=== PATIENT | female | born 1960 | race Caucasian/White ===

== ENCOUNTER 2019-11-22 06:35 | Outpatient (CLI) | payer BC, SELFPAY ==
--- NOTE | ~2019-11-22 | MR_ITS ---
EXAMINATION: MR cervical spine wo con EXAM DATE: 11/22/2019 07:49 INDICATION: Cervical radiculopathy. TECHNIQUE: Multi-sequential, multiplanar MR images of the cervical spine were obtained without contra st. Axial T2, axial T2 MERGE sequence. Sagittal T1, T2, T2 fat saturation images also obtained. Com parison is made to prior examination from 02/04/2007. FINDINGS: There is mild to moderate disc disease from C3 through C6. There is mild reversal of the n ormal cervical lordosis which may be positional or spasm. There are no suspicious marrow signal abno rmalities. The spinal cord signal intensity and intrinsic morphology is normal. The vertebral bodies are aligned in the AP dimension. Paraspinal soft tissue is unremarkable. Level by level evaluation: C2-C3: Disc does not extend beyond the endplate margin. Uncovertebral joint arthropathy: None. Facet joint arthropathy: Mild. Neural foraminal stenosis: No stenosis. Central canal stenosis: No stenosis. C3-C4: There is a minimal diffuse disc bulge. Uncovertebral joint arthropathy: Moderate right, mild left. Facet joint arthropathy: Mild. Neural foraminal stenosis: Mild right. Central canal stenosis: No stenosis. C4-C5: There is a minimal diffuse disc bulge. Uncovertebral joint arthropathy: Moderate right, mild left. Facet joint arthropathy: Mild bilateral. Neural foraminal stenosis: Mild right. Central canal stenosis: Minimal. C5-C6: There is a mild diffuse disc bulge. Uncovertebral joint arthropathy: Moderate bilateral. Facet joint arthropathy: Mild bilateral. Neural foraminal stenosis: Mild to moderate bilateral. Central canal stenosis: Minimal. C6-C7: Disc does not extend beyond the endplate margin. Uncovertebral joint arthropathy: Mild bilateral. Facet joint arthropathy: Mild bilateral. Neural foraminal stenosis: No stenosis. Central canal stenosis: No stenosis. C7-T1: Disc does not extend beyond the endplate margin. Uncovertebral joint arthropathy: None. Facet joint arthropathy: Mild bilateral. Neural foraminal stenosis: No stenosis. Central canal stenosis: No stenosis. Compared to 2006, there has been some interval progression in spondylosis. IMPRESSION: 1. Mild to moderate midcervical spondylosis. Reviewed, dictated and finalized at location A.
== END 2019-11-22 06:36 | disposition home or self-care (01) ==
LOC: ANHIMG 06:44
PROVIDERS: PCP Family Medicine; Visit Provider Psychiatry & Neurology Neurology
DX: M47.22 Other spondylosis with radiculopathy, cervical region (principal)
CPT/HCPCS: 72141

== ENCOUNTER 2019-11-28 08:10 | Outpatient (CLI) | payer BC, SELFPAY ==
--- NOTE | ~2019-11-28 | MM_ITS ---
EXAMINATION: MM screening kalpesh BI w hortensia HISTORY: Screening TECHNIQUE: Craniocaudal and mediolateral oblique 3-D tomosynthesis images were obtained and synthetic 2-D images were generated. CAD analysis was submitted and interpreted. COMPARISON: Comparison to multiple prior studies sequentially, with oldest reviewed study dated 06/2016. BREAST PARENCHYMAL COMPOSITION: There are scattered areas of fibroglandular density. FINDINGS: There is no evidence of suspicious mass, calcification, or architectural distortion to sugg est malignancy in either breast. There has been no suspicious interval change. IMPRESSION: 1. No mammographic evidence of malignancy. 2. Recommend routine screening mammography in one year. BI-RADS Category 1: Negative Reviewed, dictated and finalized at location A.
== END 2019-11-28 08:11 | disposition home or self-care (01) ==
LOC: ANHIMG 08:12
PROVIDERS: PCP Family Medicine; Visit Provider Family Medicine
DX: Z12.31 Encounter for screening mammogram for malignant neoplasm of breast (principal)
CPT/HCPCS: 77063; 77067

== ENCOUNTER 2020-01-07 01:01 | Outpatient (CLI) | payer BC, SELFPAY ==
[2020-01-07 18:37] LABS: SARS-CoV-2 RNA PCR Negative
== END 2020-01-07 01:02 | disposition home or self-care (01) ==
LOC: ANHCOVIDDT 01:01
PROVIDERS: PCP Family Medicine; Visit Provider Internal Medicine Gastroenterology
DX: Z01.812 Encounter for preprocedural laboratory examination (principal); Z20.828 Contact with and (suspected) exposure to other viral communicable diseases
CPT/HCPCS: 87635; C9803; U0003

== ENCOUNTER 2020-01-10 01:12 | Day surgery (SDC) | payer BC, SELFPAY ==
[2020-01-03 08:57] VITALS: BMI 26.4
[2020-01-10 09:18] VITALS: BP 137/71; PULSE 65; RESP 18; TEMP 36.1; O2SAT 100; BMI 27.9
--- NOTE | 2020-01-10 09:42 | WPDANESEPPF ---
Anes - Initial Pre Proc Eval Procedure: Operation Date: 01/10/20 10:45 Proposed Procedures p Esophagogastroduodenoscopy&Screen Colon - Wilmer Hernandez MD Date/Time: 01/10/20 09:42 Surgeon: Wilmer Hernandez MD Pre Op Diagnosis: Dyshphagia, Neoplasm Screening Patient Data Age: 60 Gender: F Height: 5 ft 4 in Weight: 73.9 kg Last Vital Signs Temp 97 F L 01/10/20 09:18 Pulse 65 01/10/20 09:18 Resp 18 01/10/20 09:18 BP 137/71 01/10/20 09:18 Pulse Ox 100 01/10/20 09:18 Allergies Allergy/AdvReac Type Severity Reaction Status Date / Time codeine Allergy Unknown Rash Verified 01/10/20 09:15 Penicillins Allergy Unknown Anaphylaxis Verified 01/10/20 09:15 Sulfa (Sulfonamide Allergy Unknown Anaphylaxis Verified 01/10/20 09:15 Antibiotics) Home Medications Medication Instructions Recorded Confirmed Type aspirin 325 mg tablet 325 mg PO DAILY 11/01/19 01/10/20 History azathioprine 50 mg tablet 100 mg PO BID tablet 11/01/19 01/10/20 History calcium carbonate 600 mg calcium 600 mg PO DAILY 11/01/19 01/10/20 History (1,500 mg) tablet cholecalciferol (vitamin D3) 25 25 mcg PO DAILY 11/01/19 01/10/20 History mcg (1,000 unit) capsule gabapentin 300 mg capsule 300 mg PO TID 11/01/19 01/10/20 History hydroxychloroquine 200 mg tablet 200 mg PO BID 11/01/19 01/10/20 History krill oil 350 mg-om-3 90 mg-dha 24 1 cap PO DAILY 11/01/19 01/10/20 History mg-epa 50 mg-phospholipids capsule lisinopril 10 mg tablet 10 mg PO DAILY 11/01/19 01/10/20 History mecobalamin (vitamin B12) 1,000 1,000 mcg PO DAILY 11/01/19 01/10/20 History mcg chewable tablet multivitamin 1 tablet PO DAILY 11/01/19 01/10/20 History nitroglycerin 0.4 mg sublingual 0.4 mg SUBLINGUAL Q5M PRN 11/01/19 01/10/20 History tablet trazodone 50 mg tablet 50 mg PO .QHS tablet 11/01/19 01/10/20 History atorvastatin 20 mg tablet 20 mg PO DAILY #90 tablet 11/17/19 01/10/20 Rx hydroxyzine HCl 25 mg tablet 25 mg PO TID PRN #30 tablet 11/17/19 01/10/20 Rx duloxetine 30 mg capsule,delayed 60 mg PO DAILY #60 cap 12/15/19 01/10/20 Rx release sprinkle peg 3350-electrolytes 236 240 ml PO Q10M #4000 ml 12/16/19 01/10/20 Rx gram-22.74 gram-6.74 gram-5.86 gram solution bisacodyl [Dulcolax (bisacodyl)] 5 mg PO DAILY 01/03/20 01/10/20 History melatonin 5 mg PO HS PRN 01/03/20 01/10/20 History Patient hx anesthesia problems: none Family hx anesthesia problems: none PMFSH Past Medical History Medical History (Updated 12/12/19 @ 09:59 by Wilmer Hernandez MD) Benign essential HTN Chronic pain Colon polyp Constipation Elevated liver enzymes Lupus (systemic lupus erythematosus) MDD (major depressive disorder) Seropositive rheumatoid arthritis Family History Family History (Updated 06/11/16 @ 11:30 by DOCTOR UNKNOWN) Mother Hypertension Family history of diabetes mellitus in first degree relative Other Diabetes mellitus Family history of cardiovascular disease Family history of malignant neoplasm Social History Social History (Updated 11/17/19 @ 10:48 by Sophie Lau) Smoking status: Never smoker Second hand tobacco smoke exposure: No Alcohol intake: never Substance use: never Substance use type: does not use Living arrangements: with family Gender identity (if verbalized by the patient): Female Spiritual care concerns: No Anes - Eval Final PreProcedure Day of Procedure 01/10/20 09:42 Patient weight: overweight Heart: regular rate and rhythm Lungs: clear to auscultation Airway: Mallampati scale class III Neurological: alert and oriented Last oral intake: >/= 8 hours ASA classification: III Emergent: no Anesthetic plan: proceed Anesthesia type and monitoring: general GIVS and standard monitoring Informed Consent: The patient's anesthetic plan and its attendant risks and benefits were discussed with the patient/family/POA. Questions were solicited and
--- NOTE | 2020-01-10 09:53 | WPDHPUPDATE1 ---
History and Physical Update Update Date/Time: 01/10/20 09:53 History and Physical has been reviewed, including an updated exam of the patient. There are NO changes in the patient's condition. Risks, benefits, and alternatives have been discussed and questions answered. Patient agrees to proceed with procedure.
[2020-01-10] MEDS: LACTATED RINGERS 1,000 ML 150 ML IV CONT (09:58)
[2020-01-10 10:33] VITALS: BP 97/47; PULSE 65; RESP 18; O2SAT 100
[2020-01-10 10:43] VITALS: BP 115/66; PULSE 60; RESP 12; O2SAT 100
[2020-01-10 10:53] VITALS: BP 129/66; PULSE 62; RESP 14; O2SAT 100
== END 2020-01-10 11:23 | disposition home or self-care (01) ==
PROVIDERS: PCP Family Medicine; Visit Provider Internal Medicine Gastroenterology
PROC: 0DJ08ZZ Inspection of Upper Intestinal Tract, Via Natural or Artificial Opening Endoscopic (ICD-10-PCS; CPT 43235; principal; 2020-01-10 10:45)
DX: Z12.11 Encounter for screening for malignant neoplasm of colon (principal); D12.2 Benign neoplasm of ascending colon; K29.50 Unspecified chronic gastritis without bleeding; K21.0 Gastro-esophageal reflux disease with esophagitis; K25.9 Gastric ulcer, unspecified as acute or chronic, without hemorrhage or perforation; K57.30 Diverticulosis of large intestine without perforation or abscess without bleeding; K44.9 Diaphragmatic hernia without obstruction or gangrene; K64.8 Other hemorrhoids; K59.00 Constipation, unspecified; M32.9 Systemic lupus erythematosus, unspecified; I10 Essential (primary) hypertension; M06.9 Rheumatoid arthritis, unspecified; M47.812 Spondylosis without myelopathy or radiculopathy, cervical region; R26.89 Other abnormalities of gait and mobility; G89.29 Other chronic pain; F32.9 Major depressive disorder, single episode, unspecified; Z88.0 Allergy status to penicillin; Z88.2 Allergy status to sulfonamides
CPT/HCPCS: 45385; 43239; 87081; 88305; J2704; J7120

== ENCOUNTER 2020-03-29 11:43 | Outpatient (CLI) | payer BC, SELFPAY ==
--- NOTE | ~2020-03-29 | XR_ITS ---
EXAMINATION: XR chest 2V DATE: 03/29/2020 12:01 INDICATION: Shortness of breath. TECHNIQUE: Frontal and lateral views of the chest were obtained. COMPARISON: Chest one view 06/01/2016 FINDINGS: There is mild scarring at the lung apices. No pleural effusion or pneumothorax. The heart s ize is normal. IMPRESSION: 1. Stable mild scarring at the lung apices. Reviewed, dictated and finalized at location B. D CARE COOK
== END 2020-03-29 11:44 | disposition home or self-care (01) ==
LOC: ANHIMG 11:48
PROVIDERS: PCP Family Medicine; Visit Provider Physician Assistant
DX: R06.02 Shortness of breath (principal); R91.8 Other nonspecific abnormal finding of lung field
CPT/HCPCS: 71046

== ENCOUNTER 2020-05-15 13:58 | Outpatient (CLI) | payer BC, SELFPAY ==
--- NOTE | ~2020-05-15 | US_ITS ---
EXAMINATION: US art doppler w deborah SERVIN DATE: 05/15/2020 14:41 INDICATION: Peripheral vascular disease with bilateral cold toes. TECHNIQUE: Segmental pressures and plethysmographic and Doppler waveforms of the brachial and lower e xtremity arteries were obtained. COMPARISON: None. FINDINGS: Right and left brachial artery pressures of 144 mm Hg and 140 mm Hg, respectively, are concordant (no rmal difference <= 30 mmHg). The right and left high-thigh pressure indices are 1.16 and 1.19, respec tively (normal > 1.2). The right ankle-brachial index (DUY) is 1.08 (normal >= 0.9-1). The right lower extremity segmental p ressure gradients are increased between the arteries at the right ankle and the right uxyat-fnh-hahs popliteal artery (normal gradients <= 20-30 mmHg between adjacent levels on the same leg or the same levels on the two legs). Arterial waveforms are biphasic with brisk systolic upstrokes throughout the arteries of the right lower limb. The left DUY is 0.97. The left lower extremity segmental pressure gradients are increased between the arteries at the left ankle and the left below the knee popliteal artery. Arterial waveforms are biph asic with brisk systolic upstrokes throughout the arteries of the left lower limb. IMPRESSION: 1. Normal DUY's bilaterally. No significant arterial occlusive disease. Reviewed, dictated and finalized at location B. RIBUTION CENTER MANAGER
== END 2020-05-15 13:59 | disposition home or self-care (01) ==
LOC: ANHIMG 13:59
PROVIDERS: Family Provider Family Medicine; PCP Family Medicine; Visit Provider Psychiatry & Neurology Neurology
DX: I73.9 Peripheral vascular disease, unspecified (principal)
CPT/HCPCS: 93923

== ENCOUNTER 2020-06-21 08:56 | Outpatient (CLI) | payer SELFPAY | END 2020-06-21 08:57 | disposition home or self-care (01) | LOC: ANHCOVIDVC 08:56 | PROVIDERS: PCP Family Medicine | DX: Z23 Encounter for immunization (principal) | CPT/HCPCS: 0001A; 91300 ==

== ENCOUNTER 2020-07-12 08:56 | Outpatient (CLI) | payer OTHER, SELFPAY | END 2020-07-12 08:57 | disposition home or self-care (01) | LOC: ANHCOVIDVC 08:56 | PROVIDERS: PCP Family Medicine | DX: Z23 Encounter for immunization (principal) | CPT/HCPCS: 0002A; 91300 ==

== ENCOUNTER → 2020-09-10 15:24 | Outpatient (CLI) | payer BC, SELFPAY ==
--- NOTE | ~2020-09-10 | XR_ITS ---
XR ankle RT min 3V 09/10/2020 15:40 Indication: Right ankle pain Procedure: 4 views right ankle Comparison: 05/31/2016 Findings: There is a healed distal tibial fracture. There is a corticated ossific density at the medi al malleolus, likely related to remote trauma or unfused apophysis. No acute fracture or traumatic ma lalignment. Ankle mortise intact. No significant soft tissue abnormality. No foreign bodies. Impression: 1: No acute bone or joint abnormality. Reviewed, dictated and finalized at location A. Impression: 1: No acute bone or joint abnormality.
== END ==
PROVIDERS: Visit Provider Family Medicine
DX: S99.911A Unspecified injury of right ankle, initial encounter (principal)
CPT/HCPCS: 73610

== ENCOUNTER 2020-12-17 15:20 | Outpatient (CLI) | payer OTHER, SELFPAY ==
[2020-12-17 15:41] LABS: Basophils Absolute Auto 0.1 K/mm3 (0.0-0.1); Basophils Percent Auto 0.6 % (0.2-1.2); Eosinophils Absolute Auto 0.4 K/mm3 (0-0.3); Eosinophils Percent Auto 4.2 % (0-4.4); Hematocrit 42.5 % (37.0-47.0); Hemoglobin 14.3 g/dL (12.0-15.0); Immature Granulocyte Absolute 0.03 K/mm3 (0.00-0.031); Immature Granulocyte Percent A 0.3 % (0-0.5); Lymphocytes Absolute Auto 0.98 K/mm3 (0.9-3.2); Lymphocytes Percent Auto 10.8 % (18.3-44.2); Mean Corpuscular HGB Conc 33.6 g/dl (32-36); Mean Corpuscular Hemoglobin 29.1 pg (26-34); Mean Corpuscular Volume 86.6 fl (80-100); Mean Platelet Volume 12.1 fl (7.4-10.4); Monocytes Absolute Auto 0.7 K/mm3 (0.1-0.6); Monocytes Percent Auto 8.1 % (2.6-8.5); Neutrophils Absolute Auto 6.9 K/mm3 (1.3-6.7); Platelet Count Result 258 k/mm3 (150-375); Red Blood Count 4.91 M/mm3 (4.2-5.4); Red Cell Distribution Width 12.1 % (11.5-14.5); White Blood Count 9.1 K/mm3 (4.5-10.0)
[2020-12-17 15:51] LABS: Alanine Aminotransferase 22 U/L (4-35); Albumin Level 4.4 g/dL (3.5-5.1); Alkaline Phosphatase 161 U/L (38-126); Anion Gap 9 mmol/L (8-16); Aspartate Amino Transferase 34 U/L (14-36); Bilirubin,Total 0.6 mg/dL (0.2-1.3); Blood Urea Nitrogen 20 mg/dL (7-17); Calcium 9.1 mg/dL (8.4-10.2); Carbon Dioxide 31 mmol/L (22-30); Chloride 97 mmol/L (98-107); Estimated Glomerular Filt Rate > 60; Glucose 97 mg/dL (65-110); Potassium 3.1 mmol/L (3.4-5.0); Sodium 137 mmol/L (137-145)
[2020-12-17 16:39] LABS: Erythrocyte Sedimentation Rate 40 mm/hr (0-20)
== END 2020-12-17 15:21 | disposition home or self-care (01) ==
PROVIDERS: PCP Family Medicine; Visit Provider Physician Assistant
DX: R10.11 Right upper quadrant pain (principal); R68.83 Chills (without fever)
CPT/HCPCS: 36415; 80053; 85025; 85652

== ENCOUNTER 2020-12-18 12:38 | Outpatient (CLI) | payer BC, OTHER, SELFPAY ==
--- NOTE | ~2020-12-18 | US_ITS ---
EXAMINATION: US abdomen complete EXAM DATE: 12/18/2020 13:18 INDICATION: R10.11 - Right upper quadrant pain. TECHNIQUE: Multiple grayscale and Doppler images of the complete abdomen were obtained (by a technolo gist who performed the scan) and subsequently reviewed. Comparison is made to prior examination from 06/02/2016. FINDINGS: The abdominal aorta is normal in caliber. Visualized portion IVC is patent. The pancreatic head a nd body are normal in appearance. The pancreatic tail is not visualized. The liver has normal echogenicity and contour. There are no focal liver lesions identified. There is no evidence of intrahepatic biliary duct dilation. Portal venous flow was seen in the hepatopedal , normal direction and has normal Doppler waveform. Common bile duct measures 3 mm, which is normal. The gallbladder wall is normal in thickness, with ex pected amount of distention. No sonographic evidence of pericholecystic fluid. There is no cholelit hiases. Technologist performing exam reports patient did not demonstrate sonographic Pulido's sign. Please note that this sign is less reliable in patients who have received pain medication. Right kidney: There is normal contour and echogenicity. It measures 10.2 x 4.6 x 4.8 centimeters. There are no focal renal lesions identified. There is no hydronephrosis. Left kidney: There is normal contour and echogenicity. It measures 10.5 x 4.4 x 5.2 centimeters. T here are no focal renal lesions identified. There is no hydronephrosis. The spleen measures 10 centimeters and is morphologically normal. IMPRESSION: 1. Unremarkable complete abdominal ultrasound exam. Reviewed, dictated and finalized at location B.
== END 2020-12-18 12:39 | disposition home or self-care (01) ==
PROVIDERS: PCP Family Medicine; Visit Provider Physician Assistant
DX: R10.11 Right upper quadrant pain (principal); R68.83 Chills (without fever)
CPT/HCPCS: 76700

== ENCOUNTER 2021-01-09 15:09 | Outpatient (CLI) | payer OTHER, BC, SELFPAY ==
--- NOTE | ~2021-01-09 | XR_ITS ---
EXAMINATION: XR chest 2V EXAM DATE: 01/09/2021 15:36 INDICATION: R05 - Cough X 2 WKS, Midsternal Cp, Hx Htn . TECHNIQUE: Frontal and lateral projections of the chest obtained and reviewed. Comparison is made to prior examination from 03/29/2020. FINDINGS: The lungs are clear. There are no pleural effusions. The cardiomediastinal silhouette is within normal limits. There is no pneumothorax suspected. Surgical changes right acromioclavicular joint. IMPRESSION: Unremarkable chest x-ray exam. Reviewed, dictated and finalized at location B.
== END 2021-01-09 15:10 | disposition home or self-care (01) ==
LOC: ANHIMG 15:15
PROVIDERS: PCP Family Medicine; Visit Provider Physician Assistant
DX: R05 Cough (principal)
CPT/HCPCS: 71046

== ENCOUNTER 2021-01-14 07:55 | Outpatient (CLI) | payer OTHER, SELFPAY ==
--- NOTE | ~2021-01-14 | NM_ITS ---
EXAMINATION: NM hepatobiliary wo pharm DATE: 01/14/2021 11:51 INDICATION: Right upper quadrant abdominal pain COMPARISON: None. TECHNIQUE: 4.8 mCi Tc-99m mebrofenin (Choletec) was administered intravenously. Scintigraphic images of the abdomen were obtained for one hour and 15 minutes. At the 1 hour and 15 minute time point, th e patient drank 8 oz Ensure, and imaging was continued for 60 minutes. Gallbladder ejection fraction was calculated by the technologist. FINDINGS: There is normal clearance of radiotracer from the blood pool. There is homogeneous tracer u ptake by the liver. Activity progresses to the bowel and gallbladder. The gallbladder ejection fract ion (GBEF) is 95%. Note that with this technique, normal GBEF >= 33%. IMPRESSION: 1. Normal hepatobiliary scan Reviewed, dictated and finalized at location A.
== END 2021-01-14 07:56 | disposition home or self-care (01) ==
PROVIDERS: PCP Family Medicine; Visit Provider Physician Assistant
DX: R10.11 Right upper quadrant pain (principal)
CPT/HCPCS: 78226; A9537

== ENCOUNTER 2021-02-01 10:29 | Outpatient (CLI) | payer OTHER, SELFPAY ==
[2021-02-01 10:55] LABS: Basophils Percent Auto 0.3 % (0.2-1.2); Eosinophils Absolute Auto 0.3 K/mm3 (0-0.3); Eosinophils Percent Auto 3.8 % (0-4.4); Hematocrit 38.3 % (37.0-47.0); Hemoglobin 12.8 g/dL (12.0-15.0); Immature Granulocyte Absolute 0.04 K/mm3 (0.00-0.031); Immature Granulocyte Percent A 0.5 % (0-0.5); Lymphocytes Absolute Auto 0.57 K/mm3 (0.9-3.2); Lymphocytes Percent Auto 7.8 % (18.3-44.2); Mean Corpuscular HGB Conc 33.4 g/dl (32-36); Mean Corpuscular Hemoglobin 29.5 pg (26-34); Mean Corpuscular Volume 88.2 fl (80-100); Mean Platelet Volume 10.5 fl (7.4-10.4); Monocytes Absolute Auto 0.5 K/mm3 (0.1-0.6); Monocytes Percent Auto 6.6 % (2.6-8.5); Neutrophils Absolute Auto 5.9 K/mm3 (1.3-6.7); Platelet Count Result 168 k/mm3 (150-375); Red Blood Count 4.34 M/mm3 (4.2-5.4); Red Cell Distribution Width 15.1 % (11.5-14.5); White Blood Count 7.3 K/mm3 (4.5-10.0)
== END 2021-02-01 10:30 | disposition home or self-care (01) ==
PROVIDERS: PCP Family Medicine; Visit Provider Physician Assistant
DX: D72.829 Elevated white blood cell count, unspecified (principal); D72.810 Lymphocytopenia
CPT/HCPCS: 36415; 85025

== ENCOUNTER 2021-02-28 15:56 | Outpatient (CLI) | payer OTHER, SELFPAY ==
--- NOTE | ~2021-02-28 | XR_ITS ---
XR shoulder LT min 2V 02/28/2021 16:23 Indication: Left shoulder pain Procedure: 5 views left shoulder Comparison: No prior studies for comparison. Findings: No fracture, subluxation or dislocation. No significant soft tissue abnormality. No foreign bodies. There is anatomic alignment. Visualized lung parenchyma is unremarkable. Impression: 1: No significant bone or joint abnormality. Reviewed, dictated and finalized at location A. CREAM SERVER Impression: 1: No significant bone or joint abnormality.
== END 2021-02-28 15:57 | disposition home or self-care (01) ==
LOC: ANHIMG 16:01
PROVIDERS: PCP Family Medicine; Visit Provider Family Medicine
DX: M79.89 Other specified soft tissue disorders (principal)
CPT/HCPCS: 73030

== ENCOUNTER → 2021-03-26 07:28 | Outpatient (CLI) | payer OTHER, SELFPAY ==
--- NOTE | ~2021-03-26 | MR_ITS ---
EXAMINATION: MR shoulder LT wo con DATE: 03/26/2021 08:07 INDICATION: Left shoulder pain and limited range of motion. TECHNIQUE: Magnetic resonance imaging (MRI) of the affected shoulder was performed without intravenou s contrast. Sequences included axial PD-weighted FS FSE, coronal oblique PD-weighted FS FSE, coronal oblique T2-weighted FS FSE, sagittal PD-weighted FS FSE, and sagittal T1-weighted SE. COMPARISON: None. FINDINGS: Coracoacromial arch: The acromion undersurface is minimally curved in morphology (type I-II) with small inferiorly directe d osteophyte along the lateral rim of the acromion. The coracoacromial ligament is normal. Mild acrom ioclavicular osteoarthritis without significant osteophytosis. Rotator cuff: Moderate supraspinatus and infraspinatus tendinopathy. There is a deep articular sided tear involving the majority of the thickness of the anterior supraspinatus tendon along its superior facet footplat e which measures 7 mm AP. Could not exclude an associated tiny full-thickness perforation. The teres minor tendon is normal. Mild subscapularis tendinopathy without discrete tear. Normal rotator cuff mu scle bulk and signal. Biceps tendon, glenoid labrum and glenohumeral cartilage: Long head of the biceps tendon is normal. There is a superior, anterior to posterior tear of the silva oid labrum (SLAP tear) 16 from the 12:00-10:00 position. Partial-thickness cartilage loss with smooth chondral surface along the posterior glenoid. Fluid: Physiologic amount of fluid in the glenohumeral joint and biceps tendon sheath. No loose osteochondra l bodies. Large amount of fluid and mild synovitis in the subacromial/subdeltoid bursa consistent wit h bursitis. Within the subacromial bursa there is a globular region of relatively low signal intensit y measuring 2 cm medial to lateral and 11 x 6 mm maximal orthogonal dimensions situated between the c oracoacromial ligament and the bursal side of the supraspinatus tendon. It is unclear whether this re presents a reflected torn portion of the supraspinatus tendon, globular synovitis or potentially smal l amount of clot. Bones: Small bone island at the left humeral neck. Otherwise normal marrow signal with no edema, fracture or abnormal marrow replacing process. IMPRESSION: 1. Moderate supraspinatus and infraspinatus tendinopathy with small, severe, full or near full-thickn ess bursal sided tear at the distal insertion of the supraspinatus tendon. 2. Mild glenohumeral osteoarthritis with SLAP tear at the 10:00-12:00 position of the posterior super ior glenoid labrum. 3. Prominent subacromial/subdeltoid bursitis. Reviewed, dictated and finalized at location B. CTOR OF MANAGED CARE IMPRESSION: 1. Moderate supraspinatus and infraspinatus tendinopathy with small, severe, fu ll or near full-thickness bursal sided tear at the distal insertion of the supr aspinatus tendon. 2. Mild glenohumeral osteoarthritis with SLAP tear at the 10:00-12:00 position of the posterior superior glenoid labrum. 3. Prominent subacromial/subdeltoid bursitis.
== END ==
PROVIDERS: PCP Family Medicine; Visit Provider Nurse Practitioner Family
DX: M19.012 Primary osteoarthritis, left shoulder (principal); M75.52 Bursitis of left shoulder
CPT/HCPCS: 73221

== ENCOUNTER 2021-05-28 08:57 | Outpatient (CLI) | payer OTHER, SELFPAY ==
--- NOTE | 2021-05-28 09:05 | ECG_ITS ---
Measurements Intervals [place] Rate: 75 P: 12 IA: 171 QRS: 25 QRSD: 80 T: 41 QT: 390 QTc: 437 Interpretive Statements SINUS RHYTHM INCOMPLETE RIGHT BUNDLE BRANCH BLOCK POOR R WAVE PROGRESSION, ANTERIOR LEADS T WAVE ABNORMALITY IN ANTERIOR LEADS- CONSIDER ISCHEMIA BASELINE ARTIFACT- I, II, III, AVR, AVL, AVF ABNORMAL ECG Electronically Signed On 05-28-2021 9:17:54 DISPLAY DEPARTMENT MANAGER by Patrice Monzon D.O.
== END 2021-05-28 08:58 | disposition home or self-care (01) ==
LOC: ANHSURGERY 09:02
PROVIDERS: PCP Family Medicine; Visit Provider Orthopaedic Surgery
DX: I10 Essential (primary) hypertension (principal); Z01.818 Encounter for other preprocedural examination; I45.10 Unspecified right bundle-branch block
CPT/HCPCS: 93005

== ENCOUNTER 2021-05-30 00:08 | Day surgery (SDC) | payer OTHER, SELFPAY ==
[2021-05-23 10:26] VITALS: BMI 29.2
--- NOTE | 2021-05-23 10:45 | PC.NURSE ---
Report to the Outpatient Waiting Room, entrance under the green pavilion located off [facility], at time 6:30 on date 05/30/21. OR Time: 8:30. - You will be asked a series of questions to screen for COVID 19 for your protection. - A mask is required within the hospital. - No visitors are allowed at this time. Preoperative COVID Testing Requirements: No COVID Test needed if: (proof is required; if not received patient will have Rapid Test prior to entry) - Patient has received COVID Vaccine at least 14 days prior to procedure date or - Patient has positive COVID test result within last 90 days of surgery date. COVID Test needed if above criteria is not met Patients may have clear liquids (water, carbonated beverages, clear teas, apple juice) until 3 hours prior to surgery (5:30) with a maximum of 20 ounces. - No food from midnight until time of surgery Take the following medications with a SIP of water the morning of surgery: ALBUTEROL (IF NEEDED), DULOXETINE, GABAPENTIN, LEFLUNOMIDE, TRAMADOL (IF NEEDED) Medications to discontinue per physician: VITAMINS/SUPPLEMENTS Date to take last dose: 05/26/21 Please no make-up, nail uruguayan, hairspray, perfume, deodorant, or body powder the day of surgery. No jewelry (including any body piercings) or valuables the day of surgery, leave them at home. Please take a shower or bath the night before, or the morning of, surgery with an antibacterial soap. Wear comfortable, loose fitting clothing. - Jewelry must be removed prior to entering the operating room. Rings and piercings that are not removed may be cut off. - The hospital will not accept responsibility for valuables. - Please leave all valuables, including medications, at home the day of surgery. If you are going home after surgery, a licensed interstate bus driver must drive you home. - NO public transportation without another adult. - We recommend that an adult stay with you for 24 hours following discharge. - We also recommend that you do not drive, make important decision, drink alcoholic beverages, or take any drugs that were not prescribed by your health care provider for at least 24 hours after your discharge time. Follow any additional instructions given to you from your surgeon. Telephone instructions given to MELVI HUNTER and asked if any additional questions and then verbalized understanding. Patient advised to call surgeon office or pre surgery nurse liaison [phone] if any additional questions.
[2021-05-30] VITALS (9 sets, daily range): BP systolic 135–181; BP diastolic 73–90; PULSE 76–94; RESP 14–16; TEMP 36.5–36.6; O2SAT 93–98
--- NOTE | 2021-05-30 07:03 | WPDANESEPPF ---
Anes - Initial Pre Proc Eval Procedure: Operation Date: 05/30/21 08:30 Proposed Procedures p Left Shoulder Arthroscopy with Debridement, Rotator Cuff and Biceps Repair, Possible Open Repair - Madhu Tran MD Date/Time: 05/30/21 07:03 Surgeon: Madhu Tran MD Pre Op Diagnosis: Lt Rot Cuff Tear, Lt Shoulder Pain Patient Data Age: 61 Gender: F Height: 1.63 m Weight: 77.11 kg Allergies Allergy/AdvReac Type Severity Reaction Status Date / Time Penicillins Allergy Severe Anaphylaxis Verified 05/30/21 07:06 Sulfa (Sulfonamide Allergy Severe Anaphylaxis Verified 05/30/21 07:06 Antibiotics) codeine Allergy Intermediate Rash Verified 05/30/21 07:06 Home Medications Medication Instructions Recorded Confirmed Type aspirin 325 mg tablet 325 mg PO DAILY 11/01/19 05/30/21 History calcium carbonate 600 mg calcium 600 mg PO DAILY 11/01/19 05/30/21 History (1,500 mg) tablet cholecalciferol (vitamin D3) 25 25 mcg PO DAILY 11/01/19 05/30/21 History mcg (1,000 unit) capsule krill oil 350 mg-om-3 90 mg-dha 24 1 cap PO DAILY 11/01/19 05/30/21 History mg-epa 50 mg-phospholipids capsule mecobalamin (vitamin B12) 1,000 1,000 mcg PO DAILY 11/01/19 05/30/21 History mcg chewable tablet multivitamin 1 tablet PO DAILY 11/01/19 05/30/21 History nitroglycerin 0.4 mg sublingual 0.4 mg SUBLINGUAL Q5M PRN 11/01/19 05/30/21 History tablet melatonin 5 mg PO HS PRN 01/03/20 05/30/21 History rizatriptan 10 mg tablet 10 mg PO .qd PRN #14 tablet 05/24/20 05/30/21 Rx hydroxychloroquine 200 mg tablet 200 mg PO BID 12/17/20 05/30/21 History leflunomide 20 mg tablet 20 mg PO DAILY 12/17/20 05/30/21 History albuterol sulfate 90 mcg/actuation 1 inh INHALATION Q4H PRN #8.5 g 01/09/21 05/30/21 Rx aerosol inhaler Zyrtec 10 mg tablet 10 mg PO DAILY #90 tablet NS 01/10/21 05/30/21 Rx atorvastatin 20 mg tablet See Rx Instructions .ROUTE 03/16/21 05/30/21 Rx .COMPLEX #90 tablet losartan 50 mg tablet 50 mg PO DAILY #90 tablet 03/19/21 05/30/21 Rx duloxetine 30 mg capsule,delayed 60 mg PO DAILY #60 cap 04/22/21 05/30/21 Rx release sprinkle gabapentin 300 mg capsule 300 mg PO TID #90 cap 04/22/21 05/30/21 Rx diclofenac sodium 25 mg PO BID PRN 05/23/21 05/30/21 History omeprazole 20 mg PO BID PRN 05/23/21 05/30/21 History quetiapine 25 mg tablet See Rx Instructions .ROUTE 05/27/21 05/30/21 Rx .COMPLEX #30 tablet tramadol 50 mg tablet 50 mg PO Q6H PRN #60 tablet 05/27/21 05/30/21 Rx Patient hx anesthesia problems: none Family hx anesthesia problems: none Results Review: All pre-operative results and documents have been reviewed as part of the pre-operative evaluation. [facility] Past Medical History Medical History (Updated 05/30/21 @ 07:07 by Johan Yun, ) KRISTINA-inhibitor cough Acute bronchitis Benign essential HTN Aris-tachy syndrome Chronic pain Colon polyp Constipation Cough Elevated liver enzymes History of heart attack Insomnia due to medical condition Labral tear of long head of left biceps tendon Left shoulder pain Lupus (systemic lupus erythematosus) MDD (major depressive disorder) MDD (major depressive disorder), recurrent episode, moderate Raynaud phenomenon Restless leg syndrome Rheumatoid arthritis Rotator cuff tear RUQ abdominal pain Seizure Seropositive rheumatoid arthritis Shoulder swelling Subacromial impingement of left shoulder Family History Family History Mother Hypertension Family history of diabetes mellitus in first degree relative Other Diabetes mellitus Family history of cardiovascular disease Family history of malignant neoplasm Social History Social History Social History: Second hand tobacco smoke exposure: No Alcohol intake: never Substance use: never Substance use type: does not use Living arrangements: with family Additiona
--- NOTE | 2021-05-30 07:14 | WPDANESPNB ---
Anes - Peripheral Nerve Block Date/Time: 05/30/21 07:14 I have discussed with the patient/family/POA the placement of a peripheral nerve block for post-operative pain management, including associated risks, benefits, complications, and side effects. Alternative methods of post-operative analgesia were detailed. Questions were solicited and answers provided to the satisfaction of the patient/family/POA. Time-Out: A pre-procedural Time-Out was completed immediately before starting the procedure and confirmed: Patient Identification, Site, Procedure, Patient Position and the Availability of Requisite Equipment. Clinical Indications: Acute post-operative pain management requested by the operative surgeon. Nerve Block Insertion Note Anes-nerve block: interscalene left Patient position: supine Skin prep: chlorhexidine Needle: 22 gauge, stimulating, insulated echogenic needle. Needle length: 50 mm Technique: ultrasound Injectate: bupivacaine 0.5% with epi 5 mcg/ml (30cc- no epi) Observations: tolerated well Complications: none Procedure start time:: 756 Procedure end time:: 800
--- NOTE | 2021-05-30 07:14 | WPDHPUPDATE1 ---
History and Physical Update Update Date/Time: 05/30/21 07:14 History and Physical has been reviewed, including an updated exam of the patient. There are NO changes in the patient's condition. Risks, benefits, and alternatives have been discussed and questions answered. Patient agrees to proceed with procedure.
[2021-05-30] MEDS: ACETAMINOPHEN 500 MG TABLET 1000 MG PO (07:19)
[2021-05-30] MEDS: LACTATED RINGERS 1,000 ML 30 ML IV CONT ×2 (07:25→10:31)
[2021-05-30] MEDS: KETOROLAC 15 MG/ML VIAL (*BKC) IV PUSH (07:27)
[2021-05-30] MEDS: ceFAZolin 2 GM/D5W 50 ML 2 GM/50 ML BAG IVPB (08:32)
[2021-05-30] MEDS: BUPIVACAINE/EPINEPHRINE 0.5% 30 ML VIAL INFILTRATE (09:25)
--- NOTE | 2021-05-30 10:40 | W.PM.PROC2 ---
Procedure Note - Detailed Date of Procedure 05/30/21 Pre-op Diagnosis Lt Rot Cuff Tear, Lt Shoulder Pain Post-op Diagnosis other (Left shoulder impingement with subacromial spur, shoulder degeneration, biceps tendon and labrum tear.) Procedure Performed Left shoulder arthroscopy with debridement, acromioplasty, open biceps tenodesis. 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 MRI demonstrates degenerative changes as well as subacromial impingement tear of the biceps and labrum. Patient has failed conservative treatment including physical therapy, home exercises, activity modification and injection. Presents for operative treatment. Findings Intact articular surface rotator cuff. Degenerative change with split tear of the biceps tendon. Complete labral tear from the 11 to 2 o'clock position with hypertrophy. Large subacromial spur with subacromial bursitis and cyst. Description of Procedure Patient identified in the preoperative holding. Informed consent given. Operative extremity marked. Patient received intravenous antibiotics. Patient brought to the operating room where underwent general anesthetic by anesthesia team. Positioned beach chair with careful securing of the head and neck. Padding of the pressure and bony surfaces ensured. Time-out performed confirming the patient, site of the surgery and the plan. Left shoulder prepped and draped usual sterile surgical fashion using a ChloraPrep skin solution. Arthroscopy performed 1st. Spinal needle placed from the posterior position into the glenohumeral joint and saline injected. Eleven blade knife then used to make skin incision. Blunt penetration of the posterior capsule. Insertion of the camera and inflow from the posterior position. Shoulder was inspected in the above findings noted. The rotator cuff was noted to be intact. There was a tear of the labrum and the biceps. Grade 2 chondromalacia of the glenoid and grade 1 chondromalacia of the humeral head. Synovitis noted. Anterior portal established with a spinal needle followed by an 11 blade knife for the skin and blunt penetration of the anterior capsule. Arthroscopic Wand inserted and a debridement of the glenohumeral joint performed including the glenoid and humeral head. Articular sided rotator cuff bursitis. The biceps tendon was then released and debridement of the labrum performed back to a stable rim. Fluid was then suctioned out of the glenohumeral joint. Arthroscope was then position in the subacromial space. A direct lateral skin incision made with the 11 blade knife followed by blunt dissection. 4.0 mm shaver introduced and bursectomy of the subacromial space performed. Large undersurface spur of the acromion noted. The arthroscopic bur was then introduced and acromioplasty performed. This was completed with a shaver and the arthroscopic Wand. Scope then removed. Arthroscopic incisions closed with 3-0 Monocryl subcuticular stitch and Steri-Strips. Open biceps tenodesis then performed. Incision at the upper axilla with a 15 blade knife. Hemostasis controlled electrocautery. Dissection carried down to the pectoralis which was retracted proximally. This allowed visualization of the biceps tendon. The biceps tendon was brought out and a whipstitch was placed. Tenodesis then performed with a unicortical button placed at inferior portion of the biceps groove with correct tension of the biceps noted. Wound thoroughly irrigated and the subcutaneous tissue closed with 2-0 Vicryl interrupted suture. Skin approximately with 3-0 Monocryl running subcuticular stitch and Steri-Strips. Sterile dressing applied. The patient was then woken from anesthesia, extubated and taken to the recovery room in stable condition. All sponge, needle, instrument counts were correct at the end of the case. Implants Arthrex biceps tenodesis button Estimated Blo
--- NOTE | 2021-05-30 13:02 | SUR.PHASEII ---
PT HAS PERIPHERAL NEUROPATHY IN HER HANDS, COMPLAINS ONLY OF TINGLING IN HER HANDS. PT DC HOME WITH .
== END 2021-05-30 12:40 | disposition home or self-care (01) ==
PROVIDERS: PCP Family Medicine; Visit Provider Orthopaedic Surgery
PROC: (CPT 29805; principal; 2021-05-30 08:30)
DX: M75.102 Unspecified rotator cuff tear or rupture of left shoulder, not specified as traumatic (principal); S43.432A Superior glenoid labrum lesion of left shoulder, initial encounter; S46.212A Strain of muscle, fascia and tendon of other parts of biceps, left arm, initial encounter; S43.402A Unspecified sprain of left shoulder joint, initial encounter; S46.112A Strain of muscle, fascia and tendon of long head of biceps, left arm, initial encounter; M65.812 Other synovitis and tenosynovitis, left shoulder; M75.42 Impingement syndrome of left shoulder; M25.812 Other specified joint disorders, left shoulder; M75.52 Bursitis of left shoulder; M94.212 Chondromalacia, left shoulder; M19.012 Primary osteoarthritis, left shoulder; M25.512 Pain in left shoulder; M75.92 Shoulder lesion, unspecified, left shoulder; G89.18 Other acute postprocedural pain; I10 Essential (primary) hypertension; R74.01 Elevation of levels of liver transaminase levels; M32.9 Systemic lupus erythematosus, unspecified; F32.9 Major depressive disorder, single episode, unspecified; I73.00 Raynaud's syndrome without gangrene; G25.81 Restless legs syndrome; M05.9 Rheumatoid arthritis with rheumatoid factor, unspecified; Z79.82 Long term (current) use of aspirin; Z79.51 Long term (current) use of inhaled steroids
CPT/HCPCS: 29822; 23430; 64415; 93005; A4565; A9270; J0690; J1100; J1170; J1885; J2250; J2405; J2704; J2710; J3010; J7120

== ENCOUNTER 2021-08-20 08:25 | Outpatient (CLI) | payer OTHER, SELFPAY ==
--- NOTE | 2021-08-20 11:00 | NEURO_ITS ---
Impression: # Complains of increasing numbness of feet. # Distal neuropathy. # Left peroneal proximal response is polyphasic. # Needle/EMG exam mildly neurogenic. Nerve Conduction Studies Anti Sensory Summary Table Stim Site NR Peak (ms) P-T Amp (?V) Site1 Site2 Delta-P (ms) Dist (cm) Geovanni (m/s) Left Sup Fibular Anti Sensory (Ant Lat Mall) 14 cm 3.8 4.4 14 cm Ant Lat Mall 3.8 16.0 42 Right Sup Fibular Anti Sensory (Ant Lat Mall) 14 cm 3.2 13.9 14 cm Ant Lat Mall 3.2 16.0 50 Left Sural Anti Sensory (Lat Mall) Calf 3.8 19.7 Calf Lat Mall 3.8 16.0 42 Right Sural Anti Sensory (Lat Mall) Calf 4.0 24.7 Calf Lat Mall 4.0 16.0 40 Motor Summary Table Stim Site NR Onset (ms) O-P Amp (mV) Site1 Site2 Delta-0 (ms) Dist (cm) Geovanni (m/s) Left Peroneal Motor (Vastus Med) Ankle 6.3 1.4 Popit Ankle 8.5 38.0 45 Popit 14.8 0.8 Right Peroneal Motor (Vastus Med) Ankle 5.9 0.6 Popit Ankle 8.2 36.0 44 Popit 14.1 0.8 Left Tibial Motor (Abd Cardenas Brev) Ankle 5.5 3.9 Knee Ankle 8.6 39.0 45 Knee 14.1 3.2 Right Tibial Motor (Abd Cardenas Brev) Ankle 4.8 11.1 Knee Ankle 8.6 40.0 47 Knee 13.4 8.3 F Wave Studies NR F-Lat (ms) L-R F-Lat (ms) Left Peroneal (Mrkrs) (EDB) 54.49 0.02 Right Peroneal (Mrkrs) (EDB) 54.48 0.02 Left Tibial (Mrkrs) (Abd Hallucis) 54.26 1.13 Right Tibial (Mrkrs) (Abd Hallucis) 53.13 1.13 EMG Side Muscle Nerve Root Ins Act Fibs Amp Dur Recrt Comment Right AntTibialis Dp Br Fibular L4-5 Nml Nml Nml Nml Nml Right Gastroc Tibial S1-2 Nml Nml Nml Nml Nml Right Fibularis Long Sup Br Fibular L5-S1 Nml Nml Nml Nml Nml Right Flex Dig Long Tibial L5-S2 Nml Nml Nml Nml Nml Right Ext Dig Brev Dp Br Fibular L5, S1 Nml Nml Nml >12ms Reduced Left AntTibialis Dp Br Fibular L4-5 Nml Nml Nml Nml Nml Left Gastroc Tibial S1-2 Nml Nml Nml Nml Nml Left Fibularis Long Sup Br Fibular L5-S1 Nml Nml Nml Nml Nml Left Flex Dig Long Tibial L5-S2 Nml Nml Nml Nml Nml Left Ext Dig Brev Dp Br Fibular L5, S1 Nml Nml Nml >12ms Reduced Right Ext Dig Long Dp Br Fibular L5-S1 Nml Nml Nml Nml Nml Left Ext Dig Long Dp Br Fibular L5-S1 Nml Nml Nml >12ms Reduced MTDD
== END 2021-08-20 08:26 | disposition home or self-care (01) ==
PROVIDERS: PCP Family Medicine; Visit Provider Psychiatry & Neurology Neurology
DX: G62.9 Polyneuropathy, unspecified (principal); R94.131 Abnormal electromyogram [EMG]
CPT/HCPCS: 95886; 95910

== ENCOUNTER 2022-03-03 10:14 | Outpatient (CLI) | payer OTHER, SELFPAY ==
--- NOTE | ~2022-03-03 | XR_ITS ---
XR abdomen/kub 1V DATE: 03/03/2022 10:52 INDICATION: Unspecified abdominal pain. Urinary tract infection symptoms. TECHNIQUE: 2 AP views COMPARISON: 12/18/2020 complete abdominal ultrasound examination 10/30/2005 air contrast barium enema 05/02/2004 KUB FINDINGS: No evidence of bowel obstruction. The psoas shadows are intact. No visceromegaly is noted. No significant abnormal calcification. IMPRESSION: Nonspecific abdomen Reviewed, dictated and finalized at [facility]. Reviewed, dictated and finalized at location [facility]. RER CHEMICAL PROCESSING IMPRESSION: Nonspecific abdomen
[2022-03-03 10:57] LABS: Basophils Absolute Auto 0.1 K/mm3 (0.0-0.1); Basophils Percent Auto 0.8 % (0.2-1.2); Eosinophils Absolute Auto 0.3 K/mm3 (0-0.3); Eosinophils Percent Auto 4.2 % (0-4.4); Hematocrit 38.7 % (37.0-47.0); Hemoglobin 13.1 g/dL (12.0-15.0); Immature Granulocyte Absolute 0.03 K/mm3 (0.00-0.031); Immature Granulocyte Percent A 0.5 % (0-0.5); Lymphocytes Absolute Auto 1.24 K/mm3 (0.9-3.2); Lymphocytes Percent Auto 20.6 % (18.3-44.2); Mean Corpuscular HGB Conc 33.9 g/dl (32-36); Mean Corpuscular Hemoglobin 29.8 pg (26-34); Mean Corpuscular Volume 88.2 fl (80-100); Mean Platelet Volume 11.1 fl (7.4-10.4); Monocytes Absolute Auto 0.8 K/mm3 (0.1-0.6); Monocytes Percent Auto 13.5 % (2.6-8.5); Neutrophils Absolute Auto 3.6 K/mm3 (1.3-6.7); Neutrophils Percent Auto 60.4 % (45.5-73.1); Platelet Count Result 221 k/mm3 (150-375); Red Blood Count 4.39 M/mm3 (4.2-5.4); Red Cell Distribution Width 11.9 % (11.5-14.5)
[2022-03-03 11:12] LABS: Alanine Aminotransferase 36 U/L (6-35); Albumin Level 3.9 g/dL (3.5-5.1); Alkaline Phosphatase 154 U/L (38-126); Anion Gap 7 mmol/L (8-16); Aspartate Amino Transferase 49 U/L (14-36); Bilirubin,Total 0.4 mg/dL (0.2-1.3); Blood Urea Nitrogen 14 mg/dL (7-17); Carbon Dioxide 34 mmol/L (22-30); Chloride 99 mmol/L (98-107); Estimated Glomerular Filt Rate > 60; Glucose 92 mg/dL (65-110); Potassium 3.9 mmol/L (3.4-5.0); Sodium 140 mmol/L (137-145)
[2022-03-03 11:27] LABS: Appearance Urine Clear (Clear); Bilirubin Urine Negative (Negative); Blood Urine Negative (Negative); Glucose Urine UA Negative (Negative); Ketones Urine Negative (Negative); Leukocyte Esterase Ur Negative LEU/UL (Negative); Nitrate Urine Negative (Negative); Protein Urine Negative (Negative); Urobilinogen Urine 0.2 mg/dL (<2.0)
[2022-03-03 11:32] LABS: Add Urine Microscopic? NO; Color Urine Light Yellow (Yellow)
== END 2022-03-03 10:15 | disposition home or self-care (01) ==
PROVIDERS: PCP Family Medicine; Visit Provider Nurse Practitioner Gerontology
DX: R10.9 Unspecified abdominal pain (principal); R19.7 Diarrhea, unspecified; R39.9 Unspecified symptoms and signs involving the genitourinary system; R50.9 Fever, unspecified; R21 Rash and other nonspecific skin eruption; R30.0 Dysuria
CPT/HCPCS: 36415; 74018; 80053; 81003; 85025

== ENCOUNTER → 2022-05-15 11:47 | Outpatient (CLI) | payer OTHER, SELFPAY ==
--- NOTE | ~2022-05-15 | XR_ITS ---
Cervical Spine: AP, lateral, open-mouth views Clinical History: Pain Findings: The normal lordotic curve is maintained. No fracture or subluxation. There is minimal degen erative disc narrowing at C3-C4 and C4-C5. Pre-vertebral soft tissues are unremarkable. Impression: Minimal degenerative change, as above. Reviewed, dictated and finalized at [facility]. LIFE PHOTOGRAPHER Impression: Minimal degenerative change, as above.
--- NOTE | ~2022-05-15 | XR_ITS ---
AP and oblique views of the bilateral SI joints CLINICAL HISTORY: Chronic back pain FINDINGS: Bilateral SI joints are unremarkable. No sclerosis, erosive change, or ankylosis. Visualize d portions of the bilateral hip joints are also intact. Soft tissues are unremarkable. IMPRESSION: Unremarkable exam. Reviewed, dictated and finalized at location [facility]. UCTION ENGINEER TRACK IMPRESSION: Unremarkable exam.
--- NOTE | ~2022-05-15 | XR_ITS ---
Lumbosacral Spine: AP and lateral views Clinical History: Pain Findings: The normal lordotic curve is maintained. No fracture identified. 5 mm anterolisthesis of L4 over L5 present. Facet joint degenerative changes are present from L3 through S1. The sacroiliac rosalino nts are normally outlined. Impression: 5 mm anterolisthesis of L4 over L5. Facet joint degenerative changes, as detailed above. Reviewed, dictated and finalized at location [facility]. F COUNSEL Impression: 5 mm anterolisthesis of L4 over L5. Facet joint degenerative changes, as detailed above.
== END ==
PROVIDERS: PCP Family Medicine; Visit Provider Physician Assistant
DX: M54.42 Lumbago with sciatica, left side (principal); G89.29 Other chronic pain; M54.2 Cervicalgia
CPT/HCPCS: 72040; 72100; 72202

== ENCOUNTER 2022-05-20 07:57 | Outpatient (CLI) | payer OTHER, SELFPAY ==
--- NOTE | ~2022-05-20 | MR_ITS ---
EXAMINATION: MR lumbar spine wo con DATE: 05/20/2022 08:43 INDICATION: Chronic bilateral low back pain with left-sided sciatica TECHNIQUE: Magnetic resonance imaging (MRI) of the lumbar spine was performed without intravenous con trast. Sequences included sagittal T2-weighted FSE, sagittal T2-weighted FS FSE, sagittal T1-weighted FSE, and axial T2-weighted FSE. COMPARISON: None FINDINGS: For degree lumbar levocurvature. 2 mm anterolisthesis L4 on L5 which appears decreased compared with the prior radiograph suggesting the standing position. 2 mm retrolisthesis L5 on S1. Vertebral body h eights are normal. There are a few small Schmorl's nodes in the lumbar spine and at the inferior endp late of T12. T1 hyperintense hemangioma at L3. Mild fibrovascular degenerative endplate changes at L5 -S1 where there is moderate severe disc height loss. Marrow signal is otherwise normal. Moderate disc height loss at T11-T12, T12-L1 and L4-L5. Mild disc height loss at T10-T11 and at the right side of L1-L2. The conus medullaris terminates at L1. There is normal signal in the caudal spinal cord. Parav ertebral soft tissues are unremarkable. The following disc levels are specifically discussed: T12-L1: Moderate disc protrusion extending from the left at the right lateral recesses. There is mild bilateral facet joint osteoarthritis. There is no neural foraminal stenosis. There is mild central c anal stenosis. L1-L2: Disc is mildly bulging. There is mild left and mild to moderate right facet joint osteoarthrit is. There is mild left neural foraminal stenosis. There is mild central canal stenosis. L2-L3: Disc is minimally bulging. There is mild bilateral facet joint osteoarthritis. There is mild l eft and minimal right neural foraminal stenosis. There is no central canal stenosis. L3-L4: Disc is minimally bulging. There is mild left and moderate right facet joint osteoarthritis. T here is mild bilateral neural foraminal stenosis. There is no central canal stenosis. L4-L5: Disc is bulging with annular fissure. There is severe bilateral facet joint osteoarthritis. Th ere is mild to moderate bilateral neural foraminal stenosis. There is moderate central canal stenosis . L5-S1: Disc is bulging with annular fissure and probable small central disc protrusion. There is mild to moderate bilateral facet joint osteoarthritis. There is left and mild to moderate right neural fo raminal stenosis. There is mild central canal stenosis. IMPRESSION: 1. Mild to moderate lumbar and lower thoracic and moderate to severe lumbosacral spondylosis. 2. 2 mm anterolisthesis L4 on L5, decreased from 5 mm on prior standing radiographs suggesting at tere st 3 mm of translatory motion. Reviewed, dictated and finalized at [facility]. 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 Mild to moderate lumbar and lower thoracic and moderate to severe lumbosacra l spondylosis. 2. 2 mm anterolisthesis L4 on L5, decreased from 5 mm on prior standing radiogr aphs suggesting at least 3 mm of translatory motion.
== END 2022-05-20 07:58 ==
LOC: GOSHIMG 07:58
PROVIDERS: PCP Family Medicine; Visit Provider Physician Assistant
DX: M54.42 Lumbago with sciatica, left side (principal); G89.29 Other chronic pain; M47.815 Spondylosis without myelopathy or radiculopathy, thoracolumbar region
CPT/HCPCS: 72148

== ENCOUNTER 2022-06-20 08:24 | Outpatient (CLI) | payer OTHER, SELFPAY ==
--- NOTE | 2022-06-20 08:56 | ECHO_ITS ---
Patient Info Name: Nasrin Healy Age: 62 years : 1960 Gender: Female Ht: 64 in Wt: 155 lbs BSA: 1.80 m2 HR: 69 bpm BP: 176 / 99 mmHg Technical Quality: Good Exam Date: 06/20/2022 9:07 AM Exam Location: [facility] Patient Status: Outpatient Admit Date: 06/20/2022 Staff Ordering Physician: Patrice Monzon DO Stone Polisher Machine: Ivan Pulido RDCS, RT Attending Provider: Patrice Monzon DO Referring Physician: Nicolás GABRIEL; Exam Type: CA echo doppler color flow Study Info Indications R06.09 - Other forms of dyspnea Complete two-dimensional, color flow and Doppler transthoracic echocardiogram is performed. Strain analysis performed. Summary 1. Complete two-dimensional, color flow and Doppler transthoracic echocardiogram is performed. 2. Left ventricular chamber dimension is normal. 3. Left ventricular systolic function is normal, estimated at 60-65%. 4. The left ventricular diastolic function is grade I diastolic dysfunction. 5. E/e' 10 is mildly elevated. 6. Global longitudinal strain is abnormal at -13.8%. 7. There is trace mitral valve regurgitation. Left Ventricle E/e' 10 is mildly elevated. Global longitudinal strain is abnormal at -13.8%. Left ventricular chamber dimension is normal. Left ventricular systolic function is normal, estimated at 60-65%. The left ventricular diastolic function is grade I diastolic dysfunction. Right Ventricle Right ventricular systolic function is normal and with normal TAPSE 1.9 cm. Right ventricular chamber dimension is normal. Left Atria Left atrial chamber dimension is normal. Right Atria Right atrial chamber dimension is normal. Aortic Valve The aortic valve is trileaflet. There is no aortic valve stenosis. There is no aortic valve regurgitation. Pulmonic Valve There is no pulmonic regurgitation. Mitral Valve There is no mitral valve stenosis. There is trace mitral valve regurgitation. Tricuspid Valve There is no tricuspid valve regurgitation. Pericardium/Pleural There is no pericardial effusion. Inferior Vena Cava Normal inferior vena cava with >50% collapse upon inspiration consistent with normal right atrial pressure, 5 mmHg. Aorta The aortic root size at the sinus of Valsalva is normal. Left Ventricular Outflow Tract Name Value Normal LVOT 2D LVOT Diameter 1.9 cm LVOT Doppler LVOT Peak Gradient 3 mmHg LVOT Mean Gradient 2 mmHg LVOT VTI 21 cm LVOT VTI/AV VTI Ratio 0.7 LVOT Stroke Volume 57 ml LVOT CO 3.8 l/min LVOT CI 2.1 l/min/m2 Mitral Valve Name Value Normal MV Doppler MV Decel Coryell 349 cm/s2 MV PHT
== END 2022-06-20 08:25 | disposition home or self-care (01) ==
PROVIDERS: PCP Family Medicine; Visit Provider Internal Medicine Cardiovascular Disease
DX: R06.09 Other forms of dyspnea (principal)
CPT/HCPCS: 93306

== ENCOUNTER 2022-06-20 08:26 | Outpatient (CLI) | payer OTHER, SELFPAY ==
--- NOTE | ~2022-06-20 | US_ITS ---
EXAMINATION: US carotid duplex BI DATE: 06/20/2022 10:40 INDICATION: Carotid occlusion or stenosis. TECHNIQUE: Grayscale, color Doppler, and pulsed Doppler images of the cervical carotid arteries were obtained. The degree of vessel stenosis is placed in one of the following categories: normal, <50%, 5 0-69%, >=70% but less than near-occlusion, near-occlusion, or total occlusion. Note that percent sten osis relative to normal distal artery lumen diameter is indirectly measured from velocity measurement s as described by Roger, et al. Radiology 2003; 229:340-346. Notes: Normal: Peak systolic velocity <125 centimeters/sec and no plaque <50%. Peak systolic velocity <125 ( EDV <40; ICA/CCA PSV ratio <2.0; used these factors only a tandem lesions or low cardiac output or co ntralateral disease) 50-69 %: PSV 125-230 (EDV 40-100; ratio 2-4) >= 70% but less than near occlusion: PSV greater than 230 (EDV > 100; ratio> 4.0) Near Occlusion: PSV that is variable; markedly narrowed lumen Occlusion: Absent flow on color/spectral Doppler and no lumen on loyola scale. COMPARISON: Ultrasound dated 05/03/2007. FINDINGS: RIGHT: The right common carotid artery (CCA) peak systolic velocity (PSV) is 87 cm/s. The right internal car otid artery (ICA) PSV is 67 cm/s. The right ICA end-diastolic velocity (EDV) is 25 cm/s. The right IC A/CCA PSV ratio is 0.8. The external carotid artery (ECA) PSV is 68 cm/s. There is antegrade flow in the right vertebral artery. LEFT: The left CCA PSV is 107 cm/s. The left ICA PSV is 102 cm/s. The left ICA EDV is 31 cm/s. The left ICA /CCA PSV ratio is 1.0. The ECA PSV is 68 cm/s. There is antegrade flow in the left vertebral artery. IMPRESSION: 1. Less than 50% stenosis in the right internal carotid artery by sonographic criteria. 2. Less than 50% stenosis in the left internal carotid artery by sonographic criteria. Reviewed, dictated and finalized at location B. PASTER IMPRESSION: 1. Less than 50% stenosis in the right internal carotid artery by sonographic c saul. 2. Less than 50% stenosis in the left internal carotid artery by sonographic terri schmitt.
== END 2022-06-20 08:27 | disposition home or self-care (01) ==
PROVIDERS: PCP Family Medicine; Visit Provider Internal Medicine Cardiovascular Disease
DX: I65.23 Occlusion and stenosis of bilateral carotid arteries (principal)
CPT/HCPCS: 93880

== ENCOUNTER 2022-07-02 08:38 | Outpatient (CLI) | payer OTHER, SELFPAY ==
--- NOTE | ~2022-07-02 | XR_ITS ---
Clinical Indication: Cough PA and lateral views of the chest: Comparison: 01/09/2021 Findings: The lungs are clear, without evidence of focal consolidation or pleural effusion. Cardiome diastinal silhouette is within normal limits. Bones and soft tissues are unremarkable. Impression: Normal chest. Reviewed, dictated and finalized at location . Impression: Normal chest.
== END 2022-07-02 08:39 | disposition home or self-care (01) ==
PROVIDERS: PCP Family Medicine; Visit Provider Physician Assistant
DX: R05.9 Cough, unspecified (principal)
CPT/HCPCS: 71046

== ENCOUNTER 2022-07-09 07:41 | Outpatient (CLI) | payer OTHER, SELFPAY ==
--- NOTE | ~2022-07-09 | MM_ITS ---
EXAMINATION: MM screening [facility] BI w hortensia HISTORY: Screening TECHNIQUE: Craniocaudal and mediolateral oblique 3-D tomosynthesis images were obtained and synthetic 2-D images were generated. CAD analysis was submitted and interpreted. COMPARISON: Comparison to multiple prior studies sequentially, with oldest reviewed study dated 06/2016. BREAST PARENCHYMAL COMPOSITION: There are scattered areas of fibroglandular density. FINDINGS: There are focal nodular asymmetries in the upper outer quadrant of the right breast in the subareolar location of the left breast. IMPRESSION: 1. Bilateral breast asymmetries. 2. Additional mammographic views and possible breast ultrasound are recommended. BI-RADS Category 0: Incomplete: Needs additional imaging evaluation. Reviewed, dictated and finalized at location A. IMPRESSION: 1. Bilateral breast asymmetries. 2. Additional mammographic views and possible breast ultrasound are recommended . BI-RADS Category 0: Incomplete: Needs additional imaging evaluation.
== END 2022-07-09 07:42 | disposition home or self-care (01) ==
LOC: ANHIMG 07:42
PROVIDERS: PCP Family Medicine; Visit Provider Nurse Practitioner Gerontology
DX: Z12.31 Encounter for screening mammogram for malignant neoplasm of breast (principal); R92.8 Other abnormal and inconclusive findings on diagnostic imaging of breast
CPT/HCPCS: 77063; 77067

== ENCOUNTER 2022-08-01 11:38 | Outpatient (CLI) | payer OTHER, SELFPAY ==
--- NOTE | ~2022-08-01 | MMUS_ITS ---
EXAMINATION: MM diagnostic kalpesh BI w hortensia, US breast BI complete HISTORY: Bilateral breast mammographic asymmetries reported on 07/09/2022 screening mammogram TECHNIQUE: Additional 3-D tomosynthesis images of both breasts were performed and synthetic 2-D image s were generated. CAD analysis was submitted and interpreted. High resolution complete bilateral no st ultrasound examination including all 4 quadrants and subareolar areas was performed. COMPARISON: Serial mammogram and ultrasound examinations dating back to April 22, 2016 BREAST PARENCHYMAL COMPOSITION: There are scattered areas of fibroglandular density. FINDINGS: MAMMOGRAPHIC FINDINGS: Stable mild fibroglandular asymmetry. No reproducible mass, architectural distortion, malignant calci fication, skin thickening or retraction or significant new or developing of either breast is evident. ULTRASOUND: No suspicious mass or shadowing, cyst or other significant sonographic abnormality of either breast i s detected. IMPRESSION: 1. No mammographic evidence of malignancy 2. Routine annual mammographic screening is recommended BI-RADS Category 2: Benign finding(s). Reviewed, dictated and finalized at location A. IMPRESSION: 1. No mammographic evidence of malignancy 2. Routine annual mammographic screening is recommended BI-RADS Category 2: Benign finding(s).
== END 2022-08-01 11:39 | disposition home or self-care (01) ==
LOC: ANHIMG 11:38
PROVIDERS: PCP Family Medicine; Visit Provider Physician Assistant
DX: R92.8 Other abnormal and inconclusive findings on diagnostic imaging of breast (principal)
CPT/HCPCS: 76641; 77062; 77066; G0279

== ENCOUNTER 2023-01-21 07:21 | Outpatient (CLI) | payer OTHER, SELFPAY ==
--- NOTE | ~2023-01-21 | XR_ITS ---
XR lumbar spine 6V w bending DATE: 01/21/2023 07:57 INDICATION: Spondylolisthesis TECHNIQUE: Standing AP, lateral, flexion and extension lateral views. Coned lateral lumbosacral view. Bilateral oblique views. COMPARISON: None FINDINGS: There is osteopenia. Mild thoracolumbar levoscoliosis. There is degenerative change at the apophyseal joints in the lower lumbar and lumbosacral area with a ssociated grade 1 anterolisthesis at L4-5. Moderately severe degenerative disc disease at L5-S1. Remaining lumbar interspaces appear relatively preserved. No fracture or bone destruction. Included lower thoracic and lumbar pedicles are intact. The sacroiliac joints appear normal. IMPRESSION: Osteopenia Mild thoracolumbar levoscoliosis Moderately severe degenerative disease at L5-S1 Grade 1 anterolisthesis at L4-5 due to degenerative change at the apophyseal joints Reviewed, dictated and finalized at location B. IMPRESSION: Osteopenia Mild thoracolumbar levoscoliosis Moderately severe degenerative disease at L5-S1 Grade 1 anterolisthesis at L4-5 due to degenerative change at the apophyseal boubacar ints
--- NOTE | ~2023-01-21 | XR_ITS ---
XR cervical spine 4-5V DATE: 01/21/2023 07:57 INDICATION: Spondylosis TECHNIQUE: AP, open-mouth, lateral and swimmer views COMPARISON: 05/15/2022 cervical spine FINDINGS: There is reversal of cervical curvature. C1 and C2 are normally aligned and the odontoid process is intact. There is moderate severe degenerative disc disease and mild retrolisthesis at C3-4, C4-5 and C5-6. There is uncovertebral joint spurring at C3-4, C4-5-6, particularly prominent on the right at C4-5. No fracture or dislocation or locked facet or prevertebral soft tissue swelling is detected. IMPRESSION: Reversal cervical curvature Moderately severe degenerative disc disease and mild retrolisthesis at C3-4, C4-5 and C5-6, with unco vertebral joint spurring at these levels Reviewed, dictated and finalized at location B. IMPRESSION: Reversal cervical curvature Moderately severe degenerative disc disease and mild retrolisthesis at C3-4, C4 -5 and C5-6, with uncovertebral joint spurring at these levels
== END 2023-01-21 07:22 | disposition home or self-care (01) ==
LOC: ANHIMG 07:25
PROVIDERS: PCP Family Medicine; Visit Provider Anesthesiology Pain Medicine
DX: M43.16 Spondylolisthesis, lumbar region (principal); M47.817 Spondylosis without myelopathy or radiculopathy, lumbosacral region; M48.062 Spinal stenosis, lumbar region with neurogenic claudication; M47.812 Spondylosis without myelopathy or radiculopathy, cervical region; M85.88 Other specified disorders of bone density and structure, other site; M51.37 Other intervertebral disc degeneration, lumbosacral region; M50.30 Other cervical disc degeneration, unspecified cervical region
CPT/HCPCS: 72050; 72114

== ENCOUNTER 2023-02-05 13:00 | Outpatient (CLI) | payer OTHER, SELFPAY ==
--- NOTE | ~2023-02-05 | DEXA_ITS ---
Bone Density Report Name: MELVI HUNTER Age: 63 Sex: Female Ethnicity: White Date of : 1960 Indication: postmenopausal; screening for osteoporosis; height loss; rheumatoid arthritis; Referring Provider: NIESHA COLLINS Study: Bone densitometry was performed. Exam Date: February 05, 2023 Accession number: [id number] Bone Density: Region BMD T-score Z-score Classification AP Spine(L1-L4) 0.900 -1.3 0.2 Osteopenia Femoral Neck (Left) 0.697 -1.4 0.0 Osteopenia Total Hip (Left) 0.861 -0.7 0.3 Normal Femoral Neck (Right) 0.761 -0.8 0.5 Normal Total Hip (Right) 0.891 -0.4 0.6 Normal Total Hip Mean 0.876 -0.6 0.5 Normal World Health Organization criteria for BMD impression classify patients as: Normal (T-score at or above -1.0), Osteopenia (T-score between -1.0 and -2.5), or Osteoporosis (T-score at or below -2.5). 10-year Fracture Risk(1): Major Osteoporotic Fracture 9.6% Hip Fracture 0.8% Reported Risk Factors: [place] (), Neck BMD=0.697, BMI=31.1, rheumatoid arthritis (1) FRAX(R) Version 3.08. Fracture probability calculated for an untreated patient. Fracture probability may be lower if the patient has received treatment. Clinical Information Provided by Patient: Has rheumatoid arthritis Has used the following medications: Vitamin D, Calcium Patient maximum height was 64 Menopause Age: 60 Drinks caffeinated beverages Onset of menses at age 16 Number of children 2 Impression: The patient has low bone mass, based on the Left Femoral Neck T-score. The patient has an estimated ten-year risk of hip fracture of 0.8% and an estimated ten-year risk of major fracture of 9.6%, based on the WHO FRAX algorithm. Discussion: BONE DENSITY IS LOW AT ONE OR MORE SKELETAL SITES. This patient's lowest T-score is low at one or more skeletal sites. It meets the World Health Organization's (WHO) criteria for ?low bone mass? (T-score between -1.0 and -2.5). The patient's 10-year risk of fracture as calculated by FRAX is less than the threshold where pharmacological therapy is recommended by the National Osteoporosis Foundation (NOF). However, all treatment decisions require clinical judgment and consideration of individual patient factors, including patient preferences, comorbidities, previous drug use, risk factors not captured in the FRAX model (e.g., frailty, falls, vitamin D deficiency, increased bone turnover, interval significant decline in bone density) and possible under or overestimation of fracture risk by FRAX. The patient should follow a healthful lifestyle (good nutrition with adequate calcium and vitamin D, and appropriate weight-bearing exercise). Follow-Up: Consider repeating this study in 2 to 3 years to reassess this patient's status, or sooner if there is some new
== END 2023-02-05 13:01 | disposition home or self-care (01) ==
PROVIDERS: PCP Family Medicine; Visit Provider Family Medicine
DX: Z78.0 Asymptomatic menopausal state (principal); M85.88 Other specified disorders of bone density and structure, other site; M85.852 Other specified disorders of bone density and structure, left thigh
CPT/HCPCS: 77080

== ENCOUNTER 2023-03-10 07:39 | Day surgery (SDC) | payer OTHER, SELFPAY ==
--- NOTE | ~2023-03-10 | XR_ITS ---
EXAMINATION: XR fluoroscopy no charge INDICATION: Bilateral sacroiliac joint injection TECHNIQUE: Nine intraoperative fluoroscopic images are submitted for review. Total fluoroscopic time was 16.3 seconds. COMPARISON: None available FINDINGS: Fluoroscopic images demonstrate injections into the bilateral sacroiliac joints. IMPRESSION: 1. Please refer to procedure note for full details. Reviewed, dictated and finalized at location F. A DIRECTOR
--- NOTE | 2023-03-10 07:38 | WPDHPUPDATE1 ---
History and Physical Update Update Date/Time: 03/10/23 07:38 History and Physical has been reviewed, including an updated exam of the patient. There are NO changes in the patient's condition. Risks, benefits, and alternatives have been discussed and questions answered. Patient agrees to proceed with procedure.
[2023-03-10 08:41] VITALS: BP 142/86; PULSE 81; RESP 16; TEMP 36.7; O2SAT 98
[2023-03-10 09:31] VITALS: BP 135/69; PULSE 58; RESP 16; O2SAT 96
--- NOTE | 2023-03-10 09:58 | W.PM.PROC2 ---
Procedure Note - Detailed Date of Procedure 03/10/23 Pre-op Diagnosis Sacroiliitis, Low Back Pain Post-op Diagnosis Same Procedure Performed Bilateral sacroiliac joint intra-articular steroid injection with fluoroscopic guidance with contrast control. Surgeon Dereck Bowden MD Anesthesia Local Description of Procedure INFORMED CONSENT: Risks, benefits and alternatives to the procedure were discussed in detail with the patient who expressed explicit understanding and consent to proceed. Patient was informed verbally and in written form regarding the risks associated with the procedure including the low risk of serious infection, bleeding/bruising, allergic reaction, nerve or organ injury, paralysis, procedural site pain or discomfort, worsening pain and/or mobility, failure to treat and/or disfigurement. The patient expressed explicit understanding and consent to proceed. All materials required for the procedure were available prior to procedure start. Site and side were marked prior to procedure and confirmed in the presence of the patient. PROCEDURE IN DETAIL: The patient was brought to the procedural suite and placed in the prone position. Patient was made comfortable with use of pillows under the head/chest, hips and ankles. Skin overlying the injection site on the affected side(s) was prepared broadly with ChloraPrep applicator and draped in a sterile manner. Aseptic technique was used throughout. The SI joint was identified in the AP view and contralateral oblique angulation with caudal tilt was utilized to optimize visualization of the inferior and medial joint line representing the posterior portion of the joint. Local anesthesia was established by infiltration with approximately 5 mL of 2% lidocaine via a 1-1/2 inch 27-gauge needle. A 22-gauge 3.5 inch Quincke spinal needle was advanced until the needle entered the inferior third of the joint space approximately 1cm cephalad from its most inferior point. In the AP view, 0.5 mL of Omnipaque 300 contrast medium was injected after negative aspiration for CSF, blood or other bodily fluid, showing appropriate intra-articular spread of contrast without evidence of intravascular, perineural or intrathecal placement. A 1.0 mL solution containing 3.0 mg of betamethasone in 0.5% PF bupivacaine was injected after repeat negative aspiration. Appropriate spread of the injectate was confirmed with washout of previous injected contrast. No parasthesias were elicited. Needle was removed completely intact without difficulty. [The same exact procedure was repeated for all remaining levels on the contralateral side, left SI joint, modified as necessary to accommodate for the new target location with identical findings/results and no evidence of complication.] Images were saved and documented in the patient chart. Patient's skin was cleansed and sterile bandage applied. The patient tolerated the procedure well. The patient was transported to the recovery area in stable condition where they were observed for an appropriate amount of time prior to discharge, without evidence of complication. The patient was instructed to avoid excessive activity for the next 48 hours, including climbing and frequent use of stairs. Showers only for 48 hours. They were instructed not to drive or operate heavy machinery for 24 hours. They are to monitor for severe headaches, fevers, chills, night sweats, erythema/swelling at the site or any other signs of infection, bleeding/bruising, bowel or bladder changes as well as new pain, weakness or numbness in the upper or lower extremity. Should they notice these changes, they are instructed to call our office immediately or report directly to the nearest Emergency Department if no answer or if after posted office hours. COMPLICATIONS: None COMMENTS: None EXPOSURE: Time: 16.33s, Dose: 9.55mGy CONTRAST WASTED: 19mL Omnipaque 300. Complications None Condition Stable Disposition Same
[2023-03-10 10:10] VITALS: BP 163/81; PULSE 74; RESP 15; O2SAT 98
[2023-03-10 10:16] VITALS: BP 156/61; PULSE 72; RESP 15; O2SAT 98
--- NOTE | 2023-03-10 10:19 | SUR.PHASEII ---
late note. 0931, charted on wrong pt
[2023-03-10] MEDS: BETAMETHASONE SODIUM PHOSPHATE PF INJ 6 MG/ML VIAL INFILTRATE (10:20)
[2023-03-10] MEDS: BUPivacaine HCL 0.5% 10 ML AMP 2 ML INFILTRATE (10:20)
[2023-03-10 10:21] VITALS: BP 139/65; PULSE 73; RESP 14; O2SAT 97
[2023-03-10] MEDS: LIDOCAINE HCL 1% PF INJ 5 ML VIAL 4 ML XX (10:24)
[2023-03-10 10:28] VITALS: BP 126/75; PULSE 75; RESP 18; O2SAT 99
== END 2023-03-10 10:40 ==
PROVIDERS: PCP Family Medicine; Visit Provider Anesthesiology Pain Medicine
PROC: (CPT G0260; principal; 2023-03-10 09:30)
DX: M46.1 Sacroiliitis, not elsewhere classified (principal); M54.59 Other low back pain
CPT/HCPCS: G0260; 27096; 99199

== ENCOUNTER 2024-03-18 14:47 | Outpatient (CLI) | payer OTHER, SELFPAY ==
[2024-03-18 15:15] LABS: Alanine Aminotransferase 43 U/L (6-35); Albumin Level 4.1 g/dL (3.5-5.1); Alkaline Phosphatase 81 U/L (38-126); Anion Gap 3 mmol/L (4-12); Aspartate Amino Transferase 55 U/L (14-36); Bilirubin,Total 0.5 mg/dL (0.2-1.3); Blood Urea Nitrogen 13 mg/dL (7-17); Calcium 8.7 mg/dL (8.4-10.2); Carbon Dioxide 33 mmol/L (22-30); Chloride 104 mmol/L (98-107); Cholesterol 164 mg/dL (0-200); Estimated Glomerular Filt Rate > 60; Glucose 91 mg/dL (65-110); HDL Direct 57 mg/dL; Potassium 3.3 mmol/L (3.4-5.0); Sodium 140 mmol/L (137-145); Triglycerides 205 mg/dL (<150)
[2024-03-18 15:25] LABS: LDL Cholesterol Direct 74 mg/dL
== END 2024-03-18 14:48 | disposition home or self-care (01) ==
LOC: ANHLAB 14:50
PROVIDERS: PCP Family Medicine; Visit Provider Physician Assistant
DX: E07.9 Disorder of thyroid, unspecified (principal); E78.2 Mixed hyperlipidemia; I10 Essential (primary) hypertension
CPT/HCPCS: 36415; 80053; 80061; 84439; 84443

== ENCOUNTER 2024-04-15 09:51 | Outpatient (CLI) | payer OTHER, SELFPAY ==
--- NOTE | ~2024-04-15 | MR_ITS ---
EXAMINATION: MR lumbar spine wo con DATE: 04/15/2024 11:50 INDICATION: Lumbar spinal stenosis with low back pain TECHNIQUE: Magnetic resonance imaging (MRI) of the lumbar spine was performed without intravenous con trast. Sequences included sagittal T2-weighted FSE, sagittal T2-weighted FS FSE, sagittal T1-weighted FSE, and axial T2-weighted FSE. COMPARISON: 05/20/2022 FINDINGS: No significant change in 2 mm anterolisthesis L4 on L5 and 3 mm retrolisthesis L5 on S1. Vertebral pramod dy heights are normal with a few scattered Schmorl's nodes. Moderate to severe disc height loss with mild fibrovascular degenerative endplate changes at L5-S1. Marrow signal is otherwise unremarkable. A dditional moderate disc height loss at T11-T12, T12-L1 and L4-L5. Mild disc height loss at T10-T11 an d at the right side of L1-L2. The conus medullaris terminates at L1. There is normal signal in the ca udal spinal cord. Paravertebral soft tissues are unremarkable. The following disc levels are specific ally discussed: T12-L1: Moderate disc protrusion extending from the left to the right lateral recesses. There is mild bilateral facet joint osteoarthritis. There is no neural foraminal stenosis. There is mild central c anal stenosis. L1-L2: Disc is mildly bulging. There is mild left and mild to moderate right facet joint osteoarthrit is. There is mild left neural foraminal stenosis. There is mild central canal stenosis. L2-L3: Disc is minimally bulging. There is mild bilateral facet joint osteoarthritis. There is mild l eft and minimal right neural foraminal stenosis. There is no central canal stenosis. L3-L4: Disc is minimally bulging. There is hypertrophy of the ligamentum flavum. There is mild left and moderate right facet joint osteoarthritis. There is mild bilateral neural foraminal stenosis. The re is mild central canal stenosis. L4-L5: Disc is bulging with annular fissure. There is hypertrophy of the ligamentum flavum. There is severe bilateral facet joint osteoarthritis. There is mild to moderate bilateral neural foraminal st enosis. There is increased now severe central canal stenosis. L5-S1: Disc is bulging with annular fissure and probable small central disc protrusion. There is mode rate bilateral facet joint osteoarthritis. There is mild left and mild to moderate right neural kirstie inal stenosis. There is mild central canal stenosis. IMPRESSION: 1. Mild to moderate lumbar and lower thoracic spondylosis and moderate to severe lumbosacral spondylo sis. This is most notable for interval progression in now severe central canal stenosis at L4-L5. Reviewed, dictated and finalized at location A. OM BUFFER IMPRESSION: 1. Mild to moderate lumbar and lower thoracic spondylosis and moderate to sever e lumbosacral spondylosis. This is most notable for interval progression in now severe central canal stenosis at L4-L5.
== END 2024-04-15 09:52 | disposition home or self-care (01) ==
PROVIDERS: PCP Family Medicine; Referring Provider Family Medicine; Visit Provider Anesthesiology Pain Medicine
DX: M48.062 Spinal stenosis, lumbar region with neurogenic claudication (principal); M47.27 Other spondylosis with radiculopathy, lumbosacral region; M47.894 Other spondylosis, thoracic region
CPT/HCPCS: 72148

== ENCOUNTER 2024-04-16 08:16 | Outpatient (CLI) | payer OTHER, SELFPAY ==
--- NOTE | ~2024-04-16 | MM_ITS ---
EXAMINATION: MM screening kalpesh BI w hortensia HISTORY: Screening TECHNIQUE: Craniocaudal and mediolateral oblique 3-D tomosynthesis images were obtained and synthetic 2-D images were generated. CAD analysis was submitted and interpreted. COMPARISON: 07/09/2022 and dating back to 06/09/2016 BREAST PARENCHYMAL COMPOSITION: There are scattered areas of fibroglandular density. FINDINGS: Stable parenchymal pattern without suspicious microcalcifications, architectural distortion, discrete masses or significant asymmetry. IMPRESSION: 1. No mammographic evidence of malignancy. 2. Recommend routine screening mammography in one year. BI-RADS Category 1: Negative Reviewed, dictated and finalized at location A. 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
== END 2024-04-16 08:17 | disposition home or self-care (01) ==
PROVIDERS: PCP Family Medicine; Visit Provider Physician Assistant
DX: Z12.31 Encounter for screening mammogram for malignant neoplasm of breast (principal)
CPT/HCPCS: 77063; 77067

== ENCOUNTER 2024-05-10 08:27 | Day surgery (SDC) | payer OTHER, SELFPAY ==
[2024-04-27 12:13] VITALS: BMI 29.1
--- NOTE | ~2024-05-10 | XR_ITS ---
INTRAOPERATIVE FLUOROSCOPY: CLINICAL HISTORY: 64 years old Female; VIRGIE INTRA-ARTICULAR SI JT INJ PROCEDURE COMMENTS: Limited intraoperative fluoroscopy of the sacrum was performed. CUMULATIVE DOSE: 6.7 mGy FLUOROSCOPY TIME: 18.6 seconds FINDINGS/IMPRESSION: Please refer to operative note for further details. Reviewed, dictated and finalized at location A. [facility]
--- NOTE | 2024-05-10 05:59 | PM.HPGS ---
History of Present Illness History of Present Illness Consent: Risks, benefits, and alternatives have been discussed and questions answered. Patient agrees to proceed with procedure. Chief complaint: Sacroiliitis, chronic low back pain Narrative: Nasrin Healy is a 64 year old female with chronic, recalcitrant and disabling bilateral lumbosacral back pain secondary to sacroiliac joint arthropathy /sacroiliitis with failure to respond to aggressive conservative measures including PT, oral and topical analgesics, opioid and nonopioid analgesics, rest, time and activity/behavioral modification over the past 1-2 years who presents for therapeutic steroid injection of the bilateral sacroiliac joints under fluoroscopic guidance and with contrast control. Review of Systems Review of Systems: Patient denies any new infectious, allergic, cardiopulmonary, neurologic or constitutional symptoms or changes in activity tolerance or exercise capacity including new or progressive SOB/PALMER, peripheral edema, productive cough, dysuria, nausea/vomiting, diarrhea, weight change, fevers/chills/night sweats, new or progressive neurologic deficit, cognitive or mood changes since last seen, except as documented in the HPI. All systems reviewed & are unremarkable except as noted in HPI and below PMFSH Past Medical History Medical History KRISTINA-inhibitor cough Acute bronchitis Benign essential HTN Aris-tachy syndrome Chronic pain Chronic pain Chronic pain disorder Colon polyp Constipation Cough Elevated liver enzymes Encounter for postoperative care Epigastric pain History of heart attack Hypertensive urgency Insect bite of neck with local reaction Insomnia due to medical condition Labral tear of long head of left biceps tendon Left shoulder pain Lupus Lupus (systemic lupus erythematosus) MDD (major depressive disorder), recurrent episode, moderate Poison nae Rash and nonspecific skin eruption Raynaud phenomenon Restless leg syndrome Rheumatoid arthritis Rotator cuff tear RUQ abdominal pain Seizure Seropositive rheumatoid arthritis Shoulder swelling Subacromial impingement of left shoulder Viral gastroenteritis Family History Family History Mother Hypertension Family history of diabetes mellitus in first degree relative Other Diabetes mellitus Family history of cardiovascular disease Family history of malignant neoplasm Social History Social History Social History: Smoking status: Never smoker Second hand tobacco smoke exposure: No Alcohol intake: never Substance use: never Substance use type: does not use Do You Feel Safe in your Home?: Yes Lack of Transportation: No Lack of Food: Never True Current Housing: I Have Housing Concerned About Future Housing: No Difficulty Paying Gas/Electric Bills: Decline to Answer Difficulty Paying for Meds: Decline to Answer Currently Unemployed: Decline to Answer Education: Associate Degree Difficulty w/ Childcare or Family Care: No Living arrangements: with family Occupation/Education: retired Additional occupation/education comments: Disability Gender identity (if verbalized by the patient): Female Sexual Orientation (if Verbalized by the Patient): Straight or Heterosexual Spiritual care concerns: No Meds Home Medications and Allergies Home Medications ?Medication ?Instructions ?Recorded ?Confirmed ?Type aspirin 325 mg tablet 325 mg PO DAILY 11/01/19 04/27/24 History cholecalciferol (vitamin D3) 25 25 mcg PO DAILY 11/01/19 04/27/24 History mcg (1,000 unit) capsule krill oil 350 mg-om-3 90 mg-dha 24 1 cap PO DAILY 11/01/19 04/27/24 History mg-epa 50 mg-phospholipids capsule multivitamin 1 tablet PO DAILY 11/01/19 04/27/24 History albuterol sulfate 90 mcg/actuation 1 inh inhalation Q4H PRN shortness 01/09/21 04/27/24 Rx aerosol inhaler of breath or wheezing #8.5 grams Zyrtec 10 mg tablet (cetirizine) 10 mg PO DAILY #90 tabs 01/10/21 04/27/24 Rx omeprazole 20 mg capsule,delayed 20 mg PO BID PRN Heartburn 05/23/21 04/27/24 History release diclofenac sodium 2 % topical 1 packet topical BID 11/01/21 04/27/24 History solution in packet (Pennsaid) nitroglycerin 0.4 mg sublingual 0.4 mg sublingual Q5M PRN Chest 05/20/22 04/27/24 Rx tablet Pain #25 tabs hydroxychloroquine 200 mg tablet 200 mg PO BID 05/23/22 04/27/24 History tramadol 50 mg tablet 50 mg PO Q8H pain #90 tabs 12/05/22 04/27/24 Rx leflunomide 20 mg tablet 20 mg PO DAILY 03/06/23 04/27/24 History upadacitinib 15 mg tablet,extended 15 mg PO DIRECTED 03/06/23 04/27/24 History release 24 hr (Rinvoq) carvedilol 25 mg tablet See Rx Instructions .Route 12/08/23 04/27/24 Rx .COMPLEX #60 tabs losartan 100 See Rx Instructions .Route 12/08/23 04/27/24 Rx mg-hydrochlorothiazide 25 mg tablet .COMPLEX #30 tabs gabapentin 300 mg capsule See Rx Instructions .Route 02/03/24 04/27/24 Rx .COMPLEX #360 caps atorvastatin 20 mg tablet See Rx Instructions .Route 03/14/24 04/27/24 Rx .COMPLEX #90 tabs buspirone 5 mg tablet See Rx Instructions .Route 03/21/24 04/27/24 Rx .COMPLEX #180 tabs tramadol 50 mg tablet 50 mg PO Q8H pain #90 tabs 03/21/24 04/27/24 Rx duloxetine 60 mg capsule,delayed See Rx Instructions .Route 03/28/24 04/27/24 Rx release .COMPLEX #90 ea levothyroxine 50 mcg tablet See Rx Instructions .Route 04/14/24 04/27/24 Rx .COMPLEX #90 tabs quetiapine 25 mg tablet See Rx Instructions .Route 04/22/24 04/27/24 Rx .COMPLEX #180 tabs Allergies Allergy/AdvReac Type Severity Reaction Status Date / Time codeine Allergy Severe Swelling Verified 04/27/24 12:08 of Lip/Tongue/Throat Penicillins Allergy Severe Swelling Verified 04/27/24 12:08 of Lip/Tongue/Throat Sulfa (Sulfonamide Allergy Severe Hives Verified 04/27/24 12:08 Antibiotics) Exam Narrative: The patient's physical exam is essentially unchanged from prior examination on 03/21/2024. Specifically, patient demonstrates normal lung capacity, tidal volume and respiratory rate without wheezes, crackles, rales or rubs. Heart rate and rhythm are regular without murmurs, gallops or rubs. No JVD. Pulses 2+ globally without increasing peripheral edema. AAOx3 with no evidence of confusion, intoxication or altered mental state, NC/AT without acute distress or altered consciousness. Speech, cognition, mood, insight and judgment at baseline and within normal limits. Assessment and Plan Assessment and plan (1) Chronic pain: Qualifiers: Chronic pain type: chronic pain syndrome Qualified Code(s): G89.4 - Chronic pain syndrome Code(s): G89.29 - Other chronic pain Status: Acute (2) Dorsalgia: Code(s): M54.9 - Dorsalgia, unspecified Status: Acute (3) Bilateral sacroiliitis: Code(s): M46.1 - Sacroiliitis, not elsewhere classified Status: Acute Assessment and Plan: proceed as planned with bilateral SI joint steroid injection under fluoroscopic guidance
--- NOTE | 2024-05-10 06:03 | WPDHPUPDATE1 ---
History and Physical Update Update Date/Time: 05/10/24 06:03 History and Physical has been reviewed, including an updated exam of the patient. There are NO changes in the patient's condition. Risks, benefits, and alternatives have been discussed and questions answered. Patient agrees to proceed with procedure.
--- NOTE | 2024-05-10 06:04 | P.OP_ITS ---
Procedure Note - Detailed Date of Procedure 05/10/24 Pre-op Diagnosis Sacroiliitis, chronic low back pain Post-op Diagnosis Same Procedure Performed bilateral Sacroiliac Joint Steroid Injection under Fluoroscopic Guidance and with Contrast Control. Surgeon Dereck Bowden MD Emergency Preparedness Coordinator None Anesthesia Local Description of Procedure INFORMED CONSENT: Risks, benefits and alternatives to the procedure were discussed in detail with the patient who expressed explicit understanding and consent to proceed. Patient was informed verbally and in written form regarding the risks associated with the procedure including the low risk of serious infection, bleeding/bruising, allergic reaction, nerve or organ injury, paralysis, procedural site pain or discomfort, worsening pain and/or mobility, failure to treat and/or disfigurement. The patient expressed explicit understanding and consent to proceed. All materials required for the procedure were available prior to procedure start. Site and side were marked prior to procedure and confirmed in the presence of the patient. PROCEDURE IN DETAIL: The patient was brought to the procedural suite and placed in the prone position. Patient was made comfortable with use of pillows under the head/chest, hips and ankles. Skin overlying the injection site on the affected side(s) was prepared broadly with ChloraPrep applicator and draped in a sterile manner. Aseptic technique was used throughout. The right SI joint was identified in the AP view and contralateral oblique angulation with caudal tilt was utilized to optimize visualization of the inferior and medial joint line representing the posterior portion of the joint. Local anesthesia was established by infiltration with approximately 5 mL of 2% lidocaine via a 1-1/2 inch 27-gauge needle. A 22-gauge 3.5 inch Quincke spinal needle was advanced unt il the needle entered the inferior third of the joint space approximately 1cm cephalad from its most inferior point. In the AP view, 0.5 mL of Omnipaque 300 contrast medium was injected after negative aspiration for CSF, blood or other bodily fluid, showing appropriate intra-articular spread of contrast without evidence of intravascular, perineural or intrathecal placement. A 1.5 mL solution containing 3 mg of betamethasone in 0.5% PF bupivacaine was injected after repeat negative aspiration. Appropriate spread of the injectate was confirmed with washout of previous injected contrast. No parasthesias were elicited. Needle was removed completely intact without difficulty. The same exact procedure was repeated for all remaining levels on the contralateral side, left SI joint, modified as necessary to accommodate for the new target location with identical findings/results and no evidence of complication. Images were saved and documented in the patient chart. Patient's skin was cleansed and sterile bandage applied. The patient tolerated the procedure well. The patient was transported to the recovery area in stable condition where they were observed for an appropriate amount of time prior to discharge, without evidence of complication. The patient was instructed to avoid excessive activity for the next 48 hours, including climbing and frequent use of stairs. Showers only for 48 hours. They were instructed not to drive or operate heavy machinery for 24 hours. They are to monitor for severe headaches, fevers, chills, night sweats, erythema/swelling at the site or any other signs of infection, bleeding/bruising, bowel or bladder changes as well as new pain, weakness or numbness in the upper or lower extremity. Should they notice these changes, they are instructed to call our office immediately or report directly to the nearest Emergency Department if no answer or if after posted office hours. COMPLICATIONS: None COMMENTS: None CONTRAST WASTED: 29mL Omnipaque 300. Complications No immediate complications Condition Stable Disposition Same day [facility] Billing Surgery - Charge Forward: Surgery Billing
[2024-05-10 09:44] VITALS: BP 135/79; PULSE 62; RESP 15; TEMP 36.1; O2SAT 99
[2024-05-10 10:24] VITALS: BP 153/81; PULSE 61; RESP 15; O2SAT 99
[2024-05-10 10:31] VITALS: PULSE 56; RESP 20; O2SAT 98
[2024-05-10] MEDS: LIDOCAINE 2% PF LOCAL INJ 5 ML VIAL 1 ML INFILTRATE (10:34)
[2024-05-10] MEDS: LIDOCAINE 1% PF INJ 5 ML VIAL 3 ML INFILTRATE (10:34)
[2024-05-10] MEDS: BETAMETHASONE SODIUM PHOSPHATE PF INJ 6 MG/ML VIAL INFILTRATE (10:34)
[2024-05-10 10:37] VITALS: BP 116/71; PULSE 60; RESP 16; O2SAT 99
== END 2024-05-10 10:53 ==
PROVIDERS: PCP Family Medicine; Visit Provider Anesthesiology Pain Medicine
PROC: (CPT 27096; principal; 2024-05-10 10:30)
DX: M46.1 Sacroiliitis, not elsewhere classified (principal); G89.29 Other chronic pain
CPT/HCPCS: 27096; 99199; G0260

== ENCOUNTER 2024-07-16 12:19 | Emergency (ER) | payer OTHER, SELFPAY ==
--- NOTE | ~2024-07-16 | XR_ITS ---
EXAMINATION: XR tibia fibula LT 2V DATE: 07/16/2024 13:16 INDICATION: Left lower leg injury and pain. TECHNIQUE: 2 views of left tibia and fibula were obtained. COMPARISON: None. FINDINGS: Alignment is normal. No fracture. There is mild left knee osteoarthritis. IMPRESSION: 1. Mild left knee osteoarthritis. Reviewed, dictated and finalized at location A.
--- OUTSIDE RECORDS SUMMARY | 2024-07-16 12:21 | XMS_ITS | Clinical Summary ---
Author Organization [facility] Address [facility] [place] [address] Care Team Providers Care Hearing Stenographer Name Role Phone Unavailable Primary Care Provider Unavailabl e Social History Tobacco Use Types Packs/Day Years Used Date Smoking Tobacco: Never Assessed Comments Unknown Sex and Gender Information Value Date Recorded Sex Assigned at Not on file Legal Sex Female 6:59 PM CDT Gender Identity Not on file Sexual Orientation Not on file Plan of Treatment Health Maintenance Due Date Last Done Comments Cervical Cancer Screening Pa p Smear (Age 30 to 64) Every 3 Years 1960 Colorectal Cancer Screening Colonoscopy (10 Years) 1962 Annual Physical 1965 Hepatitis C 01/04/1980 DTaP, Tdap and Td Vaccines ( 1 - Tdap) 1981 Cervical Cancer Screening Pa p with HPV Testing (Age 30 to 64) Every 5 Years 01/04/1992 Cervical Cancer Screening with HPV 01/04/1992 Mammogram Screening 2002 Zoster Vaccines (1 of 2) 01/04/2012 COVID-19 Vaccine (2023-2 5 season) 2023 RSV Immunization or 60+ Years (1 - 1-dose 75+ series) 2037 Meningococcal B Vaccine Aged Out No l onger eligible based on patient's age to complete this topic Meningococcal Vaccine Aged Out No abida zoë eligible based on patient's age to complete this topic Pneumococcal Vaccine: Pediat rics (0 to 5 Years) and At-Risk Patients (6 to 64 Years) Aged Out No longer eligible b ased on patient's age to complete this topic RSV Immunizations Under 20 Months Aged Out No longer eligible based on patient's age to complete this topic
--- OUTSIDE RECORDS SUMMARY | 2024-07-16 12:21 | XMS_ITS | Continuity of Care Document ---
[facility] Organization [facility] Address [address] [place] [address] Phone Care Team Providers Care Hospital Medical Biller Name Role Phone Adelina PT, DPT, Alfredo Unavailable Unavailable Procedures Procedure Date Therapeutic Activities Therapeutic Exercise Neuromuscular Re-Ed COVID-19 Additional Safety Supplies/Time Therapeutic Activities Neuromuscular Re-Ed Therapeutic Exercise COVID-19 Additional Safety Supplies/Time Therapeutic Activities Neuromuscular Re-Ed Therapeutic Exercise Therapeutic Activities Neuromuscular Re-Ed Therapeutic Exercise Therapeutic Activities Therapeutic Exercise PT Evaluation Moderate Complexity Therapeutic Exercise Therapeutic Activities Advance Directives Directive Yes / No Effective Date File Name No Information Encounters Encounter Description Practice Location Reason(s) For Visit Diagnoses Date Provider Providers Copied on Encounter [facility] [facility], [place], [place], [id number], tel:[phone] [place] No Information 0 Adelina Fuentes. . [facility], [place], [place], [id number], tel:[phone] [place] No Information 0 Adelina Fuentes. . [facility], [place], [place], [id number], tel:[phone] [place] No Information 0 Makler Luke. . [facility], [place], [place], [id number], tel:[phone] [place] No Information 0 Makler Luke. . [facility] [facility] [address], [place], [place], [id number], tel:[phone] [place] No Information 0 Makler Luke. . [facility], [place], [place], [id number], tel:[phone] [place] No Information 0 Makler Luke. . Family History Family Member Type Diagnosis Age At Onset No Information Payers Payer name Insurance type Covered alliance party ID Zoya pastor(s) [facility] [id number] Social History Type Description Quantity Date Captured [...]
--- OUTSIDE RECORDS SUMMARY | 2024-07-16 12:21 | XMS_ITS | Clinical Summary ---
Author Organization [facility] Address [address] [place] [address] Phone Care Team Providers Care Sales Department Supervisor Name Role Phone Breann Collins MD Primary Care Provider [phone] Social History Tobacco Use Types Packs/Day Years Used Date Smoking Tobacco: Never Assessed Comments Unknown Sex and Gender Information Value Date Recorded Sex Assigned at Not on file Legal Sex Female 4:20 PM CDT Gender Identity Not on file Sexual Orientation Not on file Plan of Treatment Health Maintenance Due Date Last Done Comments Hepatitis C Virus (HCV) Screening 1960 TdaP Immunization 1960 Colonoscopy 2007 Colorectal Cancer Screening 2007 Cologuard 01/04/2012 Immunochemical Fecal Occult Blood 01/04/2012 Pneumococcal Immunization (5 0+ years) (1 of 1 - PCV) 01/04/2012 Influenza Immunization (#1) 12/20/202312/20, 06/03/2016 SARS-COV-2 Immunization ( season) 2023 01/07/2021, 07/12/2020, 06/21/2020 Respiratory Syncytial Virus (RSV) Immunization (Adult) (1 - 1-dose 75+ series) 2037 Mammogram Discontinued 02/21/2015 Zoster Immunization Completed 04/01/2020, 01/11/2020 Hepatitis B Immunization Aged Out No longer eligible based on patient's age to complete this topic Meningococcal Immunization (ACWY) Aged Out No longer eligible based on patient's age to complete this topic Rotavirus Immunization Aged Out No lo nger eligible based on patient's age to complete this topic Procedures Procedure Name Priority Date/Time Associated Diagnosis Comments MARIO SCREENING BILATERAL DIGITAL W CAD Routine 02/21/2015 3:59 PM CARTOON DESIGNER Visit for screening mammogram from Last 3 Months or Most Recently Relevant to Health Maintenance Results * MARIO SCREENING BILATERAL DIGITAL W CAD (02/21/2015 3:59 PM CARTOON DESIGNER) Anatomical Region Laterality Modality breast Bilateral Mammography 02/21/2015 4:10 PM CARTOON DESIGNER Impressions 02/22/2015 7:43 AM CARTOON DESIGNER BIRADS category 1 - normal. The patient should return to her screening schedule. J. Tye Faith M.D./ /[id number]/02/21/2015 16:10:35CST/hs/02/21/2015 21:34:28CST Cc: Narrative 02/22/2015 7:43 AM CARTOON DESIGNER PATIENT NAME: NASRIN HEALY : 1960 DOCUMENT TYPE: RADIOLOGY ORDER NUMBER/RESULT CODE ORDERING PHYSICIAN [id number] BREANN COLLINS DATE AND TIME OF DICTATION RADIOLOGIST 02/21/2015 16:10:35CST Geronimo Faith EXAM DESCRIPTION MARIO SCREENING BILATERAL DIGITA HISTORY: Bilateral screening mammography without comparison. FINDINGS: The breast tissue is heterogeneously dense. I appreciate no evidence of suspicious mass or microcalcifications. Breann Collins MD IMG MAMMO ORDERABLES Final Result from Last 3 Months or Most Recently Relevant to Health Maintenance Insurance [facility] Care Teams Sales Department Supervisor Relationship Specialty Start Date End Date Breann Collins MD [address] [facility] [address] [place] [address] PCP - General Family Medicine 02/21/15
--- OUTSIDE RECORDS SUMMARY | 2024-07-16 12:21 | XMS_ITS | Clinical Summary ---
Author Organization [facility] [address] [facility] Address [address] [place] [id number] Phone Care Team Providers Care Senior Business Process Analyst Name Role Phone Hossein Ribeiro MD Unavailable Rashid Gaffney MD Unavailable [phone] Ray Roberts MD Primary Care Provider Allergies Active Allergy Reactions Criticality Noted Date Comments Codeine Rash Medium 08/04/2017 Penicillins Unknown 05/07/2018 Sulfa (Sulfonamide Antibiotics) Headache Low 07/19 Medications aspirin-calcium carbonate 81 mg-300 mg calcium(777 mg) tablet Take 325 mg by mouth. Active losartan-hydroCHL OROthiazide (HYZAAR) 50-12.5 mg per tablet 07/22/19 18 Active atorvastatin (LIPITOR) 20 mg tablet 07/29/19 18 Active nitroglycerin (NITROSTAT) 0.[address] 0.4 mg under the tongue. 06/15/19 16 Active citalopram (CeleXA) 10 mg tablet Take 10 mg by mouth daily Active melatonin tablet Take by mouth Active amLODIPine (NORVASC) 5 mg tablet Take 5 mg by mouth daily 06/15/19 16 Active ascorbic acid, vitamin C, 250 mg tablet,chewable Take 250 mg by mouth daily Active aspirin 325 mg tablet Take 325 mg by mouth daily Active cholecalciferol (VITAMIN D-3) 1,000 unit capsule Take 1,000 Units by mouth daily Active cyanocobalamin (Vitamin B-12) 500 mcg tablet Take 500 mcg by mouth Active cyclobenzaprine (FLEXERIL) 10 mg tablet Take 10 mg by mouth 3 (three) times a day as needed Active dextroamphetamine -amphetamine (ADDERALL) 20 mg tablet Take 20 mg by mouth daily 02/10/20 20 Active estradioL (Yuvafem) 10 mcg tablet 06/10/19 19 Active hydrOXYzine (ATARAX) 25 mg tablet TAKE 1 TABLET BY MOUTH THREE TIMES DAILY NEEDED FOR ITCHING 11/17/19 Active lisinopriL (PRINIVIL,ZESTRIL ) 10 mg tablet Take 10 mg by mouth daily 11/25/19 Active meclizine (ANTIVERT) 12.5 mg tablet TAKE 1 TABLET BY MOUTH THREE TIMES DAILY NEEDED FOR DIZZINESS 02/10/20 Active multivitamin tablet Take 1 tablet by mouth daily Active omeprazole (PriLOSEC) 20 mg capsule 02/07/20 Active GaviLyte-G 236-22.74-6.74 -5.86 gram solution TAKE 240ML BY MOUTH EVERY TEN MINUTES UNTIL FECAL EFFLUENT IS CLEAR; DO NOT EXEED A TOTAL VOLUME OF 2000ML 12/16/19 Active rizatriptan PUBLIC RELATIONS ACCOUNT EXECUTIVE (MAXALT-PUBLIC RELATIONS ACCOUNT EXECUTIVE) 10 mg disintegrating tablet TAKE ONE TABLET BY MOUTH NEEDED FOR MIGRAINE HEADACHE. MAY REPEAT DOSE ONCE IN TWO HOURS 02/14/20 Active traMADoL (ULTRAM) 50 mg tablet Take 50 mg by mouth every 6 (six) hours as needed Active traZODone (DESYREL) 50 mg tablet Take 50 mg by mouth nightly 11/25/[address] (CYMBALTA) 30 mg capsule Take 1 capsule by mouth once daily 30 capsule 05/12/19 Active carvediloL (COREG) 12.5 mg tablet TAKE 1 TABLET BY MOUTH EVERY 12 HOURS WITH MEALS/FOOD 06/07/19 23 Active hydrALAZINE (APRESOLINE) 25 mg tablet Take 25 mg by mouth 3 (three) times a day 06/07/19 23 Active diclofenac sodium 20 mg/gram /actuation(2 %) solution in metered-dose pump Apply 40 mg topically to affected joints of the hands twice daily 112 g 2 10/12/19 24 Active hydroxychloroquin e (PLAQUENIL) 200 mg tablet Take 1 tablet (200 mg total) by mouth 2 (two) times a day 180 tablet 01/12/20 24 Active Rinvoq 15 mg extended release tablet TAKE 1 TABLET BY MOUTH DAILY 30 tablet 2 06/09/19 25 Active leflunomide (ARAVA) 20 mg tablet Take 1 tablet by mouth once daily 90 tablet 07/05/19 25 Active leflunomide (ARAVA) 20 mg tablet Take 1 tablet by mouth once daily 90 tablet 04/05/20 24 025 Discontinued Active Problems Problem Noted Date Diagnosed Date Left knee pain 10/07/2023 Assessment & Plan (10/07/2023 1:00 PM CDT): Previous imaging displayed degenerative changes in the bilateral knees. Has recently noted left knee pain and swelling worsened with ambulating stairs. Had previous left knee arthroscopy. Discussed PT, which she defers at this time. Discussed intra-articular left knee aspiration and Kenalog injection. Discussed risks and benefits of the injection. At this time, she would like to monitor symptoms in his willing to reconsider if symptoms are not improved in the next 1-2 weeks. She will notify our office at that time and can schedule Neck pain 05/15/2022 Overview (05/20/2022): C-spine x-ray 05/15/2022: Minimal degenerative changes at C3-C4 and C4-C5 SI joint x-ray 05/15/2022: WNL L-spine x-ray 05/15/2022: 5 mm anterolisthesis of L4 on L5. Assessment & Plan (06/13/2022 12:34 PM CALENDERING MACHINE OPERATOR): C-spine x-ray 05/15/2022: Minimal degenerative changes at C3-C4 and C4-C5 SI joint x-ray 05/15/2022: WNL L-spine x-ray 05/15/2022: 5 mm anterolisthesis of L4 on L5. Do not recommend use of steroids for chronic neck and or lower back pain nor do I think this related to her underlying rheumatoid arthritis and/or SLE. Continue physical therapy and recommended establishing with a pain management doctor to address her persistent back/neck complaints. Assessment & Plan (05/15/2022 10:14 AM CALENDERING MACHINE OPERATOR): Will obtain imaging and send to physical therapy. Primary hypertension 05/15/2022 Assessment & Plan (05/15/2022 2:20 PM CALENDERING MACHINE OPERATOR): Following with PCP and is to reach out to pcp to discuss med adjustments. Mucous cyst of digit of hand 02/13/2022 Assessment & Plan (02/13/2022 8:56 AM CDT): R 1st IP joint. Defers hand ortho evaluation, which could reconsider if becomes more bothersome. Epigastric pain 10/06/2019 Assessment & Plan (11/17/2019 10:02 AM CDT): Increased pain and tenderness over the epigastric region along with persistent dysphagia. Again, strongly recommended GI evaluation, although to discuss with pcp. Assessment & Plan (10/06/2019 9:35 AM CDT): Increased pain and tenderness over the epigastric region. Recommended GI evaluation, although to discuss with pcp. Seropositive rheumatoid arthritis 10/06/2019 Assessment & Plan (05/09/2024 11:00 AM CALENDERING MACHINE OPERATOR): Seropositive RA given prior elevated rheumatoid factor and erosions seen on ultrasound. Most recent repeat hand ultrasound did show some improvement in her inflammatory arthritis. Low CDAI. Has significant benefit Kenalog IM injection given at last visit. Minimal complaints today. Will continue Rinvoq 15 mg daily, leflunomide 20 mg daily, Plaquenil 200 mg b.i.d., as well as Pennsaid b.i.d. p.r.n. Assessment & Plan (04/11/2024 9:56 AM CALENDERING MACHINE OPERATOR): Seropositive RA given prior elevated rheumatoid factor and erosions seen on ultrasound. Most recent repeat hand ultrasound did show some improvement in her inflammatory arthritis. Moderate CDAI. Recent increased discomfort and swelling in the hands, as above. Will treat the flare. Due to burden of disease, will administer kenalog 100 mg IM injection, in office, today. Patient was advised of the potential side effects of the medication, including but not limited to increased blood sugar, weight gain, avascular necrosis, glaucoma, cataracts, and/or osteoporosis. Will continue Rinvoq 15 mg daily, leflunomide 20 mg daily, Plaquenil 200 mg b.i.d., as well as Pennsaid b.i.d. p.r.n.. Assessment & Plan (01/12/2024 8:48 AM CDT): Seropositive RA given prior elevated rheumatoid factor and erosions seen on ultrasound. Most recent repeat hand ultrasound did show some improvement in her inflammatory arthritis. Minimal peripheral joint complaints at this time. Low CDAI. Do feel that her inflammatory arthritis is doing fairly well at this time. Will continue Rinvoq 15 mg daily, leflunomide 20 mg daily, Plaquenil 200 mg b.i.d., as well as Pennsaid b.i.d. p.r.n.. Assessment & Plan (10/07/2023 12:59 PM CDT): Seropositive RA given prior elevated rheumatoid factor and erosions seen on ultrasound. Recent complaint has been left knee pain with known history of osteoarthritis. Minimal peripheral joint complaints. Repeat hand ultrasound, as above, did show some improvement in her inflammatory arthritis. Do feel that her inflammatory arthritis is doing fairly well at this time. Will continue Rinvoq 15 mg daily, leflunomide 20 mg daily, Plaquenil 200 mg b.i.d., as well as Pennsaid b.i.d. p.r.n.. Assessment & Plan (07/07/2023 12:47 PM CDT): Seropositive RA given prior elevated rheumatoid factor and erosions seen on ultrasound. Has noted significant benefit with Rinvoq. Has noted some reduced dexterity in the hands, but otherwise denies significant discomfort and or inflammatory symptoms affecting the hands at this time. Repeat hand ultrasound, as above, did show some improvement in her inflammatory arthritis. Do feel that her inflammatory arthritis is doing fairly well at this time. Will continue Rinvoq 15 mg daily, leflunomide 20 mg daily, Plaquenil 200 mg b.i.d., as well as Pennsaid b.i.d. p.r.n.. Assessment & Plan (04/07/2023 10:55 AM CALENDERING MACHINE OPERATOR): Seropositive RA given prior elevated rheumatoid factor and erosions seen on ultrasound. Has noted significant benefit with Rinvoq. Does continue to note some discomfort in the hands worsened use. Will re-evaluate with a repeat right hand/wrist ultrasound, as discussed above. Will continue Rinvoq 15 mg daily, leflunomide 20 mg daily, Plaquenil 200 mg b.i.d., as well as Pennsaid b.i.d. p.r.n.. Assessment & Plan (01/06/2023 8:53 AM CDT): As discussed above, seropositive RA given prior elevated rheumatoid factor and erosions seen on ultrasound. Overall, peripheral joints continue to do fairly well at this time. Will continue Rinvoq 15 mg daily, leflunomide 20 mg daily, Plaquenil 200 mg b.i.d., as well as Pennsaid b.i.d. p.r.n.. Assessment & Plan (10/09/2022 10:16 AM CDT): As discussed above, seropositive RA given prior elevated rheumatoid factor and erosions seen on ultrasound. Overall, peripheral joints doing very well at this time. Will continue Rinvoq 15 mg daily, leflunomide 20 mg daily, Plaquenil 200 mg b.i.d., as well as Pennsaid b.i.d. p.r.n.. Assessment & Plan (07/09/2022 9:37 AM CDT): As discussed above, seropositive RA given prior elevated rheumatoid factor and erosions seen on ultrasound. Had significant benefit with the Kenalog IM injection given at last visit. Overall, peripheral joints doing very well at this time. Will continue Rinvoq 15 mg daily, leflunomide 20 mg daily, Plaquenil 200 mg b.i.d., as well as Pennsaid b.i.d. p.r.n.. Assessment & Plan (06/13/2022 12:34 PM CALENDERING MACHINE OPERATOR): As discussed above, seropositive RA given prior elevated rheumatoid factor and erosions seen on ultrasound. Given increased complaints recently, will administer Kenalog IM injection, as discussed above. Continue Pennsaid applied to the affected hand joints up to 2 times daily p.r.n., which has been beneficial. Otherwise, will continue Rinvoq 15 mg daily, leflunomide 20 mg daily, Plaquenil 200 mg b.i.d.. Assessment & Plan (05/15/2022 10:12 AM CALENDERING MACHINE OPERATOR): As discussed above, seropositive RA given prior elevated rheumatoid factor and erosions seen on ultrasound. Overall, continues to do well at this time with minimal complaints. Continue Pennsaid applied to the affected hand joints up to 2 times daily p.r.n., which has been beneficial. Otherwise, will continue Rinvoq 15 mg daily, leflunomide 20 mg daily, Plaquenil 200 mg b.i.d.. Assessment & Plan (02/13/2022 8:54 AM CDT): As discussed above, seropositive RA given prior elevated rheumatoid factor and erosions seen on ultrasound. Overall, joints doing well at this time with minimal complaints. Continue Pennsaid applied to the affected hand joints up to 2 times daily p.r.n., which has been beneficial. Otherwise, will continue Rinvoq 15 mg daily, leflunomide 20 mg daily, Plaquenil 200 mg b.i.d.. Assessment & Plan (11/11/2021 11:35 AM CDT): As discussed above, seropositive RA given prior elevated rheumatoid factor and erosions seen on ultrasound. Overall, joints doing well at this time with minimal complaints. Will also continue Pennsaid applied to the affected hand joints up to 2 times daily p.r.n., which has been beneficial. Otherwise, will continue Rinvoq 15 mg daily, leflunomide 20 mg daily, Plaquenil 200 mg b.i.d.. Assessment & Plan (10/10/2021 9:47 AM CDT): As discussed above, seropositive RA given prior elevated rheumatoid factor and erosions seen on ultrasound. Primary complaint today is significant pain and swelling in the bilateral 1st IP joint with considerable swelling of the L 1st IP joint among other joints as above. Due to burden of disease, will administer kenalog 100 mg IM injection, in office, today. Patient was advised of the potential side effects of the medication, including but not limited to increased blood sugar, weight gain, avascular necrosis, glaucoma, cataracts, and/or osteoporosis. Does have notes on the bilateral 1st IP joints, do suspect that OA is contributing to her symptoms, although has obvious swelling in the L 1st IP joint, as well. Would like to monitor her response to steroid IM injection today. Will also continue Pennsaid applied to the affected hand joints up to 2 times daily p.r.n., which has been beneficial. Otherwise, will continue Rinvoq 15 mg daily, leflunomide 20 mg daily, Plaquenil 200 mg b.i.d.. Assessment & Plan (07/11/2021 9:43 AM CDT): As discussed above, concern for seropositive RA given prior elevated rheumatoid factor and erosions seen on ultrasound. Appears poorly controlled with moderate cdai. Has begun Rinvoq x4 weeks and tolerated this well. Has noted improvement in joint symptoms with some residual discomfort in the hands. Overall, doing fairly well and will allow Rinvoq more time to take effect. Will continue Rinvoq 15 mg daily. Otherwise, will continue leflunomide 20 mg daily, Plaquenil 200 mg b.i.d.. Assessment & Plan (04/26/2021 9:30 AM CALENDERING MACHINE OPERATOR): As discussed above, concern for seropositive RA given prior elevated rheumatoid factor and erosions seen on ultrasound. Appears poorly controlled with moderate cdai. For this reason, will stop Xeljanz and begin approval for Rinvoq 15 mg daily. Discussed potential side effects of the medication, including but not limited to increased risk of infection, blood clots, headache, diarrhea, bowel perforation, and/or lymphoma risk. Otherwise, will continue leflunomide 20 mg daily, Plaquenil 200 mg b.i.d.. Assessment & Plan (01/18/2021 10:06 AM CDT): As discussed above, concern for seropositive RA given prior elevated rheumatoid factor and erosions seen on ultrasound. Appears adequately controlled. Will continue leflunomide 20 mg daily, Plaquenil 200 mg b.i.d., Xeljanz XR 11 mg daily. Assessment & Plan (11/13/2020 10:06 AM CDT): As discussed above, concern for seropositive RA given prior elevated rheumatoid factor and erosions seen on ultrasound. Recent hand ultrasound, as above, did display some persistent joint activity with slight more synovial thickening in the PIP joints from prior. Would like to allow the Xeljanz more time to take effect along with leflunomide more time to take effect. Continue Plaquenil 200 mg b.i.d. continue xeljanz xr 11 mg daily. Increase Arava to 20 mg daily. Assessment & Plan (10/11/2020 10:23 AM CDT): As discussed above, concern for seropositive RA given prior elevated rheumatoid factor and erosions seen on ultrasound. Symptoms worsen likely due to being without her medications. Continue Plaquenil 200 mg b.i.d. Restart xeljanz xr 11 mg daily. Begin arava 10 mg daily, as above. Assessment & Plan (08/24/2020 3:02 PM CDT): As discussed above, concern for seropositive RA given prior elevated rheumatoid factor and erosions seen on ultrasound. Symptoms worsen likely due to being without her medications. Restart Plaquenil 200 mg b.i.d., xeljanz xr 11 mg daily. Assessment & Plan (06/11/2020 1:03 PM CALENDERING MACHINE OPERATOR): As discussed above, concern for seropositive RA given prior elevated rheumatoid factor and erosions seen on ultrasound. Appears fairly well controlled. Continue Plaquenil 200 mg b.i.d., xeljanz xr 11 mg daily. Assessment & Plan (04/11/2020 12:03 PM CALENDERING MACHINE OPERATOR): As discussed above, concern for seropositive RA given prior elevated rheumatoid factor and erosions seen on ultrasound. Will stop Orencia and azathioprine due to lack of benefit and begin approval for Xeljanz XR 11 mg daily. Continue Plaquenil 200 mg b.i.d.. Assessment & Plan (03/19/2020 9:49 AM CALENDERING MACHINE OPERATOR): As discussed above, concern for seropositive RA given the prior elevated RF and erosion seen on US. Continue orencia. Continue hcq and aza. Hold aza, as above Assessment & Plan (02/17/2020 9:30 AM CDT): As discussed above, concern for seropositive RA given the prior elevated RF and erosion seen on US. Continue orencia. Continue hcq and aza. Given kenalog injection today. Assessment & Plan (12/19/2019 9:19 AM CDT): As discussed above, concern for seropositive RA given the prior elevated RF and erosion seen on US. Proceed with orencia infusions. Continue hcq and aza Assessment & Plan (11/17/2019 10:01 AM CDT): As discussed above, concern for seropositive RA given the prior elevated RF and erosion seen on US. Will stop benlysta and begin approval for orencia. Continue hcq and aza Assessment & Plan (10/06/2019 9:34 AM CDT): As discussed above, concern for seropositive RA given the prior elevated RF and erosion seen on US. Continue treatment regimen as above. If symptoms persist or worsen, could consider orencia vs cori inhibitor. Dysphagia 10/06/2019 Assessment & Plan (12/19/2019 9:20 AM CDT): Has seen GI and is scheduled for upper/lower endoscopy. Assessment & Plan (11/17/2019 10:02 AM CDT): As above, recommended GI evaluation. To discuss with PCP. Assessment & Plan (10/06/2019 9:38 AM CDT): As above, recommended GI evaluation. To discuss with PCP. 09/05/2019 Chronic left shoulder pain 09/05/2019 Assessment & Plan (09/05/2019 10:10 AM CDT): Refer to PT. Chronic pain of both knees 09/05/2019 Assessment & Plan (10/06/2019 9:31 AM CDT): Xray 07/2018: Mild oa. L>>R. Two prior L knee arthroscopy surgeries. Mild benefit with PT in the past. Assessment & Plan (09/05/2019 10:10 AM CDT): Xray 07/2018: Mild oa. Will refer to PT. Dyspnea 07/01/2019 Overview (11/17/2019): PFT 09/09/2019 FVC 86, FEV1 94, FEV1/FVC 107, DLCO 82 Normal spirometry.TLC minimally reduced. DLCO normal Assessment & Plan (09/05/2019 10:08 AM CDT): Denies dyspnea at today's visit, although notes difficulty with exhalation. Scheduled for PFT this week. Assessment & Plan (07/01/2019 11:21 AM CDT): As discussed above. Obtain PFTs. Should discuss further with pcp, if persists. Consider pulmonology evaluation, although defer to pcp. Fibromyalgia 04/01/2019 Overview (12/19/2019): Switched from cymbalta to celexa per pcp. Assessment & Plan (05/09/2024 11:01 AM CALENDERING MACHINE OPERATOR): Stable. Continue Cymbalta 60 mg daily, gabapentin 300 mg qid per Neurology. Previously switched from Lyrica for insurance reasons. Encourage routine exercise. Assessment & Plan (04/11/2024 9:57 AM CALENDERING MACHINE OPERATOR): Stable. Continue Cymbalta 60 mg daily, gabapentin 300 mg qid per Neurology. Previously switched from Lyrica for insurance reasons. Encourage routine exercise. Assessment & Plan (01/12/2024 8:49 AM CDT): Stable. Continue Cymbalta 60 mg daily, gabapentin 300 mg qid per Neurology. Previously switched from Lyrica for insurance reasons. Encourage routine exercise. Assessment & Plan (10/07/2023 12:59 PM CDT): Stable. Continue Cymbalta 60 mg daily, gabapentin 300 mg qid per Neurology. Previously switched from Lyrica for insurance reasons. Encourage routine exercise. Assessment & Plan (07/07/2023 12:50 PM CDT): Remains stable. Continue Cymbalta 60 mg daily, gabapentin 300 mg qid per Neurology. Previously switched from Lyrica for insurance reasons. Encourage routine exercise. Assessment & Plan (04/07/2023 12:50 PM CALENDERING MACHINE OPERATOR): Stable. Continue Cymbalta 60 mg daily, gabapentin 300 mg qid per Neurology. Previously switched from Lyrica for insurance reasons. Encourage routine exercise. Assessment & Plan (01/06/2023 8:54 AM CDT): Remains stable. Continue Cymbalta 30 mg daily, gabapentin 300 mg q.a.m., 300 mg midday, 600 mg q.p.m. per Neurology. Previously switched from Lyrica for insurance reasons. Encourage routine exercise. Assessment & Plan (10/09/2022 10:17 AM CDT): Remains stable. Continue Cymbalta 30 mg daily, gabapentin 300 mg q.a.m., 300 mg midday, 600 mg q.p.m. per Neurology. Previously switch from Lyrica for insurance reasons. Encourage routine exercise. Assessment & Plan (07/09/2022 9:38 AM CDT): Stable. Continue Cymbalta 30 mg daily, gabapentin 300 mg q.a.m., 300 mg midday, 600 mg q.p.m. per Neurology. Previously switch from Lyrica for insurance reasons. Encourage routine exercise. Assessment & Plan (06/13/2022 12:35 PM CALENDERING MACHINE OPERATOR): Continue Cymbalta 30 mg daily. Continue gabapentin 300 mg q.a.m., 300 mg midday, 600 mg q.p.m. per neurology. Previous switch from Lyrica for insurance reasons. Encourage routine exercise. Assessment & Plan (05/15/2022 10:15 AM CALENDERING MACHINE OPERATOR): Stable. Continue Cymbalta 30 mg daily. Continue gabapentin 300 mg q.a.m., 300 mg midday, 600 mg q.p.m. per neurology. Previous switch from Lyrica for insurance reasons. Encourage routine exercise. Assessment & Plan (02/13/2022 8:53 AM CDT): Stable. Continue Cymbalta 30 mg daily. Neurology recently increase gabapentin to 300 mg q.a.m., 300 mg midday, 600 mg q.p.m.. Previous switch from Lyrica for insurance reasons. Encourage routine exercise. Assessment & Plan (11/11/2021 11:36 AM CDT): Stable. Continue Cymbalta 30 mg daily. Neurology recently increase gabapentin to 300 mg q.a.m., 300 mg midday, 600 mg q.p.m.. Previous switch from Lyrica for insurance reasons. Encourage routine exercise. Assessment & Plan (10/10/2021 9:44 AM CDT): Stable. Continue Cymbalta 30 mg daily. Neurology recently increase gabapentin to 300 mg q.a.m., 300 mg midday, 600 mg q.p.m.. Previous switch from Lyrica for insurance reasons. Encourage routine exercise. Assessment & Plan (07/11/2021 9:44 AM CDT): Stable. Continue Cymbalta 30 mg daily. Neurology recently increase gabapentin to 300 mg q.a.m., 300 mg midday, 600 mg q.p.m.. Previous switch from Lyrica for insurance reasons. Encourage routine exercise. Assessment & Plan (04/26/2021 9:31 AM CALENDERING MACHINE OPERATOR): Stable. Continue Cymbalta and gabapentin 100 mg TID. Previous switch from Lyrica for insurance reasons. Encourage routine exercise. Assessment & Plan (01/18/2021 10:07 AM CDT): Suspect fibromyalgia given her chronic generalized muscle joint pain, fatigue, brain fog. Stable at present. Continue Cymbalta, Lyrica 300 mg previously reduced to 1 tab at night due to concerns for weight gain. Encourage routine exercise. Assessment & Plan (11/13/2020 10:08 AM CDT): Suspect fibromyalgia given her chronic generalized muscle joint pain, fatigue, brain fog. Continue Cymbalta, Lyrica 300 mg reduced to 1 tab at night due to concerns for weight gain. Encourage routine exercise. Assessment & Plan (10/11/2020 10:23 AM CDT): Suspect fibromyalgia given her chronic generalized muscle joint pain, fatigue, brain fog. Continue Cymbalta, Lyrica 300 mg 1-2 times daily per PCP. Encourage routine exercise. Assessment & Plan (08/24/2020 3:01 PM CDT): Suspect fibromyalgia given her chronic generalized muscle joint pain, fatigue, brain fog. Continue Cymbalta, Lyrica 300 mg 1-2 times daily per PCP. Encourage routine exercise. Assessment & Plan (06/11/2020 1:06 PM CALENDERING MACHINE OPERATOR): Stable. Continue Cymbalta. On Lyrica 300 mg 1-2 times daily per PCP. Encourage routine exercise. Assessment & Plan (04/11/2020 12:07 PM CALENDERING MACHINE OPERATOR): Stable. Continue Cymbalta. On Lyrica 300 mg 1-2 times daily per PCP. Encourage routine exercise. Assessment & Plan (03/19/2020 9:50 AM CALENDERING MACHINE OPERATOR): As discussed at last visit, continue to suspect fibromyalgia may be contributing to some of her chronic pain complaints and fatigue. Stable at present. Continue cymbalta 60 mg daily. On lyrica 300 mg 1-2x daily per pcp. Encouraged routine exercise. Assessment & Plan (02/17/2020 9:30 AM CDT): As discussed at last visit, continue to suspect fibromyalgia may be contributing to some of her chronic pain complaints and fatigue. Continue cymbalta 60 mg daily. On lyrica 300 mg 1-2x daily per pcp. Encouraged routine exercise. Assessment & Plan (12/19/2019 9:21 AM CDT): As discussed at last visit, suspect fibromyalgia may be contributing to some of her chronic pain complaints and fatigue. On gabapentin,celexa per PCP. Encouraged routine exercise. Assessment & Plan (11/17/2019 10:03 AM CDT): As discussed at last visit, suspect fibromyalgia may be contributing to some of her chronic pain complaints and fatigue. On gabapentin per PCP. Recently switched to celexa, which has not been offering as much benefit as cymbalta. Encouraged routine exercise. Assessment & Plan (10/06/2019 9:31 AM CDT): Suspect fibromyalgia may be contributing to some of her chronic pain complaints and fatigue. On Cymbalta and gabapentin per PCP. Encouraged routine exercise. Assessment & Plan (09/05/2019 10:09 AM CDT): Suspect fibromyalgia may be contributing to some of her chronic pain complaints and fatigue. On Cymbalta and gabapentin per PCP. Encouraged routine exercise. Assessment & Plan (07/01/2019 11:20 AM CDT): Suspect fibromyalgia may be contributing to some of her chronic pain complaints. On Cymbalta and gabapentin per PCP. Encouraged routine exercise. Assessment & Plan (04/01/2019 12:29 PM CALENDERING MACHINE OPERATOR): FM may be contributing to some of her chronic pain complaints. Recently began cymbalta per pcp, which has offered benefit. Minimal chronic pain complaints at present. Osteoarthritis of carpometac arpal (CMC) joint of both thumbs 12/31/2018 Assessment & Plan (01/12/2024 8:49 AM CDT): Primary complaint at this time is pain in the left hand CMC joint. Has not been using CMC brace. Has been applying Pennsaid and using OTC ibuprofen. Recommended use of CMC brace. Discussed CMC injection, which she defers at this time. Reconsider if symptoms worsened. Assessment & Plan (09/05/2019 10:08 AM CDT): Improved with cmc bracing. Defers cmc kenalog injections. Assessment & Plan (07/01/2019 11:18 AM CDT): Bilateral CMC bracing has offered benefit. Assessment & Plan (04/01/2019 12:26 PM CALENDERING MACHINE OPERATOR): Bilateral CMC bracing has offered benefit. Assessment & Plan (12/31/2018 12:46 PM CDT): Primary joint complaint today. Given order for bilateral cmc bracing per OT. Elevated LFTs 08/02/2018 Overview (08/02/2018): Ultrasound 07/2018: Diffuse fatty liver Assessment & Plan (11/17/2019 10:02 AM CDT): Ultrasound 07/2018: Diffuse fatty liver Recommended diet and exercise. Assessment & Plan (10/06/2019 9:36 AM CDT): Ultrasound 07/2018: Diffuse fatty liver Recommended diet and exercise. Patient to discuss with pcp referral to hepatology for further evaluation. Chronic bilateral low back pain with left-sided sciatica 07/23/2018 Overview (05/20/2022): C-spine x-ray 05/15/2022: Minimal degenerative changes at C3-C4 and C4-C5 SI joint x-ray 05/15/2022: WNL L-spine x-ray 05/15/2022: 5 mm anterolisthesis of L4 on L5. Assessment & Plan (05/09/2024 11:02 AM CALENDERING MACHINE OPERATOR): C-spine x-ray 05/15/2022: Minimal degenerative changes at C3-C4 and C4-C5 SI joint x-ray 05/15/2022: WNL L-spine x-ray 05/15/2022: 5 mm anterolisthesis of L4 on L5. Had L-spine MRI from [facility] and is following with pain management. Has completed physical therapy. Following with pain management. Is currently going to physical therapy. Is scheduled for repeat L-spine epidural steroid injection with pain management tomorrow. Is following with orthopedic surgeon with discussions for potential surgical intervention regarding the lower back. Assessment & Plan (04/11/2024 9:57 AM CALENDERING MACHINE OPERATOR): C-spine x-ray 05/15/2022: Minimal degenerative changes at C3-C4 and C4-C5 SI joint x-ray 05/15/2022: WNL L-spine x-ray 05/15/2022: 5 mm anterolisthesis of L4 on L5. Had L-spine MRI from [facility] and is following with pain management. Has completed physical therapy. Following with pain management. Has restarted physical therapy in the last week. Is following with orthopedic surgeon with discussions for potential surgical intervention regarding the lower back. Assessment & Plan (07/07/2023 12:51 PM CDT): C-spine x-ray 05/15/2022: Minimal degenerative changes at C3-C4 and C4-C5 SI joint x-ray 05/15/2022: WNL L-spine x-ray 05/15/2022: 5 mm anterolisthesis of L4 on L5. Had L-spine MRI from [facility] and is following with pain management. Has completed physical therapy. Has not been consistent with her lower back exercise since. Following with pain management. Has previously deferred surgical intervention. Assessment & Plan (07/09/2022 9:40 AM CDT): C-spine x-ray 05/15/2022: Minimal degenerative changes at C3-C4 and C4-C5 SI joint x-ray 05/15/2022: WNL L-spine x-ray 05/15/2022: 5 mm anterolisthesis of L4 on L5. Had L-spine MRI from [facility] and is following with pain management. Received epidural injection yesterday afternoon and continues to go to physical therapy. She defers surgical intervention at this time. Continue to follow with pain management. Assessment & Plan (06/13/2022 12:35 PM CALENDERING MACHINE OPERATOR): C-spine x-ray 05/15/2022: Minimal degenerative changes at C3-C4 and C4-C5 SI joint x-ray 05/15/2022: WNL L-spine x-ray 05/15/2022: 5 mm anterolisthesis of L4 on L5. Do not recommend use of steroids for chronic neck and or lower back pain nor do I think this related to her underlying rheumatoid arthritis and/or SLE. Continue physical therapy and recommended establishing with a pain management doctor to address her persistent back/neck complaints. Will track down recent L-spine MRI from [facility]. Assessment & Plan (05/15/2022 10:14 AM CALENDERING MACHINE OPERATOR): Primary complaint is significant lower back pain with left-sided sciatica symptoms. Has history of degenerative arthritis lower back. She did previously follow with pain management received MARIAN's, which eventually lost effectiveness. Had been to PT in the past, which initially was beneficial, although also lost effectiveness. She did have questions regarding the possibility of ankylosing spondylitis. She does describe a.m. stiffness for 20 minutes and symptoms do tend to improve with activities, although this would be highly unlikely given age of onset and history of degenerative arthritis. Will further evaluate with updated imaging and sent to physical therapy. Depending on x-ray findings, will proceed with L-spine MRI without contrast and she was given these orders today. Assessment & Plan (04/01/2019 12:28 PM CALENDERING MACHINE OPERATOR): History of L4/L5/S1 OA in the lower back. Requires tramadol infrequently Assessment & Plan (12/31/2018 12:46 PM CDT): History of L4/L5/S1 OA in the lower back. Overall, notes that back symptoms have been doing very well at this time. Pt requiring tramadol infrequently Assessment & Plan (10/01/2018 10:47 AM CDT): History of L4/L5/S1 OA in the lower back. Overall, notes that back symptoms have been doing very well at this time. Has not required tramadol recently. Assessment & Plan (07/23/2018 10:21 AM CDT): Primary complaint today is persistent right-sided lower back pain, which has been keeping patient up at night. History of L4/L5/S1 osteoarthritis of the lower back per patient report. Denies any radicular symptoms. Patient has been on flexeril in the past with no benefit. Patient had prior seen pain management, which she did receive injections in the past, as well as was prescribed tramadol, which was beneficial. Will prescribed tramadol q.8 hours p.r.n. 1 month supply. Discussed potential side effects of the medication, including but not limited to addiction, somnolence and dizziness. Patient advised to follow up with Pain Management doctor for further management. Shingles 07/23/2018 Assessment & Plan (07/23/2018 10:23 AM CDT): Recent diagnosis of shingles due to lesions on the R lower abdomen per patient report. Has completed valtrex 10 day course with no new lesions. Can continue with aza and benlysta at this time. Difficulty sleeping 06/04/2018 Assessment & Plan (06/04/2018 10:18 AM CALENDERING MACHINE OPERATOR): Insomnia symptoms at night. Discussed use of black noise machine. also reports that she snores. Would recommend sleep study, although discuss further with PCP. Right hand pain 05/07/2018 Assessment & Plan (05/07/2018 10:54 AM CALENDERING MACHINE OPERATOR): Patient jammed right 1st digit and has notable pain localized over the Rt CMC joint. Will obtain Rt hand Xr. Osteopenia 05/07/2018 Overview (09/30/2019): DXA 06/2017: normal bone density. FRAX score: Major: 11%, hip: <1% DEXA 09/29/2019: L-spine: -1.0, left femoral neck:-0.7, right femoral neck:-0.4, FRAX: 11.4%/0.7% Assessment & Plan (10/06/2019 9:30 AM CDT): DEXA 09/29/2019: L-spine: -1.0, left femoral neck:-0.7, right femoral neck:-0.4, FRAX: 11.4%/0.7% Receommended ca and vitamin d. Assessment & Plan (09/05/2019 10:07 AM CDT): DXA 06/2017: normal bone density. FRAX score: Major: 11%, hip: <1% Given new dexa order. Assessment & Plan (07/23/2018 9:05 AM CDT): DXA 06/2017: normal bone density. FRAX score: Major: 11%, hip: <1% Recheck in 2 years. Assessment & Plan (06/04/2018 10:14 AM CALENDERING MACHINE OPERATOR): Did not obtain DEXA at last visit, will obtain in the near future. Order placed again. Assessment & Plan (05/07/2018 10:56 AM CALENDERING MACHINE OPERATOR): Recently non-displaced lateral malleolus fracture after rolling her ankle. Is at increased risk for osteoporosis with SLE. Will check dexa scan today. Confusion 03/03/2018 Right hip pain 02/26/2018 Assessment & Plan (06/04/2018 10:15 AM CALENDERING MACHINE OPERATOR): Patient does continue to have some mild pain in the right hip / groin region. Most recent hip x-ray was negative. Has complaints are minimal, we will just monitor at this time. If symptoms progress, would consider right hip MRI. Assessment & Plan (05/07/2018 10:52 AM CALENDERING MACHINE OPERATOR): Denies major complaints today. Most recent right hip x-ray was negative. If symptoms do worsen, would consider right hip MRI. Assessment & Plan (03/26/2018 9:57 AM CALENDERING MACHINE OPERATOR): Right hip pain with accompanying morning stiffness persists. Localizes over the right hip/ groin region, although no pain elicited with internal and external rotation. Recent right hip x-ray was negative. If symptoms persist, will consider right hip MRI at next visit. Assessment & Plan (02/26/2018 10:24 AM CALENDERING MACHINE OPERATOR): Right hip pain, which she does note morning stiffness with this as well, although is worsened with walking during the day, as well as climbing steps. Pain localized in the right hip/ groin region, although does have full range of motion with no pain elicited on exam. Will obtain right hip x-ray. Eye pain, left 01/08/2018 Assessment & Plan (01/08/2018 10:25 AM CDT): Patient notes pain developed around her left eye yesterday, which is improving today. Denies any redness. Denies any vision changes. No redness on exam. Would like to have patient further evaluated with Ophthalmology. Headaches 12/15/2017 Assessment & Plan (06/04/2018 10:16 AM CALENDERING MACHINE OPERATOR): Still awaiting to schedule with Neurology for further evaluation of these symptoms. Assessment & Plan (05/07/2018 10:52 AM CALENDERING MACHINE OPERATOR): Has not scheduled with Neurology, which was discussed at the last couple of visits. Will be scheduling in the near future. Assessment & Plan (03/26/2018 10:29 AM CALENDERING MACHINE OPERATOR): As discussed at last visit, given her confusion symptoms, as well as headaches , would recommend further evaluation with Neurology. Assessment & Plan (02/26/2018 10:23 AM CALENDERING MACHINE OPERATOR): Continues to note persistent headaches, as well as confusion. Patient was advised to follow up with Neurology for further evaluation of these symptoms. Assessment & Plan (12/15/2017 11:09 AM CDT): Patient notes some tension-type headaches, which have persisted over the past month. Attributes this to some recent neck pain. Will discuss further with PCP. Encounter for long-term (current) use of medicat ions 12/15/2017 Assessment & Plan (05/09/2024 11:01 AM CALENDERING MACHINE OPERATOR): DEXA 02/05/2023: L-spine-1.3, left femoral neck-1.4, left total hip-0.7, right femoral neck -0.8, right total hip -0.4 FRAX: 9.6/0.8. On vitamin-D supplementation per PCP recommendations Routine labs today. Continue routine eye exams. Normal TPMT 03/2018 Neg quant 06/2019 Assessment & Plan (04/11/2024 9:56 AM CALENDERING MACHINE OPERATOR): DEXA 02/05/2023: L-spine-1.3, left femoral neck-1.4, left total hip-0.7, right femoral neck -0.8, right total hip -0.4 FRAX: 9.6/0.8. On vitamin-D supplementation per PCP recommendations Routine labs today. Continue routine eye exams. Normal TPMT 03/2018 Neg quant 06/2019 Assessment & Plan (01/12/2024 8:49 AM CDT): DEXA 02/05/2023: L-spine-1.3, left femoral neck-1.4, left total hip-0.7, right femoral neck -0.8, right total hip -0.4 FRAX: 9.6/0.8. On vitamin-D supplementation per PCP recommendations Routine labs today. Continue routine eye exams. Normal TPMT 03/2018 Neg quant 06/2019 Assessment & Plan (10/07/2023 12:59 PM CDT): DEXA 02/05/2023: L-spine-1.3, left femoral neck-1.4, left total hip-0.7, right femoral neck -0.8, right total hip -0.4 FRAX: 9.6/0.8. On vitamin-D supplementation per PCP recommendations Routine labs today. Continue routine eye exams. Normal TPMT 03/2018 Neg quant 06/2019 Assessment & Plan (07/07/2023 12:49 PM CDT): DEXA 02/05/2023: L-spine-1.3, left femoral neck-1.4, left total hip-0.7, right femoral neck -0.8, right total hip -0.4 FRAX: 9.6/0.8. On vitamin-D supplementation per PCP recommendations Routine labs today. Continue routine eye exams. Normal TPMT 03/2018 Neg quant 06/2019 Assessment & Plan (04/07/2023 12:50 PM CALENDERING MACHINE OPERATOR): DEXA 02/05/2023: L-spine-1.3, left femoral neck-1.4, left total hip-0.7, right femoral neck -0.8, right total hip -0.4 FRAX: 9.6/0.8. On vitamin-D supplementation per PCP recommendations Routine labs today. Continue routine eye exams. Normal TPMT 03/2018 Neg quant 06/2019 Assessment & Plan (01/06/2023 8:54 AM CDT): Routine labs today. Continue routine eye exams. Normal TPMT 03/2018 Neg quant 06/2019 Assessment & Plan (10/09/2022 10:17 AM CDT): Routine labs today. Continue routine eye exams. Normal TPMT 03/2018 Neg quant 06/2019 Assessment & Plan (07/09/2022 9:38 AM CDT): Routine labs today. Continue routine eye exams. Normal TPMT 03/2018 Neg quant 06/2019 Assessment & Plan (02/13/2022 8:53 AM CDT): Routine labs today. Continue routine eye exams. Normal TPMT 03/2018 Neg quant 06/2019 Assessment & Plan (11/11/2021 11:36 AM CDT): Routine labs today. Continue routine eye exams. Normal TPMT 03/2018 Neg quant 06/2019 Assessment & Plan (10/10/2021 9:44 AM CDT): Routine labs today. Continue routine eye exams. Normal TPMT 03/2018 Neg quant 06/2019 Assessment & Plan (07/11/2021 9:44 AM CDT): Routine labs today. Continue routine eye exams. Normal TPMT 03/2018 Neg quant 06/2019 Assessment & Plan (04/26/2021 9:30 AM CALENDERING MACHINE OPERATOR): Routine labs today. Continue routine eye exams. Normal TPMT 03/2018 Neg quant 06/2019 Assessment & Plan (01/18/2021 10:06 AM CDT): Routine labs today. Continue routine eye exams. Normal TPMT 03/2018 Neg quant 06/2019 Assessment & Plan (11/13/2020 10:07 AM CDT): Routine labs today. Continue routine eye exams. Normal TPMT 03/2018 Neg quant 06/2019 Assessment & Plan (10/11/2020 10:23 AM CDT): Routine labs today. Continue routine eye exams. Normal TPMT 03/2018 Neg quant 06/2019 Assessment & Plan (08/24/2020 3:03 PM CDT): Routine labs today. Continue routine eye exams. Normal TPMT 03/2018 Neg quant 06/2019 Assessment & Plan (06/11/2020 1:04 PM CALENDERING MACHINE OPERATOR): Routine labs today. Continue routine eye exams. Normal TPMT 03/2018 Neg quant 06/2019 Assessment & Plan (04/11/2020 12:04 PM CALENDERING MACHINE OPERATOR): Routine labs today. Continue routine eye exams. Normal TPMT 03/2018 Neg quant 06/2019 Assessment & Plan (03/19/2020 9:50 AM CALENDERING MACHINE OPERATOR): Routine labs today. Continue routine eye exams. Normal TPMT 03/2018 Neg quant 06/2019 Assessment & Plan (02/17/2020 9:28 AM CDT): Routine labs today. Continue routine eye exams. Normal TPMT 03/2018 Neg quant 06/2019 Assessment & Plan (12/19/2019 9:19 AM CDT): Routine labs today. Continue routine eye exams. Normal TPMT 03/2018 Neg quant 06/2019 Assessment & Plan (11/17/2019 10:05 AM CDT): Routine labs today. Continue routine eye exams. Normal TPMT 03/2018 Neg quant 06/2019 Assessment & Plan (10/06/2019 9:32 AM CDT): Routine labs today. Continue routine eye exams. Normal TPMT 03/2018 Assessment & Plan (09/05/2019 10:08 AM CDT): Routine labs today. Continue routine eye exams. Normal TPMT 03/2018 Assessment & Plan (07/01/2019 11:20 AM CDT): Routine labs today. Continue routine eye exams. Normal TPMT 03/2018 Assessment & Plan (04/01/2019 12:27 PM CALENDERING MACHINE OPERATOR): Routine labs today. Continue routine eye exams. Normal TPMT 03/2018 Assessment & Plan (12/31/2018 12:46 PM CDT): Routine labs today. Continue routine eye exams. Normal TPMT 03/2018 Routine labs today. Assessment & Plan (10/01/2018 10:48 AM CDT): Routine labs today. Continue routine eye exams. Normal TPMT 03/2018 Routine labs today. Assessment & Plan (07/23/2018 9:07 AM CDT): Routine labs today. Continue routine eye exams. Normal TPMT 03/2018 Routine labs today. Assessment & Plan (06/04/2018 10:16 AM CALENDERING MACHINE OPERATOR): Routine labs today. Continue routine eye exams. Normal TPMT 03/2018 Routine labs today. Assessment & Plan (05/07/2018 10:53 AM CALENDERING MACHINE OPERATOR): Routine labs today. Continue routine eye exams. Normal TPMT 03/2018 Routine labs today. Recheck CBC in 2 weeks. Assessment & Plan (03/26/2018 9:57 AM CALENDERING MACHINE OPERATOR): Routine labs today. Continue routine eye exams. Routine labs today, including TP MT. Recheck CBC in 2 weeks. Assessment & Plan (02/26/2018 10:25 AM CALENDERING MACHINE OPERATOR): Routine labs today. Continue routine eye exams. Assessment & Plan (01/08/2018 10:25 AM CDT): Routine labs today. Repeat right hand ultrasound. Continue routine eye exams. Assessment & Plan (12/15/2017 10:37 AM CDT): Routine labs today. Raynaud's disease without gangrene 09/28/2017 Assessment & Plan (02/13/2022 8:53 AM CDT): No digital sores. Continue use of gloves, hand/feet warmers. Assessment & Plan (11/11/2021 11:36 AM CDT): No digital sores. Continue use of gloves, hand/feet warmers. Assessment & Plan (10/10/2021 9:46 AM CDT): No digital sores. Continue use of gloves, hand/feet warmers. Assessment & Plan (07/11/2021 9:45 AM CDT): No digital sores. Continue use of gloves, hand/feet warmers. Assessment & Plan (04/26/2021 9:30 AM CALENDERING MACHINE OPERATOR): Persistent intermittent Raynaud/acrocyanosis symptoms in the feet>hands. No digital sores. Continue use of gloves, hand/feet warmers. Assessment & Plan (01/18/2021 10:08 AM CDT): Persistent intermittent Raynaud/acrocyanosis symptoms in the feet>hands. No digital sores. Continue use of gloves, hand/feet warmers. Assessment & Plan (11/13/2020 10:08 AM CDT): Persistent intermittent Raynaud/acrocyanosis symptoms in the feet>hands. No digital sores. Continue use of gloves, hand/feet warmers. Assessment & Plan (10/11/2020 10:23 AM CDT): Persistent intermittent Raynaud/acrocyanosis symptoms in the feet>hands. No digital sores. Discussed persistent use of gloves, hand/feet warmers. Assessment & Plan (08/24/2020 3:02 PM CDT): Persistent intermittent Raynaud/acrocyanosis symptoms in the feet>hands. No digital sores. Discussed persistent use of gloves, hand/feet warmers. Assessment & Plan (06/11/2020 1:04 PM CALENDERING MACHINE OPERATOR): Persistent intermittent Raynaud symptoms in the feet>hands. Notes sores on the hands/feet. Discussed persistent use of gloves, hand/feet warmers. Assessment & Plan (07/01/2019 11:18 AM CDT): Mild occasional Raynaud's symptoms in the feet persist. Continues to possess some fissuring on the finger tips, but denies any history consistent with Raynaud's in the hands. Continue use of Vaseline on the tips of the fingers. Assessment & Plan (04/01/2019 12:27 PM CALENDERING MACHINE OPERATOR): Mild occasional Raynaud's in the feet without any digital ulceration. Does posses fissuring of the skin on the finger tips, but denies any history of Raynaud's in the fingertips. Discussed use of Vaseline on the tips of the fingers. Could consider amlodipine, if Raynaud symptoms develop in the hands Assessment & Plan (09/28/2017 8:29 AM CDT): Cont. Symptomatic treatment. SLE (systemic lupus erythematosus) 08/25/2017 Overview (04/23/2023): Initial serologies:pos lourdes 1:640 dense fine speckled. + CB-CAP BC4D, + RF, + anti-cardio, + anti b2, + anti-phosphatyldyserine. US: mild/moderate synovitis. Avise 10/11/2019: Positive LOURDES 1:160 speckled, positive CBCAP-EC4d 64, positive PS PT 79, but otherwise negative Xray 07/2017: suzanne knees: Mild OA US right hand/wrist 09/19/2019: 3rd MCP erosion. Marked synovial thickening with grade 2 power Doppler at the wrist. Moderate 2nd PIP and mild 3rd PIP synovial thickening. Fourth compartment effusion. Compared to prior hand ultrasound, the wrist and PIPs have increased synovial thickening with the new 3rd MCP dorsal erosion US right hand/wrist 10/17/2020: 3rd MCP dorsal erosion. Moderate synovial thickening/effusion with grade 1 power Doppler at the wrist. Moderate 2nd and 3rd PIP synovial thickening. Grade 2 power Doppler the 2nd MCP. Fourth compartment effusion. PIP's have more synovial thickening in comparison to prior hand ultrasound US Right hand/wrist 04/22/23: Effusion of the 4th extensor compartment Severe synovial thickening of the dorsal wrist with grade 1 power Doppler and effusion Grade 1 power Doppler of the radial scaphoid joint Mild synovial thickening of the 3rd MCPJ with possible erosion proximal to the metacarpal head Grade 1 volar effusion of the 4th and 5th MCPJ without synovial thickening Mild synovial thickening of the 2nd PIPJ, moderate thickening of the 3rd PIPJ Mild spurring of the 1st CMC joint Enlargement of the median nerve to 0.14 cm2 Findings are compared to previous exam dated 10/17/20 showing continued power Doppler and extensor compartment effusion of the wrist; slight increase in thickening of the dorsal wrist and 3rd MCPJ. Improved power Doppler of the 2nd MCPJ and thickening of the 2nd and 3rd PIPJ. Possible erosion of the 3rd MCPJ seen on previous exam and unchanged. New enlargement of the median nerve. Small volar effusions of the 4th and 5th MCPJ are new. Overall there continues to be inflammatory signal within the wrist though the 2nd MCP and PIP joints are improved. Initial history: Hx of polyarthralgias, photosensitivity, mouth sores, raynaud's symptoms, as well as positive lourdes. Also has a history of polycythemia, which she will be following up with hematology for, as discussed below. May also have overlap with RA. Started HCQ 08/25/2017 Given kenalog at last visit. Ultrasound ( 01/2018):1) Mild/moderate synovial thickening/effusion with power Doppler seen in the wrist. The MCPs did not have significant synovial thickening but mild was seen in the 2nd PIP and both the 2nd and 3rd PIPs had grade 1 PD on examination which will have to be correlated clinically. 2) 4th compartment effusion. Compared to the US from 08/17/17 there has been little change. Dr ribeiro neurologist norma hernandez On Plaquenil 200 b.i.d., xejoan Assessment & Plan (05/09/2024 11:01 AM CALENDERING MACHINE OPERATOR): CDAI 7. Had significant benefit with Kenalog IM injection given at last visit. Denies significant peripheral joint complaints and her prolonged a.m. stiffness. Doing well at this time. Will continue leflunomide 20 mg daily, Plaquenil 200 mg b.i.d., Rinvoq 15 mg daily, and Pennsaid cream. Up-to-date on eye exams. Routine labs today. Follow-up 3 months. Sooner if needed. Assessment & Plan (04/11/2024 9:55 AM CALENDERING MACHINE OPERATOR): CDAI 21. Since last visit, has had increased discomfort and swelling in the bilateral hands along with discomfort over the bilateral elbows (medial/lateral epicondyles). Denies prolonged a.m. stiffness. Chronic fatigue with no other recent systemic complaints. Scattered swollen joints, as above. Will treat the flares symptoms. Due to burden of disease, will administer kenalog 100 mg IM injection, in office, today. Patient was advised of the potential side effects of the medication, including but not limited to increased blood sugar, weight gain, avascular necrosis, glaucoma, cataracts, and/or osteoporosis. Otherwise, will continue leflunomide 20 mg daily, Plaquenil 200 mg b.i.d., Rinvoq 15 mg daily, Pennsaid cream. Up-to-date on eye exams. Routine labs today. Follow-up 3 months. Sooner if needed. Assessment & Plan (01/12/2024 8:48 AM CDT): CDAI 7. Overall, has continued do very well since last visit. Has had some discomfort in the left hand CMC joint, which I suspect is unrelated to her SLE/RA. No other significant peripheral joint complaints. Recent in her mouth sore resolved, as above, without any other recent systemic complaints. Minimal swelling on exam. Appears well managed. Will continue leflunomide 20 mg daily, Plaquenil 200 mg b.i.d., Rinvoq 15 mg daily, and Pennsaid cream. Up-to-date on eye exams. Routine labs today. Follow- up 3 months. Sooner if needed. Assessment & Plan (10/07/2023 12:58 PM CDT): CDAI 9. Primary complaints since last visit is increased pain in the left knee with history of osteoarthritis. Otherwise, has noted some swelling in the hands with minimal discomfort predominantly in the 1st IP joints. Symptoms are noninflammatory. Has chronic dry eyes and no other recent systemic complaints. Most recent right hand/wrist ultrasound was improved from prior. Do feel that her SLE is fairly well managed. Will continue leflunomide 20 mg daily, Plaquenil 200 mg b.i.d., Rinvoq 15 mg daily and Pennsaid cream. Up-to-date on eye exams. Routine labs today. Follow-up 3 months. Sooner if needed. Seen with Dr. Gaffney. Assessment & Plan (07/07/2023 12:49 PM CDT): CDAI 9. Since last visit, has noted some reduced dexterity in the hands with residual discomfort in the bilateral 1st IP joints of the hands with no other significant peripheral joint pain and/or prolonged a.m. stiffness. No other recent systemic complaints. Denies any inflammatory joint symptoms. Repeat hand ultrasound, as above, did appear improved from previous. She has previously felt that Rinvoq has been beneficial for joints, so I have been hesitant on making a change. Overall, do feel that her inflammatory arthritis, including SLE is fairly well managed at this time. Will continue leflunomide 20 mg daily, Plaquenil 200 mg b.i.d., Rinvoq 15 mg daily, Pennsaid cream. Up-to-date on eye exams. Routine labs today. Follow-up 3 months. Sooner if needed. Assessment & Plan (04/07/2023 10:54 AM CALENDERING MACHINE OPERATOR): CDAI 13. Since last visit, has noted intermittent discomfort in the joints of the hands worsened with use, in particular quilting. Otherwise, denies any other systemic complaints. Has mild swelling and tenderness in the right hand, as above. She has felt that Rinvoq has been beneficial per her joints. Hesitant to make a change for this reason and do suspect that some of her residual pain complaints are due to mechanical causes. Will re-evaluate with repeat right hand/wrist ultrasound to assess for inflammation. At present, will continue leflunomide 20 mg daily, Plaquenil 200 mg b.i.d., Rinvoq 15 mg daily. Continue Pennsaid cream. Up-to-date on eye exams. Routine labs today. Follow-up 3 months. Sooner if needed. Assessment & Plan (01/06/2023 8:53 AM CDT): CDAI 10. Overall, Nasrin has continued to do very well since last visit. Since last visit, has fairly minimal peripheral joint complaints. Denies prolonged a.m. stiffness. Denies any other recent systemic complaints. Minimal synovitis on exam. Overall, does appear well managed. Will continue leflunomide 20 mg daily, Plaquenil 200 mg b.I.d., Rinvoq 15 mg daily. Continue Pennsaid cream. Up-to-date on eye exams. Routine labs today. Follow-up 3 months. Sooner if needed. Assessment & Plan (10/09/2022 10:16 AM CDT): CDAI 9. Overall, Nasrin has done very well since last visit. Has had some discomfort in the left 1st IP joint for the past 3 days, which is improved some with Pennsaid cream. Otherwise, remaining joints are doing very well. Denies prolonged a.m. stiffness. Denies any other recent systemic complaints. Overall, does appear well managed. Will continue leflunomide 20 mg daily, Plaquenil 200 mg b.I.d., Rinvoq 15 mg daily. Continue Pennsaid cream. Routine labs today. Follow-up 3 months. Sooner if needed. Assessment & Plan (07/09/2022 9:38 AM CDT): CDAI 2. Has significant benefit with Kenalog IM injection given at last visit. Denies significant peripheral joint complaints. Other than cough due to URI currently on antibiotics per PCP, denies any other recent systemic complaints. Have advised to hold Rinvoq until symptoms resolved. Otherwise, will continue leflunomide 20 mg daily, Plaquenil 200 mg b.i.d., Rinvoq 15 mg daily. Continue Pennsaid cream. Is due for eye exam. Follow-up 3 months. Sooner if needed Assessment & Plan (06/13/2022 12:33 PM CALENDERING MACHINE OPERATOR): CDAI 16. Presents due to a flare. With that said, her primary complaints today are neck and lower back pain, which I suspect are unrelated to her SLE and/or rheumatoid arthritis. Has noted some increased discomfort, stiffness, swelling in the bilateral hands, as well. Is requesting Kenalog IM injection today. I have recommended advised against use of steroids for chronic back and/or neck pain. Given her hands symptoms, will proceed with a steroid injection. With that said, have advised that she needs to establish with a pain management doctor to address her persistent lower back complaints. Due to burden of disease, will administer kenalog 100 mg IM injection, in office, today. Patient was advised of the potential side effects of the medication, including but not limited to increased blood sugar, weight gain, avascular necrosis, glaucoma, cataracts, and/or osteoporosis. Otherwise, will continue leflunomide 20 mg daily, Plaquenil 200 mg b.i.d., Rinvoq 15 mg daily. Continue Pennsaid cream. Follow-up 4 weeks. Sooner if needed. Assessment & Plan (05/15/2022 10:11 AM CALENDERING MACHINE OPERATOR): CDAI 9. Overall, peripheral joints have done fairly well with mild complaints. Minimal synovitis on exam. SLE does appear fairly well managed. Will continue leflunomide 20 mg daily, Plaquenil 200 mg b.i.d., Rinvoq 15 mg daily. Continue Pennsaid cream. Routine labs today. Follow-up 3 months. Sooner if needed. Assessment & Plan (02/13/2022 8:54 AM CDT): CDAI 7. Overall, has done fairly well since last visit with minimal joint complaints. Does have discomfort over the bilateral 1st IP joints without inflammatory symptoms. No other significant joint complaints. Denies any other recent systemic complaints. Otherwise, will continue leflunomide 20 mg daily, Plaquenil 200 mg b.i.d., Rinvoq 15 mg daily. Continue pennsaid cream. Routine labs today. Follow-up 3 months. Sooner if needed. Assessment & Plan (11/11/2021 11:36 AM CDT): CDAI 7. Symptoms much improved with Kenalog IM injection given at last visit. Has minimal complaints. Minimal synovitis on exam. Appears adequately controlled. Will continue leflunomide 20 mg daily, Plaquenil 200 mg b.i.d., Rinvoq 15 mg daily. Routine labs today. Follow-up 3 months. Sooner if needed. Assessment & Plan (10/10/2021 9:44 AM CDT): CDAI 22. Primary complaint today significant discomfort in the bilateral 1st IP joints with obvious swelling in the left hand 1st IP joint. Does have olga's nodes, so I do suspect OA is contributing. Denies any other recent systemic complaints. Swelling on exam, as above. Due to burden of disease, will administer kenalog 100 mg IM injection, in office, today. Patient was advised of the potential side effects of the medication, including but not limited to increased blood sugar, weight gain, avascular necrosis, glaucoma, cataracts, and/or osteoporosis. Will continue Rinvoq 15 mg daily. Otherwise, will continue leflunomide 20 mg daily, Plaquenil 200 mg b.i.d.. Routine labs today. Follow-up 6 weeks. Sooner if needed. Assessment & Plan (07/11/2021 9:44 AM CDT): CDAI 17. Since last visit, has stopped Xeljanz begun Rinvoq 15 mg daily and tolerated well. Has noted improvement in joint symptoms with some residual mild discomfort. Denies any other recent systemic complaints. Minimal swelling and tenderness on exam. Will continue Rinvoq 15 mg daily. Otherwise, will continue leflunomide 20 mg daily, Plaquenil 200 mg b.i.d.. Routine labs today. Follow-up 6 weeks. Sooner if needed. Assessment & Plan (04/26/2021 9:28 AM CALENDERING MACHINE OPERATOR): CDAI 18. Since last visit, has experienced increased joint pain, stiffness, swelling predominantly in the bilateral hands. Difficulty making a fist. A.m. stiffness for 60+ minutes. Denies any other recent systemic complaints. Will stop Xeljanz and begin approval for Rinvoq for her underlying RA. Discussed potential side effects of the medication, including but not limited to increased risk of infection, blood clots, headache, diarrhea, bowel perforation, and/or lymphoma risk. Otherwise, will continue leflunomide 20 mg daily, Plaquenil 200 mg b.i.d.. Routine labs today. Follow-up 6 weeks. Sooner if needed. Assessment & Plan (01/18/2021 10:05 AM CDT): CDAI 2. Overall, doing very well since last visit with minimal peripheral joint complaints. Occasional pleurisy, denies any other systemic complaints. Appears adequately controlled. Will continue leflunomide 20 mg daily, Xeljanz XR 11 mg daily, Plaquenil 200 mg b.i.d.. Routine labs today. Follow-up 3 months. Sooner if needed. Assessment & Plan (11/13/2020 10:07 AM CDT): CDAI 23. Since last visit, patient has resumed Plaquenil in Xeljanz and begun leflunomide 10 mg daily. Recent repeat hand ultrasound, as above, did display some persistent joint activity along with increased synovial thickening in the PIP joints, in comparison to prior. Synovitis does persist on exam. Would like to allow low leflunomide more time to take effect. Will increase leflunomide to 20 mg daily. Continue Xeljanz XR 11 mg daily, Plaquenil 200 mg b.i.d.. Routine labs today. Follow-up 2 months. Sooner if needed. Assessment & Plan (10/11/2020 10:22 AM CDT): CDAI 16. Since last visit, patient has resumed Plaquenil and Xeljanz medication x6 weeks, although she has been without xeljanz for the past 3+ weeks as ran out of samples. It is noted that she was approved for Xeljanz on 08/27/2020, although has not received the medication from her specialty pharmacy. At present, she does note discomfort in the bilateral hands along with some pain in the left foot 3rd PIP joint. Some swelling persists in the right hand/wrist on exam today with tenderness across several joints. Not quite adequately controlled. Will begin leflunomide 10 mg daily. Discussed potential side effects including but not limited to increased infection, diarrhea, blood count abnormalities, and/or rash. Will restart Xeljanz XR 11 mg daily and given samples today. She was advised to contact specialty pharmacy. Will continue 200 mg b.i.d.. Routine labs today. follow-up 4 weeks. Sooner if needed. Assessment & Plan (08/24/2020 3:00 PM CDT): CDAI 21. Since last visit, patient has been without Plaquenil and Xeljanz medication due to insurance change. Since that time, she has noted increased joint pain, stiffness in the bilateral hands. A.m. stiffness for 45 minutes. Recently had a tender mouth sore and notes significant fatigue symptoms, but otherwise denies systemic complaints. Swelling across several joints in the right hand on exam. Will restart Plaquenil 200 mg b.i.d., Xeljanz XR 11 mg daily. Given Xeljanz samples in office today. Routine labs today. Follow-up 4 weeks. Sooner if needed. Assessment & Plan (06/11/2020 1:02 PM CALENDERING MACHINE OPERATOR): CDAI 9. Since last visit, patient has begun Xeljanz via samples. She recently had a insurance change switch to Medicaid, so is in the process of applying for Xeljanz via [employer] assistance. She has noted improvement with her joint symptoms since beginning Xeljanz with some residual discomfort in the left wrist and few joints in the hands. A.m. stiffness for 15 minutes. Occasional tender mouth sores, but denies any other systemic complaints. Tenderness across several joints without any obvious active synovitis. Does appear adequately controlled. Will continue Plaquenil 200 mg b.i.d., Xeljanz XR 11 mg daily. She was given 2 months worth of samples while she applies for assistance. Routine labs today. Follow-up 3 months. Sooner if needed. Assessment & Plan (04/11/2020 12:06 PM CALENDERING MACHINE OPERATOR): CDAI 40. Patient returns today due to flare of joint symptoms. Patient had been off azathioprine for several weeks due to COVID-19 diagnosis, although has resumed for the past week. Denies any benefit since beginning the Orencia infusions. Notes persistent joint complaints, primarily involving the bilateral hands (PIP>MCP). A.m. stiffness for 60 minutes. Synovitis is present across several joints on exam with tenderness across the majority of her joints. Does not appear adequately controlled. Will stop azathioprine and Orencia at this time and begin approval for Xeljanz XR 11 mg daily to address her RA, which is also undergoing studies for SLE. Discussed potential side effects of the medication, including but not limited to increased risk of infection, blood clots, headache, diarrhea, bowel perforation, and/or lymphoma risk. Will continue Plaquenil 200 mg b.i.d.. Recent labs reviewed. Follow-up 6 weeks. Sooner if needed. Seen with Dr. Edwards. Due to burden of disease, will administer kenalog 100 mg IM injection, in office, today. Patient was advised of the potential side effects of the medication, including but not limited to increased blood sugar, weight gain, avascular necrosis, glaucoma, cataracts, and/or osteoporosis. Assessment & Plan (03/19/2020 9:51 AM CALENDERING MACHINE OPERATOR): Tele health visit. Patient noted a significant benefit with the Kenalog injection given at last visit. Denies significant joint complaints with only mild residual discomfort in the right 1st MCP/IP joint. Denies any other recent systemic complaints. Overall, does feel that she is doing fairly well on current treatment regimen. She did test positive for COVID-19 this past Thursday and is currently asymptomatic. For this reason, she was advised to hold azathioprine for a minimum of 14 days along with 10 days symptom free in no fever for greater than 48 hours. Will continue Plaquenil 200 mg b.i.d.. Her next infusion is due 04/09, so can proceed with this if she remains symptom-free for 10 days prior to next infusion. Otherwise, will continue Plaquenil, azathioprine, Orencia IV infusions. Routine labs at her next infusion appointment. Follow-up 3 months. Sooner if needed. Of note, at last visit patient noted most benefit with Benlysta. If symptoms progress again, could consider Benlysta versus Rituxan. Assessment & Plan (02/17/2020 9:28 AM CDT): CDAI 39. She has begun Orencia IV infusions x2 months without any benefit. Notes persistent joint pain, stiffness, swelling in the bilateral hands along with pain in the elbows. Few mouth sores since last visit, but denies other systemic complaints. Does not appear adequately controlled, although would like to give the Orencia more time to take effect. Will continue Plaquenil 200 mg b.i.d., azathioprine 100 mg b.i.d., Orencia IV infusions. Due to burden of disease, will administer kenalog 100 mg IM injection, in office, today. Patient was advised of the potential side effects of the medication, including but not limited to increased blood sugar, weight gain, avascular necrosis, glaucoma, cataracts, and/or osteoporosis. Routine labs today. Follow-up 4 weeks. Sooner if needed. Patient noted more benefit with Benlysta in the past. Could reconsider this versus Rituxan if symptoms persist at next visit. Assessment & Plan (12/19/2019 9:19 AM CDT): CDAI 15. Patient did note a benefit in joint symptoms with the Kenalog injection given after last visit. Does note some residual discomfort in the bilateral hands. Is scheduled to begin Orencia infusions tomorrow. One tender mouth were since last visit, but otherwise denies any other systemic complaints. Will proceed with Orencia IV infusions. Continue Plaquenil 200 mg b.i.d., azathioprine 100 mg b.i.d.. Routine labs today. Follow-up 2 months. Sooner if needed. Assessment & Plan (11/17/2019 10:00 AM CDT): CDAI 23. Since last visit, patient has noted persistent joint pain, stiffness in the bilateral hands with reduced asset protection representative strength. A.m. stiffness for 60 minutes. Denies any other recent systemic complaints. Synovitis with tenderness is present on exam. Most recent repeat right hand/wrist ultrasound did display new 3rd MCP erosion along with moderate/marked synovial thickening. Given these findings along with persistent symptoms, would like to stop Benlysta in begin approval for Orencia infusions. Patient advised of the side effects of the medication, including but not limited to increased risk of infection, injection site reaction, and/or new rash. Will continue Plaquenil 200 mg b.i.d., azathioprine 100 mg b.i.d.. Routine labs today. Follow- up 6 weeks. Sooner if needed. Seen with Dr. Edwards. Due to burden of disease, will administer kenalog 100 mg IM injection, in office, today. Patient was advised of the potential side effects of the medication, including but not limited to increased blood sugar, weight gain, avascular necrosis, glaucoma, cataracts, and/or osteoporosis. Assessment & Plan (10/06/2019 10:45 AM CDT): Cdai 12. Overall, notes that joint complaints have improved since last visit. With that said, does continue to note persistent joint pain in the right 2nd MCP joint, bilateral elbows, as well as the left knee. Denies significant pain in the remaining joints of the hands, although does note stiffness in the hands in morning and after sitting for extended periods of time. A.m. stiffness for 45 minutes. Denies other recent systemic complaints. Has restarted Benlysta subcutaneous weekly injections times 1 week without any side effects. Recent repeat right hand/wrist ultrasound, as above, did display a new 3rd MCP erosion along with moderate/marked synovial thickening. Given the new erosion along with prior positive rheumatoid factor, appears to have overlap of seropositive rheumatoid arthritis. Will allow the Benlysta more time to take effect. Will continue Plaquenil 200 mg b.i.d., azathioprine 100 mg b.i.d., Benlysta weekly subcutaneous injections. Routine labs today, including recheck Avise panel. Follow-up 2 months. Sooner if needed. Seen with Dr. Edwards. Assessment & Plan (09/05/2019 10:06 AM CDT): Patient continues to note persistent joint complaints, although will close disease primarily in the bilateral knees, elbows, left shoulder, bilateral CMC joints and denies significant pain in the remaining joints of the hands at this time. Has noted 2 mouth sores on the tongue since last visit, which were tender, but denies other systemic complaints. Complaints of difficulty with exhalation at times along with unstable gait at times, both of which I suspect are unrelated to a rheumatological cause. Minimal synovitis on exam today. Has remained off benlysta for >1 month due to lack of refills. Given her mild peripheral joint complaints, discussed holding benlysta at this time and rechecking a hand US. Patient would like to still proceed with re-approval for the benlysta (insurance change), although will await starting until hand US has been received. Will continue hcq 200 mg bid, aza 100 bid. Routine labs today. Fu 4 weeks. Sooner if needed. Assessment & Plan (07/01/2019 11:17 AM CDT): Since last visit, patient has noted increased pain in the bilateral hands, feet. A.m. stiffness for 30 minutes. Symptoms improved with activities. Patient also notes some dyspnea with exhaling and 1 flight of stairs. Notes recent chest x-ray normal limits and TTE at the ER, which was within normal limits per her report, although not available for review. Denies any other systemic complaints. Due to burden of disease, will administer kenalog 100 mg IM injection, in office, today. Patient was advised of the potential side effects of the medication, including but not limited to increased blood sugar, weight gain, avascular necrosis, glaucoma, cataracts, and/or osteoporosis. Will continue Plaquenil 200 mg b.i.d., azathioprine 100 mg b.i.d., Benlysta subcutaneous injections. Routine labs today, including QuantiFERON. Follow-up 4 weeks. Sooner if needed. Assessment & Plan (04/01/2019 12:26 PM CALENDERING MACHINE OPERATOR): CDAI 0. Denies much peripheral joint complaints at this time. No obvious synovitis on exam. Denies any other CTD symptoms at present. Appears well controlled. Will continue Plaquenil 200 mg b.i.d., azathioprine 100 mg b.i.d., Benlysta subcutaneous injections. Routine labs today. Follow-up 3 months. Sooner if needed. Assessment & Plan (12/31/2018 12:45 PM CDT): CDAI 0. Other than CMC joints, patient denies any peripheral joint pain or stiffness. Denies any other CTD symptoms. No obvious peripheral synovitis. Appears well controlled. Will continue Plaquenil 200 mg b.i.d., azathioprine 100 mg b.i.d., as well as Benlysta subcutaneous injections. Routine labs today. Follow-up 3 months. Sooner if needed. Assessment & Plan (10/01/2018 10:46 AM CDT): Low CDAI 6. Patient has been complaining some of some discomfort in the bilateral TMJ joints, but otherwise denies much peripheral joint complaints, including the hands or feet at this time. One tender sore in the mouth since last visit, but denies other CTD symptoms. No obvious synovitis on exam. Appears well controlled on current treatment regimen. Will continue Plaquenil 200 mg b.i.d., azathioprine 100 mg b.i.d., Benlysta subcutaneous injections. Routine labs today. Follow-up 3 months. Sooner if needed. Assessment & Plan (07/23/2018 9:05 AM CDT): Low CDAI. Overall, patient notes significant improvement in joint complaints, including her right wrist. Significant improvement since increasing the azathioprine, as well as beginning Benlysta, which she has received 2 injections at this time. Continues to best minimal synovitis of the right wrist with tenderness across few joints, but otherwise no obvious synovitis on exam. Denies other CTD symptoms. Appears well controlled at this time. Will continue Plaquenil 200 mg b.i.d., azathioprine 100 mg b.i.d., Benlysta subcutaneous injections. Routine labs today. Follow-up 10 weeks. Sooner if needed. Assessment & Plan (06/04/2018 10:14 AM CALENDERING MACHINE OPERATOR): Initial serologies:pos lourdes 1:640 dense fine speckled. + CB-CAP BC4D, + RF, + anti-cardio, + anti b2, + anti-phosphatyldyserine. US: mild/moderate synovitis. moderate CDAI. Patient notes persistent joint complaints, which are most notable in the right wrist and lesser degree in the MCP joints in the right hand. Denies significant benefit since being the Plaquenil and azathioprine medication. Does continue to possess swelling with tenderness across several joints, which is most notable in the right wrist. Appears poorly controlled. Will increase azathioprine to 100 mg b.i.d.. Continue Plaquenil 200 mg b.i.d.. Begin approval for Benlysta subcutaneous injections. Patient advised of the potential side effects of the medication, including but not limited to increased risk of infection, nausea, skin reaction, and/or diarrhea. Given handout discussing the medication. Routine labs, including QuantiFERON. Follow-up 6 weeks. Sooner if needed. Assessment & Plan (05/07/2018 10:51 AM CALENDERING MACHINE OPERATOR): Initial serologies:pos lourdes 1:640 dense fine speckled. + CB-CAP BC4D, + RF, + anti-cardio, + anti b2, + anti-phosphatyldyserine. US: mild/moderate synovitis. Moderate CDAI. Continues to have some swelling and tenderness across joints of the bilateral hands. Her most notable complaint continues to be her right wrist with accompanied swelling and stiffness. Denies any improvement in the wrist with hydroxychloroquine or azathioprine medication. Does continue the swelling with mild tenderness across few joints of the bilateral hands, in particular the right wrist. Will continue Plaquenil 200 mg b.i.d.. Further increase azathioprine to 100 mg q.a.m., 50 mg q.h.s.. Routine labs today. Follow-up 4 weeks. Sooner if needed. Seen with Dr. Edwards. If still doing poorly at next visit, would consider addition of Benlysta infusion medications, which was discussed with patient today. If symptoms persist, could also consider possible right wrist steroid injection. Assessment & Plan (03/26/2018 10:28 AM CALENDERING MACHINE OPERATOR): Initial serologies:pos lourdes 1:640 dense fine speckled. + CB-CAP BC4D, + RF, + anti-cardio, + anti b2, + anti-phosphatyldyserine. US: mild/moderate synovitis. Moderate CDAI. Continues to have swelling and tenderness of the bilateral hands, most notable in the right wrist. Denies significant benefit since being the azathioprine medication. Does not appear adequately controlled at this time on current treatment regimen, although will need to give the azathioprine medication more time to work. Will continue Plaquenil 200 mg b.i.d.. Patient did not receive CBC after last visit, so we will recheck serologies today. If blood work looks okay, we will likely increase azathioprine to 50 mg b.i.d.. Follow-up 4-6 weeks. Sooner if needed. Repeat serologies, including TP MT today. Assessment & Plan (02/26/2018 12:08 PM CALENDERING MACHINE OPERATOR): Initial serologies:pos lourdes 1:640 dense fine speckled. + CB-CAP BC4D, + RF, + anti-cardio, + anti b2, + anti-phosphatyldyserine. US: mild/moderate synovitis. Primary joint complaint continues to be the right wrist, which did display some mild/moderate synovial thickening on most recent ultrasound. Patient also notes some right hip pain , as well as increased pain in her right 3rd toe. Morning stiffness, which can take approximately 30 min to an hour to loosen up does improve with use. Continues to note a malar rash across the bilateral cheeks, which does spare the nasolabial folds (picture), although not present today. Has not had this evaluated by Dermatology. Appears poorly controlled at this time. For this reason, will begin treatment with azathioprine 50 mg q.d.. Discussed the potential side effects of the medication, including but not limited to GI upset, blood count abnormalities, increased infection, and/or allergic reaction. Continue Plaquenil 200 mg b.i.d.. Routine labs today, including recheck CBC in 2 weeks. Follow-up 4 weeks. Sooner if needed. Assessment & Plan (01/08/2018 3:39 PM CDT): Initial serologies:pos lourdes 1:640 dense fine speckled. + CB-CAP BC4D, + RF, + anti-cardio, + anti b2, + anti-phosphatyldyserine. US: mild/moderate synovitis. Low CDAI. Continues to have pain and stiffness in the right wrist, although she does note that the symptoms are worse with activity and best in the morning. Denies much other pain across MCP and PIP joints. Bilateral MTP joint has resolved with Plaquenil medication. No benefit in the right wrist with prior Kenalog injection. Based on her symptoms of worsened symptoms in the right wrist with activity, as well as lack of response to prior Kenalog injection, less suspicious for inflammatory arthritis at this time. Will further evaluate with repeat right hand ultrasound to assess inflammation levels. Patient given Pennsaid samples to be applied to the affected joints up to 2 times daily p.r.n.. Discussed potential side effects. Advised that if this provides benefit can call in a prescription. Continue Plaquenil 200 mg b.i.d.. Follow-up 6 weeks. Sooner if needed. Routine labs today. Depending on the ultrasound findings, can consider right hand/wrist MRI for further evaluation of wrist pain versus addition of azathioprine, if inflammation still present. Assessment & Plan (12/15/2017 10:36 AM CDT): Low moderate CDAI. Continues to have pain and stiffness in the right wrist, but denies much other pain across MCP and PIP joints. Pain in the bilateral MTP joints of the feet has resolved since beginning Plaquenil medication. Denies any relief with wrist pain or stiffness with Kenalog injection given at last visit. Fairly well controlled at this time. Will continue Plaquenil 200 mg b.i.d.. Continue routine eye exams. Advised to schedule follow up appointment with Ophthalmology, as she notes some mild issues with vision. Patient notes that she will be moving to the [place] area that will be needed to establish care with a new certified prosthetist/orthotist. Advised to do this DARÍO. Routine labs today. Assessment & Plan (09/28/2017 9:19 AM CDT): Moderate CDAI. Still notes to have a lot of pain and stiffness in the wrist (R>L), as well as mcp and pip joints. Also having some pain across the MTP and DIP joints in the bilateral feet. Rates the joint pain as an 8/10 today. Appears poorly controlled at this time. Although will need to give HCQ more time to work. Will increase HCQ to 200 mg BID at this time. UTD on eye exams. Due to burden of disease, will administer kenalog 100 mg IM injection, in office, today. Patient was advised of the potential side effects of the medication, including but not limited to increased blood sugar, weight gain, avascular necrosis, glaucoma, cataracts, and/or osteoporosis. Recheck routine labs today. Fu 2 months. Sooner if needed. Assessment & Plan (08/25/2017 12:50 PM CDT): Recent serologies:pos lourdes 1:640 dense fine speckled. + CB-CAP BC4D, + RF, + anti-cardio, + anti b2, + anti-phosphatyldyserine. Recent US: mild/moderate synovitis. Hx of polyarthralgias, photosensitivity, mouth sores, raynaud's symptoms, as well as positive lourdes. Also has a history of polycythemia, which she will be following up with hematology for, as discussed below. Symptoms and serologies consistent with SLE. Based on the positive RF, may be seen with SLE, but also may have overlap with RA. Will begin treatment with HCQ 200 mg QD at this time. Risks of retinal toxicity were discussed with the patient. They are aware that they should get at least yearly eye exams, unless otherwise specified. Discussed other SE. Fu 4 weeks. Sooner if needed. Heart rate problem 08/25/2017 Assessment & Plan (08/25/2017 12:54 PM CDT): Notes heart rate abnormalities of intermittent episodes of tachycardia and bradycardia, per her report. Was fully evaluated with stress test and holter monitor by cardiology ~10 years ago, which was found to be normal, per her report. Still having these episodes a few times per month. Advised to follow up with cardiology for this issue. Chronic fatigue 08/04/2017 Overview (12/14/2017): Began amitriptyline for fatigue?? On gabapentin Assessment & Plan (09/28/2017 9:17 AM CDT): Continues to have some chronic fatigue, as well as insomnia. Likely multifactorial, although the active inflammation is likely contributing to fatigue symptoms. Will likely improve with better control of this. In regards to insomnia, discussed following up with PCP for this issue. Notes that she was on amitriptyline, but stopped taking it because did not feel that it was helping anymore. Patient will retry amitriptyline 10 mg QD to see if this helps, which was prescribed by Dr. Hidalgo, PCP. Rediscussed potential SE with patient. Neuropathy 08/04/2017 Assessment & Plan (10/10/2021 9:45 AM CDT): Continues to follow with Neurology for persistent neuropathic pain in the hands and feet. Recent EMG displayed evidence for neuropathy, per her report, although not available for review. Continue to follow with Neurology, Dr. Gilbert. Assessment & Plan (07/11/2021 9:45 AM CDT): Continues to follow with Neurology for persistent neuropathic pain in the hands and feet. Neurology recently increased gabapentin, as above. Is scheduled for upper/lower extremity EMG for further evaluation. Could consider skin biopsy for small fiber neuropathy if findings unrevealing, although would defer this to Neurology. Continue to follow with Neurology, Dr. Gilbert. Assessment & Plan (04/26/2021 9:31 AM CALENDERING MACHINE OPERATOR): A primary complaint persistent neuropathic pain in the bilateral hands. On JAMARCUS 100 t.i.d. per Neurology, Dr. Gilbert. Could consider increase on this, although will defer to Neurology, as she is anticipating following up. Assessment & Plan (08/25/2017 12:51 PM CDT): Seeing Dr. Ribeiro, neuro, for upper and lower extremity neuropathy. Stable at this time on Gabapentin. Assessment & Plan (08/04/2017 2:36 PM CDT): History of upper and lower extremity neuropathy. Sees Dr. Ribeiro for this issue. Currently treated with Gabapentin. Polycythemia 08/04/2017 Assessment & Plan (10/11/2020 10:23 AM CDT): Follows with heme. Assessment & Plan (08/24/2020 3:01 PM CDT): Follows with heme. Assessment & Plan (06/11/2020 1:03 PM CALENDERING MACHINE OPERATOR): Follows with heme. Assessment & Plan (04/11/2020 12:04 PM CALENDERING MACHINE OPERATOR): Follows with heme. Assessment & Plan (03/19/2020 9:50 AM CALENDERING MACHINE OPERATOR): Follows with heme. Assessment & Plan (02/17/2020 9:28 AM CDT): Follows with heme. Assessment & Plan (12/19/2019 9:19 AM CDT): Follows with heme. Assessment & Plan (11/17/2019 10:01 AM CDT): Follows with heme. Assessment & Plan (10/06/2019 9:32 AM CDT): Follows with heme. Assessment & Plan (09/05/2019 10:07 AM CDT): Continues to follow with heme. Assessment & Plan (07/01/2019 11:18 AM CDT): Following with Hematology. Assessment & Plan (04/01/2019 12:26 PM CALENDERING MACHINE OPERATOR): Following with Hematology. Assessment & Plan (12/31/2018 12:45 PM CDT): Continue to follow with Hematology Assessment & Plan (10/01/2018 10:48 AM CDT): Continue to follow with hematology. Assessment & Plan (07/23/2018 9:05 AM CDT): Continue to follow with Hematology. Assessment & Plan (06/04/2018 10:15 AM CALENDERING MACHINE OPERATOR): Continue to follow with Hematology. Assessment & Plan (05/07/2018 10:52 AM CALENDERING MACHINE OPERATOR): Continue to follow with Hematology. Assessment & Plan (03/26/2018 10:29 AM CALENDERING MACHINE OPERATOR): Continue to follow with Hematology. Assessment & Plan (02/26/2018 10:25 AM CALENDERING MACHINE OPERATOR): Following with Hematology for this issue. Will check labs today. Assessment & Plan (12/15/2017 10:34 AM CDT): Seen Hematology for this issue. Recent labs were within normal limits. Assessment & Plan (09/28/2017 9:14 AM CDT): Saw Hematology. Rechecked bloodwork, which was wnl on Thursday. For that reason, he did not feel a phlebotomy was necessary, per patient report. Continues to follow for this. Assessment & Plan (08/25/2017 12:50 PM CDT): History of polycythemia. Increased RBC, hgb, hct, and retic count on recent blood work. Advised to follow up with hematology for this issue. Assessment & Plan (08/04/2017 3:06 PM CDT): History of polycythemia. Will check serum iron, TIBC, Ferritin, and reticulocyte count to further evaluate. Resolved Problems Problem Noted Date Diagnosed Date Resolved Date Polyarthralgia 08/04/2017 12/14/2017 Assessment & Plan (08/04/2017 2:35 PM CDT): Pt notes history of generalized joint complaints affecting the wrists, hands, knees, and shoulders. History of osteoarthritis across multiple joints. Concern that some of her joint complaints may be caused by an inflammatory joint disease, in addition to her osteoarthritis. As discussed above, will perform appropriate radiographs and serologies to further evaluate. Also, patient has new onset of swelling and pain in her left knee. History of two prior unknown surgeries in the left knee. Suspicious that this may be due more to osteoarthritis. Will perform bilateral knee x-rays to further evaluate. Positive LOURDES (antinuclear antibody) 08/04/2017 12/14/2017 Assessment & Plan (08/04/2017 2:29 PM CDT): History of a positive LOURDES. Patient notes a history of generalized joint complaints, mouth sores, chronic fatigue, questionable hair loss, as well as hematological abnormalities. These symptoms coupled with the positive LOURDES on previous labs are concerning for possible SLE vs. Other connective tissue disease given the patient's strong family history, as well. Will perform appropriate radiographs, US, and serologies to further evaluate. Fu in two weeks to discuss. Encounters Date Type Department Care Team Description 06/08/2024 Telephone [facility] [address] [place] [phone] [facility] Update 05/10/[address] [phone] Steve Russell 05/09/2024 9:15 AM CALENDERING MACHINE OPERATOR Office Visit [facility] [address] [place] [phone] Carlos Coughlin PA Systemic lupus erythematosus, unspecified SLE type, unspecified organ involvement status (HCC) (Primary Dx); Seropositive rheumatoid arthritis (HCC); Fibromyalgia; Chronic bilateral low back pain with left-sided sciatica; Encounter for long-term (current) use of medications from Last 3 Months Social History Tobacco Use Types Packs/Day Years Used Date Smoking Tobacco: Never Assessed Comments Unknown Sex and Gender Information Value Date Recorded Sex Assigned at Not on file Legal Sex Female 4:59 PM CDT Gender Identity Female 01/24/2023 8:03 PM CDT Sexual Orientation Not on file Obstetrics History Last Filed Vital Signs Vital Sign Reading Time Taken Comments Blood Pressure 142/90 05/09/2024 9:07 AM CALENDERING MACHINE OPERATOR Pulse 65 05/09/2024 9:07 AM CALENDERING MACHINE OPERATOR Temperature 36.5 C (97.7 F) 04/26/2021 8:51 AM CALENDERING MACHINE OPERATOR Respiratory Rate - - Oxygen Saturation 98% 05/09/2024 9:07 AM CALENDERING MACHINE OPERATOR Inhaled Oxygen Concentration - - Weight 78.5 kg (173 lb) 05/09/2024 9:07 AM CALENDERING MACHINE OPERATOR Height 162.6 cm (5' 4 ) 05/09/2024 9:07 AM CALENDERING MACHINE OPERATOR Body Mass Index 29.7 05/09/2024 9:07 AM CALENDERING MACHINE OPERATOR Plan of Treatment Health Maintenance Due Date Last Done Comments Cervical Cancer Screening 1962 Colon Cancer Screening-Colonoscopy 1962 Depression Screening 1960 Hepatitis C Screening 1962 DTaP/Tdap/Td Vaccine (1 - Tdap) 1973 Hepatitis B Screening 01/04/1980 Regular Well Visit/Exam 18-64 01/04/1980 Pneumococcal vaccine <65 (1 of 2 - PCV) 1981 Zoster Vaccine (1 of 2) 1981 Breast Cancer Screening-Mammogram 02/22/2016 015 Influenza Vaccine (#1) 2023 06/03/2016 Procedures Procedure Name Priority Date/Time Associated Diagnosis Comments CBC WITH AUTO DIFFERENTIAL Routine 05/25/2024 1:25 PM CALENDERING MACHINE OPERATOR Lymphocytopenia Encounter for long-term (current) use of high-risk medication C3 COMPLEMENT Routine 05/09/2024 9:43 AM CALENDERING MACHINE OPERATOR Systemic lupus erythematosus, unspecified SLE type, unspecified organ involvement status (HCC) Seropositive rheumatoid arthritis (HCC) Encounter for long-term (current) use of medications PROTEIN / CREATININE RATIO, URINE, RANDOM Routine 05/09/2024 9:43 AM CALENDERING MACHINE OPERATOR Systemic lupus erythematosus, unspecified SLE type, unspecified organ involvement status (HCC) Seropositive rheumatoid arthritis (HCC) Encounter for long-term (current) use of medications ANTI-DOUBLE STRANDED DNA ANTIBODIES Routine 05/09/2024 9:43 AM CALENDERING MACHINE OPERATOR Systemic lupus erythematosus, unspecified SLE type, unspecified organ involvement status (HCC) Seropositive rheumatoid arthritis (HCC) Encounter for long-term (current) use of medications ERYTHROCYTE SEDIMENTATION RATE Routine 05/09/2024 9:43 AM CALENDERING MACHINE OPERATOR Systemic lupus erythematosus, unspecified SLE type, unspecified organ involvement status (HCC) Seropositive rheumatoid arthritis (HCC) Encounter for long-term (current) use of medications CRP (ACUTE PHASE) Routine 05/09/2024 9:4 3 AM CALENDERING MACHINE OPERATOR Systemic lupus erythematosus, unspecified SLE type, unspecified organ involvement status (HCC) Seropositive rheumatoid arthritis (HCC) Encounter for long-term (current) use of medications COMPREHENSIVE METABOLIC PANEL Routine 05/09/2024 9:43 AM CALENDERING MACHINE OPERATOR Systemic lupus erythematosus, unspecified SLE type, unspecified organ involvement status (HCC) Seropositive rheumatoid arthritis (HCC) Encounter for long-term (current) use of medications CBC WITH AUTO DIFFERENTIAL Routine 05/09/2024 9:43 AM CALENDERING MACHINE OPERATOR Systemic lupus erythematosus, unspecified SLE type, unspecified organ involvement status (HCC) Seropositive rheumatoid arthritis (HCC) Encounter for long-term (current) use of medications C4 COMPLEMENT Routine 05/09/2024 9:43 AM CALENDERING MACHINE OPERATOR Systemic lupus erythematosus, unspecified SLE type, unspecified organ involvement status (HCC) Seropositive rheumatoid arthritis (HCC) Encounter for long-term (current) use of medications from Last 3 Months Results * CBC with auto differential (05/25/2024 1:25 PM CALENDERING MACHINE OPERATOR) Pathologist [facility] WBC 7.4 3.8 - 10.8 Thousand/u L [facility] RBC, POC 4.39 3.80 - 5.10 Million/uL [facility] Hgb 13.4 11.7 - 15.5 g/dL [facility] Hct 40.8 35.0 - 45.0 % [facility] MCV 92.9 80.0 - 100.0 fL [facility] MCH 30.5 27.0 - 33.0 pg [facility] MCHC 32.8 32.0 - 36.0 g/dL [facility] Comment: For adults, a slight decrease in the calculated MCHC value (in the range of 30 to 32 g/dL) is most likely not clinically significant; however, it should be interpreted with caution in correlation with other red cell parameters and the patient's clinical condition. Rdw 13.0 11.0 - 15.0 % [facility] Platelets 236 140 - 400 Thousand/u L [facility] MPV 11.3 7.5 - 12.5 fL [facility] Neutrophils, abs 5,372 1,500 - 7,800 cells/uL [facility] Lymphocytes, abs 1,132 850 - 3,900 cells/uL [facility] Monocyte abs 725 200 - 950 cells/uL [facility] Eosinophils, abs 133 15 - 500 cells/uL [facility] Basophils, abs 37 0 - 200 cells/uL [facility] Neutrophils 72.6 % [facility] Lymphocyte pct 15.3 % [facility] Monocytes 9.8 % [facility] Eosinophils 1.8 % [facility] Basophils 0.5 % [facility] Blood 05/25/2024 1:25 PM CALENDERING MACHINE OPERATOR 05/25/2024 1:25 PM CALENDERING MACHINE OPERATOR Narrative [facility] - 05/26/2024 6:11 AM CALENDERING MACHINE OPERATOR FASTING:NO FASTING: NO Carlos HUITRON LAB BLOOD ORDERABLES Fi nal Result Performing Organization Address [facility] Co de Phone Number [facility] [address] [place] [address] * Anti-double stranded DNA abs (05/09/2024 9:43 AM CALENDERING MACHINE OPERATOR) DNA (DS) ab <1 IU/mL [facility] Comment: IU/mL Interpretation < or = 4 Negative 5-9 Indeterminate > or = 10 Positive Blood 05/09/2024 9:43 AM CALENDERING MACHINE OPERATOR 05/09/2024 9:44 AM CALENDERING MACHINE OPERATOR Carlos HUITRON LAB BLOOD ORDERABLES Fi nal Result Performing Organization Address City/[facility] Co de Phone Number [facility] [address] [place] [address] * C4 complement (05/09/2024 9:43 AM CALENDERING MACHINE OPERATOR) Complement component C4C 26 15 - 57 mg/dL [facility] Blood 05/09/2024 9:43 AM CALENDERING MACHINE OPERATOR 05/09/2024 9:44 AM CALENDERING MACHINE OPERATOR us Carlos HUITRON LAB BLOOD ORDERABLES Fi nal Result [facility] [address] [place] [phone] * (ABNORMAL) CBC with auto differential (05/09/2024 9:43 AM CALENDERING MACHINE OPERATOR) Pathologist [facility] WBC 6.6 3.8 - 10.8 Thousand/u L [facility] RBC, POC 4.59 3.80 - 5.10 Million/uL [facility] Hgb 13.7 11.7 - 15.5 g/dL [facility] Hct 42.4 35.0 - 45.0 % [facility] MCV 92.4 80.0 - 100.0 fL [facility] MCH 29.8 27.0 - 33.0 pg [facility] MCHC 32.3 32.0 - 36.0 g/dL [facility] Comment: For adults, a slight decrease in the calculated MCHC value (in the range of 30 to 32 g/dL) is most likely not clinically significant; however, it should be interpreted with caution in correlation with other red cell parameters and the patient's clinical condition. Rdw 13.1 11.0 - 15.0 % [facility] Platelets 259 140 - 400 Thousand/u L [facility] MPV 11.8 7.5 - 12.5 fL [facility] Neutrophils, abs 5,240 1,500 - 7,800 cells/uL [facility] Lymphocytes, abs 587(L) 850 - 3,900 cells/uL [facility] Monocyte abs 594 200 - 950 cells/uL [facility] Eosinophils, abs 139 15 - 500 cells/uL [facility] Basophils, abs 40 0 - 200 cells/uL [facility] Neutrophils 79.4 % [facility] Lymphocyte pct 8.9 % [facility] Monocytes 9.0 % [facility] Eosinophils 2.1 % [facility] Basophils 0.6 % [facility] Blood 05/09/2024 9:43 AM CALENDERING MACHINE OPERATOR 05/09/2024 9:44 AM CALENDERING MACHINE OPERATOR Carlos HUITRON LAB BLOOD ORDERABLES Fi nal Result Performing Organization Address [facility] Co de Phone Number [facility] [address] [place] [address] * (ABNORMAL) Protein / creatinine ratio, urine, random (05/09/2024 9:43 AM CALENDERING MACHINE OPERATOR) Creatinine, ur 17(L) 20 - 275 mg/dL [facility] Protein/creatin ine ratio NOTE 24 - 184 mg/g creat [facility] Comment: THE PROTEIN VALUE IS LESS THAN 4 MG/DL THEREFORE WE ARE UNABLE TO CALCULATE EXCRETION AND/OR CREATININE RATIO. Protein/Creatin ine Ratio NOTE 0.024 - 0.184 mg/mg creat [facility] Protein, ur, quant <4(L) 5 - 24 mg/dL [facility] Comment: Verified by repeat analysis. Urine 05/09/2024 9:43 AM CALENDERING MACHINE OPERATOR 05/09/2024 9:44 AM CALENDERING MACHINE OPERATOR Carlos HUITRON LAB URINE ORDERABLES Fi nal Result Performing Organization Address [facility] Co de Phone Number [facility] [address] [place] [address] * Erythrocyte sedimentation rate (05/09/2024 9:43 AM CALENDERING MACHINE OPERATOR) Erythrocyte sedimentation rate 6 < OR = 30 mm/h [facility] Blood 05/09/2024 9:43 AM CALENDERING MACHINE OPERATOR 05/09/2024 9:44 AM CALENDERING MACHINE OPERATOR Carlos HUITRON LAB BLOOD ORDERABLES Fi nal Result Performing Organization Address [facility] Co de Phone Number [facility] [address] [place] [address] * C3 complement (05/09/2024 9:43 AM CALENDERING MACHINE OPERATOR) Pathologist [facility] Complement component C3C 137 83 - 193 mg/dL [facility] Blood 05/09/2024 9:43 AM CALENDERING MACHINE OPERATOR 05/09/2024 9:44 AM CALENDERING MACHINE OPERATOR Carlos HUITRON LAB BLOOD ORDERABLES Fi nal Result Performing Organization Address [facility] Co de Phone Number [facility] [address] [place] [address] * CRP (acute phase) (05/09/2024 9:43 AM CALENDERING MACHINE OPERATOR) Pathologist [facility] C-RP <3.0 <8.0 mg/L [facility] Blood 05/09/2024 9:43 AM CALENDERING MACHINE OPERATOR 05/09/2024 9:44 AM CALENDERING MACHINE OPERATOR Carlos HUITRON LAB BLOOD ORDERABLES Fi nal Result Performing Organization Address [facility] de Phone Number [facility] [address] [place] [address] * (ABNORMAL) Comprehensive metabolic panel (05/09/2024 9:43 AM CALENDERING MACHINE OPERATOR) Glucose 54(L) 65 - 99 mg/dL [facility] Comment: Fasting reference interval BUN 19 7 - 25 mg/dL [facility] Creatinine 0.72 0.50 - 1.05 mg/dL [facility] eGFR 94 > OR = 60 mL/min/1.7 3m2 [facility] BUN/creat ratio SEE NOTE: 6 - 22 (calc) [facility] Comment: Not Reported: BUN and Creatinine are within reference range. Sodium 141 135 - 146 mmol/L [facility] Potassium, pl 3.5 3.5 - 5.3 mmol/L [facility] Chloride 100 98 - 110 mmol/L [facility] CO2 29 20 - 32 mmol/L [facility] Calcium 9.6 8.6 - 10.4 mg/dL [facility] Protein, sr 7.1 6.1 - 8.1 g/dL [facility] Albumin 4.7 3.6 - 5.1 g/dL [facility] GLOBULIN 2.4 1.9 - 3.7 g/dL (calc) [facility] Alb/glob ratio 2.0 1.0 - 2.5 (calc) [facility] Bilirubin, total 0.6 0.2 - 1.2 mg/dL [facility] Alk phos 78 37 - 153 U/L [facility] AST 46(H) 10 - 35 U/L [facility] ALT (SGPT) 44(H) 6 - 29 U/L [facility] Blood 05/09/2024 9:43 AM CALENDERING MACHINE OPERATOR 05/09/2024 9:44 AM CALENDERING MACHINE OPERATOR Carlos [facility] LAB BLOOD ORDERABLES [facility] Result [facility] [id number] [place] Stoll [id number] from Last 3 Months Insurance [facility] [address] [place] [id number] [facility] MEDICARE MEDICARE R [facility] Care Teams Senior Business Process Analyst Relationship Specialty Start Date End Date Ray Roberts MD [address] [facility] [address] [place] [address] PCP - General Family Medicine 04/11/24 Hossein Ribeiro MD [address] [place] [address] Referring Physician Neurology 09/21/19 Rashid Gaffney MD [address] [place] [address] Consulting Physician Rheumatology 04/24/23
--- OUTSIDE RECORDS SUMMARY | 2024-07-16 12:22 | XMS_ITS | Continuity of Care Document ---
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 [address] , [address], [place], [address], [place]. tel:[phone] Family History Family Member Type Diagnosis Age At Onset No Information Payers Payer name Insurance type Covered republican ID Authoriza tion(s) No Information Social History [...]
--- OUTSIDE RECORDS SUMMARY | 2024-07-16 12:22 | XMS_ITS | Clinical Summary ---
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 Active cholecalciferol , Vitamin D3, (VITAMIN D3) 1,000 unit Capsule Take 1,000 Units by mouth daily. Active ascorbic acid, vitamin C, (VITAMIN C) 250 mg Tablet, Chewable Take 250 mg by mouth daily. Active cyanocobalamin (VITAMIN B-12) 500 mcg tablet Take 500 mcg by mouth. Active KRILL OIL ORAL Take 350 mg by mouth daily. Active nitroglycerin (NITROSTAT) 0.4 mg Tablet, Sublingual Place 0.4 mg under tongue every 5 minutes as needed for Chest Pain. Active hydroxychloroqu ine (PLAQUENIL) 200 mg tablet Take 200 mg by mouth daily. Active aspirin (IRINA) 325 mg tablet Take 325 mg by mouth daily. Active multivitamin (DAILY-ROSARIO) tablet Take 1 Tablet by mouth daily. Active belimumab (BENLYSTA) 200 mg/mL Auto-Injector Inject 200 mg by subcutaneous injection. 9 Active azaTHIOprine (IMURAN) 50 mg tablet Take 100 mg by mouth. 9 Active atorvastatin (LIPITOR) 10 mg tablet 9 Active YUVAFEM 10 mcg tablet 9 Active Active Problems Problem Noted Date Diagnosed Date Polycythemia, secondary 09/10/2017 Family History Medical History Relation Name Comments Healthy Brother Heart Disease Father High Cholesterol Father Hypertension Father Cancer Mother Diabetes Mother Hypertension Mother Diabetes Sister 1 Other Sister 2 Unknown Sister 3 Relation Name Status Comments Brother Alive Father Alive Mother Sister 1 Alive Sister 2 Alive Sister 3 Alive Social History Tobacco Use Types Packs/Day Years Used Date Smoking Tobacco: Never Alcohol Use Standard Drinks/Week Comments Yes 0 (1 standard drink = 0.6 oz pur e alcohol) occasionally Comments No Sex and Gender Information Value Date Recorded Sex Assigned at Not on file Legal Sex Female 4:18 PM CDT Gender Identity Not on file Sexual Orientation Not on file Last Filed Vital Signs Vital Sign Reading Time Taken Comments Blood Pressure 139/87 06/25/2018 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 Pulse 74 06/25/2018 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 Temperature 36.8 C (98.2 F) 06/25/2018 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 Respiratory Rate 17 06/25/2018 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 Oxygen Saturation 97% 06/25/2018 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 Inhaled Oxygen Concentration - - Weight 76 kg (167 lb 8 oz) 06/25/2018 9:01 AM CS T Height 160 cm (5' 3 ) 06/25/2018 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 Body Mass Index 29.67 06/25/2018 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 Plan of Treatment Health Maintenance Due Date Last Done Comments DTAP/TDAP/TD VACCINES (1 - Tdap) 1981 ZOSTER VACCINE (1 of 2) 1981 PAP SMEAR 1983 CERVICAL CANCER SCREENING 01/04/1992 HPV/Cotest (30-65) 01/04/1992 PAP SMEAR 01/04/1992 COLORECTAL SCREENING 2007 Colorectal Cancer Screening 2007 FIT-DNA Q 3 years 2007 FIT/FOBT Q 1 year 2007 Flex Sig/CT Colonography Q 5 years 2007 BREAST CANCER SCREENING 02/22/2016 02/21/2015 RSV VACCINE (60+ or ) (1 - Risk 60-74 years 1-dose series) 2022 INFLUENZA VACCINE (#1) 2023 Insurance [facility] Care Teams Motor And Generator Assembler Relationship Specialty Start Date End Date Provider, Abstract NO ADDRESS ON FILE PCP - General 06/25/18
--- OUTSIDE RECORDS SUMMARY | 2024-07-16 12:22 | XMS_ITS | Referral Summary ---
Author Organization [facility] [address] [facility] Address [address] [place] [phone] Phone Care Team Providers Care Tree Farmer Name Role Phone Hossein Ribeiro MD Unavailable Rashid Gaffney MD Unavailable [phone] Ray Roberts MD Primary Care Provider Encounters Date Type Department Care Team Description 06/08/2024 Telephone [facility] [address] [place] [phone] Steve Russell Pharmacy Update 05/10/[address] [phone] Steve Russell 05/09/2024 9:15 AM RAILCAR MECHANIC Office Visit [facility] [address] [place] [phone] Carlos Coughlin PA Systemic lupus erythematosus, unspecified SLE type, unspecified organ involvement status (HCC) (Primary Dx); Seropositive rheumatoid arthritis (HCC); Fibromyalgia; Chronic bilateral low back pain with left-sided sciatica; Encounter for long-term (current) use of medications from Last 3 Months Allergies Active Allergy Reactions Criticality Noted Date [...] THREE TIMES DAILY NEEDED FOR ITCHING 11/17/19 20 Active lisinopriL (PRINIVIL,ZESTRIL ) 10 mg tablet Take 10 mg by mouth daily 11/25/19 20 Active meclizine (ANTIVERT) 12.5 mg tablet TAKE 1 TABLET BY MOUTH THREE TIMES DAILY NEEDED FOR DIZZINESS 02/10/20 20 Active multivitamin tablet Take 1 tablet by mouth daily Active omeprazole (PriLOSEC) 20 mg capsule 02/07/20 20 Active GaviLyte-G 236-22.74-6.74 -5.86 gram solution TAKE 240ML BY MOUTH EVERY TEN MINUTES UNTIL FECAL EFFLUENT IS CLEAR; DO NOT EXEED A TOTAL VOLUME OF 2000ML 12/16/19 20 Active rizatriptan ORACLE ADF DEVELOPER (MAXALT-ORACLE ADF DEVELOPER) 10 mg disintegrating tablet TAKE ONE TABLET BY MOUTH NEEDED FOR MIGRAINE HEADACHE. MAY REPEAT DOSE ONCE IN TWO HOURS 02/14/20 20 Active traMADoL (ULTRAM) 50 mg tablet Take 50 mg by mouth every 6 (six) hours as needed Active traZODone (DESYREL) 50 mg tablet Take 50 mg by mouth nightly 11/25/[address] (CYMBALTA) 30 mg capsule Take 1 capsule by mouth once daily 30 capsule 05/12/19 23 Active carvediloL (COREG) 12.5 mg tablet TAKE [...] L5. Assessment & Plan (06/13/2022 12:34 PM RAILCAR MECHANIC): C-spine x-ray 05/15/2022: Minimal degenerative changes at [...] complaints. Assessment & Plan (05/15/2022 10:14 AM RAILCAR MECHANIC): Will obtain imaging and send to physical therapy. Primary hypertension 05/15/2022 Assessment & Plan (05/15/2022 2:20 PM RAILCAR MECHANIC): Following with PCP and is to reach [...] 10/06/2019 Assessment & Plan (05/09/2024 11:00 AM RAILCAR MECHANIC): Seropositive RA given prior elevated rheumatoid factor [...] p.r.n. Assessment & Plan (04/11/2024 9:56 AM RAILCAR MECHANIC): Seropositive RA given prior elevated rheumatoid factor [...] p.r.n.. Assessment & Plan (04/07/2023 10:55 AM RAILCAR MECHANIC): Seropositive RA given prior elevated rheumatoid factor [...] p.r.n.. Assessment & Plan (06/13/2022 12:34 PM RAILCAR MECHANIC): As discussed above, seropositive RA given prior [...] b.i.d.. Assessment & Plan (05/15/2022 10:12 AM RAILCAR MECHANIC): As discussed above, seropositive RA given prior [...] b.i.d.. Assessment & Plan (04/26/2021 9:30 AM RAILCAR MECHANIC): As discussed above, concern for seropositive RA [...] daily. Assessment & Plan (06/11/2020 1:03 PM RAILCAR MECHANIC): As discussed above, concern for seropositive RA given prior elevated rheumatoid factor and erosions seen on ultrasound. Appears fairly well controlled. Continue Plaquenil 200 mg b.i.d., xeljanz xr 11 mg daily. Assessment & Plan (04/11/2020 12:03 PM RAILCAR MECHANIC): As discussed above, concern for seropositive RA given prior elevated rheumatoid factor and erosions seen on ultrasound. Will stop Orencia and azathioprine due to lack of benefit and begin approval for Xeljanz XR 11 mg daily. Continue Plaquenil 200 mg b.i.d.. Assessment & Plan (03/19/2020 9:49 AM RAILCAR MECHANIC): As discussed above, concern for seropositive RA [...] pcp. Assessment & Plan (05/09/2024 11:01 AM RAILCAR MECHANIC): Stable. Continue Cymbalta 60 mg daily, gabapentin 300 mg qid per Neurology. Previously switched from Lyrica for insurance reasons. Encourage routine exercise. Assessment & Plan (04/11/2024 9:57 AM RAILCAR MECHANIC): Stable. Continue Cymbalta 60 mg daily, gabapentin [...] exercise. Assessment & Plan (04/07/2023 12:50 PM RAILCAR MECHANIC): Stable. Continue Cymbalta 60 mg daily, gabapentin [...] exercise. Assessment & Plan (06/13/2022 12:35 PM RAILCAR MECHANIC): Continue Cymbalta 30 mg daily. Continue gabapentin 300 mg q.a.m., 300 mg midday, 600 mg q.p.m. per neurology. Previous switch from Lyrica for insurance reasons. Encourage routine exercise. Assessment & Plan (05/15/2022 10:15 AM RAILCAR MECHANIC): Stable. Continue Cymbalta 30 mg daily. Continue [...] exercise. Assessment & Plan (04/26/2021 9:31 AM RAILCAR MECHANIC): Stable. Continue Cymbalta and gabapentin 100 mg [...] exercise. Assessment & Plan (06/11/2020 1:06 PM RAILCAR MECHANIC): Stable. Continue Cymbalta. On Lyrica 300 mg 1-2 times daily per PCP. Encourage routine exercise. Assessment & Plan (04/11/2020 12:07 PM RAILCAR MECHANIC): Stable. Continue Cymbalta. On Lyrica 300 mg 1-2 times daily per PCP. Encourage routine exercise. Assessment & Plan (03/19/2020 9:50 AM RAILCAR MECHANIC): As discussed at last visit, continue to [...] exercise. Assessment & Plan (04/01/2019 12:29 PM RAILCAR MECHANIC): FM may be contributing to some of [...] benefit. Assessment & Plan (04/01/2019 12:26 PM RAILCAR MECHANIC): Bilateral CMC bracing has offered benefit. Assessment [...] L5. Assessment & Plan (05/09/2024 11:02 AM RAILCAR MECHANIC): C-spine x-ray 05/15/2022: Minimal degenerative changes at C3-C4 and C4-C5 SI joint x-ray 05/15/2022: WNL L-spine x-ray 05/15/2022: 5 mm anterolisthesis of L4 on L5. Had L-spine MRI from [facility] and is following with pain management. Has completed physical therapy. Following with pain management. Is currently going to physical therapy. Is scheduled for repeat L-spine epidural steroid injection with pain management tomorrow. Is following with orthopedic surgeon with discussions for potential surgical intervention regarding the lower back. Assessment & Plan (04/11/2024 9:57 AM RAILCAR MECHANIC): C-spine x-ray 05/15/2022: Minimal degenerative changes at C3-C4 and C4-C5 SI joint x-ray 05/15/2022: WNL L-spine x-ray 05/15/2022: 5 mm anterolisthesis of L4 on L5. Had L-spine MRI from [facility] and is following with pain [...] L4 on L5. Had L-spine MRI from [facility] and is following with pain [...] L4 on L5. Had L-spine MRI from [facility] and is following with pain management. Received epidural injection yesterday afternoon and continues to go to physical therapy. She defers surgical intervention at this time. Continue to follow with pain management. Assessment & Plan (06/13/2022 12:35 PM RAILCAR MECHANIC): C-spine x-ray 05/15/2022: Minimal degenerative changes at [...] Will track down recent L-spine MRI from [facility]. Assessment & Plan (05/15/2022 10:14 AM RAILCAR MECHANIC): Primary complaint is significant lower back pain [...] today. Assessment & Plan (04/01/2019 12:28 PM RAILCAR MECHANIC): History of L4/L5/S1 OA in the lower [...] 06/04/2018 Assessment & Plan (06/04/2018 10:18 AM RAILCAR MECHANIC): Insomnia symptoms at night. Discussed use of black noise machine. also reports that she snores. Would recommend sleep study, although discuss further with PCP. Right hand pain 05/07/2018 Assessment & Plan (05/07/2018 10:54 AM RAILCAR MECHANIC): Patient jammed right 1st digit and has [...] years. Assessment & Plan (06/04/2018 10:14 AM RAILCAR MECHANIC): Did not obtain DEXA at last visit, will obtain in the near future. Order placed again. Assessment & Plan (05/07/2018 10:56 AM RAILCAR MECHANIC): Recently non-displaced lateral malleolus fracture after rolling her ankle. Is at increased risk for osteoporosis with SLE. Will check dexa scan today. Confusion 03/03/2018 Right hip pain 02/26/2018 Assessment & Plan (06/04/2018 10:15 AM RAILCAR MECHANIC): Patient does continue to have some mild pain in the right hip / groin region. Most recent hip x-ray was negative. Has complaints are minimal, we will just monitor at this time. If symptoms progress, would consider right hip MRI. Assessment & Plan (05/07/2018 10:52 AM RAILCAR MECHANIC): Denies major complaints today. Most recent right hip x-ray was negative. If symptoms do worsen, would consider right hip MRI. Assessment & Plan (03/26/2018 9:57 AM RAILCAR MECHANIC): Right hip pain with accompanying morning stiffness persists. Localizes over the right hip/ groin region, although no pain elicited with internal and external rotation. Recent right hip x-ray was negative. If symptoms persist, will consider right hip MRI at next visit. Assessment & Plan (02/26/2018 10:24 AM RAILCAR MECHANIC): Right hip pain, which she does note [...] 12/15/2017 Assessment & Plan (06/04/2018 10:16 AM RAILCAR MECHANIC): Still awaiting to schedule with Neurology for further evaluation of these symptoms. Assessment & Plan (05/07/2018 10:52 AM RAILCAR MECHANIC): Has not scheduled with Neurology, which was discussed at the last couple of visits. Will be scheduling in the near future. Assessment & Plan (03/26/2018 10:29 AM RAILCAR MECHANIC): As discussed at last visit, given her confusion symptoms, as well as headaches , would recommend further evaluation with Neurology. Assessment & Plan (02/26/2018 10:23 AM RAILCAR MECHANIC): Continues to note persistent headaches, as well [...] 12/15/2017 Assessment & Plan (05/09/2024 11:01 AM RAILCAR MECHANIC): DEXA 02/05/2023: L-spine-1.3, left femoral neck-1.4, left total hip-0.7, right femoral neck -0.8, right total hip -0.4 FRAX: 9.6/0.8. On vitamin-D supplementation per PCP recommendations Routine labs today. Continue routine eye exams. Normal TPMT 03/2018 Neg quant 06/2019 Assessment & Plan (04/11/2024 9:56 AM RAILCAR MECHANIC): DEXA 02/05/2023: L-spine-1.3, left femoral neck-1.4, left [...] 06/2019 Assessment & Plan (04/07/2023 12:50 PM RAILCAR MECHANIC): DEXA 02/05/2023: L-spine-1.3, left femoral neck-1.4, left [...] 06/2019 Assessment & Plan (04/26/2021 9:30 AM RAILCAR MECHANIC): Routine labs today. Continue routine eye exams. [...] 06/2019 Assessment & Plan (06/11/2020 1:04 PM RAILCAR MECHANIC): Routine labs today. Continue routine eye exams. Normal TPMT 03/2018 Neg quant 06/2019 Assessment & Plan (04/11/2020 12:04 PM RAILCAR MECHANIC): Routine labs today. Continue routine eye exams. Normal TPMT 03/2018 Neg quant 06/2019 Assessment & Plan (03/19/2020 9:50 AM RAILCAR MECHANIC): Routine labs today. Continue routine eye exams. [...] 03/2018 Assessment & Plan (04/01/2019 12:27 PM RAILCAR MECHANIC): Routine labs today. Continue routine eye exams. [...] today. Assessment & Plan (06/04/2018 10:16 AM RAILCAR MECHANIC): Routine labs today. Continue routine eye exams. Normal TPMT 03/2018 Routine labs today. Assessment & Plan (05/07/2018 10:53 AM RAILCAR MECHANIC): Routine labs today. Continue routine eye exams. Normal TPMT 03/2018 Routine labs today. Recheck CBC in 2 weeks. Assessment & Plan (03/26/2018 9:57 AM RAILCAR MECHANIC): Routine labs today. Continue routine eye exams. Routine labs today, including TP MT. Recheck CBC in 2 weeks. Assessment & Plan (02/26/2018 10:25 AM RAILCAR MECHANIC): Routine labs today. Continue routine eye exams. [...] warmers. Assessment & Plan (04/26/2021 9:30 AM RAILCAR MECHANIC): Persistent intermittent Raynaud/acrocyanosis symptoms in the feet>hands. [...] warmers. Assessment & Plan (06/11/2020 1:04 PM RAILCAR MECHANIC): Persistent intermittent Raynaud symptoms in the feet>hands. [...] fingers. Assessment & Plan (04/01/2019 12:27 PM RAILCAR MECHANIC): Mild occasional Raynaud's in the feet without [...] neurologist norma hernandez On Plaquenil 200 b.i.d., xeljanz Assessment & Plan (05/09/2024 11:01 AM RAILCAR MECHANIC): CDAI 7. Had significant benefit with Kenalog [...] needed. Assessment & Plan (04/11/2024 9:55 AM RAILCAR MECHANIC): CDAI 21. Since last visit, has had [...] needed. Assessment & Plan (04/07/2023 10:54 AM RAILCAR MECHANIC): CDAI 13. Since last visit, has noted [...] needed Assessment & Plan (06/13/2022 12:33 PM RAILCAR MECHANIC): CDAI 16. Presents due to a flare. [...] needed. Assessment & Plan (05/15/2022 10:11 AM RAILCAR MECHANIC): CDAI 9. Overall, peripheral joints have done [...] needed. Assessment & Plan (04/26/2021 9:28 AM RAILCAR MECHANIC): CDAI 18. Since last visit, has experienced [...] needed. Assessment & Plan (06/11/2020 1:02 PM RAILCAR MECHANIC): CDAI 9. Since last visit, patient has [...] needed. Assessment & Plan (04/11/2020 12:06 PM RAILCAR MECHANIC): CDAI 40. Patient returns today due to [...] osteoporosis. Assessment & Plan (03/19/2020 9:51 AM RAILCAR MECHANIC): Tele health visit. Patient noted a significant [...] stiffness in the bilateral hands with reduced dental hygiene teacher strength. A.m. stiffness for 60 minutes. Denies [...] needed. Assessment & Plan (04/01/2019 12:26 PM RAILCAR MECHANIC): CDAI 0. Denies much peripheral joint complaints [...] needed. Assessment & Plan (06/04/2018 10:14 AM RAILCAR MECHANIC): Initial serologies:pos lourdes 1:640 dense fine speckled. [...] needed. Assessment & Plan (05/07/2018 10:51 AM RAILCAR MECHANIC): Initial serologies:pos lourdes 1:640 dense fine speckled. [...] injection. Assessment & Plan (03/26/2018 10:28 AM RAILCAR MECHANIC): Initial serologies:pos lourdes 1:640 dense fine speckled. [...] today. Assessment & Plan (02/26/2018 12:08 PM RAILCAR MECHANIC): Initial serologies:pos lourdes 1:640 dense fine speckled. [...] that she will be moving to the [facility] that will be needed to establish care with a new industrial health engineer. Advised to do this DARÍO. Routine labs [...] Gilbert. Assessment & Plan (04/26/2021 9:31 AM RAILCAR MECHANIC): A primary complaint persistent neuropathic pain in [...] heme. Assessment & Plan (06/11/2020 1:03 PM RAILCAR MECHANIC): Follows with heme. Assessment & Plan (04/11/2020 12:04 PM RAILCAR MECHANIC): Follows with heme. Assessment & Plan (03/19/2020 9:50 AM RAILCAR MECHANIC): Follows with heme. Assessment & Plan (02/17/2020 [...] Hematology. Assessment & Plan (04/01/2019 12:26 PM RAILCAR MECHANIC): Following with Hematology. Assessment & Plan (12/31/2018 12:45 PM CDT): Continue to follow with Hematology Assessment & Plan (10/01/2018 10:48 AM CDT): Continue to follow with hematology. Assessment & Plan (07/23/2018 9:05 AM CDT): Continue to follow with Hematology. Assessment & Plan (06/04/2018 10:15 AM RAILCAR MECHANIC): Continue to follow with Hematology. Assessment & Plan (05/07/2018 10:52 AM RAILCAR MECHANIC): Continue to follow with Hematology. Assessment & Plan (03/26/2018 10:29 AM RAILCAR MECHANIC): Continue to follow with Hematology. Assessment & Plan (02/26/2018 10:25 AM RAILCAR MECHANIC): Following with Hematology for this issue. Will [...] evaluate. Fu in two weeks to discuss. Social History Tobacco Use Types Packs/Day Years Used Date Smoking Tobacco: Never Assessed Comments Unknown Sex and Gender Information Value Date Recorded Sex Assigned at Not on file Legal Sex Female 4:59 PM CDT Gender Identity Female 01/24/2023 8:03 PM CDT Sexual Orientation Not on file Last Filed Vital Signs Vital Sign Reading Time Taken Comments Blood Pressure 142/90 05/09/2024 9:07 AM RAILCAR MECHANIC Pulse 65 05/09/2024 9:07 AM RAILCAR MECHANIC Temperature 36.5 C (97.7 F) 04/26/2021 8:51 AM RAILCAR MECHANIC Respiratory Rate - - Oxygen Saturation 98% 05/09/2024 9:07 AM RAILCAR MECHANIC Inhaled Oxygen Concentration - - Weight 78.5 kg (173 lb) 05/09/2024 9:07 AM RAILCAR MECHANIC Height 162.6 cm (5' 4 ) 05/09/2024 9:07 AM RAILCAR MECHANIC Body Mass Index 29.7 05/09/2024 9:07 AM RAILCAR MECHANIC Plan of Treatment Not on file Procedures Procedure Name Priority Date/Time Associated Diagnosis Comments CBC WITH AUTO DIFFERENTIAL Routine 05/25/2024 1:25 PM RAILCAR MECHANIC Lymphocytopenia Encounter for long-term (current) use of high-risk medication C3 COMPLEMENT Routine 05/09/2024 9:43 AM RAILCAR MECHANIC Systemic lupus erythematosus, unspecified SLE type, unspecified organ involvement status (HCC) Seropositive rheumatoid arthritis (HCC) Encounter for long-term (current) use of medications PROTEIN / CREATININE RATIO, URINE, RANDOM Routine 05/09/2024 9:43 AM RAILCAR MECHANIC Systemic lupus erythematosus, unspecified SLE type, unspecified organ involvement status (HCC) Seropositive rheumatoid arthritis (HCC) Encounter for long-term (current) use of medications ANTI-DOUBLE STRANDED DNA ANTIBODIES Routine 05/09/2024 9:43 AM RAILCAR MECHANIC Systemic lupus erythematosus, unspecified SLE type, unspecified organ involvement status (HCC) Seropositive rheumatoid arthritis (HCC) Encounter for long-term (current) use of medications ERYTHROCYTE SEDIMENTATION RATE Routine 05/09/2024 9:43 AM RAILCAR MECHANIC Systemic lupus erythematosus, unspecified SLE type, unspecified organ involvement status (HCC) Seropositive rheumatoid arthritis (HCC) Encounter for long-term (current) use of medications CRP (ACUTE PHASE) Routine 05/09/2024 9:4 3 AM RAILCAR MECHANIC Systemic lupus erythematosus, unspecified SLE type, unspecified organ involvement status (HCC) Seropositive rheumatoid arthritis (HCC) Encounter for long-term (current) use of medications COMPREHENSIVE METABOLIC PANEL Routine 05/09/2024 9:43 AM RAILCAR MECHANIC Systemic lupus erythematosus, unspecified SLE type, unspecified organ involvement status (HCC) Seropositive rheumatoid arthritis (HCC) Encounter for long-term (current) use of medications CBC WITH AUTO DIFFERENTIAL Routine 05/09/2024 9:43 AM RAILCAR MECHANIC Systemic lupus erythematosus, unspecified SLE type, unspecified organ involvement status (HCC) Seropositive rheumatoid arthritis (HCC) Encounter for long-term (current) use of medications C4 COMPLEMENT Routine 05/09/2024 9:43 AM RAILCAR MECHANIC Systemic lupus erythematosus, unspecified SLE type, unspecified organ involvement status (HCC) Seropositive rheumatoid arthritis (HCC) Encounter for long-term (current) use of medications from Last 3 Months Results * CBC with auto differential (05/25/2024 1:25 PM RAILCAR MECHANIC) Pathologist [facility] WBC 7.4 3.8 - 10.8 Thousand/u L [...] [facility] Blood 05/25/2024 1:25 PM RAILCAR MECHANIC 05/25/2024 1:25 PM RAILCAR MECHANIC Narrative [facility] - 05/26/2024 6:11 AM RAILCAR MECHANIC FASTING:NO FASTING: NO Carlos HUITRON LAB BLOOD ORDERABLES Fi nal Result Performing Organization Address City/[facility] Co de Phone Number [facility] [address] [place] [address] * Anti-double stranded DNA abs (05/09/2024 9:43 AM RAILCAR MECHANIC) DNA (DS) ab <1 IU/mL [facility] Comment: IU/mL Interpretation < or = 4 Negative 5-9 Indeterminate > or = 10 Positive Blood 05/09/2024 9:43 AM RAILCAR MECHANIC 05/09/2024 9:44 AM RAILCAR MECHANIC Carlos HUITRON LAB BLOOD ORDERABLES Fi nal Result Performing Organization Address [facility] Co de Phone Number [facility] [address] [place] [phone] * C4 complement (05/09/2024 9:43 AM RAILCAR MECHANIC) Complement component C4C 26 15 - 57 mg/dL [facility] Blood 05/09/2024 9:43 AM RAILCAR MECHANIC 05/09/2024 9:44 AM RAILCAR MECHANIC Carlos HUITRON LAB BLOOD ORDERABLES Fi nal Result Performing Organization Address [facility] Co de Phone Number [facility] [address] [place] [phone] * (ABNORMAL) CBC with auto differential (05/09/2024 9:43 AM RAILCAR MECHANIC) WBC 6.6 3.8 - 10.8 Thousand/u L [...] [facility] Blood 05/09/2024 9:43 AM RAILCAR MECHANIC 05/09/2024 9:44 AM RAILCAR MECHANIC us Carlos HUITRON LAB BLOOD ORDERABLES Fi nal Result [facility] [address] [address] [id number] * (ABNORMAL) Protein / creatinine ratio, urine, random (05/09/2024 9:43 AM RAILCAR MECHANIC) Creatinine, ur 17(L) 20 - 275 mg/dL [...] by repeat analysis. Urine 05/09/2024 9:43 AM RAILCAR MECHANIC 05/09/2024 9:44 AM RAILCAR MECHANIC Carlos HUITRON LAB URINE ORDERABLES Fi nal Result Performing Organization Address [facility] de Phone Number [facility] [address] [place] [address] * Erythrocyte sedimentation rate (05/09/2024 9:43 AM RAILCAR MECHANIC) Erythrocyte sedimentation rate 6 < OR = 30 mm/h [facility] Blood 05/09/2024 9:43 AM RAILCAR MECHANIC 05/09/2024 9:44 AM RAILCAR MECHANIC Carlos HUITRON LAB BLOOD ORDERABLES Fi nal Result Performing Organization Address [facility] de Phone Number [facility] [address] [place] [address] * C3 complement (05/09/2024 9:43 AM RAILCAR MECHANIC) Complement component C3C 137 83 - 193 mg/dL [facility] Blood 05/09/2024 9:43 AM RAILCAR MECHANIC 05/09/2024 9:44 AM RAILCAR MECHANIC Carlos HUITRON LAB BLOOD ORDERABLES Fi nal Result [facility] [address] [place] [address] * CRP (acute phase) (05/09/2024 9:43 AM RAILCAR MECHANIC) Pathologist [facility] C-RP <3.0 <8.0 mg/L [facility] Blood 05/09/2024 9:43 AM RAILCAR MECHANIC 05/09/2024 9:44 AM RAILCAR MECHANIC Carlos HUITRON LAB BLOOD ORDERABLES Fi nal Result Performing Organization Address [facility]/ZIP Co de Phone Number [facility] [address] [facility] [place] [address] * (ABNORMAL) Comprehensive metabolic panel (05/09/2024 9:43 AM RAILCAR MECHANIC) [facility] Glucose 54(L) 65 - 99 mg/dL [facility] [...] [facility] Blood 05/09/2024 9:43 AM RAILCAR MECHANIC 05/09/2024 9:44 AM RAILCAR MECHANIC us Carlos HUITRON LAB BLOOD ORDERABLES nal Result [facility] [address] [place] [id number] from Last [address] [facility]/PPO Address: [facility] [id number] [place] [address] [facility] H[facility]/PPO Address: [address] [address] [facility] H[facility]/PPO Address: [facility] [id number] [place] [address] Care Teams Tree Farmer Relationship Specialty Start Date End Date Ray Roberts MD [address] [facility] [address] [place] [address] PCP - General Family Medicine 04/11/24 Hossein Ribeiro MD [address] [place] [address] Referring Physician Neurology 09/21/19 Rashid Gaffney MD [address] [place] [address] Consulting Physician Rheumatology 04/24/23
[2024-07-16 12:25] VITALS: BP 144/70; PULSE 68; RESP 18; TEMP 36.7; O2SAT 97
--- OUTSIDE RECORDS SUMMARY | 2024-07-16 12:25 | XMS_ITS | Continuity of Care Document ---
Author Organization [facility] Address [address] [place] [address] [address] [place] [address] Phone Care Team Providers Care Bar Steward Name Role Phone Hortencia Barnhart Unavailable Unavailable Advance Directives Directive Yes / No Effective Date File Name No Information Encounters Encounter Description Practice Location Reason(s) For Visit Diagnoses Date Provider Providers Copied on Encounter [facility], [id number] [place] [address] [address], [place], [place], [id number], [place] tel:[phone] [facility] No Information [address] Bronwyn Burnett. [address] , [address], [place], [address], [place]. tel:[phone] Family History Family Member Type Diagnosis Age At Onset No Information Payers Payer name Insurance type Covered alliance party ID Authoriza tion(s) No Information Social [...]
--- OUTSIDE RECORDS SUMMARY | 2024-07-16 12:25 | XMS_ITS | Continuity of Care Document ---
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 Name Role Phone Adelina PT, DPT, Alfredo Unavailable Unavailable Procedures Procedure Date Therapeutic Activities Therapeutic Exercise Neuromuscular Re-Ed COVID-19 Additional Safety Supplies/Time Therapeutic Activities Therapeutic Exercise Neuromuscular Re-Ed COVID-19 Additional Safety Supplies/Time Therapeutic Activities Neuromuscular Re-Ed Therapeutic Exercise Therapeutic Activities Neuromuscular Re-Ed Therapeutic Exercise Therapeutic Activities Therapeutic Exercise Therapeutic Activities PT Evaluation Moderate Complexity Therapeutic Exercise Advance Directives Directive Yes / No Effective Date File Name No Information Encounters Encounter Description Practice Location Reason(s) For Visit Diagnoses Date Provider Providers Copied on Encounter [facility] [facility], [place], [place], [id number], tel:[phone] [place] No Information 0 Adelina Fuentes. . [facility], [place], [place], [id number], tel:[phone] [place] No Information 0 Adelina Fuentes. . [facility], [place], [place], [id number], tel:[phone] [place] No Information 0 Makler Luke. . [facility], [place], [place], [id number], tel:[phone] [place] No Information 0 Makler Luke. . [facility], [place], [place], [id number], tel:[phone] [place] No Information 0 Makler Luke. . [facility], [place], [place], [id number], tel:[phone] [place] No Information 0 Makler Luke. . Family History Family Member Type Diagnosis Age At Onset No Information Payers Payer name Insurance type Covered libertarian ID Zoya pastor(s) [facility] [id number] Social History Type Description Quantity Date Captured [...]
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
== END 2024-07-16 13:25 | disposition home or self-care (01) ==
PROVIDERS: Emergency Provider Nurse Practitioner; PCP Family Medicine
DX: S80.12XA Contusion of left lower leg, initial encounter (principal); W22.8XXA Striking against or struck by other objects, initial encounter; R06.9 Unspecified abnormalities of breathing; G40.909 Epilepsy, unspecified, not intractable, without status epilepticus; I10 Essential (primary) hypertension; M32.9 Systemic lupus erythematosus, unspecified; G25.81 Restless legs syndrome; I73.00 Raynaud's syndrome without gangrene; I25.2 Old myocardial infarction; F33.8 Other recurrent depressive disorders; Z79.82 Long term (current) use of aspirin
CPT/HCPCS: 73590; 99213; G0463

== ENCOUNTER 2024-07-19 08:09 | Day surgery (SDC) | payer OTHER, SELFPAY ==
--- NOTE | ~2024-07-19 | XR_ITS ---
EXAMINATION: XR fluoroscopy no charge DATE: 07/19/2024 9:40 CDT INDICATION: DIAG/PROG VIRGIE L3,L4,L5 LUMB MEDIAL BRANCH BLK . TECHNIQUE: 12 fluoroscopic images and one cine clip of the lumbar spine were obtained during diagnost ic/prognostic bilateral L3-L5 lumbar medial branch block, addressing the bilateral L4-5 and L5-S1 fac et joints, performed by Dereck Bowden MD. I was not present during the procedure. Fluoroscopy expo sure time was 70.7 seconds. Air Kerma 18.27 mGy. COMPARISON: 05/10/2024 FINDINGS/IMPRESSION: Fluoroscopic documentation of diagnostic/prognostic bilateral L3-L5 lumbar medial branch block, addre ssing the bilateral L4-5 and L5-S1 facet joints. Please refer to the operative note for complete proc edural details . Reviewed, dictated and finalized at location K.
--- OUTSIDE RECORDS SUMMARY | 2024-07-19 08:34 | XMS_ITS | Clinical Summary ---
Author Organization [facility] Address [facility] [place] [address] Care Team Providers Care Shank Sander Name Role Phone Unavailable Primary Care Provider [...]
--- OUTSIDE RECORDS SUMMARY | 2024-07-19 08:34 | XMS_ITS | Clinical Summary ---
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 Assessment & Plan (06/13/2022 12:34 PM HEALTH INSURANCE SPECIALIST): C-spine x-ray 05/15/2022: Minimal degenerative changes at [...] complaints. Assessment & Plan (05/15/2022 10:14 AM HEALTH INSURANCE SPECIALIST): Will obtain imaging and send to physical therapy. Primary hypertension 05/15/2022 Assessment & Plan (05/15/2022 2:20 PM HEALTH INSURANCE SPECIALIST): Following with PCP and is to reach [...] 10/06/2019 Assessment & Plan (05/09/2024 11:00 AM HEALTH INSURANCE SPECIALIST): Seropositive RA given prior elevated rheumatoid factor [...] p.r.n. Assessment & Plan (04/11/2024 9:56 AM HEALTH INSURANCE SPECIALIST): Seropositive RA given prior elevated rheumatoid factor [...] p.r.n.. Assessment & Plan (04/07/2023 10:55 AM HEALTH INSURANCE SPECIALIST): Seropositive RA given prior elevated rheumatoid factor [...] p.r.n.. Assessment & Plan (06/13/2022 12:34 PM HEALTH INSURANCE SPECIALIST): As discussed above, seropositive RA given prior [...] b.i.d.. Assessment & Plan (05/15/2022 10:12 AM HEALTH INSURANCE SPECIALIST): As discussed above, seropositive RA given prior [...] b.i.d.. Assessment & Plan (04/26/2021 9:30 AM HEALTH INSURANCE SPECIALIST): As discussed above, concern for seropositive RA [...] daily. Assessment & Plan (06/11/2020 1:03 PM HEALTH INSURANCE SPECIALIST): As discussed above, concern for seropositive RA given prior elevated rheumatoid factor and erosions seen on ultrasound. Appears fairly well controlled. Continue Plaquenil 200 mg b.i.d., xeljanz xr 11 mg daily. Assessment & Plan (04/11/2020 12:03 PM HEALTH INSURANCE SPECIALIST): As discussed above, concern for seropositive RA given prior elevated rheumatoid factor and erosions seen on ultrasound. Will stop Orencia and azathioprine due to lack of benefit and begin approval for Xeljanz XR 11 mg daily. Continue Plaquenil 200 mg b.i.d.. Assessment & Plan (03/19/2020 9:49 AM HEALTH INSURANCE SPECIALIST): As discussed above, concern for seropositive RA [...] pcp. Assessment & Plan (05/09/2024 11:01 AM HEALTH INSURANCE SPECIALIST): Stable. Continue Cymbalta 60 mg daily, gabapentin 300 mg qid per Neurology. Previously switched from Lyrica for insurance reasons. Encourage routine exercise. Assessment & Plan (04/11/2024 9:57 AM HEALTH INSURANCE SPECIALIST): Stable. Continue Cymbalta 60 mg daily, gabapentin [...] exercise. Assessment & Plan (04/07/2023 12:50 PM HEALTH INSURANCE SPECIALIST): Stable. Continue Cymbalta 60 mg daily, gabapentin [...] exercise. Assessment & Plan (06/13/2022 12:35 PM HEALTH INSURANCE SPECIALIST): Continue Cymbalta 30 mg daily. Continue gabapentin 300 mg q.a.m., 300 mg midday, 600 mg q.p.m. per neurology. Previous switch from Lyrica for insurance reasons. Encourage routine exercise. Assessment & Plan (05/15/2022 10:15 AM HEALTH INSURANCE SPECIALIST): Stable. Continue Cymbalta 30 mg daily. Continue [...] exercise. Assessment & Plan (04/26/2021 9:31 AM HEALTH INSURANCE SPECIALIST): Stable. Continue Cymbalta and gabapentin 100 mg [...] exercise. Assessment & Plan (06/11/2020 1:06 PM HEALTH INSURANCE SPECIALIST): Stable. Continue Cymbalta. On Lyrica 300 mg 1-2 times daily per PCP. Encourage routine exercise. Assessment & Plan (04/11/2020 12:07 PM HEALTH INSURANCE SPECIALIST): Stable. Continue Cymbalta. On Lyrica 300 mg 1-2 times daily per PCP. Encourage routine exercise. Assessment & Plan (03/19/2020 9:50 AM HEALTH INSURANCE SPECIALIST): As discussed at last visit, continue to [...] exercise. Assessment & Plan (04/01/2019 12:29 PM HEALTH INSURANCE SPECIALIST): FM may be contributing to some of [...] benefit. Assessment & Plan (04/01/2019 12:26 PM HEALTH INSURANCE SPECIALIST): Bilateral [facility] bracing has offered benefit. Assessment [...] L5. Assessment & Plan (05/09/2024 11:02 AM HEALTH INSURANCE SPECIALIST): C-spine x-ray 05/15/2022: Minimal degenerative changes at C3-C4 and C4-C5 SI joint x-ray 05/15/2022: WNL L-spine x-ray 05/15/2022: 5 mm anterolisthesis of L4 on L5. Had L-spine MRI from [facility] and is following with pain management. Has completed physical therapy. Following with pain management. Is currently going to physical therapy. Is scheduled for repeat L-spine epidural steroid injection with pain management tomorrow. Is following with orthopedic surgeon with discussions for potential surgical intervention regarding the lower back. Assessment & Plan (04/11/2024 9:57 AM HEALTH INSURANCE SPECIALIST): C-spine x-ray 05/15/2022: Minimal degenerative changes at C3-C4 and C4-C5 SI joint x-ray 05/15/2022: WNL L-spine x-ray 05/15/2022: 5 mm anterolisthesis of L4 on L5. Had L-spine MRI from [facility] and is following with [...] L4 on L5. Had L-spine MRI from [facility] and is following with [...] L4 on L5. Had L-spine MRI from [facility] and is following with pain management. Received epidural injection yesterday afternoon and continues to go to physical therapy. She defers surgical intervention at this time. Continue to follow with pain management. Assessment & Plan (06/13/2022 12:35 PM HEALTH INSURANCE SPECIALIST): C-spine x-ray 05/15/2022: Minimal degenerative changes at [...] Will track down recent L-spine MRI from [facility]. Assessment & Plan (05/15/2022 10:14 AM HEALTH INSURANCE SPECIALIST): Primary complaint is significant lower back pain [...] today. Assessment & Plan (04/01/2019 12:28 PM HEALTH INSURANCE SPECIALIST): History of L4/L5/S1 OA in the lower [...] 06/04/2018 Assessment & Plan (06/04/2018 10:18 AM HEALTH INSURANCE SPECIALIST): Insomnia symptoms at night. Discussed use of black noise machine. also reports that she snores. Would recommend sleep study, although discuss further with PCP. Right hand pain 05/07/2018 Assessment & Plan (05/07/2018 10:54 AM HEALTH INSURANCE SPECIALIST): Patient jammed right 1st digit and has [...] years. Assessment & Plan (06/04/2018 10:14 AM HEALTH INSURANCE SPECIALIST): Did not obtain DEXA at last visit, will obtain in the near future. Order placed again. Assessment & Plan (05/07/2018 10:56 AM HEALTH INSURANCE SPECIALIST): Recently non-displaced lateral malleolus fracture after rolling her ankle. Is at increased risk for osteoporosis with SLE. Will check dexa scan today. Confusion 03/03/2018 Right hip pain 02/26/2018 Assessment & Plan (06/04/2018 10:15 AM HEALTH INSURANCE SPECIALIST): Patient does continue to have some mild pain in the right hip / groin region. Most recent hip x-ray was negative. Has complaints are minimal, we will just monitor at this time. If symptoms progress, would consider right hip MRI. Assessment & Plan (05/07/2018 10:52 AM HEALTH INSURANCE SPECIALIST): Denies major complaints today. Most recent right hip x-ray was negative. If symptoms do worsen, would consider right hip MRI. Assessment & Plan (03/26/2018 9:57 AM HEALTH INSURANCE SPECIALIST): Right hip pain with accompanying morning stiffness persists. Localizes over the right hip/ groin region, although no pain elicited with internal and external rotation. Recent right hip x-ray was negative. If symptoms persist, will consider right hip MRI at next visit. Assessment & Plan (02/26/2018 10:24 AM HEALTH INSURANCE SPECIALIST): Right hip pain, which she does note [...] 12/15/2017 Assessment & Plan (06/04/2018 10:16 AM HEALTH INSURANCE SPECIALIST): Still awaiting to schedule with Neurology for further evaluation of these symptoms. Assessment & Plan (05/07/2018 10:52 AM HEALTH INSURANCE SPECIALIST): Has not scheduled with Neurology, which was discussed at the last couple of visits. Will be scheduling in the near future. Assessment & Plan (03/26/2018 10:29 AM HEALTH INSURANCE SPECIALIST): As discussed at last visit, given her confusion symptoms, as well as headaches , would recommend further evaluation with Neurology. Assessment & Plan (02/26/2018 10:23 AM HEALTH INSURANCE SPECIALIST): Continues to note persistent headaches, as well [...] 12/15/2017 Assessment & Plan (05/09/2024 11:01 AM HEALTH INSURANCE SPECIALIST): DEXA 02/05/2023: L-spine-1.3, left femoral neck-1.4, left total hip-0.7, right femoral neck -0.8, right total hip -0.4 FRAX: 9.6/0.8. On vitamin-D supplementation per PCP recommendations Routine labs today. Continue routine eye exams. Normal TPMT 03/2018 Neg quant 06/2019 Assessment & Plan (04/11/2024 9:56 AM HEALTH INSURANCE SPECIALIST): DEXA 02/05/2023: L-spine-1.3, left femoral neck-1.4, left [...] 06/2019 Assessment & Plan (04/07/2023 12:50 PM HEALTH INSURANCE SPECIALIST): DEXA 02/05/2023: L-spine-1.3, left femoral neck-1.4, left [...] 06/2019 Assessment & Plan (04/26/2021 9:30 AM HEALTH INSURANCE SPECIALIST): Routine labs today. Continue routine eye exams. [...] 06/2019 Assessment & Plan (06/11/2020 1:04 PM HEALTH INSURANCE SPECIALIST): Routine labs today. Continue routine eye exams. Normal TPMT 03/2018 Neg quant 06/2019 Assessment & Plan (04/11/2020 12:04 PM HEALTH INSURANCE SPECIALIST): Routine labs today. Continue routine eye exams. Normal TPMT 03/2018 Neg quant 06/2019 Assessment & Plan (03/19/2020 9:50 AM HEALTH INSURANCE SPECIALIST): Routine labs today. Continue routine eye exams. [...] 03/2018 Assessment & Plan (04/01/2019 12:27 PM HEALTH INSURANCE SPECIALIST): Routine labs today. Continue routine eye exams. [...] today. Assessment & Plan (06/04/2018 10:16 AM HEALTH INSURANCE SPECIALIST): Routine labs today. Continue routine eye exams. Normal TPMT 03/2018 Routine labs today. Assessment & Plan (05/07/2018 10:53 AM HEALTH INSURANCE SPECIALIST): Routine labs today. Continue routine eye exams. Normal TPMT 03/2018 Routine labs today. Recheck CBC in 2 weeks. Assessment & Plan (03/26/2018 9:57 AM HEALTH INSURANCE SPECIALIST): Routine labs today. Continue routine eye exams. Routine labs today, including TP MT. Recheck CBC in 2 weeks. Assessment & Plan (02/26/2018 10:25 AM HEALTH INSURANCE SPECIALIST): Routine labs today. Continue routine eye exams. [...] warmers. Assessment & Plan (04/26/2021 9:30 AM HEALTH INSURANCE SPECIALIST): Persistent intermittent Raynaud/acrocyanosis symptoms in the feet>hands. [...] warmers. Assessment & Plan (06/11/2020 1:04 PM HEALTH INSURANCE SPECIALIST): Persistent intermittent Raynaud symptoms in the feet>hands. [...] fingers. Assessment & Plan (04/01/2019 12:27 PM HEALTH INSURANCE SPECIALIST): Mild occasional Raynaud's in the feet without [...] xejoan Assessment & Plan (05/09/2024 11:01 AM HEALTH INSURANCE SPECIALIST): CDAI 7. Had significant benefit with Kenalog [...] needed. Assessment & Plan (04/11/2024 9:55 AM HEALTH INSURANCE SPECIALIST): CDAI 21. Since last visit, has had [...] needed. Assessment & Plan (04/07/2023 10:54 AM HEALTH INSURANCE SPECIALIST): CDAI 13. Since last visit, has noted [...] needed Assessment & Plan (06/13/2022 12:33 PM HEALTH INSURANCE SPECIALIST): CDAI 16. Presents due to a flare. [...] needed. Assessment & Plan (05/15/2022 10:11 AM HEALTH INSURANCE SPECIALIST): CDAI 9. Overall, peripheral joints have done [...] needed. Assessment & Plan (04/26/2021 9:28 AM HEALTH INSURANCE SPECIALIST): CDAI 18. Since last visit, has experienced [...] needed. Assessment & Plan (06/11/2020 1:02 PM HEALTH INSURANCE SPECIALIST): CDAI 9. Since last visit, patient has [...] needed. Assessment & Plan (04/11/2020 12:06 PM HEALTH INSURANCE SPECIALIST): CDAI 40. Patient returns today due to [...] osteoporosis. Assessment & Plan (03/19/2020 9:51 AM HEALTH INSURANCE SPECIALIST): Tele health visit. Patient noted a significant [...] stiffness in the bilateral hands with reduced capital markets specialist strength. A.m. stiffness for 60 minutes. Denies [...] needed. Assessment & Plan (04/01/2019 12:26 PM HEALTH INSURANCE SPECIALIST): CDAI 0. Denies much peripheral joint complaints [...] needed. Assessment & Plan (06/04/2018 10:14 AM HEALTH INSURANCE SPECIALIST): Initial serologies:pos lourdes 1:640 dense fine speckled. [...] needed. Assessment & Plan (05/07/2018 10:51 AM HEALTH INSURANCE SPECIALIST): Initial serologies:pos lourdes 1:640 dense fine speckled. [...] injection. Assessment & Plan (03/26/2018 10:28 AM HEALTH INSURANCE SPECIALIST): Initial serologies:pos lourdes 1:640 dense fine speckled. [...] today. Assessment & Plan (02/26/2018 12:08 PM HEALTH INSURANCE SPECIALIST): Initial serologies:pos lourdes 1:640 dense fine speckled. [...] that she will be moving to the [place] area that will be needed to establish care with a new industrial security analyst. Advised to do this DARÍO. Routine labs [...] Gilbert. Assessment & Plan (04/26/2021 9:31 AM HEALTH INSURANCE SPECIALIST): A primary complaint persistent neuropathic pain in [...] heme. Assessment & Plan (06/11/2020 1:03 PM HEALTH INSURANCE SPECIALIST): Follows with heme. Assessment & Plan (04/11/2020 12:04 PM HEALTH INSURANCE SPECIALIST): Follows with heme. Assessment & Plan (03/19/2020 9:50 AM HEALTH INSURANCE SPECIALIST): Follows with heme. Assessment & Plan (02/17/2020 [...] Hematology. Assessment & Plan (04/01/2019 12:26 PM HEALTH INSURANCE SPECIALIST): Following with Hematology. Assessment & Plan (12/31/2018 12:45 PM CDT): Continue to follow with Hematology Assessment & Plan (10/01/2018 10:48 AM CDT): Continue to follow with hematology. Assessment & Plan (07/23/2018 9:05 AM CDT): Continue to follow with Hematology. Assessment & Plan (06/04/2018 10:15 AM HEALTH INSURANCE SPECIALIST): Continue to follow with Hematology. Assessment & Plan (05/07/2018 10:52 AM HEALTH INSURANCE SPECIALIST): Continue to follow with Hematology. Assessment & Plan (03/26/2018 10:29 AM HEALTH INSURANCE SPECIALIST): Continue to follow with Hematology. Assessment & Plan (02/26/2018 10:25 AM HEALTH INSURANCE SPECIALIST): Following with Hematology for this issue. Will [...] Type Department Care Team Description 06/08/2024 Telephone [facility] [address] [place] [phone] Steve [facility] Pharmacy Update 05/10/[address] [phone] Steve Russell 05/09/2024 9:15 AM HEALTH INSURANCE SPECIALIST Office Visit [facility] [address] [place] [phone] Carlos Coughlin PA Systemic lupus erythematosus, unspecified [...] Comments Blood Pressure 142/90 05/09/2024 9:07 AM HEALTH INSURANCE SPECIALIST Pulse 65 05/09/2024 9:07 AM HEALTH INSURANCE SPECIALIST Temperature 36.5 C (97.7 F) 04/26/2021 8:51 AM HEALTH INSURANCE SPECIALIST Respiratory Rate - - Oxygen Saturation 98% 05/09/2024 9:07 AM HEALTH INSURANCE SPECIALIST Inhaled Oxygen Concentration - - Weight 78.5 kg (173 lb) 05/09/2024 9:07 AM HEALTH INSURANCE SPECIALIST Height 162.6 cm (5' 4 ) 05/09/2024 9:07 AM HEALTH INSURANCE SPECIALIST Body Mass Index 29.7 05/09/2024 9:07 AM HEALTH INSURANCE SPECIALIST Plan of Treatment Health Maintenance Due [...] WITH AUTO DIFFERENTIAL Routine 05/25/2024 1:25 PM HEALTH INSURANCE SPECIALIST Lymphocytopenia Encounter for long-term (current) use of high-risk medication C3 COMPLEMENT Routine 05/09/2024 9:43 AM HEALTH INSURANCE SPECIALIST Systemic lupus erythematosus, unspecified SLE type, unspecified organ involvement status (HCC) Seropositive rheumatoid arthritis (HCC) Encounter for long-term (current) use of medications PROTEIN / CREATININE RATIO, URINE, RANDOM Routine 05/09/2024 9:43 AM HEALTH INSURANCE SPECIALIST Systemic lupus erythematosus, unspecified SLE type, unspecified organ involvement status (HCC) Seropositive rheumatoid arthritis (HCC) Encounter for long-term (current) use of medications ANTI-DOUBLE STRANDED DNA ANTIBODIES Routine 05/09/2024 9:43 AM HEALTH INSURANCE SPECIALIST Systemic lupus erythematosus, unspecified SLE type, unspecified organ involvement status (HCC) Seropositive rheumatoid arthritis (HCC) Encounter for long-term (current) use of medications ERYTHROCYTE SEDIMENTATION RATE Routine 05/09/2024 9:43 AM HEALTH INSURANCE SPECIALIST Systemic lupus erythematosus, unspecified SLE type, unspecified organ involvement status (HCC) Seropositive rheumatoid arthritis (HCC) Encounter for long-term (current) use of medications CRP (ACUTE PHASE) Routine 05/09/2024 9:4 3 AM HEALTH INSURANCE SPECIALIST Systemic lupus erythematosus, unspecified SLE type, unspecified organ involvement status (HCC) Seropositive rheumatoid arthritis (HCC) Encounter for long-term (current) use of medications COMPREHENSIVE METABOLIC PANEL Routine 05/09/2024 9:43 AM HEALTH INSURANCE SPECIALIST Systemic lupus erythematosus, unspecified SLE type, unspecified organ involvement status (HCC) Seropositive rheumatoid arthritis (HCC) Encounter for long-term (current) use of medications CBC WITH AUTO DIFFERENTIAL Routine 05/09/2024 9:43 AM HEALTH INSURANCE SPECIALIST Systemic lupus erythematosus, unspecified SLE type, unspecified organ involvement status (HCC) Seropositive rheumatoid arthritis (HCC) Encounter for long-term (current) use of medications C4 COMPLEMENT Routine 05/09/2024 9:43 AM HEALTH INSURANCE SPECIALIST Systemic lupus erythematosus, unspecified SLE type, unspecified organ involvement status (HCC) Seropositive rheumatoid arthritis (HCC) Encounter for long-term (current) use of medications from Last 3 Months Results * CBC with auto differential (05/25/2024 1:25 PM HEALTH INSURANCE SPECIALIST) Pathologist [facility] WBC 7.4 3.8 - 10.8 Thousand/u L [...] [facility] Blood 05/25/2024 1:25 PM HEALTH INSURANCE SPECIALIST 05/25/2024 1:25 PM HEALTH INSURANCE SPECIALIST Narrative [facility] - 05/26/2024 6:11 AM HEALTH INSURANCE SPECIALIST FASTING:NO FASTING: NO Carlos HUITRON LAB BLOOD ORDERABLES Fi nal Result Performing Organization Address [facility] Co de Phone Number [facility] [address] [place] [address] * Anti-double stranded DNA abs (05/09/2024 9:43 AM HEALTH INSURANCE SPECIALIST) DNA (DS) ab <1 IU/mL [facility] Comment: IU/mL Interpretation < or = 4 Negative 5-9 Indeterminate > or = 10 Positive Blood 05/09/2024 9:43 AM HEALTH INSURANCE SPECIALIST 05/09/2024 9:44 AM HEALTH INSURANCE SPECIALIST Carlos HUITRON LAB BLOOD ORDERABLES Fi nal Result Performing Organization Address City/[facility] Co de Phone Number [facility] [address] [place] [address] * C4 complement (05/09/2024 9:43 AM HEALTH INSURANCE SPECIALIST) Complement component C4C 26 15 - 57 mg/dL [facility] Blood 05/09/2024 9:43 AM HEALTH INSURANCE SPECIALIST 05/09/2024 9:44 AM HEALTH INSURANCE SPECIALIST us Carlos [facility] LAB BLOOD ORDERABLES Fi nal Result [facility] [address] [address] [phone] * (ABNORMAL) CBC with auto differential (05/09/2024 9:43 AM HEALTH INSURANCE SPECIALIST) Pathologist [facility] WBC 6.6 3.8 - 10.8 Thousand/u L [...] [facility] Blood 05/09/2024 9:43 AM HEALTH INSURANCE SPECIALIST 05/09/2024 9:44 AM HEALTH INSURANCE SPECIALIST Carlos HUITRON LAB BLOOD ORDERABLES Fi nal Result Performing Organization Address [facility] Co de Phone Number [facility] [address] [place] [address] * (ABNORMAL) Protein / creatinine ratio, urine, random (05/09/2024 9:43 AM HEALTH INSURANCE SPECIALIST) Creatinine, ur 17(L) 20 - 275 mg/dL [...] by repeat analysis. Urine 05/09/2024 9:43 AM HEALTH INSURANCE SPECIALIST 05/09/2024 9:44 AM HEALTH INSURANCE SPECIALIST Carlos HUITRON LAB URINE ORDERABLES Fi nal Result Performing Organization Address [facility] Co de Phone Number [facility] [address] [place] [address] * Erythrocyte sedimentation rate (05/09/2024 9:43 AM HEALTH INSURANCE SPECIALIST) Erythrocyte sedimentation rate 6 < OR = 30 mm/h [facility] Blood 05/09/2024 9:43 AM HEALTH INSURANCE SPECIALIST 05/09/2024 9:44 AM HEALTH INSURANCE SPECIALIST Carlos HUITRON LAB BLOOD ORDERABLES Fi nal Result Performing Organization Address [facility] Co de Phone Number [facility] [address] [place] [address] * C3 complement (05/09/2024 9:43 AM HEALTH INSURANCE SPECIALIST) Pathologist [facility] Complement component C3C 137 83 - 193 mg/dL [facility] Blood 05/09/2024 9:43 AM HEALTH INSURANCE SPECIALIST 05/09/2024 9:44 AM HEALTH INSURANCE SPECIALIST Carlos HUITRON LAB BLOOD ORDERABLES Fi nal Result Performing Organization Address [facility] Co de Phone Number [facility] [address] [place] [address] * CRP (acute phase) (05/09/2024 9:43 AM HEALTH INSURANCE SPECIALIST) Pathologist [facility] C-RP <3.0 <8.0 mg/L [facility] Blood 05/09/2024 9:43 AM HEALTH INSURANCE SPECIALIST 05/09/2024 9:44 AM HEALTH INSURANCE SPECIALIST Carlos HUITRON LAB BLOOD ORDERABLES Fi nal Result Performing Organization Address [facility] de Phone Number [facility] [address] [place] [address] * (ABNORMAL) Comprehensive metabolic panel (05/09/2024 9:43 AM HEALTH INSURANCE SPECIALIST) Glucose 54(L) 65 - 99 mg/dL [facility] [...] [facility] Blood 05/09/2024 9:43 AM HEALTH INSURANCE SPECIALIST 05/09/2024 9:44 AM HEALTH INSURANCE SPECIALIST Carlos HUITRON LAB BLOOD ORDERABLES [facility] Result [facility] [address] [address] [phone] from Last 3 Months Insurance [facility] H[facility]/PPO Address: [place] [address] [address] [place] [place] [id number] [facility]/PPO Address: [address] [address] [place] [address] MEDICARE MEDICARE R [facility]O Address: [address] [address] [place] [address] Care Teams Barrel Assembler Helper Relationship Specialty Start Date End Date Ray Roberts MD [address] [facility] [address] [place] [address] PCP - General Family Medicine 04/11/24 Hossein Ribeiro MD [address] [place] [address] Referring Physician Neurology 09/21/19 Rashid Gaffney MD [address] [place] [address] Consulting Physician Rheumatology 04/24/23
--- OUTSIDE RECORDS SUMMARY | 2024-07-19 08:34 | XMS_ITS | Clinical Summary ---
Author Organization [facility] Address [address] [place] [address] Phone Care Team Providers Care Card Brusher Name Role Phone Breann Collins MD Primary Care Provider [phone] Social History Tobacco Use Types Packs/Day Years [...] DIGITAL W CAD Routine 02/21/2015 3:59 PM RESIDENT DOCTOR Visit for screening mammogram from Last 3 Months or Most Recently Relevant to Health Maintenance Results * MARIO SCREENING BILATERAL DIGITAL W CAD (02/21/2015 3:59 PM RESIDENT DOCTOR) Anatomical Region Laterality Modality breast Bilateral Mammography 02/21/2015 4:10 PM RESIDENT DOCTOR Impressions 02/22/2015 7:43 AM RESIDENT DOCTOR BIRADS category 1 - normal. The patient should return to her screening schedule. J. Tye Faith M.D./ /[id number]/02/21/2015 16:10:35CST/hs/02/21/2015 21:34:28CST Cc: Narrative 02/22/2015 7:43 AM RESIDENT DOCTOR PATIENT NAME: NASRIN HEALY : 1960 DOCUMENT TYPE: RADIOLOGY ORDER NUMBER/RESULT CODE ORDERING PHYSICIAN [id number] BREANN COLLINS DATE AND TIME OF DICTATION RADIOLOGIST 02/21/2015 16:10:35CST Geronimo Faith EXAM DESCRIPTION MARIO SCREENING BILATERAL DIGITA HISTORY: Bilateral screening mammography without comparison. FINDINGS: The breast tissue is heterogeneously dense. I appreciate no evidence of suspicious mass or microcalcifications. Breann Collins MD IMG MAMMO ORDERABLES Final Result from Last 3 Months or Most Recently Relevant to Health Maintenance Insurance [facility] Care Teams Card Brusher Relationship Specialty Start Date End Date Breann Collins MD [address] [facility] [address] [place] [address] PCP - General Family Medicine 02/21/15
--- OUTSIDE RECORDS SUMMARY | 2024-07-19 08:35 | XMS_ITS | Clinical Summary ---
Author Organization [facility] Address [address] [place] [address] Care Team Providers Care Ux Architect Name Role Phone Provider, Abstract Primary Care [...] Comments Blood Pressure 139/87 06/25/2018 9:01 AM CHAIR INSPECTOR Pulse 74 06/25/2018 9:01 AM CHAIR INSPECTOR Temperature 36.8 C (98.2 F) 06/25/2018 9:01 AM CHAIR INSPECTOR Respiratory Rate 17 06/25/2018 9:01 AM CHAIR INSPECTOR Oxygen Saturation 97% 06/25/2018 9:01 AM CHAIR INSPECTOR Inhaled Oxygen Concentration - - Weight 76 kg (167 lb 8 oz) 06/25/2018 9:01 AM CS T Height 160 cm (5' 3 ) 06/25/2018 9:01 AM CHAIR INSPECTOR Body Mass Index 29.67 06/25/2018 9:01 AM CHAIR INSPECTOR Plan of Treatment Health Maintenance Due Date [...] series) 2022 INFLUENZA VACCINE (#1) 2023 Insurance [facility] Care Teams Ux Architect Relationship Specialty Start Date End Date Provider, Abstract NO ADDRESS ON FILE PCP - General 06/25/18
--- OUTSIDE RECORDS SUMMARY | 2024-07-19 08:35 | XMS_ITS | Referral Summary ---
Author Organization [facility] [address] [facility] Address [address] [place] [phone] Phone Care Team Providers Care Senior Medical Writer Name Role Phone Hossein Ribeiro MD Unavailable Rashid Gaffney MD Unavailable [phone] Ray Roberts MD Primary Care Provider Encounters Date Type Department Care Team Description 06/08/2024 Telephone [facility] [address] [place] [phone] [facility] Update 05/10/[address] [phone] Steve Russell 05/09/2024 9:15 AM [employer] Office Visit [facility] [address] [place] [phone] Carlos Coughlin PA Systemic lupus erythematosus, [...] VOLUME OF 2000ML 12/16/19 20 Active rizatriptan SINK MAKER (MAXALT-SINK MAKER) 10 mg disintegrating tablet TAKE ONE TABLET [...] L5. Assessment & Plan (06/13/2022 12:34 PM [employer]): C-spine x-ray 05/15/2022: Minimal degenerative changes at [...] complaints. Assessment & Plan (05/15/2022 10:14 AM [employer]): Will obtain imaging and send to physical therapy. Primary hypertension 05/15/2022 Assessment & Plan (05/15/2022 2:20 PM [employer]): Following with PCP and is to reach [...] 10/06/2019 Assessment & Plan (05/09/2024 11:00 AM [employer]): Seropositive RA given prior elevated rheumatoid factor [...] p.r.n. Assessment & Plan (04/11/2024 9:56 AM [employer]): Seropositive RA given prior elevated rheumatoid factor [...] p.r.n.. Assessment & Plan (04/07/2023 10:55 AM [employer]): Seropositive RA given prior elevated rheumatoid factor [...] p.r.n.. Assessment & Plan (06/13/2022 12:34 PM [employer]): As discussed above, seropositive RA given prior [...] b.i.d.. Assessment & Plan (05/15/2022 10:12 AM [employer]): As discussed above, seropositive RA given prior [...] b.i.d.. Assessment & Plan (04/26/2021 9:30 AM [employer]): As discussed above, concern for seropositive RA [...] daily. Assessment & Plan (06/11/2020 1:03 PM [employer]): As discussed above, concern for seropositive RA given prior elevated rheumatoid factor and erosions seen on ultrasound. Appears fairly well controlled. Continue Plaquenil 200 mg b.i.d., xeljanz xr 11 mg daily. Assessment & Plan (04/11/2020 12:03 PM [employer]): As discussed above, concern for seropositive RA given prior elevated rheumatoid factor and erosions seen on ultrasound. Will stop Orencia and azathioprine due to lack of benefit and begin approval for Xeljanz XR 11 mg daily. Continue Plaquenil 200 mg b.i.d.. Assessment & Plan (03/19/2020 9:49 AM [employer]): As discussed above, concern for seropositive RA [...] pcp. Assessment & Plan (05/09/2024 11:01 AM [employer]ER): Stable. Continue Cymbalta 60 mg daily, gabapentin 300 mg qid per Neurology. Previously switched from Lyrica for insurance reasons. Encourage routine exercise. Assessment & Plan (04/11/2024 9:57 AM [employer]): Stable. Continue Cymbalta 60 mg daily, gabapentin [...] exercise. Assessment & Plan (04/07/2023 12:50 PM [employer]): Stable. Continue Cymbalta 60 mg daily, gabapentin [...] exercise. Assessment & Plan (06/13/2022 12:35 PM [employer]): Continue Cymbalta 30 mg daily. Continue gabapentin 300 mg q.a.m., 300 mg midday, 600 mg q.p.m. per neurology. Previous switch from Lyrica for insurance reasons. Encourage routine exercise. Assessment & Plan (05/15/2022 10:15 AM [employer]): Stable. Continue Cymbalta 30 mg daily. Continue [...] exercise. Assessment & Plan (04/26/2021 9:31 AM [employer]): Stable. Continue Cymbalta and gabapentin 100 mg [...] exercise. Assessment & Plan (06/11/2020 1:06 PM [employer]): Stable. Continue Cymbalta. On Lyrica 300 mg 1-2 times daily per PCP. Encourage routine exercise. Assessment & Plan (04/11/2020 12:07 PM [employer]): Stable. Continue Cymbalta. On Lyrica 300 mg 1-2 times daily per PCP. Encourage routine exercise. Assessment & Plan (03/19/2020 9:50 AM [employer]): As discussed at last visit, continue to [...] exercise. Assessment & Plan (04/01/2019 12:29 PM [employer]): FM may be contributing to some of [...] benefit. Assessment & Plan (04/01/2019 12:26 PM [employer]): Bilateral CMC bracing has offered benefit. Assessment [...] L5. Assessment & Plan (05/09/2024 11:02 AM [employer]): C-spine x-ray 05/15/2022: Minimal degenerative changes at C3-C4 and C4-C5 SI joint x-ray 05/15/2022: WNL L-spine x-ray 05/15/2022: 5 mm anterolisthesis of L4 on L5. Had L-spine MRI from [facility] and is following with pain management. Has completed physical therapy. Following with pain management. Is currently going to physical therapy. Is scheduled for repeat L-spine epidural steroid injection with pain management tomorrow. Is following with orthopedic surgeon with discussions for potential surgical intervention regarding the lower back. Assessment & Plan (04/11/2024 9:57 AM [employer]): C-spine x-ray 05/15/2022: Minimal degenerative changes at C3-C4 and C4-C5 SI joint x-ray 05/15/2022: WNL L-spine x-ray 05/15/2022: 5 mm anterolisthesis of L4 on L5. Had L-spine MRI from [facility] and is following with pain management. Has [...] L4 on L5. Had L-spine MRI from [facility] and is following with pain management. Has [...] L4 on L5. Had L-spine MRI from [facility] and is following with pain management. Received epidural injection yesterday afternoon and continues to go to physical therapy. She defers surgical intervention at this time. Continue to follow with pain management. Assessment & Plan (06/13/2022 12:35 PM [employer]): C-spine x-ray 05/15/2022: Minimal degenerative changes at [...] Will track down recent L-spine MRI from [facility]. Assessment & Plan (05/15/2022 10:14 AM [employer]): Primary complaint is significant lower back pain [...] today. Assessment & Plan (04/01/2019 12:28 PM [employer]): History of L4/L5/S1 OA in the lower [...] 06/04/2018 Assessment & Plan (06/04/2018 10:18 AM [employer]): Insomnia symptoms at night. Discussed use of black noise machine. also reports that she snores. Would recommend sleep study, although discuss further with PCP. Right hand pain 05/07/2018 Assessment & Plan (05/07/2018 10:54 AM [employer]): Patient jammed right 1st digit and has [...] years. Assessment & Plan (06/04/2018 10:14 AM [employer]): Did not obtain DEXA at last visit, will obtain in the near future. Order placed again. Assessment & Plan (05/07/2018 10:56 AM [employer]): Recently non-displaced lateral malleolus fracture after rolling her ankle. Is at increased risk for osteoporosis with SLE. Will check dexa scan today. Confusion 03/03/2018 Right hip pain 02/26/2018 Assessment & Plan (06/04/2018 10:15 AM [employer]): Patient does continue to have some mild pain in the right hip / groin region. Most recent hip x-ray was negative. Has complaints are minimal, we will just monitor at this time. If symptoms progress, would consider right hip MRI. Assessment & Plan (05/07/2018 10:52 AM [employer]): Denies major complaints today. Most recent right hip x-ray was negative. If symptoms do worsen, would consider right hip MRI. Assessment & Plan (03/26/2018 9:57 AM [employer]): Right hip pain with accompanying morning stiffness persists. Localizes over the right hip/ groin region, although no pain elicited with internal and external rotation. Recent right hip x-ray was negative. If symptoms persist, will consider right hip MRI at next visit. Assessment & Plan (02/26/2018 10:24 AM [employer]): Right hip pain, which she does note [...] 12/15/2017 Assessment & Plan (06/04/2018 10:16 AM [employer]ER): Still awaiting to schedule with Neurology for further evaluation of these symptoms. Assessment & Plan (05/07/2018 10:52 AM [employer]ER): Has not scheduled with Neurology, which was discussed at the last couple of visits. Will be scheduling in the near future. Assessment & Plan (03/26/2018 10:29 AM [employer]ER): As discussed at last visit, given her confusion symptoms, as well as headaches , would recommend further evaluation with Neurology. Assessment & Plan (02/26/2018 10:23 AM [employer]ER): Continues to note persistent headaches, as well [...] 12/15/2017 Assessment & Plan (05/09/2024 11:01 AM [employer]): DEXA 02/05/2023: L-spine-1.3, left femoral neck-1.4, left total hip-0.7, right femoral neck -0.8, right total hip -0.4 FRAX: 9.6/0.8. On vitamin-D supplementation per PCP recommendations Routine labs today. Continue routine eye exams. Normal TPMT 03/2018 Neg quant 06/2019 Assessment & Plan (04/11/2024 9:56 AM [employer]): DEXA 02/05/2023: L-spine-1.3, left femoral neck-1.4, left [...] 06/2019 Assessment & Plan (04/07/2023 12:50 PM [employer]): DEXA 02/05/2023: L-spine-1.3, left femoral neck-1.4, left [...] 06/2019 Assessment & Plan (04/26/2021 9:30 AM [employer]ER): Routine labs today. Continue routine eye exams. [...] 06/2019 Assessment & Plan (06/11/2020 1:04 PM [employer]ER): Routine labs today. Continue routine eye exams. Normal TPMT 03/2018 Neg quant 06/2019 Assessment & Plan (04/11/2020 12:04 PM [employer]ER): Routine labs today. Continue routine eye exams. Normal TPMT 03/2018 Neg quant 06/2019 Assessment & Plan (03/19/2020 9:50 AM [employer]ER): Routine labs today. Continue routine eye exams. [...] 03/2018 Assessment & Plan (04/01/2019 12:27 PM [employer]ER): Routine labs today. Continue routine eye exams. [...] today. Assessment & Plan (06/04/2018 10:16 AM [employer]ER): Routine labs today. Continue routine eye exams. Normal TPMT 03/2018 Routine labs today. Assessment & Plan (05/07/2018 10:53 AM [employer]ER): Routine labs today. Continue routine eye exams. Normal TPMT 03/2018 Routine labs today. Recheck CBC in 2 weeks. Assessment & Plan (03/26/2018 9:57 AM [employer]ER): Routine labs today. Continue routine eye exams. Routine labs today, including TP MT. Recheck CBC in 2 weeks. Assessment & Plan (02/26/2018 10:25 AM [employer]ER): Routine labs today. Continue routine eye exams. [...] warmers. Assessment & Plan (04/26/2021 9:30 AM [employer] FO[employer]ER): Persistent intermittent Raynaud/acrocyanosis symptoms in the feet>hands. [...] warmers. Assessment & Plan (06/11/2020 1:04 PM [employer] FO[employer]ER): Persistent intermittent Raynaud symptoms in the feet>hands. [...] fingers. Assessment & Plan (04/01/2019 12:27 PM [employer]ER): Mild occasional Raynaud's in the feet without [...] xeljanz Assessment & Plan (05/09/2024 11:01 AM [employer] FO[employer]ER): CDAI 7. Had significant benefit with Kenalog [...] needed. Assessment & Plan (04/11/2024 9:55 AM [employer] FO[employer]ER): CDAI 21. Since last visit, has had [...] needed. Assessment & Plan (04/07/2023 10:54 AM [employer] FO[employer]ER): CDAI 13. Since last visit, has noted [...] needed Assessment & Plan (06/13/2022 12:33 PM [employer] FO[employer]ER): CDAI 16. Presents due to a flare. [...] needed. Assessment & Plan (05/15/2022 10:11 AM [employer] FO[employer]ER): CDAI 9. Overall, peripheral joints have done [...] needed. Assessment & Plan (04/26/2021 9:28 AM [employer] FOOTB[employer]ER): CDAI 18. Since last visit, has experienced [...] needed. Assessment & Plan (06/11/2020 1:02 PM RU[employer] FO[employer]ER): CDAI 9. Since last visit, patient has [...] needed. Assessment & Plan (04/11/2020 12:06 PM [employer] FO[employer]ER): CDAI 40. Patient returns today due to [...] osteoporosis. Assessment & Plan (03/19/2020 9:51 AM [employer] FO[employer]ER): Tele health visit. Patient noted a significant [...] stiffness in the bilateral hands with reduced telesales specialist strength. A.m. stiffness for 60 minutes. [...] needed. Assessment & Plan (04/01/2019 12:26 PM [employer]ER): CDAI 0. Denies much peripheral joint complaints [...] needed. Assessment & Plan (06/04/2018 10:14 AM [employer] FO[employer]ER): Initial serologies:pos lourdes 1:640 dense fine speckled. [...] needed. Assessment & Plan (05/07/2018 10:51 AM [employer]ER): Initial serologies:pos lourdes 1:640 dense fine speckled. [...] injection. Assessment & Plan (03/26/2018 10:28 AM [employer]ER): Initial serologies:pos lourdes 1:640 dense fine speckled. [...] today. Assessment & Plan (02/26/2018 12:08 PM [employer]ER): Initial serologies:pos lourdes 1:640 dense fine speckled. 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 Advised to do this DARÍO. Routine labs [...] Gilbert. Assessment & Plan (04/26/2021 9:31 AM [employer]ER): A primary complaint persistent neuropathic pain in [...] heme. Assessment & Plan (06/11/2020 1:03 PM [employer] FOOT[employer]ER): Follows with heme. Assessment & Plan (04/11/2020 12:04 PM [employer] FOOT[employer]ER): Follows with heme. Assessment & Plan (03/19/2020 9:50 AM [employer] FOOT[employer]ER): Follows with heme. Assessment & Plan (02/17/2020 [...] Hematology. Assessment & Plan (04/01/2019 12:26 PM [employer]ER): Following with Hematology. Assessment & Plan (12/31/2018 12:45 PM CDT): Continue to follow with Hematology Assessment & Plan (10/01/2018 10:48 AM CDT): Continue to follow with hematology. Assessment & Plan (07/23/2018 9:05 AM CDT): Continue to follow with Hematology. Assessment & Plan (06/04/2018 10:15 AM [employer] FOOT[employer]ER): Continue to follow with Hematology. Assessment & Plan (05/07/2018 10:52 AM RU[employer]ION FOOTBALLER): Continue to follow with Hematology. Assessment & Plan (03/26/2018 10:29 AM RU[employer] FOOTB[employer]ER): Continue to follow with Hematology. Assessment & Plan (02/26/2018 10:25 AM RU[employer]ION FOOTB[employer]ER): Following with Hematology for this issue. Will [...] Comments Blood Pressure 142/90 05/09/2024 9:07 AM [employer]ER Pulse 65 05/09/2024 9:07 AM [employer] Temperature 36.5 C (97.7 F) 04/26/2021 8:51 AM [employer]ER Respiratory Rate - - Oxygen Saturation 98% 05/09/2024 9:07 AM [employer]ER Inhaled Oxygen Concentration - - Weight 78.5 kg (173 lb) 05/09/2024 9:07 AM [employer] Height 162.6 cm (5' 4 ) 05/09/2024 9:07 AM [employer] Body Mass Index 29.7 05/09/2024 9:07 AM [employer] Plan of Treatment Not on file Procedures Procedure Name Priority Date/Time Associated Diagnosis Comments CBC WITH AUTO DIFFERENTIAL Routine 05/25/2024 1:25 PM [employer] Lymphocytopenia Encounter for long-term (current) use of high-risk medication C3 COMPLEMENT Routine 05/09/2024 9:43 AM [employer]ER Systemic lupus erythematosus, unspecified SLE type, unspecified organ involvement status (HCC) Seropositive rheumatoid arthritis (HCC) Encounter for long-term (current) use of medications PROTEIN / CREATININE RATIO, URINE, RANDOM Routine 05/09/2024 9:43 AM [employer]ER Systemic lupus erythematosus, unspecified SLE type, unspecified organ involvement status (HCC) Seropositive rheumatoid arthritis (HCC) Encounter for long-term (current) use of medications ANTI-DOUBLE STRANDED DNA ANTIBODIES Routine 05/09/2024 9:43 AM [employer]ER Systemic lupus erythematosus, unspecified SLE type, unspecified organ involvement status (HCC) Seropositive rheumatoid arthritis (HCC) Encounter for long-term (current) use of medications ERYTHROCYTE SEDIMENTATION RATE Routine 05/09/2024 9:43 AM [employer]ER Systemic lupus erythematosus, unspecified SLE type, unspecified organ involvement status (HCC) Seropositive rheumatoid arthritis (HCC) Encounter for long-term (current) use of medications CRP (ACUTE PHASE) Routine 05/09/2024 9:4 3 AM [employer]ER Systemic lupus erythematosus, unspecified SLE type, unspecified organ involvement status (HCC) Seropositive rheumatoid arthritis (HCC) Encounter for long-term (current) use of medications COMPREHENSIVE METABOLIC PANEL Routine 05/09/2024 9:43 AM [employer]ER Systemic lupus erythematosus, unspecified SLE type, unspecified organ involvement status (HCC) Seropositive rheumatoid arthritis (HCC) Encounter for long-term (current) use of medications CBC WITH AUTO DIFFERENTIAL Routine 05/09/2024 9:43 AM [employer] FO[employer]ER Systemic lupus erythematosus, unspecified SLE type, unspecified organ involvement status (HCC) Seropositive rheumatoid arthritis (HCC) Encounter for long-term (current) use of medications C4 COMPLEMENT Routine 05/09/2024 9:43 AM [employer]ER Systemic lupus erythematosus, unspecified SLE type, unspecified organ involvement status (HCC) Seropositive rheumatoid arthritis (HCC) Encounter for long-term (current) use of medications from Last 3 Months Results * CBC with auto differential (05/25/2024 1:25 PM RU[employer]Y UNION FOOTBALLER) Pathologist [facility] WBC 7.4 3.8 - 10.8 [...] [facility] Blood 05/25/2024 1:25 PM [employer]ER 05/25/2024 1:25 PM [employer] FO[employer]ER Narrative [facility] - 05/26/2024 6:11 AM [employer] FOOTB[employer]ER FASTING:NO FASTING: NO Carlos HUITRON LAB BLOOD ORDERABLES Fi nal Result Performing Organization Address City/[facility] Co de Phone Number [facility] [address] [place] [address] * Anti-double stranded DNA abs (05/09/2024 9:43 AM [employer] FOOTB[employer]ER) DNA (DS) ab <1 IU/mL [facility] Comment: IU/mL Interpretation < or = 4 Negative 5-9 Indeterminate > or = 10 Positive Blood 05/09/2024 9:43 AM [employer]ER 05/09/2024 9:44 AM [employer]ER Carlos HUITRON LAB BLOOD ORDERABLES Fi nal Result Performing Organization Address [facility] Co de Phone Number [facility] [address] [place] [phone] * C4 complement (05/09/2024 9:43 AM RU[employer] FOOTB[employer]ER) Complement component C4C 26 15 - 57 mg/dL [facility] Blood 05/09/2024 9:43 AM [employer] FO[employer]ER 05/09/2024 9:44 AM [employer] FO[employer]ER Carlos HUITRON LAB BLOOD ORDERABLES Fi nal Result Performing Organization Address [facility] Co de Phone Number [facility] [address] [place] [phone] * (ABNORMAL) CBC with auto differential (05/09/2024 9:43 AM [employer] FOOTBALLER) WBC 6.6 3.8 - 10.8 Thousand/u L [...] [facility] Blood 05/09/2024 9:43 AM [employer] FO[employer]ER 05/09/2024 9:44 AM [employer] FOOTBALLER us Carlos HUITRON LAB BLOOD ORDERABLES Fi nal Result [facility] [address] [place] [id number] * (ABNORMAL) Protein / creatinine ratio, urine, random (05/09/2024 9:43 AM [employer] FOOTBALLER) Creatinine, ur 17(L) 20 - 275 mg/dL [...] by repeat analysis. Urine 05/09/2024 9:43 AM [employer] FOOTBALLER 05/09/2024 9:44 AM [employer] FOOTBALLER Carlos HUITRON LAB URINE ORDERABLES Fi nal Result Performing Organization Address [facility] de Phone Number [facility] [address] [place] [address] * Erythrocyte sedimentation rate (05/09/2024 9:43 AM RU[employer] UNION FOOTBALLER) Erythrocyte sedimentation rate 6 < OR = 30 mm/h [facility] Blood 05/09/2024 9:43 AM [employer] FO[employer]ER 05/09/2024 9:44 AM [employer] FOOTB[employer]ER Carlos HUITRON LAB BLOOD ORDERABLES Fi nal Result Performing Organization Address [facility] de Phone Number [facility] [address] [place] [address] * C3 complement (05/09/2024 9:43 AM [employer] FOOTB[employer]ER) Complement component C3C 137 83 - 193 mg/dL [facility] Blood 05/09/2024 9:43 AM [employer] FOOTB[employer]ER 05/09/2024 9:44 AM [employer] FO[employer]ER Carlos HUITRON LAB BLOOD ORDERABLES Fi nal Result [facility] [address] [place] [address] * CRP (acute phase) (05/09/2024 9:43 AM RU[employer] FOOTBALLER) Pathologist [facility] C-RP <3.0 <8.0 mg/L [facility] Blood 05/09/2024 9:43 AM [employer] FOOTB[employer]ER 05/09/2024 9:44 AM [employer] FOOTB[employer]ER Carlos HUITRON LAB BLOOD ORDERABLES Fi nal Result Performing Organization Address [facility]/ZIP Co de Phone Number [facility] [address] [facility] [place] [address] * (ABNORMAL) Comprehensive metabolic panel (05/09/2024 9:43 AM RU[employer]Y UNION FOOTBALLER) [facility] Glucose 54(L) 65 - 99 mg/dL [...] [facility] Blood 05/09/2024 9:43 AM [employer] FOOTB[employer]ER 05/09/2024 9:44 AM [employer] FOOTB[employer]ER us Carlos HUITRON LAB BLOOD ORDERABLES nal Result [facility] [address] [place] [phone] from Last 3 Months Insurance [facility] MEDICARE MEDICARE [facility] Care Teams Senior Medical Writer Relationship Specialty Start Date End Date Ray Roberts MD [address] [facility] [address] [place] [address] PCP - General Family Medicine 04/11/24 Hossein Ribeiro MD [address] [place] [address] Referring Physician Neurology 09/21/19 Rashid Gaffney MD [address] [place] [address] Consulting Physician Rheumatology 04/24/23
[2024-07-19 08:48] VITALS: BP 135/81; PULSE 61; RESP 15; TEMP 36.1; O2SAT 100
--- NOTE | 2024-07-19 09:13 | PM.HPGS ---
History of Present Illness History of Present Illness Consent: Risks, benefits, and alternatives have been discussed and questions answered. Patient agrees to proceed with procedure. Chief complaint: Lumbosacral spondylosis, chronic low back pain Narrative: Nasrin Healy is a 64 year old female with chronic, recalcitrant and disabling bilateral lumbosacral back pain secondary to degenerative spondylosis with failure to respond to aggressive conservative measures including PT, oral and topical analgesics, opioid and nonopioid analgesics, rest, time and activity/behavioral modification over the past 1-2 years who presents for diagnostic/prognostic medial branch blocks of the bilateral L3, L4, L5 medial branches/dorsal ramus(#1) addressing the ipsilateral L4-5, L5-S1 facet joints under fluoroscopic guidance and with contrast control. Review of Systems Review of Systems: Patient denies any new infectious, allergic, cardiopulmonary, neurologic or constitutional symptoms or changes in activity tolerance or exercise capacity including new or progressive SOB/PALMER, peripheral edema, productive cough, dysuria, nausea/vomiting, diarrhea, weight change, fevers/chills/night sweats, new or progressive neurologic deficit, cognitive or mood changes since last seen, except as documented in the HPI. All systems reviewed & are unremarkable except as noted in HPI and below PMFSH Past Medical History Medical History Chronic pain disorder Hypertensive urgency Lupus Rash and nonspecific skin eruption Viral gastroenteritis Insect bite of neck with local reaction Chronic pain Encounter for postoperative care Rheumatoid arthritis History of heart attack Aris-tachy syndrome Seizure Subacromial impingement of left shoulder Labral tear of long head of left biceps tendon Rotator cuff tear Left shoulder pain Shoulder swelling Cough RUQ abdominal pain Insomnia due to medical condition KRISTINA-inhibitor cough Acute bronchitis Restless leg syndrome Raynaud phenomenon MDD (major depressive disorder), recurrent episode, moderate Colon polyp Poison nae Epigastric pain Constipation Seropositive rheumatoid arthritis Chronic pain Elevated liver enzymes Lupus (systemic lupus erythematosus) Benign essential HTN Family History Family History Mother Hypertension Family history of diabetes mellitus in first degree relative Other Diabetes mellitus Family history of cardiovascular disease Family history of malignant neoplasm Social History Social History Social History: Smoking status: Never smoker Second hand tobacco smoke exposure: No Alcohol intake: never Substance use: never Substance use type: does not use Do You Feel Safe in your Home?: Yes Lack of Transportation: No Lack of Food: Never True Current Housing: I Have Housing Concerned About Future Housing: No Difficulty Paying Gas/Electric Bills: Decline to Answer Difficulty Paying for Meds: Decline to Answer Currently Unemployed: Decline to Answer Education: Associate Degree Difficulty w/ Childcare or Family Care: No Living arrangements: with family Occupation/Education: retired Additional occupation/education comments: Disability Gender identity (if verbalized by the patient): Female Sexual Orientation (if Verbalized by the Patient): Straight or Heterosexual Spiritual care concerns: No Meds Home Medications and Allergies Home Medications ?Medication ?Instructions ?Recorded ?Confirmed ?Type aspirin 325 mg tablet 325 mg PO DAILY 11/01/19 07/19/24 History cholecalciferol (vitamin D3) 25 25 mcg PO DAILY 11/01/19 07/19/24 History mcg (1,000 unit) capsule multivitamin 1 tablet PO DAILY 11/01/19 07/19/24 History albuterol sulfate 90 mcg/actuation 1 inh inhalation Q4H PRN shortness 01/09/21 07/19/24 Rx aerosol inhaler of breath or wheezing #8.5 grams Zyrtec 10 mg tablet (cetirizine) 10 mg PO DAILY #90 tabs 01/10/21 07/19/24 Rx omeprazole 20 mg capsule,delayed 20 mg PO BID PRN Heartburn 05/23/21 07/19/24 History release diclofenac sodium 2 % topical 1 packet topical BID 11/01/21 07/19/24 History solution in packet (Pennsaid) nitroglycerin 0.4 mg sublingual 0.4 mg sublingual Q5M PRN Chest 05/20/22 07/19/24 Rx tablet Pain #25 tabs hydroxychloroquine 200 mg tablet 200 mg PO BID 05/23/22 07/19/24 History leflunomide 20 mg tablet 20 mg PO DAILY 03/06/23 07/19/24 History upadacitinib 15 mg tablet,extended 15 mg PO DIRECTED 03/06/23 07/19/24 History release 24 hr (Rinvoq) gabapentin 300 mg capsule See Rx Instructions .Route 02/03/24 07/19/24 Rx .COMPLEX #360 caps atorvastatin 20 mg tablet See Rx Instructions .Route 03/14/24 07/19/24 Rx .COMPLEX #90 tabs buspirone 5 mg tablet See Rx Instructions .Route 03/21/24 07/19/24 Rx .COMPLEX #180 tabs levothyroxine 50 mcg tablet See Rx Instructions .Route 04/14/24 07/19/24 Rx .COMPLEX #90 tabs quetiapine 25 mg tablet See Rx Instructions .Route 04/22/24 07/19/24 Rx .COMPLEX #180 tabs carvedilol 25 mg tablet See Rx Instructions .Route 05/10/24 07/19/24 Rx .COMPLEX #60 tabs losartan 100 See Rx Instructions .Route 05/10/24 07/19/24 Rx mg-hydrochlorothiazide 25 mg tablet .COMPLEX #30 tabs omega 1-sqa-lja-fish oil 1,000 mg 1 cap PO DAILY 05/10/24 07/19/24 History (120 mg-180 mg) capsule (Fish Oil) duloxetine 60 mg capsule,delayed See Rx Instructions .Route 06/23/24 07/19/24 Rx release .COMPLEX #90 ea Allergies Allergy/AdvReac Type Severity Reaction Status Date / Time codeine Allergy Severe Swelling Verified 07/19/24 08:45 of Lip/Tongue/Throat Penicillins Allergy Severe Swelling Verified 07/19/24 08:45 of Lip/Tongue/Throat Sulfa (Sulfonamide Allergy Severe Hives Verified 07/19/24 08:45 Antibiotics) Vital Signs Vital Signs - 24 hr 07/19/24 08:48 Temperature 97 F L Pulse Rate 61 Respiratory Rate 15 Blood Pressure 135/81 Pulse Oximetry 100 Oxygen Delivery Room Air Exam Narrative: The patient's physical exam is essentially unchanged from prior examination on 05/30/2024. Specifically, patient demonstrates normal lung capacity, tidal volume and respiratory rate without wheezes, crackles, rales or rubs. Heart rate and rhythm are regular without murmurs, gallops or rubs. No JVD. Pulses 2+ globally without increasing peripheral edema. AAOx3 with no evidence of confusion, intoxication or altered mental state, NC/AT without acute distress or altered consciousness. Speech, cognition, mood, insight and judgment at baseline and within normal limits. Assessment and Plan Assessment and plan (1) Lumbosacral spondylosis: Code(s): M47.817 - Spondylosis without myelopathy or radiculopathy, lumbosacral region Status: Acute Assessment and Plan: Proceed as planned with diagnostic/prognostic medial branch blocks of the bilateral L3, L4, L5 medial branches/dorsal ramus(#1) addressing the ipsilateral L4-5, L5-S1 facet joints under fluoroscopic guidance and with contrast control. (2) Chronic pain: Qualifiers: Chronic pain type: chronic pain syndrome Qualified Code(s): G89.4 - Chronic pain syndrome Code(s): G89.29 - Other chronic pain Status: Acute
--- NOTE | 2024-07-19 09:15 | WPDHPUPDATE1 ---
History and Physical Update Update Date/Time: 07/19/24 09:15 History and Physical has been reviewed, including an updated exam of the patient. There are NO changes in the patient's condition. Risks, benefits, and alternatives have been discussed and questions answered. Patient agrees to proceed with procedure.
--- NOTE | 2024-07-19 09:16 | P.OP_ITS ---
Procedure Note - Detailed Date of Procedure 07/19/24 Pre-op Diagnosis Lumbosacral spondylosis, chronic low back pain Post-op Diagnosis Same Procedure Performed Diagnostic bilateral Lumbar Medial Branch/Dorsal Ramus Blocks at L3, L4, L5 T reating the bilateral L4-5, L5-S1 Facet Joints Under Fluoroscopic Guidance and with Contrast Control. (4 levels blocked). Surgeon Dereck Bowden MD Wallpaper Cleaner None. Anesthesia Local Description of Procedure INFORMED CONSENT: Risks, benefits and alternatives to the procedure were discussed in detail with the patient who expressed explicit understanding and consent to proceed. Patient was informed verbally and in written form regarding the risks associated with the procedure including the low risk of serious infection, bleeding/bruising, allergic reaction, nerve or organ injury, paralysis, procedural site pain or discomfort, worsening pain and/or mobility, failure to treat and/or disfigurement. The patient expressed explicit understanding and consent to proceed. All materials required for the procedure were available prior to procedure start. Site and side were marked prior to procedure and confirmed in the presence of the patient. PROCEDURE IN DETAIL: The patient was brought to the procedural suite and placed in the prone position. Patient was made comfortable with use of pillows under the head/chest, hips and ankles. Skin overlying the injection site on the affected side(s) was prepared broadly with ChloraPrep applicator and draped in a sterile manner. Aseptic technique was used throughout. The endplates of the vertebral bodies at the site(s) of interest were aligned in the AP view. Ipsil ateral oblique angulation was utilized to optimize visualization of the intersection between the superior articulating process and transverse process at each target site. Local anesthesia was established by infiltration with approximately 5 mL of 1% lidocaine via a 1-1/2 inch 27-gauge needle. A 25-gauge 3.5 inch Quincke spinal needle was advanced until the needle tip contacted periosteum at the target site, right L3. Lateral view was utilized to confirm the appropriate placement of the needle tip just anterior to the facet line and superior to the pedicle. In the Lateral view, 0.25 mL of Omnipaque 300 contrast medium was injected after negative aspiration for CSF, blood or other bodily fluid, showing appropriate extra-articular spread of contrast without evidence of intravascular, foraminal or intrathecal placement. A 0.5 mL solution of 0.5% PF bupivacaine was injected after negative repeat aspiration. Appropriate spread of the injectate was confirmed with washout of previously injected contrast. No parasthesias were elicited. Needle was removed completely intact without difficulty. The same exact procedure was repeated for all remaining levels on the ipsilateral side, right L4, L5 medial branches/dorsal ramus, modified as necessary to accommodate for the new target location with identical findings and results and no evidence of complication. The same exact procedure was repeated for all remaining levels on the contralateral side, left L3, L4, L5 medial branches/dorsal ramus, modified as necessary to accommodate for the new target location with identical findings and results and no evidence of complication. Images were saved and documented in the patient chart. Patient's skin was cleaned and sterile bandage applied. The patient tolerated the procedure well. The patient was transported to the recovery area in stable condition where they were observed for an appropriate amount of time prior to discharge, without evidence of complication. Patient was instructed on the appropriate completion of a pain diary over the next 12-24 hours. The patient was instructed to avoid excessive activity for the next 48 hours, including climbing and frequent use of stairs. Showers only for 48 hours. They were instructed not to drive or operate heavy machinery for 24 hours. They are to monitor for severe headaches, fevers, chills, night sweats, erythema/swelling at the site or any other signs of infection, bleeding/bruising, bowel or bladder changes as well as new pain, weakness or numbness in the upper or lower extremity. Should they notice these changes, they are instructed to call our office immediately or report directly to the nearest Emergency Department if no answer or if after posted office hours. COMPLICATIONS: None COMMENTS: None CONTRAST WASTED: 28.5mL Omnipaque 300. Complications No immediate complications Condition Stable Disposition Same day [facility] Billing Surgery - Charge Forward: Surgery Billing
[2024-07-19 09:45] VITALS: BP 119/62; PULSE 65; RESP 16; O2SAT 98
[2024-07-19 09:50] VITALS: BP 152/70; PULSE 62; RESP 16; O2SAT 98
[2024-07-19 09:54] VITALS: BP 131/65; PULSE 63; RESP 17; O2SAT 97
[2024-07-19 09:57] VITALS: BP 129/65; PULSE 63; RESP 15; O2SAT 96
[2024-07-19] MEDS: BUPivacaine HCL 0.5% 10 ML AMP 5 ML INFILTRATE (09:58)
[2024-07-19] MEDS: LIDOCAINE 1% PF INJ 5 ML VIAL INFILTRATE (09:59)
[2024-07-19 10:02] VITALS: BP 126/73; PULSE 62; RESP 16; O2SAT 97
== END 2024-07-19 10:16 | disposition home or self-care (01) ==
PROVIDERS: PCP Family Medicine; Visit Provider Anesthesiology Pain Medicine
PROC: (CPT 64493; principal; 2024-07-19 09:45)
DX: M47.817 Spondylosis without myelopathy or radiculopathy, lumbosacral region (principal); G89.29 Other chronic pain
CPT/HCPCS: 64493 ×2; 64494 ×2; 64495 ×2; 99199

== ENCOUNTER 2024-09-13 08:43 | Day surgery (SDC) | payer OTHER, SELFPAY ==
[2024-08-24 14:34] VITALS: BMI 29.9
--- NOTE | ~2024-09-13 | XR_ITS ---
INTRAOPERATIVE FLUOROSCOPY: CLINICAL HISTORY: 64 years old Female; DIAG/PROG VIRGIE L3,L4,L5 MEDIAL BRANCH/DORSAL RAMUS BLK #2 PROCEDURE COMMENTS: Limited intraoperative fluoroscopy of the lumbar spine was performed. CUMULATIVE DOSE: 14 mGy FLUOROSCOPY TIME: 61 seconds FINDINGS/IMPRESSION: Please refer to operative note for further details. Reviewed, dictated and finalized at location A.
--- OUTSIDE RECORDS SUMMARY | 2024-09-13 09:12 | XMS_ITS | Clinical Summary ---
Author Organization [facility] Address [address] [place] [address] Care Team Providers Care Wood Filler Name Role Phone Provider, Abstract Primary Care [...] Comments Blood Pressure 139/87 06/25/2018 9:01 AM APN Pulse 74 06/25/2018 9:01 AM APN Temperature 36.8 C (98.2 F) 06/25/2018 9:01 AM APN Respiratory Rate 17 06/25/2018 9:01 AM APN Oxygen Saturation 97% 06/25/2018 9:01 AM APN Inhaled Oxygen Concentration - - Weight 76 kg (167 lb 8 oz) 06/25/2018 9:01 AM CS T Height 160 cm (5' 3 ) 06/25/2018 9:01 AM APN Body Mass Index 29.67 06/25/2018 9:01 AM APN Plan of Treatment Health Maintenance Due Date Last Done Comments DTAP/TDAP/TD VACCINES (1 - Tdap) 1981 ZOSTER VACCINE (1 of 2) 1981 HPV/Cotest (21-29) 1983 CERVICAL CANCER SCREENING 01/04/1992 HPV/Cotest (30-65) 01/04/1992 PAP SMEAR 01/04/1992 COLORECTAL SCREENING 2007 Colorectal Cancer Screening 2007 FIT-DNA Q 3 years 2007 FIT/FOBT Q 1 year 2007 Flex Sig/CT Colonography Q 5 years 2007 BREAST CANCER SCREENING 02/22/2016 02/21/2015 RSV VACCINE (60+ or ) (1 - Risk 60-74 years 1-dose series) 2022 INFLUENZA VACCINE (#1) 2023 Insurance [facility] Care Teams Wood Filler Relationship Specialty Start Date End Date Provider, Abstract NO ADDRESS ON FILE PCP - General 06/25/18
--- OUTSIDE RECORDS SUMMARY | 2024-09-13 09:12 | XMS_ITS | Encounter Summary ---
Author Organization [facility] Address [address] [place] [address] Phone Care Team Providers Care Coil Winding Supervisor Name Role Phone Hossein Ribeiro MD Unavailable Rashid Gaffney MD Unavailable [phone] Ray Roberts MD Primary Care Provider Encounter Details Date Type Department Care Team (Latest Contact Info) Description 08/31/2024 Results Follow-Up [facility] [address] [place] [id number] Carlos Coughlin PA [address] [place] [address] C4 complement, CBC with auto differential, Comprehensive metabolic panel, Additional followed-up results: 5 Social History Tobacco Use Types Packs/Day Years Used Date Smoking Tobacco: Never Assessed Comments Unknown Sex and Gender Information Value Date Recorded Sex Assigned at Not on file Legal Sex Female 4:59 PM CDT Gender Identity Female 01/24/2023 8:03 PM CDT Sexual Orientation Not on file documented as of this encounter Plan of Treatment Scheduled Orders Name Type Priority Associated Diagnoses Orde r Schedule CBC with auto differential Lab Routine Lymphopenia Expected: 08/31/2024, Expires: 08/31/2025 documented as of this encounter Visit Diagnoses Diagnosis Lymphopenia- Primary Lymphocytopenia documented in this encounter Care Teams Coil Winding Supervisor Relationship Specialty Start Date End Date Ray Roberts MD [address] [place] [address] PCP - General Family Medicine 04/11/24 Hossein Ribeiro MD [address] [place] [address] Referring Physician Neurology 09/21/19 Rashid Gaffney MD [address] [place] [address] Consulting Physician Rheumatology 04/24/23 documented as of this encounter
--- OUTSIDE RECORDS SUMMARY | 2024-09-13 09:12 | XMS_ITS | Clinical Summary ---
Author Organization [facility] Address [address] [place] [address] Phone Care Team Providers Care Culinary Instructor Name Role Phone Breann Collins MD Primary Care Provider [phone] Social History Tobacco Use Types Packs/Day Years [...] DIGITAL W CAD Routine 02/21/2015 3:59 PM SIGHT MOUNTER Visit for screening mammogram from Last 3 Months or Most Recently Relevant to Health Maintenance Results * MARIO SCREENING BILATERAL DIGITAL W CAD (02/21/2015 3:59 PM SIGHT MOUNTER) Anatomical Region Laterality Modality breast Bilateral Mammography 02/21/2015 4:10 PM SIGHT MOUNTER Impressions 02/22/2015 7:43 AM SIGHT MOUNTER BIRADS category 1 - normal. The patient should return to her screening schedule. J. Tye Faith M.D./ /[id number]/02/21/2015 16:10:35CST/hs/02/21/2015 21:34:28CST Cc: Narrative 02/22/2015 7:43 AM SIGHT MOUNTER PATIENT NAME: NASRIN HEALY : 1960 DOCUMENT TYPE: RADIOLOGY ORDER NUMBER/RESULT CODE ORDERING PHYSICIAN [id number] BREANN COLLINS DATE AND TIME OF DICTATION RADIOLOGIST 02/21/2015 16:10:35CST Geronimo Faith EXAM DESCRIPTION MARIO SCREENING BILATERAL DIGITA HISTORY: Bilateral screening mammography without comparison. FINDINGS: The breast tissue is heterogeneously dense. I appreciate no evidence of suspicious mass or microcalcifications. Breann Collins MD IMG MAMMO ORDERABLES Final Result from Last 3 Months or Most Recently Relevant to Health Maintenance Insurance [facility] Care Teams Culinary Instructor Relationship Specialty Start Date End Date Braenn Collins MD [address] [facility] [address] [place] [address] PCP - General Family Medicine 02/21/15
--- OUTSIDE RECORDS SUMMARY | 2024-09-13 09:12 | XMS_ITS | Encounter Summary ---
Author Organization [facility] Address [address] [place] [address] Phone Care Team Providers Care Director College Name Role Phone Hossein Ribeiro MD Unavailable Rashid Gaffney MD Unavailable [phone] Ray Roberts MD Primary Care Provider Encounter Details Date Type Department Care Team (Latest Contact Info) Description 08/09/2024 Results Follow-Up [facility] [address] [place] [id number] Carlos Coughlin PA [address] [place] [address] C4 complement, CBC with auto [...] as of this encounter Plan of Treatment Not on file documented as of this encounter Visit Diagnoses Not on filedocumented in this encounter Care Teams Director College Relationship Specialty Start Date End Date Ray Roberts MD [address] [address] PCP - General Family Medicine 04/11/24 Hossein Ribeiro MD [address] [address] Referring Physician Neurology 09/21/19 Rashid Gaffney MD [address] [place] [address] Consulting Physician Rheumatology 04/24/23 documented as of this encounter
--- OUTSIDE RECORDS SUMMARY | 2024-09-13 09:12 | XMS_ITS | Clinical Summary ---
Author Organization [facility] [address] [facility] Address [address] [place] [phone] Phone Care Team Providers Care Psychological Stress Evaluator Name Role Phone Hossein Ribeiro MD Unavailable Rashid Gaffney MD Unavailable [phone] Ray Roberts MD Primary Care Provider Allergies Active Allergy Reactions Criticality Noted Date Comments Codeine Rash Medium 08/04/2017 Penicillins Unknown 05/07/2018 Sulfa (Sulfonamide Antibiotics) Headache Low 07/19 Medications aspirin-calcium carbonate 81 mg-300 mg calcium(777 mg) tablet Take 325 mg by mouth. Active losartan-hydroCHLO ROthiazide (HYZAAR) 50-12.5 mg per tablet 8 Active atorvastatin (LIPITOR) 20 mg tablet 8 Active nitroglycerin (NITROSTAT) 0.[address] 0.4 mg under the tongue. 6 Active citalopram (CeleXA) 10 mg tablet Take 10 mg by mouth daily Active melatonin tablet Take by mouth Active amLODIPine (NORVASC) 5 mg tablet Take 5 mg by mouth daily 6 Active ascorbic acid, vitamin C, 250 mg [...] (three) times a day as needed Active dextroamphetamine- amphetamine (ADDERALL) 20 mg tablet Take 20 mg by mouth daily 0 Active estradioL (Yuvafem) 10 mcg tablet 9 Active hydrOXYzine (ATARAX) 25 mg tablet TAKE 1 TABLET BY MOUTH THREE TIMES DAILY NEEDED FOR ITCHING 0 Active lisinopriL (PRINIVIL,ZESTRIL) 10 mg tablet Take 10 mg by mouth daily 0 Active meclizine (ANTIVERT) 12.5 mg tablet TAKE 1 TABLET BY MOUTH THREE TIMES DAILY NEEDED FOR DIZZINESS 0 Active multivitamin tablet Take 1 tablet by mouth daily Active omeprazole (PriLOSEC) 20 mg capsule 0 Active GaviLyte-G 236-22.74-6.74 -5.86 gram solution TAKE 240ML BY MOUTH EVERY TEN MINUTES UNTIL FECAL EFFLUENT IS CLEAR; DO NOT EXEED A TOTAL VOLUME OF 2000ML 0 Active rizatriptan MATHEMATICS INSTRUCTOR (MAXALT-MATHEMATICS INSTRUCTOR) 10 mg disintegrating tablet TAKE ONE TABLET BY MOUTH NEEDED FOR MIGRAINE HEADACHE. MAY REPEAT DOSE ONCE IN TWO HOURS 0 Active traMADoL (ULTRAM) 50 mg tablet Take 50 mg by mouth every 6 (six) hours as needed Active traZODone (DESYREL) 50 mg tablet Take 50 mg by mouth nightly [address] (CYMBALTA) 30 mg capsule Take 1 capsule by mouth once daily 30 capsule 3 Active carvediloL (COREG) 12.5 mg tablet TAKE 1 TABLET BY MOUTH EVERY 12 HOURS WITH MEALS/FOOD 3 Active hydrALAZINE (APRESOLINE) 25 mg tablet Take 25 mg by mouth 3 (three) times a day 3 Active diclofenac sodium 20 mg/gram /actuation(2 %) solution in metered-dose pump Apply 40 mg topically to affected joints of the hands twice daily 112 g 2 4 Active Rinvoq 15 mg extended release tablet TAKE 1 TABLET BY MOUTH DAILY 30 tablet 2 5 Active hydroxychloroquine (PLAQUENIL) 200 mg tablet Take 1 tablet (200 mg total) by mouth 2 (two) times a day 180 tablet 5 Active leflunomide (ARAVA) 20 mg tablet Take 1 tablet (20 mg total) by mouth daily 90 tablet 5 Active Hospital, Clinic, or Other Facility Administered Medication Ordered Dose Route Frequency Start Date End Date Status triamcinolone (KENALOG) 40 mg/mL injection 100 mgIndications:Systemic lupus erythematosus, unspecified SLE type, unspecified organ involvement status (HCC),Seropositive rheumatoid arthritis (HCC),Encounter for long-term (current) use of medications 100 mg IM Once 08/30/2024 08/30/2024 Ended Active Problems Problem Noted Date Diagnosed Date [...] L5. Assessment & Plan (06/13/2022 12:34 PM RELAY MAN): C-spine x-ray 05/15/2022: Minimal degenerative changes at [...] complaints. Assessment & Plan (05/15/2022 10:14 AM RELAY MAN): Will obtain imaging and send to physical therapy. Primary hypertension 05/15/2022 Assessment & Plan (05/15/2022 2:20 PM RELAY MAN): Following with PCP and is to reach [...] Seropositive rheumatoid arthritis 10/06/2019 Assessment & Plan (08/30/2024 2:48 PM CDT): Seropositive RA given prior elevated rheumatoid factor and erosions seen on ultrasound. Most recent repeat hand ultrasound did show some improvement in her inflammatory arthritis. As discussed above, presents today due to a flare, which is most notable of the left wrist/ulnar styloid joint. Has swelling and tenderness on exam, as above. Will treat the flare, as was doing well prior to the flare. Due to burden of disease, [...] b.i.d., as well as Pennsaid b.i.d. p.r.n. she is to call in 1 week if symptoms have not resolved and will evaluate further with left hand/wrist x-ray. Assessment & Plan (08/08/2024 9:21 AM CDT): Seropositive RA given prior elevated rheumatoid factor and erosions seen on ultrasound. Most recent repeat hand ultrasound did show some improvement in her inflammatory arthritis. Low CDAI. Minimal peripheral joint complaints today. RA appears well managed. Will continue Rinvoq 15 mg daily, leflunomide 20 mg daily, Plaquenil 200 mg b.i.d., as well as Pennsaid b.i.d. p.r.n. Assessment & Plan (05/09/2024 11:00 AM RELAY MAN): Seropositive RA given prior elevated rheumatoid factor [...] p.r.n. Assessment & Plan (04/11/2024 9:56 AM RELAY MAN): Seropositive RA given prior elevated rheumatoid factor [...] p.r.n.. Assessment & Plan (04/07/2023 10:55 AM RELAY MAN): Seropositive RA given prior elevated rheumatoid factor [...] p.r.n.. Assessment & Plan (06/13/2022 12:34 PM RELAY MAN): As discussed above, seropositive RA given prior [...] b.i.d.. Assessment & Plan (05/15/2022 10:12 AM RELAY MAN): As discussed above, seropositive RA given prior [...] b.i.d.. Assessment & Plan (04/26/2021 9:30 AM RELAY MAN): As discussed above, concern for seropositive RA [...] daily. Assessment & Plan (06/11/2020 1:03 PM RELAY MAN): As discussed above, concern for seropositive RA given prior elevated rheumatoid factor and erosions seen on ultrasound. Appears fairly well controlled. Continue Plaquenil 200 mg b.i.d., xeljanz xr 11 mg daily. Assessment & Plan (04/11/2020 12:03 PM RELAY MAN): As discussed above, concern for seropositive RA given prior elevated rheumatoid factor and erosions seen on ultrasound. Will stop Orencia and azathioprine due to lack of benefit and begin approval for Xeljanz XR 11 mg daily. Continue Plaquenil 200 mg b.i.d.. Assessment & Plan (03/19/2020 9:49 AM RELAY MAN): As discussed above, concern for seropositive RA [...] to celexa per pcp. Assessment & Plan (08/30/2024 2:48 PM CDT): Stable. Continue Cymbalta 60 mg daily, gabapentin 300 mg qid per Neurology. Previously switched from Lyrica for insurance reasons. Encourage routine exercise. Assessment & Plan (08/08/2024 9:23 AM CDT): Stable. Continue Cymbalta 60 mg daily, gabapentin 300 mg qid per Neurology. Previously switched from Lyrica for insurance reasons. Encourage routine exercise. Assessment & Plan (05/09/2024 11:01 AM RELAY MAN): Stable. Continue Cymbalta 60 mg daily, gabapentin 300 mg qid per Neurology. Previously switched from Lyrica for insurance reasons. Encourage routine exercise. Assessment & Plan (04/11/2024 9:57 AM RELAY MAN): Stable. Continue Cymbalta 60 mg daily, gabapentin [...] exercise. Assessment & Plan (04/07/2023 12:50 PM RELAY MAN): Stable. Continue Cymbalta 60 mg daily, gabapentin [...] exercise. Assessment & Plan (06/13/2022 12:35 PM RELAY MAN): Continue Cymbalta 30 mg daily. Continue gabapentin 300 mg q.a.m., 300 mg midday, 600 mg q.p.m. per neurology. Previous switch from Lyrica for insurance reasons. Encourage routine exercise. Assessment & Plan (05/15/2022 10:15 AM RELAY MAN): Stable. Continue Cymbalta 30 mg daily. Continue [...] exercise. Assessment & Plan (04/26/2021 9:31 AM RELAY MAN): Stable. Continue Cymbalta and gabapentin 100 mg [...] exercise. Assessment & Plan (06/11/2020 1:06 PM RELAY MAN): Stable. Continue Cymbalta. On Lyrica 300 mg 1-2 times daily per PCP. Encourage routine exercise. Assessment & Plan (04/11/2020 12:07 PM RELAY MAN): Stable. Continue Cymbalta. On Lyrica 300 mg 1-2 times daily per PCP. Encourage routine exercise. Assessment & Plan (03/19/2020 9:50 AM RELAY MAN): As discussed at last visit, continue to [...] exercise. Assessment & Plan (04/01/2019 12:29 PM RELAY MAN): FM may be contributing to some of [...] benefit. Assessment & Plan (04/01/2019 12:26 PM RELAY MAN): Bilateral CMC bracing has offered benefit. Assessment [...] of L4 on L5. Assessment & Plan (08/08/2024 9:24 AM CDT): C-spine x-ray 05/15/2022: Minimal degenerative changes at C3-C4 and C4-C5 SI joint x-ray 05/15/2022: WNL L-spine x-ray 05/15/2022: 5 mm anterolisthesis of L4 on L5. Had L-spine MRI from [facility] and is following with pain management. Has completed physical therapy. Following with pain management. Has received several injections in the lower back since last visit without significant relief. Scheduled to follow up with pain management later today. Is considering surgical intervention. Has been using tramadol and Tylenol with some relief in symptoms. Assessment & Plan (05/09/2024 11:02 AM RELAY MAN): C-spine x-ray 05/15/2022: Minimal degenerative changes at C3-C4 and C4-C5 SI joint x-ray 05/15/2022: WNL L-spine x-ray 05/15/2022: 5 mm anterolisthesis of L4 on L5. Had L-spine MRI from [facility] and is following with pain management. Has completed physical therapy. Following with pain management. Is currently going to physical therapy. Is scheduled for repeat L-spine epidural steroid injection with pain management tomorrow. Is following with orthopedic surgeon with discussions for potential surgical intervention regarding the lower back. Assessment & Plan (04/11/2024 9:57 AM RELAY MAN): C-spine x-ray 05/15/2022: Minimal degenerative changes at C3-C4 and C4-C5 SI joint x-ray 05/15/2022: WNL L-spine x-ray 05/15/2022: 5 mm anterolisthesis of L4 on L5. Had L-spine MRI from [facility] and is following with pain management. Has [...] L4 on L5. Had L-spine MRI from [facility] and is following with pain management. Has [...] L4 on L5. Had L-spine MRI from [facility] and is following with pain management. Received epidural injection yesterday afternoon and continues to go to physical therapy. She defers surgical intervention at this time. Continue to follow with pain management. Assessment & Plan (06/13/2022 12:35 PM RELAY MAN): C-spine x-ray 05/15/2022: Minimal degenerative changes at [...] Will track down recent L-spine MRI from [facility]. Assessment & Plan (05/15/2022 10:14 AM RELAY MAN): Primary complaint is significant lower back pain [...] today. Assessment & Plan (04/01/2019 12:28 PM RELAY MAN): History of L4/L5/S1 OA in the lower [...] 06/04/2018 Assessment & Plan (06/04/2018 10:18 AM RELAY MAN): Insomnia symptoms at night. Discussed use of black noise machine. also reports that she snores. Would recommend sleep study, although discuss further with PCP. Right hand pain 05/07/2018 Assessment & Plan (05/07/2018 10:54 AM RELAY MAN): Patient jammed right 1st digit and has [...] years. Assessment & Plan (06/04/2018 10:14 AM RELAY MAN): Did not obtain DEXA at last visit, will obtain in the near future. Order placed again. Assessment & Plan (05/07/2018 10:56 AM RELAY MAN): Recently non-displaced lateral malleolus fracture after rolling her ankle. Is at increased risk for osteoporosis with SLE. Will check dexa scan today. Confusion 03/03/2018 Right hip pain 02/26/2018 Assessment & Plan (06/04/2018 10:15 AM RELAY MAN): Patient does continue to have some mild pain in the right hip / groin region. Most recent hip x-ray was negative. Has complaints are minimal, we will just monitor at this time. If symptoms progress, would consider right hip MRI. Assessment & Plan (05/07/2018 10:52 AM RELAY MAN): Denies major complaints today. Most recent right hip x-ray was negative. If symptoms do worsen, would consider right hip MRI. Assessment & Plan (03/26/2018 9:57 AM RELAY MAN): Right hip pain with accompanying morning stiffness persists. Localizes over the right hip/ groin region, although no pain elicited with internal and external rotation. Recent right hip x-ray was negative. If symptoms persist, will consider right hip MRI at next visit. Assessment & Plan (02/26/2018 10:24 AM RELAY MAN): Right hip pain, which she does note [...] 12/15/2017 Assessment & Plan (06/04/2018 10:16 AM RELAY MAN): Still awaiting to schedule with Neurology for further evaluation of these symptoms. Assessment & Plan (05/07/2018 10:52 AM RELAY MAN): Has not scheduled with Neurology, which was discussed at the last couple of visits. Will be scheduling in the near future. Assessment & Plan (03/26/2018 10:29 AM RELAY MAN): As discussed at last visit, given her confusion symptoms, as well as headaches , would recommend further evaluation with Neurology. Assessment & Plan (02/26/2018 10:23 AM RELAY MAN): Continues to note persistent headaches, as well [...] of medicat ions 12/15/2017 Assessment & Plan (08/30/2024 2:48 PM CDT): DEXA 02/05/2023: L-spine-1.3, left femoral neck-1.4, left total hip-0.7, right femoral neck -0.8, right total hip -0.4 FRAX: 9.6/0.8. On vitamin-D supplementation per PCP recommendations Routine labs today. Continue routine eye exams. Normal TPMT 03/2018 Neg quant 06/2019 Assessment & Plan (08/08/2024 9:23 AM CDT): DEXA 02/05/2023: L-spine-1.3, left femoral neck-1.4, left total hip-0.7, right femoral neck -0.8, right total hip -0.4 FRAX: 9.6/0.8. On vitamin-D supplementation per PCP recommendations Routine labs today. Continue routine eye exams. Normal TPMT 03/2018 Neg quant 06/2019 Assessment & Plan (05/09/2024 11:01 AM RELAY MAN): DEXA 02/05/2023: L-spine-1.3, left femoral neck-1.4, left total hip-0.7, right femoral neck -0.8, right total hip -0.4 FRAX: 9.6/0.8. On vitamin-D supplementation per PCP recommendations Routine labs today. Continue routine eye exams. Normal TPMT 03/2018 Neg quant 06/2019 Assessment & Plan (04/11/2024 9:56 AM RELAY MAN): DEXA 02/05/2023: L-spine-1.3, left femoral neck-1.4, left [...] 06/2019 Assessment & Plan (04/07/2023 12:50 PM RELAY MAN): DEXA 02/05/2023: L-spine-1.3, left femoral neck-1.4, left [...] 06/2019 Assessment & Plan (04/26/2021 9:30 AM RELAY MAN): Routine labs today. Continue routine eye exams. [...] 06/2019 Assessment & Plan (06/11/2020 1:04 PM RELAY MAN): Routine labs today. Continue routine eye exams. Normal TPMT 03/2018 Neg quant 06/2019 Assessment & Plan (04/11/2020 12:04 PM RELAY MAN): Routine labs today. Continue routine eye exams. Normal TPMT 03/2018 Neg quant 06/2019 Assessment & Plan (03/19/2020 9:50 AM RELAY MAN): Routine labs today. Continue routine eye exams. [...] 03/2018 Assessment & Plan (04/01/2019 12:27 PM RELAY MAN): Routine labs today. Continue routine eye exams. [...] today. Assessment & Plan (06/04/2018 10:16 AM RELAY MAN): Routine labs today. Continue routine eye exams. Normal TPMT 03/2018 Routine labs today. Assessment & Plan (05/07/2018 10:53 AM RELAY MAN): Routine labs today. Continue routine eye exams. Normal TPMT 03/2018 Routine labs today. Recheck CBC in 2 weeks. Assessment & Plan (03/26/2018 9:57 AM RELAY MAN): Routine labs today. Continue routine eye exams. Routine labs today, including TP MT. Recheck CBC in 2 weeks. Assessment & Plan (02/26/2018 10:25 AM RELAY MAN): Routine labs today. Continue routine eye exams. [...] warmers. Assessment & Plan (04/26/2021 9:30 AM RELAY MAN): Persistent intermittent Raynaud/acrocyanosis symptoms in the feet>hands. [...] warmers. Assessment & Plan (06/11/2020 1:04 PM RELAY MAN): Persistent intermittent Raynaud symptoms in the feet>hands. [...] fingers. Assessment & Plan (04/01/2019 12:27 PM RELAY MAN): Mild occasional Raynaud's in the feet without [...] Plaquenil 200 b.i.d., xeljanz Assessment & Plan (08/30/2024 2:49 PM CDT): CDAI 11. Presents today due to flare of symptoms. Over the past several days, has noted increased pain, stiffness, and swelling that is most notable in the left wrist predominantly over the ulnar styloid joint. Has had lesser degree of discomfort and stiffness throughout the remaining joints of the bilateral hands, as discussed above. Few swollen tender joints, as above, which is most notable in the left wrist and ulnar styloid joint. Concern for a flare of her RA/SLE. Otherwise, has noted increased fatigue with no other recent systemic complaints. Will treat the flare, as symptoms were doing well prior to this. Due to burden of disease, will administer [...] on eye exams. Routine labs today. Follow-up 4-6 weeks. Sooner if needed. Assessment & Plan (08/08/2024 9:22 AM CDT): CDAI 7. Denies significant peripheral joint complaints and/or prolonged a.m. stiffness. Continues to do well at this time. Will continue leflunomide 20 mg daily, Plaquenil 200 mg b.i.d., Rinvoq 15 mg daily, and Pennsaid cream. Up-to-date on eye exams. Routine labs today. Follow-up 3 months. Sooner if needed. Assessment & Plan (05/09/2024 11:01 AM RELAY MAN): CDAI 7. Had significant benefit with Kenalog [...] needed. Assessment & Plan (04/11/2024 9:55 AM RELAY MAN): CDAI 21. Since last visit, has had [...] needed. Assessment & Plan (04/07/2023 10:54 AM RELAY MAN): CDAI 13. Since last visit, has noted [...] needed Assessment & Plan (06/13/2022 12:33 PM RELAY MAN): CDAI 16. Presents due to a flare. [...] needed. Assessment & Plan (05/15/2022 10:11 AM RELAY MAN): CDAI 9. Overall, peripheral joints have done [...] needed. Assessment & Plan (04/26/2021 9:28 AM RELAY MAN): CDAI 18. Since last visit, has experienced [...] needed. Assessment & Plan (06/11/2020 1:02 PM RELAY MAN): CDAI 9. Since last visit, patient has [...] needed. Assessment & Plan (04/11/2020 12:06 PM RELAY MAN): CDAI 40. Patient returns today due to [...] osteoporosis. Assessment & Plan (03/19/2020 9:51 AM RELAY MAN): Tele health visit. Patient noted a significant [...] stiffness in the bilateral hands with reduced hat steamer strength. A.m. stiffness for 60 minutes. Denies [...] needed. Assessment & Plan (04/01/2019 12:26 PM RELAY MAN): CDAI 0. Denies much peripheral joint complaints [...] needed. Assessment & Plan (06/04/2018 10:14 AM RELAY MAN): Initial serologies:pos lourdes 1:640 dense fine speckled. [...] needed. Assessment & Plan (05/07/2018 10:51 AM RELAY MAN): Initial serologies:pos lourdes 1:640 dense fine speckled. [...] injection. Assessment & Plan (03/26/2018 10:28 AM RELAY MAN): Initial serologies:pos lourdes 1:640 dense fine speckled. [...] today. Assessment & Plan (02/26/2018 12:08 PM RELAY MAN): Initial serologies:pos lourdes 1:640 dense fine speckled. [...] that she will be moving to the [facility] that will be needed to establish care with a new shelver. Advised to do this DARÍO. Routine labs [...] Gilbert. Assessment & Plan (04/26/2021 9:31 AM RELAY MAN): A primary complaint persistent neuropathic pain in [...] heme. Assessment & Plan (06/11/2020 1:03 PM RELAY MAN): Follows with heme. Assessment & Plan (04/11/2020 12:04 PM RELAY MAN): Follows with heme. Assessment & Plan (03/19/2020 9:50 AM RELAY MAN): Follows with heme. Assessment & Plan (02/17/2020 [...] Hematology. Assessment & Plan (04/01/2019 12:26 PM RELAY MAN): Following with Hematology. Assessment & Plan (12/31/2018 12:45 PM CDT): Continue to follow with Hematology Assessment & Plan (10/01/2018 10:48 AM CDT): Continue to follow with hematology. Assessment & Plan (07/23/2018 9:05 AM CDT): Continue to follow with Hematology. Assessment & Plan (06/04/2018 10:15 AM RELAY MAN): Continue to follow with Hematology. Assessment & Plan (05/07/2018 10:52 AM RELAY MAN): Continue to follow with Hematology. Assessment & Plan (03/26/2018 10:29 AM RELAY MAN): Continue to follow with Hematology. Assessment & Plan (02/26/2018 10:25 AM RELAY MAN): Following with Hematology for this issue. Will [...] Encounters Date Type Department Care Team Description 08/31/2024 Results Follow-Up [facility] [address] [place] [phone] Carlos Coughlin PA C4 complement, CBC with auto differential, Comprehensive metabolic panel, Additional followed-up results: 5 08/30/2024 3:00 PM CDT Office Visit [facility] [address] [place] [phone] Carlos Coughlin PA Systemic lupus erythematosus, unspecified SLE type, unspecified organ involvement status (HCC) (Primary Dx); Seropositive rheumatoid arthritis (HCC); Fibromyalgia; Encounter for long-term (current) use of medications 08/09/2024 Results Follow-Up [address] [phone] Carlos Coughlin PA C4 complement, CBC with auto differential, Comprehensive metabolic panel, Additional followed-up results: 5 08/08/2024 8:45 AM CDT Office Visit [address] [phone] Carlos Coughlin PA Lymphocytopenia (Primary Dx); Systemic lupus erythematosus, unspecified SLE type, unspecified organ involvement status (HCC); Seropositive rheumatoid arthritis (HCC); Fibromyalgia; Chronic bilateral [...] Sign Reading Time Taken Comments Blood Pressure 122/80 08/30/2024 2:23 PM CDT Pulse 68 08/30/2024 2:23 PM CDT Temperature 36.5 C (97.7 F) 04/26/2021 8:51 AM RELAY MAN Respiratory Rate - - Oxygen Saturation 95% 08/30/2024 2:23 PM CDT Inhaled Oxygen Concentration - - Weight 80.7 kg (178 lb) 08/30/2024 2:23 PM CDT Height 162.6 cm (5' 4 ) 08/30/2024 2:23 PM CDT Body Mass Index 30.55 08/30/2024 2:23 PM CDT Plan of Treatment Health Maintenance Due Date Last Done Comments Cervical Cancer Screening 1962 Colon Cancer Screening-Colonoscopy 1962 Depression Screening 1962 Hepatitis C Screening 1962 DTaP/Tdap/Td Vaccine (1 - Tdap) 1973 Hepatitis B Screening 01/04/1980 Regular Well Visit/Exam 18-64 01/04/1980 Pneumococcal vaccine <65 (1 of 2 - PCV) 1981 Zoster Vaccine (1 of 2) 1981 Breast Cancer Screening-Mammogram 02/22/2016 015 Influenza Vaccine (Season Ended) 2024 06/03/19 17 Procedures Procedure Name Priority Date/Time Associated Diagnosis Comments C3 COMPLEMENT Routine 08/30/2024 2:56 PM CDT Systemic lupus erythematosus, unspecified SLE type, unspecified organ involvement status (HCC) Seropositive rheumatoid arthritis (HCC) Encounter for long-term (current) use of medications PROTEIN / CREATININE RATIO, URINE, RANDOM Routine 08/30/2024 2:56 PM CDT Systemic lupus erythematosus, unspecified SLE type, unspecified organ involvement status (HCC) Seropositive rheumatoid arthritis (HCC) Encounter for long-term (current) use of medications ANTI-DOUBLE STRANDED DNA ANTIBODIES Routine 08/30/2024 2:56 PM CDT Systemic lupus erythematosus, unspecified SLE type, unspecified organ involvement status (HCC) Seropositive rheumatoid arthritis (HCC) Encounter for long-term (current) use of medications ERYTHROCYTE SEDIMENTATION RATE Routine 08/30/2024 2:56 PM CDT Systemic lupus erythematosus, unspecified SLE type, unspecified organ involvement status (HCC) Seropositive rheumatoid arthritis (HCC) Encounter for long-term (current) use of medications CRP (ACUTE PHASE) Routine 08/30/2024 2:5 6 PM CDT Systemic lupus erythematosus, unspecified SLE type, unspecified organ involvement status (HCC) Seropositive rheumatoid arthritis (HCC) Encounter for long-term (current) use of medications COMPREHENSIVE METABOLIC PANEL Routine 08/30/2024 2:56 PM CDT Systemic lupus erythematosus, unspecified SLE type, unspecified organ involvement status (HCC) Seropositive rheumatoid arthritis (HCC) Encounter for long-term (current) use of medications CBC WITH AUTO DIFFERENTIAL Routine 08/30/2024 2:56 PM CDT Systemic lupus erythematosus, unspecified SLE type, unspecified organ involvement status (HCC) Seropositive rheumatoid arthritis (HCC) Encounter for long-term (current) use of medications C4 COMPLEMENT Routine 08/30/2024 2:56 PM CDT Systemic lupus erythematosus, unspecified SLE type, unspecified organ involvement status (HCC) Seropositive rheumatoid arthritis (HCC) Encounter for long-term (current) use of medications C3 COMPLEMENT Routine 08/08/2024 9:09 AM CDT Systemic lupus erythematosus, unspecified SLE type, unspecified organ involvement status (HCC) Seropositive rheumatoid arthritis (HCC) Encounter for long-term (current) use of medications PROTEIN / CREATININE RATIO, URINE, RANDOM Routine 08/08/2024 9:09 AM CDT Systemic lupus erythematosus, unspecified SLE type, unspecified organ involvement status (HCC) Seropositive rheumatoid arthritis (HCC) Encounter for long-term (current) use of medications ANTI-DOUBLE STRANDED DNA ANTIBODIES Routine 08/08/2024 9:09 AM CDT Systemic lupus erythematosus, unspecified SLE type, unspecified organ involvement status (HCC) Seropositive rheumatoid arthritis (HCC) Encounter for long-term (current) use of medications ERYTHROCYTE SEDIMENTATION RATE Routine 08/08/2024 9:09 AM CDT Systemic lupus erythematosus, unspecified SLE type, unspecified organ involvement status (HCC) Seropositive rheumatoid arthritis (HCC) Encounter for long-term (current) use of medications CRP (ACUTE PHASE) Routine 08/08/2024 9:0 9 AM CDT Systemic lupus erythematosus, unspecified SLE type, unspecified organ involvement status (HCC) Seropositive rheumatoid arthritis (HCC) Encounter for long-term (current) use of medications COMPREHENSIVE METABOLIC PANEL Routine 08/08/2024 9:09 AM CDT Systemic lupus erythematosus, unspecified SLE type, unspecified organ involvement status (HCC) Seropositive rheumatoid arthritis (HCC) Encounter for long-term (current) use of medications CBC WITH AUTO DIFFERENTIAL Routine 08/08/2024 9:09 AM CDT Systemic lupus erythematosus, unspecified SLE type, unspecified organ involvement status (HCC) Seropositive rheumatoid arthritis (HCC) Encounter for long-term (current) use of medications C4 COMPLEMENT Routine 08/08/2024 9:09 AM CDT Systemic lupus erythematosus, unspecified SLE type, unspecified organ involvement status (HCC) Seropositive rheumatoid arthritis (HCC) Encounter for long-term (current) use of medications from Last 3 Months Results * Anti-double stranded DNA abs (08/30/2024 2:56 PM CDT) DNA (DS) ab <1 IU/mL [facility] Comment: IU/mL Interpretation < or = 4 Negative 5-9 Indeterminate > or = 10 Positive Blood 08/30/2024 2:56 PM CDT 08/30/2024 2:58 PM CDT Carlos [facility]ITRON LAB BLOOD ORDERABLES Fi nal Result Performing Organization Address [facility] Co de Phone Number [facility] [address] [place] [address] * C4 complement (08/30/2024 2:56 PM CDT) Complement component C4C 26 15 - 57 mg/dL [facility] Blood 08/30/2024 2:56 PM CDT 08/30/2024 2:58 PM CDT Carlos [facility]IT[facility] LAB BLOOD ORDERABLES Fi nal Result Performing Organization Address City/[facility]/ZIP Co de Phone Number QUE[facility] [address] [place] [address] * (ABNORMAL) CBC with auto differential (08/30/2024 2:56 PM CDT) [facility] WBC 6.1 3.8 - 10.8 Thousand/u L [facility] RBC, POC 4.30 3.80 - 5.10 Million/uL [facility] Hgb 13.1 11.7 - 15.5 g/dL [facility] Hct 40.2 35.0 - 45.0 % [facility] MCV 93.5 80.0 - 100.0 fL [facility] MCH 30.5 27.0 - 33.0 pg [facility] MCHC 32.6 32.0 - 36.0 g/dL [facility] Comment: For adults, a slight decrease in the calculated MCHC value (in the range of 30 to 32 g/dL) is most likely not clinically significant; however, it should be interpreted with caution in correlation with other red cell parameters and the patient's clinical condition. Rdw 13.1 11.0 - 15.0 % [facility] Platelets 236 140 - 400 Thousand/u L [facility] MPV 11.3 7.5 - 12.5 fL [facility] Neutrophils, abs 4,898 1,500 - 7,800 cells/uL [facility] Lymphocytes, abs 445(L) 850 - 3,900 cells/uL [facility] Monocyte abs 561 200 - 950 cells/uL [facility] Eosinophils, abs 153 15 - 500 cells/uL [facility] Basophils, abs 43 0 - 200 cells/uL [facility] Neutrophils 80.3 % [facility] Lymphocyte pct 7.3 % [facility] Monocytes 9.2 % [facility] Eosinophils 2.5 % [facility] Basophils 0.7 % [facility] Blood 08/30/2024 2:56 PM CDT 08/30/2024 2:58 PM CDT [facility] LAB BLOOD ORDERABLES Fi nal Result Performing Organization Address [facility] de Phone Number [facility] [address] [place] [address] * Protein / creatinine ratio, urine, random (08/30/2024 2:56 PM CDT) Creatinine, ur 158 20 - 275 mg/dL [facility] Protein/creatin ine ratio 101 24 - 184 mg/g creat [facility] Protein/Creatin ine Ratio 0.101 0.024 - 0.184 mg/mg creat [facility] Protein, ur, quant 16 5 - 24 mg/dL [facility] Urine 08/30/2024 2:56 PM CDT 08/30/2024 2:58 PM CDT Carlos [facility] LAB URINE ORDERABLES Fi nal Result Performing Organization Address [facility] de Phone Number [facility] [address] [place] [address] * Erythrocyte sedimentation rate (08/30/2024 2:56 PM CDT) Erythrocyte sedimentation rate 14 < OR = 30 mm/h [facility] Blood 08/30/2024 2:56 PM CDT 08/30/2024 2:58 PM CDT [facility] LAB BLOOD ORDERABLES Fi nal Result Performing Organization Address [facility] de Phone Number [facility] [address] [place] [address] * C3 complement (08/30/2024 2:56 PM CDT) Complement component C3C 145 83 - 193 mg/dL [facility] Blood 08/30/2024 2:56 PM CDT 08/30/2024 2:58 PM CDT [facility] LAB BLOOD ORDERABLES Fi nal Result Performing Organization Address City/[facility]/ZIP Co de Phone Number [facility] [address] [place] [address] * (ABNORMAL) CRP (acute phase) (08/30/2024 2:56 PM CDT) Pathologist [facility] C-RP 9.8(H) <8.0 mg/L [facility] Blood 08/30/2024 2:56 PM CDT 08/30/2024 2:58 PM CDT Carlos HUITRON LAB BLOOD ORDERABLES Fi nal Result Performing Organization Address [facility] de Phone Number [facility] [address] [place] [address] * (ABNORMAL) Comprehensive metabolic panel (08/30/2024 2:56 PM CDT) [facility] Glucose 100(H) 65 - 99 mg/dL [facility] Comment: Fasting reference interval For someone without known diabetes, a glucose value between 100 and 125 mg/dL is consistent with prediabetes and should be confirmed with a follow-up test. BUN 14 7 - 25 mg/dL [facility] Creatinine 0.68 0.50 - 1.05 mg/dL [facility] eGFR 98 > OR = 60 mL/min/1.7 3m2 [facility] BUN/creat ratio SEE NOTE: 6 - 22 (calc) [facility] Comment: Not Reported: BUN and Creatinine are within reference range. Sodium 140 135 - 146 mmol/L [facility] Potassium, pl 3.4(L) 3.5 - 5.3 mmol/L [facility] Chloride 100 98 - 110 mmol/L [facility] CO2 30 20 - 32 mmol/L [facility] Calcium 9.2 8.6 - 10.4 mg/dL [facility] Protein, sr 6.3 6.1 - 8.1 g/dL [facility] Albumin 4.2 3.6 - 5.1 g/dL [facility] GLOBULIN 2.1 1.9 - 3.7 g/dL (calc) [facility] Alb/glob ratio 2.0 1.0 - 2.5 (calc) [facility] Bilirubin, total 0.5 0.2 - 1.2 mg/dL [facility] Alk phos 75 37 - 153 U/L [facility] AST 30 10 - 35 U/L [facility] ALT (SGPT) 27 6 - 29 U/L [facility] Blood 08/30/2024 2:56 PM CDT 08/30/2024 2:58 PM CDT Carlos [facility] LAB BLOOD ORDERABLES Fi nal Result Performing Organization Address [facility]/ZIP Co de Phone Number [facility] [address] [place] [address] * Anti-double stranded DNA abs (08/08/2024 9:09 AM CDT) DNA (DS) ab <1 IU/mL [facility] Comment: IU/mL Interpretation < or = 4 Negative 5-9 Indeterminate > or = 10 Positive Blood 08/08/2024 9:09 AM CDT 08/08/2024 9:10 AM CDT [facility] LAB BLOOD ORDERABLES Fi nal Result Performing Organization Address [facility]/ZIP Co de Phone Number [facility] [address] [place] [address] * C4 complement (08/08/2024 9:09 AM CDT) Complement component C4C 27 15 - 57 mg/dL [facility] Blood 08/08/2024 9:09 AM CDT 08/08/2024 9:10 AM CDT us Carlos [facility] LAB BLOOD ORDERABLES Fi nal Result [facility] [address] [place] [phone] * CBC with auto differential (08/08/2024 9:09 AM CDT) WBC 7.1 3.8 - 10.8 Thousand/u L [facility] RBC, POC 4.10 3.80 - 5.10 Million/uL [facility] Hgb 12.4 11.7 - 15.5 g/dL [facility] Hct 38.5 35.0 - 45.0 % [facility] MCV 93.9 80.0 - 100.0 fL [facility] MCH 30.2 27.0 - 33.0 pg [facility] MCHC 32.2 32.0 - 36.0 g/dL [facility] Comment: For adults, a slight decrease in the calculated MCHC value (in the range of 30 to 32 g/dL) is most likely not clinically significant; however, it should be interpreted with caution in correlation with other red cell parameters and the patient's clinical condition. Rdw 13.1 11.0 - 15.0 % [facility] Platelets 268 140 - 400 Thousand/u L [facility] MPV 10.9 7.5 - 12.5 fL [facility] Neutrophils, abs 5,332 1,500 - 7,800 cells/uL [facility] Lymphocytes, abs 930 850 - 3,900 cells/uL [facility] Monocyte abs 611 200 - 950 cells/uL [facility] Eosinophils, abs 178 15 - 500 cells/uL [facility] Basophils, abs 50 0 - 200 cells/uL [facility] Neutrophils 75.1 % [facility] Lymphocyte pct 13.1 % [facility] Monocytes 8.6 % [facility] Eosinophils 2.5 % [facility] Basophils 0.7 % [facility] Blood 08/08/2024 9:09 AM CDT 08/08/2024 9:10 AM CDT Carlos [facility] LAB BLOOD ORDERABLES Fi nal Result Performing Organization Address [facility] de Phone Number [facility] [address] [place] [address] * Protein / creatinine ratio, urine, random (08/08/2024 9:09 AM CDT) Creatinine, ur 77 20 - 275 mg/dL [facility] Protein/creatin ine ratio 130 24 - 184 mg/g creat [facility] Protein/Creatin ine Ratio 0.130 0.024 - 0.184 mg/mg creat [facility] Protein, ur, quant 10 5 - 24 mg/dL [facility] Urine 08/08/2024 9:09 AM CDT 08/08/2024 9:10 AM CDT Carlos [facility] LAB URINE ORDERABLES Fi nal Result Performing Organization Address [facility] Co de Phone Number [facility] [address] [place] [address] * Erythrocyte sedimentation rate (08/08/2024 9:09 AM CDT) Erythrocyte sedimentation rate 9 < OR = 30 mm/h [facility] Blood 08/08/2024 9:09 AM CDT 08/08/2024 9:10 AM CDT [facility] LAB BLOOD ORDERABLES Fi nal Result Performing Organization Address [facility] Co de Phone Number [facility] [address] [place] [address] * C3 complement (08/08/2024 9:09 AM CDT) Complement component C3C 141 83 - 193 mg/dL [facility] Blood 08/08/2024 9:09 AM CDT 08/08/2024 9:10 AM CDT Carlos [facility] LAB BLOOD ORDERABLES Fi nal Result Performing Organization Address City/[facility] Co de Phone Number [facility] [address] [place] [address] * CRP (acute phase) (08/08/2024 9:09 AM CDT) Pathologist [facility] C-RP <3.0 <8.0 mg/L [facility] Blood 08/08/2024 9:09 AM CDT 08/08/2024 9:10 AM CDT Carlos [facility]RON LAB BLOOD ORDERABLES Fi nal Result Performing Organization Address [facility] de Phone Number [facility] [address] [place] [address] * (ABNORMAL) Comprehensive metabolic panel (08/08/2024 9:09 AM CDT) Glucose 111(H) 65 - 99 mg/dL [facility] Comment: Fasting reference interval For someone without known diabetes, a glucose value between 100 and 125 mg/dL is consistent with prediabetes and should be confirmed with a follow-up test. BUN 12 7 - 25 mg/dL [facility] Creatinine 0.80 0.50 - 1.05 mg/dL [facility] eGFR 83 > OR = 60 mL/min/1.7 3m2 [facility] BUN/creat ratio SEE NOTE: 6 - 22 (calc) [facility] Comment: Not Reported: BUN and Creatinine are within reference range. Sodium 140 135 - 146 mmol/L [facility] Potassium, pl 3.8 3.5 - 5.3 mmol/L [facility] Chloride 96(L) 98 - 110 mmol/L [facility] CO2 35(H) 20 - 32 mmol/L [facility] Calcium 9.1 8.6 - 10.4 mg/dL [facility] Protein, sr 5.8(L) 6.1 - 8.1 g/dL [facility] Albumin 4.0 3.6 - 5.1 g/dL [facility] GLOBULIN 1.8(L) 1.9 - 3.7 g/dL (calc) [facility] Alb/glob ratio 2.2 1.0 - 2.5 (calc) [facility] Bilirubin, total 0.5 0.2 - 1.2 mg/dL [facility] Alk phos 74 37 - 153 U/L [facility] AST 30 10 - 35 U/L [facility] ALT (SGPT) 25 6 - 29 U/L [facility] Blood 08/08/2024 9:09 AM CDT 08/08/2024 9:10 AM CDT [facility] LAB BLOOD ORDERABLES Fi nal Result Performing Organization Address City/State/[facility] Co de Phone Number [facility] [address] [address] [place] [phone] from Last 3 Months Insurance [facility] Member Subscriber Plan / Payer (Ef fective 2020-Present) Name:Nasrin Healy Relation to Subscriber:Spouse Name:HEALYSERENA Date of :1958 Address: [address] [place] [address] Payer ID:[id number] ([facility]) Type:[facility] HMO/PPO Address: [place] [id number] MEDICARE MEDICARE [facility] Care Teams Psychological Stress Evaluator Relationship Specialty Start Date End Date Ray Roberts MD [address] [email or web address] [address] [place] [address] PCP - General Family Medicine 04/11/24 Hossein Ribeiro MD [address] [place], [place] [id number] Referring Physician Neurology 09/21/19 Rashid Gaffney MD [address] [place] [address] Consulting Physician Rheumatology 04/24/23
--- OUTSIDE RECORDS SUMMARY | 2024-09-13 09:12 | XMS_ITS | Referral Summary ---
Author Organization [facility] [address] [facility] Address [address] [place] [phone] Phone Care Team Providers Care [employer]oples[employer] H[employer] Developer Name Role Phone Hossein Ribeiro MD Unavailable Rashid Gaffney MD Unavailable [phone] Ray Roberts MD Primary Care Provider Encounters Date Type Department Care Team Description 08/31/2024 Results Follow-Up [facility] [address] [place] [phone] Carlos Coughlin PA C4 complement, CBC with auto differential, Comprehensive metabolic panel, Additional followed-up results: 5 08/30/2024 3:00 PM CDT Office Visit [facility] [address] [place] [phone] Carlos Coughlin PA Systemic lupus erythematosus, unspecified SLE type, unspecified organ involvement status (HCC) (Primary Dx); Seropositive rheumatoid arthritis (HCC); Fibromyalgia; Encounter for long-term (current) use of medications 08/09/2024 Results Follow-Up [facility] [address] [place] [phone] Carlos Coughlin PA C4 complement, CBC with auto differential, Comprehensive metabolic panel, Additional followed-up results: 5 08/08/2024 8:45 AM CDT Office Visit [facility] [address] [place] [phone] Carlos Coughlin PA Lymphocytopenia (Primary Dx); Systemic [...] TOTAL VOLUME OF 2000ML 0 Active rizatriptan GLASS GRINDER (MAXALT-GLASS GRINDER) 10 mg disintegrating tablet TAKE ONE TABLET [...] L5. Assessment & Plan (06/13/2022 12:34 PM LENDING ADVISOR): C-spine x-ray 05/15/2022: Minimal degenerative changes at [...] complaints. Assessment & Plan (05/15/2022 10:14 AM LENDING ADVISOR): Will obtain imaging and send to physical therapy. Primary hypertension 05/15/2022 Assessment & Plan (05/15/2022 2:20 PM LENDING ADVISOR): Following with PCP and is to reach [...] p.r.n. Assessment & Plan (05/09/2024 11:00 AM LENDING ADVISOR): Seropositive RA given prior elevated rheumatoid factor [...] p.r.n. Assessment & Plan (04/11/2024 9:56 AM LENDING ADVISOR): Seropositive RA given prior elevated rheumatoid factor [...] p.r.n.. Assessment & Plan (04/07/2023 10:55 AM LENDING ADVISOR): Seropositive RA given prior elevated rheumatoid factor [...] p.r.n.. Assessment & Plan (06/13/2022 12:34 PM LENDING ADVISOR): As discussed above, seropositive RA given prior [...] b.i.d.. Assessment & Plan (05/15/2022 10:12 AM LENDING ADVISOR): As discussed above, seropositive RA given prior [...] b.i.d.. Assessment & Plan (04/26/2021 9:30 AM LENDING ADVISOR): As discussed above, concern for seropositive RA [...] daily. Assessment & Plan (06/11/2020 1:03 PM LENDING ADVISOR): As discussed above, concern for seropositive RA given prior elevated rheumatoid factor and erosions seen on ultrasound. Appears fairly well controlled. Continue Plaquenil 200 mg b.i.d., xeljanz xr 11 mg daily. Assessment & Plan (04/11/2020 12:03 PM LENDING ADVISOR): As discussed above, concern for seropositive RA given prior elevated rheumatoid factor and erosions seen on ultrasound. Will stop Orencia and azathioprine due to lack of benefit and begin approval for Xeljanz XR 11 mg daily. Continue Plaquenil 200 mg b.i.d.. Assessment & Plan (03/19/2020 9:49 AM LENDING ADVISOR): As discussed above, concern for seropositive RA [...] exercise. Assessment & Plan (05/09/2024 11:01 AM LENDING ADVISOR): Stable. Continue Cymbalta 60 mg daily, gabapentin 300 mg qid per Neurology. Previously switched from Lyrica for insurance reasons. Encourage routine exercise. Assessment & Plan (04/11/2024 9:57 AM LENDING ADVISOR): Stable. Continue Cymbalta 60 mg daily, gabapentin [...] exercise. Assessment & Plan (04/07/2023 12:50 PM LENDING ADVISOR): Stable. Continue Cymbalta 60 mg daily, gabapentin [...] exercise. Assessment & Plan (06/13/2022 12:35 PM LENDING ADVISOR): Continue Cymbalta 30 mg daily. Continue gabapentin 300 mg q.a.m., 300 mg midday, 600 mg q.p.m. per neurology. Previous switch from Lyrica for insurance reasons. Encourage routine exercise. Assessment & Plan (05/15/2022 10:15 AM LENDING ADVISOR): Stable. Continue Cymbalta 30 mg daily. Continue [...] exercise. Assessment & Plan (04/26/2021 9:31 AM LENDING ADVISOR): Stable. Continue Cymbalta and gabapentin 100 mg [...] exercise. Assessment & Plan (06/11/2020 1:06 PM LENDING ADVISOR): Stable. Continue Cymbalta. On Lyrica 300 mg 1-2 times daily per PCP. Encourage routine exercise. Assessment & Plan (04/11/2020 12:07 PM LENDING ADVISOR): Stable. Continue Cymbalta. On Lyrica 300 mg 1-2 times daily per PCP. Encourage routine exercise. Assessment & Plan (03/19/2020 9:50 AM LENDING ADVISOR): As discussed at last visit, continue to [...] exercise. Assessment & Plan (04/01/2019 12:29 PM LENDING ADVISOR): FM may be contributing to some of [...] benefit. Assessment & Plan (04/01/2019 12:26 PM LENDING ADVISOR): Bilateral CMC bracing has offered benefit. Assessment [...] L4 on L5. Had L-spine MRI from [facility] and is following with pain management. Has completed physical therapy. Following with pain management. Has received several injections in the lower back since last visit without significant relief. Scheduled to follow up with pain management later today. Is considering surgical intervention. Has been using tramadol and Tylenol with some relief in symptoms. Assessment & Plan (05/09/2024 11:02 AM LENDING ADVISOR): C-spine x-ray 05/15/2022: Minimal degenerative changes at C3-C4 and C4-C5 SI joint x-ray 05/15/2022: WNL L-spine x-ray 05/15/2022: 5 mm anterolisthesis of L4 on L5. Had L-spine MRI from [facility] and is following with pain management. Has completed physical therapy. Following with pain management. Is currently going to physical therapy. Is scheduled for repeat L-spine epidural steroid injection with pain management tomorrow. Is following with orthopedic surgeon with discussions for potential surgical intervention regarding the lower back. Assessment & Plan (04/11/2024 9:57 AM LENDING ADVISOR): C-spine x-ray 05/15/2022: Minimal degenerative changes at C3-C4 and C4-C5 SI joint x-ray 05/15/2022: WNL L-spine x-ray 05/15/2022: 5 mm anterolisthesis of L4 on L5. Had L-spine MRI from [facility] and is following with pain management. Has [...] L4 on L5. Had L-spine MRI from [facility] and is following with pain management. Has [...] L4 on L5. Had L-spine MRI from [facility] and is following with pain management. Received epidural injection yesterday afternoon and continues to go to physical therapy. She defers surgical intervention at this time. Continue to follow with pain management. Assessment & Plan (06/13/2022 12:35 PM LENDING ADVISOR): C-spine x-ray 05/15/2022: Minimal degenerative changes at [...] Will track down recent L-spine MRI from [facility]. Assessment & Plan (05/15/2022 10:14 AM LENDING ADVISOR): Primary complaint is significant lower back pain [...] today. Assessment & Plan (04/01/2019 12:28 PM LENDING ADVISOR): History of L4/L5/S1 OA in the lower [...] 06/04/2018 Assessment & Plan (06/04/2018 10:18 AM LENDING ADVISOR): Insomnia symptoms at night. Discussed use of black noise machine. also reports that she snores. Would recommend sleep study, although discuss further with PCP. Right hand pain 05/07/2018 Assessment & Plan (05/07/2018 10:54 AM LENDING ADVISOR): Patient jammed right 1st digit and has [...] years. Assessment & Plan (06/04/2018 10:14 AM LENDING ADVISOR): Did not obtain DEXA at last visit, will obtain in the near future. Order placed again. Assessment & Plan (05/07/2018 10:56 AM LENDING ADVISOR): Recently non-displaced lateral malleolus fracture after rolling her ankle. Is at increased risk for osteoporosis with SLE. Will check dexa scan today. Confusion 03/03/2018 Right hip pain 02/26/2018 Assessment & Plan (06/04/2018 10:15 AM LENDING ADVISOR): Patient does continue to have some mild pain in the right hip / groin region. Most recent hip x-ray was negative. Has complaints are minimal, we will just monitor at this time. If symptoms progress, would consider right hip MRI. Assessment & Plan (05/07/2018 10:52 AM LENDING ADVISOR): Denies major complaints today. Most recent right hip x-ray was negative. If symptoms do worsen, would consider right hip MRI. Assessment & Plan (03/26/2018 9:57 AM LENDING ADVISOR): Right hip pain with accompanying morning stiffness persists. Localizes over the right hip/ groin region, although no pain elicited with internal and external rotation. Recent right hip x-ray was negative. If symptoms persist, will consider right hip MRI at next visit. Assessment & Plan (02/26/2018 10:24 AM LENDING ADVISOR): Right hip pain, which she does note [...] 12/15/2017 Assessment & Plan (06/04/2018 10:16 AM LENDING ADVISOR): Still awaiting to schedule with Neurology for further evaluation of these symptoms. Assessment & Plan (05/07/2018 10:52 AM LENDING ADVISOR): Has not scheduled with Neurology, which was discussed at the last couple of visits. Will be scheduling in the near future. Assessment & Plan (03/26/2018 10:29 AM LENDING ADVISOR): As discussed at last visit, given her confusion symptoms, as well as headaches , would recommend further evaluation with Neurology. Assessment & Plan (02/26/2018 10:23 AM LENDING ADVISOR): Continues to note persistent headaches, as well [...] 06/2019 Assessment & Plan (05/09/2024 11:01 AM LENDING ADVISOR): DEXA 02/05/2023: L-spine-1.3, left femoral neck-1.4, left total hip-0.7, right femoral neck -0.8, right total hip -0.4 FRAX: 9.6/0.8. On vitamin-D supplementation per PCP recommendations Routine labs today. Continue routine eye exams. Normal TPMT 03/2018 Neg quant 06/2019 Assessment & Plan (04/11/2024 9:56 AM LENDING ADVISOR): DEXA 02/05/2023: L-spine-1.3, left femoral neck-1.4, left [...] 06/2019 Assessment & Plan (04/07/2023 12:50 PM LENDING ADVISOR): DEXA 02/05/2023: L-spine-1.3, left femoral neck-1.4, left [...] 06/2019 Assessment & Plan (04/26/2021 9:30 AM LENDING ADVISOR): Routine labs today. Continue routine eye exams. [...] 06/2019 Assessment & Plan (06/11/2020 1:04 PM LENDING ADVISOR): Routine labs today. Continue routine eye exams. Normal TPMT 03/2018 Neg quant 06/2019 Assessment & Plan (04/11/2020 12:04 PM LENDING ADVISOR): Routine labs today. Continue routine eye exams. Normal TPMT 03/2018 Neg quant 06/2019 Assessment & Plan (03/19/2020 9:50 AM LENDING ADVISOR): Routine labs today. Continue routine eye exams. [...] 03/2018 Assessment & Plan (04/01/2019 12:27 PM LENDING ADVISOR): Routine labs today. Continue routine eye exams. [...] today. Assessment & Plan (06/04/2018 10:16 AM LENDING ADVISOR): Routine labs today. Continue routine eye exams. Normal TPMT 03/2018 Routine labs today. Assessment & Plan (05/07/2018 10:53 AM LENDING ADVISOR): Routine labs today. Continue routine eye exams. Normal TPMT 03/2018 Routine labs today. Recheck CBC in 2 weeks. Assessment & Plan (03/26/2018 9:57 AM LENDING ADVISOR): Routine labs today. Continue routine eye exams. Routine labs today, including TP MT. Recheck CBC in 2 weeks. Assessment & Plan (02/26/2018 10:25 AM LENDING ADVISOR): Routine labs today. Continue routine eye exams. [...] warmers. Assessment & Plan (04/26/2021 9:30 AM LENDING ADVISOR): Persistent intermittent Raynaud/acrocyanosis symptoms in the feet>hands. [...] warmers. Assessment & Plan (06/11/2020 1:04 PM LENDING ADVISOR): Persistent intermittent Raynaud symptoms in the feet>hands. [...] fingers. Assessment & Plan (04/01/2019 12:27 PM LENDING ADVISOR): Mild occasional Raynaud's in the feet without [...] needed. Assessment & Plan (05/09/2024 11:01 AM LENDING ADVISOR): CDAI 7. Had significant benefit with Kenalog [...] needed. Assessment & Plan (04/11/2024 9:55 AM LENDING ADVISOR): CDAI 21. Since last visit, has had [...] needed. Assessment & Plan (04/07/2023 10:54 AM LENDING ADVISOR): CDAI 13. Since last visit, has noted [...] needed Assessment & Plan (06/13/2022 12:33 PM LENDING ADVISOR): CDAI 16. Presents due to a flare. [...] needed. Assessment & Plan (05/15/2022 10:11 AM LENDING ADVISOR): CDAI 9. Overall, peripheral joints have done [...] left hand 1st IP joint. Does have loga's nodes, so I do suspect OA is [...] needed. Assessment & Plan (04/26/2021 9:28 AM LENDING ADVISOR): CDAI 18. Since last visit, has experienced [...] needed. Assessment & Plan (06/11/2020 1:02 PM LENDING ADVISOR): CDAI 9. Since last visit, patient has [...] needed. Assessment & Plan (04/11/2020 12:06 PM LENDING ADVISOR): CDAI 40. Patient returns today due to [...] osteoporosis. Assessment & Plan (03/19/2020 9:51 AM LENDING ADVISOR): Tele health visit. 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 A.m. stiffness for 60 minutes. Denies [...] needed. Assessment & Plan (04/01/2019 12:26 PM LENDING ADVISOR): CDAI 0. Denies much peripheral joint complaints [...] needed. Assessment & Plan (06/04/2018 10:14 AM LENDING ADVISOR): Initial serologies:pos lourdes 1:640 dense fine speckled. [...] needed. Assessment & Plan (05/07/2018 10:51 AM LENDING ADVISOR): Initial serologies:pos lourdes 1:640 dense fine speckled. [...] injection. Assessment & Plan (03/26/2018 10:28 AM LENDING ADVISOR): Initial serologies:pos lourdes 1:640 dense fine speckled. [...] today. Assessment & Plan (02/26/2018 12:08 PM LENDING ADVISOR): Initial serologies:pos lourdes 1:640 dense fine speckled. [...] that she will be moving to the [facility] that will be needed to establish care with a new tape controlled machine stitcher. Advised to do this DARÍO. Routine labs [...] Gilbert. Assessment & Plan (04/26/2021 9:31 AM LENDING ADVISOR): A primary complaint persistent neuropathic pain in [...] heme. Assessment & Plan (06/11/2020 1:03 PM LENDING ADVISOR): Follows with heme. Assessment & Plan (04/11/2020 12:04 PM LENDING ADVISOR): Follows with heme. Assessment & Plan (03/19/2020 9:50 AM LENDING ADVISOR): Follows with heme. Assessment & Plan (02/17/2020 [...] Hematology. Assessment & Plan (04/01/2019 12:26 PM LENDING ADVISOR): Following with Hematology. Assessment & Plan (12/31/2018 12:45 PM CDT): Continue to follow with Hematology Assessment & Plan (10/01/2018 10:48 AM CDT): Continue to follow with hematology. Assessment & Plan (07/23/2018 9:05 AM CDT): Continue to follow with Hematology. Assessment & Plan (06/04/2018 10:15 AM LENDING ADVISOR): Continue to follow with Hematology. Assessment & Plan (05/07/2018 10:52 AM LENDING ADVISOR): Continue to follow with Hematology. Assessment & Plan (03/26/2018 10:29 AM LENDING ADVISOR): Continue to follow with Hematology. Assessment & Plan (02/26/2018 10:25 AM LENDING ADVISOR): Following with Hematology for this issue. Will [...] 36.5 C (97.7 F) 04/26/2021 8:51 AM LENDING ADVISOR Respiratory Rate - - Oxygen Saturation 95% 08/30/2024 2:23 PM CDT Inhaled Oxygen Concentration - - Weight 80.7 kg (178 lb) 08/30/2024 2:23 PM CDT Height 162.6 cm (5' 4 ) 08/30/2024 2:23 PM CDT Body Mass Index 30.55 08/30/2024 2:23 PM CDT Plan of Treatment Not on file Procedures [...] stranded DNA abs (08/30/2024 2:56 PM CDT) Pathologist [facility] DNA (DS) ab <1 IU/mL [facility] Comment: IU/mL Interpretation < or = 4 Negative 5-9 Indeterminate > or = 10 Positive Blood 08/30/2024 2:56 PM CDT 08/30/2024 2:58 PM CDT Carlos HUITRON LAB BLOOD ORDERABLES Fi nal Result Performing Organization Address [facility] Co de Phone Number [facility] [address] [place] [address] * C4 complement (08/30/2024 2:56 PM CDT) [facility] Complement component C4C 26 15 - 57 mg/dL [facility] Blood 08/30/2024 2:56 PM CDT 08/30/2024 2:58 PM CDT Carlos HUITRON LAB BLOOD ORDERABLES Fi nal Result Performing Organization Address [facility] Co de Phone Number [facility] [address] [place] [address] * (ABNORMAL) CBC with auto differential (08/30/2024 2:56 PM CDT) [facility] WBC 6.1 3.8 - 10.8 Thousand/u L [...] BLOOD ORDERABLES Fi nal Result [facility] [address] [facility] [address] * Protein / creatinine ratio, urine, random [...] ORDERABLES Fi nal Result Performing Organization Address [facility] de Phone Number [facility] [address] [place] [address] * Erythrocyte sedimentation rate (08/30/2024 2:56 PM CDT) Erythrocyte sedimentation rate 14 < OR = 30 mm/h [facility] Blood 08/30/2024 2:56 PM CDT 08/30/2024 2:58 PM CDT Carlos HUITRON LAB BLOOD ORDERABLES Fi nal Result Performing Organization Address [facility] de Phone Number [facility] [address] [place] [address] * C3 complement (08/30/2024 2:56 PM CDT) Complement component C3C 145 83 - 193 mg/dL [facility] Blood 08/30/2024 2:56 PM CDT 08/30/2024 2:58 PM CDT Carlos HUITRON LAB BLOOD ORDERABLES Fi nal Result Performing Organization Address [facility] de Phone Number [facility] [address] [place] [address] * (ABNORMAL) CRP (acute phase) (08/30/2024 2:56 PM CDT) C-RP 9.8(H) <8.0 mg/L [facility] Blood 08/30/2024 2:56 PM CDT 08/30/2024 2:58 PM CDT us Carlos HUITRON LAB BLOOD ORDERABLES Fi nal Result [facility] [address] [place] [id number] * (ABNORMAL) Comprehensive metabolic panel (08/30/2024 2:56 PM CDT) Glucose 100(H) 65 - 99 mg/dL [facility] [...] PM CDT 08/30/2024 2:58 PM CDT Carlos HIUTRON LAB BLOOD ORDERABLES Fi nal Result Performing Organization Address [facility] de Phone Number [facility] [address] [place] [address] * Anti-double stranded DNA abs (08/08/2024 9:09 AM CDT) Pathologist [facility] DNA (DS) ab <1 IU/mL [facility] Comment: IU/mL Interpretation < or = 4 Negative 5-9 Indeterminate > or = 10 Positive Blood 08/08/2024 9:09 AM CDT 08/08/2024 9:10 AM CDT Carlos HUITRON LAB BLOOD ORDERABLES Fi nal Result Performing Organization Address [facility] Phone Number [facility] [address] [place] [address] * C4 complement (08/08/2024 9:09 AM CDT) Pathologist [facility] Complement component C4C 27 15 - 57 mg/dL [facility] Blood 08/08/2024 9:09 AM CDT 08/08/2024 9:10 AM CDT Carlos HUITRON LAB BLOOD ORDERABLES Fi nal Result Performing Organization Address [facility] de Phone Number [facility] [address] [place] [address] * CBC with auto differential (08/08/2024 9:09 [...] BLOOD ORDERABLES Fi nal Result [facility] [address] [address] [place] [id number] * Protein / creatinine ratio, urine, random [...] ORDERABLES Fi nal Result Performing Organization Address [facility] Co de Phone Number [facility] [address] [place] [address] * Erythrocyte sedimentation rate (08/08/2024 9:09 AM CDT) Erythrocyte sedimentation rate 9 < OR = 30 mm/h [facility] Blood 08/08/2024 9:09 AM CDT 08/08/2024 9:10 AM CDT Carlos HUITRON LAB BLOOD ORDERABLES Fi nal Result Performing Organization Address [facility] de Phone Number [facility] [address] [place] [address] * C3 complement (08/08/2024 9:09 AM CDT) Complement component C3C 141 83 - 193 mg/dL [facility] Blood 08/08/2024 9:09 AM CDT 08/08/2024 9:10 AM CDT Carlos HUITRON LAB BLOOD ORDERABLES Fi nal Result Performing Organization Address [facility] de Phone Number [facility] [address] [place] [address] * CRP (acute phase) (08/08/2024 9:09 AM CDT) C-RP <3.0 <8.0 mg/L [facility] Blood 08/08/2024 9:09 AM CDT 08/08/2024 9:10 AM CDT us Carlos HUITRON LAB BLOOD ORDERABLES nal Result [facility] [address] [phone] * (ABNORMAL) Comprehensive metabolic panel (08/08/2024 9:09 [...] AM CDT Carlos HUITRON LAB BLOOD ORDERABLES nal Result [facility] [address] [place] [address] from Last 3 Months Insurance [address] [facility] MEDICARE MEDICARE [facility] Care Teams [employer] Hr Developer Relationship Specialty Start Date End Date Ray Roberts MD [address] [facility] [address] [place] [address] PCP - General Family Medicine 04/11/24 Hossein Ribeiro MD [address] [place] [address] Referring Physician Neurology 09/21/19 Rashid Gaffney MD [address] [place] [address] Consulting Physician Rheumatology 04/24/23
[2024-09-13 09:35] VITALS: BP 138/59; PULSE 60; RESP 20; TEMP 36.5; O2SAT 99
--- NOTE | 2024-09-13 10:13 | PM.HPGS ---
History of Present Illness History of Present Illness Consent: Risks, benefits, and alternatives have been discussed and questions answered. Patient agrees to proceed with procedure. Chief complaint: Lumbosacral Spondylosis w/o Radiculopathy or Myelo Narrative: Nasrin Healy is a 64 year old female with chronic, recalcitrant and disabling bilateral lumbosacral back pain secondary to degenerative spondylosis with failure to respond to aggressive conservative measures including PT, oral and topical analgesics, opioid and nonopioid analgesics, rest, time and activity/behavioral modification over the past 1-2 years who presents for diagnostic/prognostic medial branch blocks of the bilateral L3, L4, L5 medial branches/dorsal ramus(# 2) addressing the bilateral L4-5, L5-S1 facet joints under fluoroscopic guidance and with contrast control. Review of Systems Review of Systems: Patient denies any new infectious, allergic, cardiopulmonary, neurologic or constitutional symptoms or changes in activity tolerance or exercise capacity including new or progressive SOB/PALMER, peripheral edema, productive cough, dysuria, nausea/vomiting, diarrhea, weight change, fevers/chills/night sweats, new or progressive neurologic deficit, cognitive or mood changes since last seen, except as documented in the HPI. All systems reviewed & are unremarkable except as noted in HPI and below PMFSH Past Medical History Medical History Chronic pain disorder Hypertensive urgency Lupus Rash and nonspecific skin eruption Viral gastroenteritis Insect bite of neck with local reaction Chronic pain Encounter for postoperative care Rheumatoid arthritis History of heart attack Aris-tachy syndrome Seizure Subacromial impingement of left shoulder Labral tear of long head of left biceps tendon Rotator cuff tear Left shoulder pain Shoulder swelling Cough RUQ abdominal pain Insomnia due to medical condition KRISTINA-inhibitor cough Acute bronchitis Restless leg syndrome Raynaud phenomenon MDD (major depressive disorder), recurrent episode, moderate Colon polyp Poison nae Epigastric pain Constipation Seropositive rheumatoid arthritis Chronic pain Elevated liver enzymes Lupus (systemic lupus erythematosus) Benign essential HTN Family History Family History Mother Hypertension Family history of diabetes mellitus in first degree relative Other Diabetes mellitus Family history of cardiovascular disease Family history of malignant neoplasm Social History Social History Social History: Smoking status: Never smoker Second hand tobacco smoke exposure: No Alcohol intake: never Substance use: never Substance use type: does not use Do You Feel Safe in your Home?: Yes Lack of Transportation: No Lack of Food: Never True Current Housing: I Have Housing Concerned About Future Housing: No Difficulty Paying Gas/Electric Bills: Decline to Answer Difficulty Paying for Meds: Decline to Answer Currently Unemployed: Decline to Answer Education: Associate Degree Difficulty w/ Childcare or Family Care: No Living arrangements: with family Occupation/Education: retired Additional occupation/education comments: Disability Gender identity (if verbalized by the patient): Female Sexual Orientation (if Verbalized by the Patient): Straight or Heterosexual Spiritual care concerns: No Meds Home Medications and Allergies Home Medications ?Medication ?Instructions ?Recorded ?Confirmed ?Type aspirin 325 mg tablet 325 mg PO DAILY 11/01/19 09/13/24 History cholecalciferol (vitamin D3) 25 25 mcg PO DAILY 11/01/19 09/13/24 History mcg (1,000 unit) capsule multivitamin 1 tablet PO DAILY 11/01/19 09/13/24 History albuterol sulfate 90 mcg/actuation 1 inh inhalation Q4H PRN shortness 01/09/21 09/13/24 Rx aerosol inhaler of breath or wheezing #8.5 grams Zyrtec 10 mg tablet (cetirizine) 10 mg PO DAILY #90 tabs 01/10/21 09/13/24 Rx omeprazole 20 mg capsule,delayed 20 mg PO BID PRN Heartburn 05/23/21 09/13/24 History release diclofenac sodium 2 % topical 1 packet topical BID 11/01/21 09/13/24 History solution in packet (Pennsaid) nitroglycerin 0.4 mg sublingual 0.4 mg sublingual Q5M PRN Chest 05/20/22 09/13/24 Rx tablet Pain #25 tabs hydroxychloroquine 200 mg tablet 200 mg PO BID 05/23/22 09/13/24 History leflunomide 20 mg tablet 20 mg PO DAILY 03/06/23 09/13/24 History upadacitinib 15 mg tablet,extended 15 mg PO DIRECTED 03/06/23 09/13/24 History release 24 hr (Rinvoq) gabapentin 300 mg capsule See Rx Instructions .Route 02/03/24 09/13/24 Rx .COMPLEX #360 caps buspirone 5 mg tablet See Rx Instructions .Route 03/21/24 09/13/24 Rx .COMPLEX #180 tabs levothyroxine 50 mcg tablet See Rx Instructions .Route 04/14/24 09/13/24 Rx .COMPLEX #90 tabs quetiapine 25 mg tablet See Rx Instructions .Route 04/22/24 09/13/24 Rx .COMPLEX #180 tabs carvedilol 25 mg tablet See Rx Instructions .Route 05/10/24 09/13/24 Rx .COMPLEX #60 tabs losartan 100 See Rx Instructions .Route 05/10/24 09/13/24 Rx mg-hydrochlorothiazide 25 mg tablet .COMPLEX #30 tabs omega 3-uqg-stq-fish oil 1,000 mg 1 cap PO DAILY 05/10/24 09/13/24 History (120 mg-180 mg) capsule (Fish Oil) duloxetine 60 mg capsule,delayed See Rx Instructions .Route 06/23/24 09/13/24 Rx release .COMPLEX #90 ea atorvastatin 20 mg tablet See Rx Instructions .Route 09/07/24 09/13/24 Rx .COMPLEX #90 tabs tramadol 50 mg tablet 50 mg PO Q8H pain #90 tabs 09/09/24 09/13/24 Rx Allergies Allergy/AdvReac Type Severity Reaction Status Date / Time codeine Allergy Severe Swelling Verified 09/13/24 09:42 of Lip/Tongue/Throat Penicillins Allergy Severe Swelling Verified 09/13/24 09:42 of Lip/Tongue/Throat Sulfa (Sulfonamide Allergy Severe Hives Verified 09/13/24 09:42 Antibiotics) Vital Signs Vital Signs - 24 hr 09/13/24 09:35 Temperature 97.7 F Pulse Rate 60 Respiratory Rate 20 Blood Pressure 138/59 L Pulse Oximetry 99 Oxygen Delivery Room Air Exam Narrative: The patient's physical exam is essentially unchanged from prior examination on 08/08/2024. Specifically, patient demonstrates normal lung capacity, tidal volume and respiratory rate without wheezes, crackles, rales or rubs. Heart rate and rhythm are regular without murmurs, gallops or rubs. No JVD. Pulses 2+ globally without increasing peripheral edema. AAOx3 with no evidence of confusion, intoxication or altered mental state, NC/AT without acute distress or altered consciousness. Speech, cognition, mood, insight and judgment at baseline and within normal limits. Assessment and Plan Assessment and plan (1) Lumbosacral spondylosis: Code(s): M47.817 - Spondylosis without myelopathy or radiculopathy, lumbosacral region Status: Acute Assessment and Plan: Proceed as planned with diagnostic/prognostic medial branch blocks of the bilateral L3, L4, L5 medial branches/dorsal ramus(# 2) addressing the bilateral L4-5, L5-S1 facet joints under fluoroscopic guidance and with contrast control. (2) Dorsalgia: Code(s): M54.9 - Dorsalgia, unspecified Status: Acute
--- NOTE | 2024-09-13 10:15 | WPDHPUPDATE1 ---
History and Physical Update Update Date/Time: 09/13/24 10:15 History and Physical has been reviewed, including an updated exam of the patient. There are NO changes in the patient's condition. Risks, benefits, and alternatives have been discussed and questions answered. Patient agrees to proceed with procedure.
--- NOTE | 2024-09-13 10:16 | P.OP_ITS ---
Procedure Note - Detailed Date of Procedure 09/13/24 Pre-op Diagnosis Lumbosacral Spondylosis w/o Radiculopathy or Myelo Post-op Diagnosis Same Procedure Performed Diagnostic bilateral Lumbar Medial Branch/Dorsal Ramus Blocks at L3, L4, L5 Treating the bilateral L4-5, L5-S1 Facet Joints Under Fluoroscopic Guidance and with Contrast Control. (4 levels blocked). Surgeon Dereck Bowden MD Sociology Instructor None. Anesthesia Local Description of Procedure INFORMED CONSENT: Risks, benefits and alternatives to the procedure were discussed in detail with the patient who expressed explicit understanding and consent to proceed. Patient was informed verbally and in written form regarding the risks associated with the procedure including the low risk of serious infection, bleeding/bruising, allergic reaction, nerve or organ injury, paralysis, procedural site pain or discomfort, worsening pain and/or mobility, failure to treat and/or disfigurement. The patient expressed explicit understanding and consent to proceed. All materials required for the procedure were available prior to procedure start. Site and side were marked prior to procedure and confirmed in the presence of the patient. PROCEDURE IN DETAIL: The patient was brought to the procedural suite and placed in the prone position. Patient was made comfortable with use of pillows under the head/chest, hips and ankles. Skin overlying the injection site on the affected side(s) was prepared broadly with ChloraPrep applicator and draped in a sterile manner. Aseptic technique was used throughout. The endplates of the vertebral bodies at the site(s) of interest were aligned in the AP view. I psilateral oblique angulation was utilized to optimize visualization of the intersection between the superior articulating process and transverse process at each target site. Local anesthesia was established by infiltration with approximately 5 mL of 1% lidocaine via a 1-1/2 inch 27-gauge needle. A 25-gauge 5.0 inch Quincke spinal needle was advanced until the needle tip contacted periosteum at the target site, right L3. Lateral view was utilized to confirm the appropriate placement of the needle tip just anterior to the facet line and superior to the pedicle. In the Lateral view, 0.25 mL of Omnipaque 300 contrast medium was injected after negative aspiration for CSF, blood or other bodily fluid, showing appropriate extra-articular spread of contrast without evidence of intravascular, foraminal or intrathecal placement. A 0.5 mL solution of 2.0% PF lidocaine was injected after negative repeat aspiration. Appropriate spread of the injectate was confirmed with washout of previously injected contrast. No parasthesias were elicited. Needle was removed completely intact without difficulty. The same exact procedure was repeated for all remaining levels on the ipsilateral side, right L4, L5 medial branches/dorsal ramus, modified as necessary to accommodate for the new target location with identical findings and results and no evidence of complication. The same exact procedure was repeated for all remaining levels on the contralateral side, left L3, L4, L5 medial branches/dorsal ramus, modified as necessary to accommodate for the new target location with identical findings and results and no evidence of complication. Images were saved and documented in the patient chart. Patient's skin was cleaned and sterile bandage applied. The patient tolerated the procedure well. The patient was transported to the recovery area in stable condition where they were observed for an appropriate amount of time prior to discharge, without evidence of complication. Patient was instructed on the appropriate completion of a pain diary over the next 12-24 hours. The patient was instructed to avoid excessive activity for the next 48 hours, including climbing and frequent use of stairs. Showers only for 48 hours. They were instructed not to drive or operate heavy machinery for 24 hours. They are to monitor for severe headaches, fevers, chills, night sweats, erythema/swelling at the site or any other signs of infection, bleeding/bruising, bowel or bladder changes as well as new pain, weakness or numbness in the upper or lower extremity. Should they notice these changes, they are instructed to call our office immediately or report directly to the nearest Emergency Department if no answer or if after posted office hours. COMPLICATIONS: None COMMENTS: None CONTRAST WASTED: 28.5mL Omnipaque 300. Complications No immediate complications Condition Stable Disposition Same day [facility] Billing Surgery - Charge Forward: Surgery Billing
[2024-09-13 10:46] VITALS: BP 149/70; PULSE 60; RESP 15; O2SAT 97
[2024-09-13 10:51] VITALS: BP 145/66; PULSE 62; RESP 13; O2SAT 97
[2024-09-13 10:56] VITALS: BP 153/69; PULSE 65; RESP 12; O2SAT 99
[2024-09-13] MEDS: LIDOCAINE 1% PF INJ 5 ML VIAL INFILTRATE (10:56)
[2024-09-13] MEDS: LIDOCAINE 2% PF LOCAL INJ 5 ML VIAL INFILTRATE (10:56)
[2024-09-13 11:01] VITALS: BP 131/65; PULSE 59; RESP 14; O2SAT 100
== END 2024-09-13 11:12 | disposition home or self-care (01) ==
PROVIDERS: PCP Family Medicine; Visit Provider Anesthesiology Pain Medicine
PROC: (CPT 64493; principal; 2024-09-13 10:15)
DX: M47.817 Spondylosis without myelopathy or radiculopathy, lumbosacral region (principal); G89.29 Other chronic pain
CPT/HCPCS: 64493 ×2; 64494 ×2; 64495 ×2; 99199

== ENCOUNTER 2024-09-19 08:24 | Emergency (ER) | payer OTHER, SELFPAY ==
--- NOTE | ~2024-09-19 | XR_ITS ---
Clinical Indication: Cough PA and lateral views of the chest: Comparison: 07/02/2022 Findings: The lungs are clear, without evidence of focal consolidation or pleural effusion. Cardiome diastinal silhouette is within normal limits. Bones and soft tissues are unremarkable. Impression: Normal chest. Reviewed, dictated and finalized at location . Impression: Normal chest.
[2024-09-19 08:32] VITALS: BP 153/83; PULSE 63; RESP 20; TEMP 36.6; O2SAT 100
--- OUTSIDE RECORDS SUMMARY | 2024-09-19 08:41 | XMS_ITS | Clinical Summary ---
Author Organization [facility] Address [address] [place] [address] Care Team Providers Care Steel Barrel Reamer Name Role Phone Provider, Abstract Primary Care [...] Comments Blood Pressure 139/87 06/25/2018 9:01 AM CLEANER SIGNS Pulse 74 06/25/2018 9:01 AM CLEANER SIGNS Temperature 36.8 C (98.2 F) 06/25/2018 9:01 AM CLEANER SIGNS Respiratory Rate 17 06/25/2018 9:01 AM CLEANER SIGNS Oxygen Saturation 97% 06/25/2018 9:01 AM CLEANER SIGNS Inhaled Oxygen Concentration - - Weight 76 kg (167 lb 8 oz) 06/25/2018 9:01 AM CS T Height 160 cm (5' 3) 06/25/2018 9:01 AM CLEANER SIGNS Body Mass Index 29.67 06/25/2018 9:01 AM CLEANER SIGNS Plan of Treatment Health Maintenance Due Date [...] series) 2022 INFLUENZA VACCINE (#1) 2023 Insurance [facility] Care Teams Steel Barrel Reamer Relationship Specialty Start Date End Date Provider, Abstract NO ADDRESS ON FILE PCP - General 06/25/18
--- OUTSIDE RECORDS SUMMARY | 2024-09-19 08:41 | XMS_ITS | Encounter Summary ---
Author Organization [facility] Address [address] [place] [address] Phone Care Team Providers Care Senior Technical Business Analyst Name Role Phone Hossein Ribeiro MD Unavailable Rashid Gaffney MD Unavailable [phone] Ray Roberts MD Primary Care Provider Encounter Details Date Type Department Care Team (Latest Contact Info) Description 08/31/2024 Results Follow-Up [facility] [address] [place] [id number] Carlos Coughlin PA [address] [place] [address] C4 complement, CBC with auto differential, Comprehensive metabolic panel, Additional followed-up results: 6 Social History Tobacco Use Types Packs/Day Years Used Date Smoking Tobacco: Never Assessed Comments Unknown Sex and Gender Information Value Date Recorded Sex Assigned at Not on file Legal Sex Female 4:59 PM CDT Gender Identity Female 01/24/2023 8:03 PM CDT Sexual Orientation Not on file documented as of this encounter Plan of Treatment Not on file documented as of this encounter Procedures Procedure Name Priority Date/Time Associated Diagnosis Comments CBC WITH AUTO DIFFERENTIAL Routine 09/13/2024 1:50 PM CDT Lymphopenia documented in this encounter Results * (ABNORMAL) CBC with auto differential (09/13/2024 1:50 PM CDT) Pathologist [facility] WBC 5.9 3.8 - 10.8 Thousand/u L [facility] RBC, POC 4.49 3.80 - 5.10 Million/uL [facility] Hgb 13.3 11.7 - 15.5 g/dL [facility] Hct 41.8 35.0 - 45.0 % [facility] MCV 93.1 80.0 - 100.0 fL [facility] MCH 29.6 27.0 - 33.0 pg [facility] MCHC 31.8(L) 32.0 - 36.0 g/dL [facility] Comment: For adults, a slight decrease in the calculated MCHC value (in the range of 30 to 32 g/dL) is most likely not clinically significant; however, it should be interpreted with caution in correlation with other red cell parameters and the patient's clinical condition. Rdw 13.0 11.0 - 15.0 % [facility] Platelets 270 140 - 400 Thousand/u L [facility] MPV 11.1 7.5 - 12.5 fL [facility] Neutrophils, abs 4,024 1,500 - 7,800 cells/uL [facility] Lymphocytes, abs 1,174 850 - 3,900 cells/uL [facility] Monocyte abs 596 200 - 950 cells/uL [facility] Eosinophils, abs 59 15 - 500 cells/uL [facility] Basophils, abs 47 0 - 200 cells/uL [facility] Neutrophils 68.2 % [facility] Lymphocyte pct 19.9 % [facility] Monocytes 10.1 % [facility] Eosinophils 1.0 % [facility] Basophils 0.8 % [facility] Blood 09/13/2024 1:50 PM CDT 09/13/2024 1:51 PM CDT Narrative [facility] - 09/14/2024 5:50 AM CDT FASTING:NO FASTING: NO Carlos HUITRON LAB BLOOD ORDERABLES Fi nal Result [facility] [address] [place] [address] documented in this encounter Visit Diagnoses Diagnosis Lymphopenia- Primary Lymphocytopenia documented in this encounter Care Teams Senior Technical Business Analyst Relationship Specialty Start Date End Date Ray Roberts MD [address] [place] [address] PCP - General Family Medicine 04/11/24 Hossein Ribeiro MD [address] [place] [address] Referring Physician Neurology 09/21/19 Rashid Gaffney MD [address] [place] [address] Consulting Physician Rheumatology 04/24/23 documented as of this encounter
--- OUTSIDE RECORDS SUMMARY | 2024-09-19 08:41 | XMS_ITS | Referral Summary ---
Author Organization [facility] [address] [facility] Address [address] [place] [phone] Phone Care Team Providers Care Therapeutic Dietitian Name Role Phone Hossein Ribeiro MD Unavailable Rashid Gaffney MD Unavailable [phone] Ray Roberts MD Primary Care Provider Encounters Date Type Department Care Team Description 08/31/2024 Results Follow-Up [facility] [address] [place] [phone] Carlos Coughlin PA C4 complement, CBC with auto differential, Comprehensive metabolic panel, Additional followed-up results: 6 08/30/2024 3:00 PM CDT Office Visit [facility] [address] [place] [phone] Carlos Coughlin PA Systemic lupus erythematosus, unspecified SLE type, unspecified organ involvement status (HCC) (Primary Dx); Seropositive rheumatoid arthritis (HCC); Fibromyalgia; Encounter for long-term (current) use of medications 08/09/2024 Results Follow-Up [facility] [address] [place] [phone] Carlos Coughlin PA C4 complement, CBC with auto differential, Comprehensive metabolic panel, Additional followed-up results: 5 08/08/2024 8:45 AM CDT Office Visit [facility] [address] [place] [phone] Carlos Coughlin PA Lymphocytopenia (Primary Dx); [...] TOTAL VOLUME OF 2000ML 12/16/19 Active rizatriptan TRACTOR EXPERT (MAXALT-TRACTOR EXPERT) 10 mg disintegrating tablet TAKE ONE TABLET BY MOUTH NEEDED FOR MIGRAINE HEADACHE. MAY REPEAT DOSE ONCE IN TWO HOURS 02/14/20 Active traMADoL (ULTRAM) 50 mg tablet Take 50 mg by mouth every 6 (six) hours as needed Active traZODone (DESYREL) 50 mg tablet Take 50 mg by mouth nightly 11/25/[address] (CYMBALTA) 30 mg capsule [...] 2 (two) times a day 180 tablet 08/09/19 25 Active leflunomide (ARAVA) 20 mg tablet Take 1 tablet (20 mg total) by mouth daily 90 tablet 08/09/19 25 Active Rinvoq 15 mg extended release tablet TAKE 1 TABLET BY MOUTH DAILY 30 tablet 2 09/14/19 25 Active Rinvoq 15 mg extended release tablet TAKE 1 TABLET BY MOUTH DAILY 30 tablet 2 06/09/19 25 025 Discontinued Hospital, Clinic, or Other Facility Administered Medication [...] L5. Assessment & Plan (06/13/2022 12:34 PM DISABILITY MANAGER): C-spine x-ray 05/15/2022: Minimal degenerative changes at [...] complaints. Assessment & Plan (05/15/2022 10:14 AM DISABILITY MANAGER): Will obtain imaging and send to physical therapy. Primary hypertension 05/15/2022 Assessment & Plan (05/15/2022 2:20 PM DISABILITY MANAGER): Following with PCP and is to reach [...] p.r.n. Assessment & Plan (05/09/2024 11:00 AM DISABILITY MANAGER): Seropositive RA given prior elevated rheumatoid factor [...] p.r.n. Assessment & Plan (04/11/2024 9:56 AM DISABILITY MANAGER): Seropositive RA given prior elevated rheumatoid factor [...] p.r.n.. Assessment & Plan (04/07/2023 10:55 AM DISABILITY MANAGER): Seropositive RA given prior elevated rheumatoid factor [...] p.r.n.. Assessment & Plan (06/13/2022 12:34 PM DISABILITY MANAGER): As discussed above, seropositive RA given prior [...] b.i.d.. Assessment & Plan (05/15/2022 10:12 AM DISABILITY MANAGER): As discussed above, seropositive RA given prior [...] b.i.d.. Assessment & Plan (04/26/2021 9:30 AM DISABILITY MANAGER): As discussed above, concern for seropositive RA [...] daily. Assessment & Plan (06/11/2020 1:03 PM DISABILITY MANAGER): As discussed above, concern for seropositive RA given prior elevated rheumatoid factor and erosions seen on ultrasound. Appears fairly well controlled. Continue Plaquenil 200 mg b.i.d., xeljanz xr 11 mg daily. Assessment & Plan (04/11/2020 12:03 PM DISABILITY MANAGER): As discussed above, concern for seropositive RA given prior elevated rheumatoid factor and erosions seen on ultrasound. Will stop Orencia and azathioprine due to lack of benefit and begin approval for Xeljanz XR 11 mg daily. Continue Plaquenil 200 mg b.i.d.. Assessment & Plan (03/19/2020 9:49 AM DISABILITY MANAGER): As discussed above, concern for seropositive RA [...] exercise. Assessment & Plan (05/09/2024 11:01 AM DISABILITY MANAGER): Stable. Continue Cymbalta 60 mg daily, gabapentin 300 mg qid per Neurology. Previously switched from Lyrica for insurance reasons. Encourage routine exercise. Assessment & Plan (04/11/2024 9:57 AM DISABILITY MANAGER): Stable. Continue Cymbalta 60 mg daily, gabapentin [...] exercise. Assessment & Plan (04/07/2023 12:50 PM DISABILITY MANAGER): Stable. Continue Cymbalta 60 mg daily, gabapentin [...] exercise. Assessment & Plan (06/13/2022 12:35 PM DISABILITY MANAGER): Continue Cymbalta 30 mg daily. Continue gabapentin 300 mg q.a.m., 300 mg midday, 600 mg q.p.m. per neurology. Previous switch from Lyrica for insurance reasons. Encourage routine exercise. Assessment & Plan (05/15/2022 10:15 AM DISABILITY MANAGER): Stable. Continue Cymbalta 30 mg daily. Continue [...] exercise. Assessment & Plan (04/26/2021 9:31 AM DISABILITY MANAGER): Stable. Continue Cymbalta and gabapentin 100 mg [...] exercise. Assessment & Plan (06/11/2020 1:06 PM DISABILITY MANAGER): Stable. Continue Cymbalta. On Lyrica 300 mg 1-2 times daily per PCP. Encourage routine exercise. Assessment & Plan (04/11/2020 12:07 PM DISABILITY MANAGER): Stable. Continue Cymbalta. On Lyrica 300 mg 1-2 times daily per PCP. Encourage routine exercise. Assessment & Plan (03/19/2020 9:50 AM DISABILITY MANAGER): As discussed at last visit, continue to [...] exercise. Assessment & Plan (04/01/2019 12:29 PM DISABILITY MANAGER): FM may be contributing to some of [...] benefit. Assessment & Plan (04/01/2019 12:26 PM DISABILITY MANAGER): Bilateral CMC bracing has offered benefit. Assessment [...] L4 on L5. Had L-spine MRI from [facility] and is following with pain management. Has completed physical therapy. Following with pain management. Has received several injections in the lower back since last visit without significant relief. Scheduled to follow up with pain management later today. Is considering surgical intervention. Has been using tramadol and Tylenol with some relief in symptoms. Assessment & Plan (05/09/2024 11:02 AM DISABILITY MANAGER): C-spine x-ray 05/15/2022: Minimal degenerative changes at C3-C4 and C4-C5 SI joint x-ray 05/15/2022: WNL L-spine x-ray 05/15/2022: 5 mm anterolisthesis of L4 on L5. Had L-spine MRI from [facility] and is following with pain management. Has completed physical therapy. Following with pain management. Is currently going to physical therapy. Is scheduled for repeat L-spine epidural steroid injection with pain management tomorrow. Is following with orthopedic surgeon with discussions for potential surgical intervention regarding the lower back. Assessment & Plan (04/11/2024 9:57 AM DISABILITY MANAGER): C-spine x-ray 05/15/2022: Minimal degenerative changes at C3-C4 and C4-C5 SI joint x-ray 05/15/2022: WNL L-spine x-ray 05/15/2022: 5 mm anterolisthesis of L4 on L5. Had L-spine MRI from [facility] and is following with pain management. [...] L4 on L5. Had L-spine MRI from [facility] and is following with pain management. [...] L4 on L5. Had L-spine MRI from [facility] and is following with pain management. Received epidural injection yesterday afternoon and continues to go to physical therapy. She defers surgical intervention at this time. Continue to follow with pain management. Assessment & Plan (06/13/2022 12:35 PM DISABILITY MANAGER): C-spine x-ray 05/15/2022: Minimal degenerative changes at [...] Will track down recent L-spine MRI from [facility]. Assessment & Plan (05/15/2022 10:14 AM DISABILITY MANAGER): Primary complaint is significant lower back pain [...] today. Assessment & Plan (04/01/2019 12:28 PM DISABILITY MANAGER): History of L4/L5/S1 OA in the lower [...] 06/04/2018 Assessment & Plan (06/04/2018 10:18 AM DISABILITY MANAGER): Insomnia symptoms at night. Discussed use of black noise machine. also reports that she snores. Would recommend sleep study, although discuss further with PCP. Right hand pain 05/07/2018 Assessment & Plan (05/07/2018 10:54 AM DISABILITY MANAGER): Patient jammed right 1st digit and has [...] years. Assessment & Plan (06/04/2018 10:14 AM DISABILITY MANAGER): Did not obtain DEXA at last visit, will obtain in the near future. Order placed again. Assessment & Plan (05/07/2018 10:56 AM DISABILITY MANAGER): Recently non-displaced lateral malleolus fracture after rolling her ankle. Is at increased risk for osteoporosis with SLE. Will check dexa scan today. Confusion 03/03/2018 Right hip pain 02/26/2018 Assessment & Plan (06/04/2018 10:15 AM DISABILITY MANAGER): Patient does continue to have some mild pain in the right hip / groin region. Most recent hip x-ray was negative. Has complaints are minimal, we will just monitor at this time. If symptoms progress, would consider right hip MRI. Assessment & Plan (05/07/2018 10:52 AM DISABILITY MANAGER): Denies major complaints today. Most recent right hip x-ray was negative. If symptoms do worsen, would consider right hip MRI. Assessment & Plan (03/26/2018 9:57 AM DISABILITY MANAGER): Right hip pain with accompanying morning stiffness persists. Localizes over the right hip/ groin region, although no pain elicited with internal and external rotation. Recent right hip x-ray was negative. If symptoms persist, will consider right hip MRI at next visit. Assessment & Plan (02/26/2018 10:24 AM DISABILITY MANAGER): Right hip pain, which she does note [...] 12/15/2017 Assessment & Plan (06/04/2018 10:16 AM DISABILITY MANAGER): Still awaiting to schedule with Neurology for further evaluation of these symptoms. Assessment & Plan (05/07/2018 10:52 AM DISABILITY MANAGER): Has not scheduled with Neurology, which was discussed at the last couple of visits. Will be scheduling in the near future. Assessment & Plan (03/26/2018 10:29 AM DISABILITY MANAGER): As discussed at last visit, given her confusion symptoms, as well as headaches , would recommend further evaluation with Neurology. Assessment & Plan (02/26/2018 10:23 AM DISABILITY MANAGER): Continues to note persistent headaches, as well [...] 06/2019 Assessment & Plan (05/09/2024 11:01 AM DISABILITY MANAGER): DEXA 02/05/2023: L-spine-1.3, left femoral neck-1.4, left total hip-0.7, right femoral neck -0.8, right total hip -0.4 FRAX: 9.6/0.8. On vitamin-D supplementation per PCP recommendations Routine labs today. Continue routine eye exams. Normal TPMT 03/2018 Neg quant 06/2019 Assessment & Plan (04/11/2024 9:56 AM DISABILITY MANAGER): DEXA 02/05/2023: L-spine-1.3, left femoral neck-1.4, left [...] 06/2019 Assessment & Plan (04/07/2023 12:50 PM DISABILITY MANAGER): DEXA 02/05/2023: L-spine-1.3, left femoral neck-1.4, left [...] 06/2019 Assessment & Plan (04/26/2021 9:30 AM DISABILITY MANAGER): Routine labs today. Continue routine eye exams. [...] 06/2019 Assessment & Plan (06/11/2020 1:04 PM DISABILITY MANAGER): Routine labs today. Continue routine eye exams. Normal TPMT 03/2018 Neg quant 06/2019 Assessment & Plan (04/11/2020 12:04 PM DISABILITY MANAGER): Routine labs today. Continue routine eye exams. Normal TPMT 03/2018 Neg quant 06/2019 Assessment & Plan (03/19/2020 9:50 AM DISABILITY MANAGER): Routine labs today. Continue routine eye exams. [...] 03/2018 Assessment & Plan (04/01/2019 12:27 PM DISABILITY MANAGER): Routine labs today. Continue routine eye exams. [...] today. Assessment & Plan (06/04/2018 10:16 AM DISABILITY MANAGER): Routine labs today. Continue routine eye exams. Normal TPMT 03/2018 Routine labs today. Assessment & Plan (05/07/2018 10:53 AM DISABILITY MANAGER): Routine labs today. Continue routine eye exams. Normal TPMT 03/2018 Routine labs today. Recheck CBC in 2 weeks. Assessment & Plan (03/26/2018 9:57 AM DISABILITY MANAGER): Routine labs today. Continue routine eye exams. Routine labs today, including TP MT. Recheck CBC in 2 weeks. Assessment & Plan (02/26/2018 10:25 AM DISABILITY MANAGER): Routine labs today. Continue routine eye exams. [...] warmers. Assessment & Plan (04/26/2021 9:30 AM DISABILITY MANAGER): Persistent intermittent Raynaud/acrocyanosis symptoms in the feet>hands. [...] warmers. Assessment & Plan (06/11/2020 1:04 PM DISABILITY MANAGER): Persistent intermittent Raynaud symptoms in the feet>hands. [...] fingers. Assessment & Plan (04/01/2019 12:27 PM DISABILITY MANAGER): Mild occasional Raynaud's in the feet without [...] needed. Assessment & Plan (05/09/2024 11:01 AM DISABILITY MANAGER): CDAI 7. Had significant benefit with Kenalog [...] needed. Assessment & Plan (04/11/2024 9:55 AM DISABILITY MANAGER): CDAI 21. Since last visit, has had [...] needed. Assessment & Plan (04/07/2023 10:54 AM DISABILITY MANAGER): CDAI 13. Since last visit, has noted [...] needed Assessment & Plan (06/13/2022 12:33 PM DISABILITY MANAGER): CDAI 16. Presents due to a flare. [...] needed. Assessment & Plan (05/15/2022 10:11 AM DISABILITY MANAGER): CDAI 9. Overall, peripheral joints have done [...] needed. Assessment & Plan (04/26/2021 9:28 AM DISABILITY MANAGER): CDAI 18. Since last visit, has experienced [...] needed. Assessment & Plan (06/11/2020 1:02 PM DISABILITY MANAGER): CDAI 9. Since last visit, patient has [...] needed. Assessment & Plan (04/11/2020 12:06 PM DISABILITY MANAGER): CDAI 40. Patient returns today due to [...] osteoporosis. Assessment & Plan (03/19/2020 9:51 AM DISABILITY MANAGER): Tele health visit. 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 A.m. stiffness for 60 minutes. Denies [...] needed. Assessment & Plan (04/01/2019 12:26 PM DISABILITY MANAGER): CDAI 0. Denies much peripheral joint complaints [...] needed. Assessment & Plan (06/04/2018 10:14 AM DISABILITY MANAGER): Initial serologies:pos loudres 1:640 dense fine speckled. + CB-CAP BC4D, [...] needed. Assessment & Plan (05/07/2018 10:51 AM DISABILITY MANAGER): Initial serologies:pos lourdes 1:640 dense fine speckled. [...] injection. Assessment & Plan (03/26/2018 10:28 AM DISABILITY MANAGER): Initial serologies:pos lourdes 1:640 dense fine speckled. [...] today. Assessment & Plan (02/26/2018 12:08 PM DISABILITY MANAGER): Initial serologies:pos lourdes 1:640 dense fine speckled. 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 Advised to do this DARÍO. Routine labs [...] [place]. Assessment & Plan (04/26/2021 9:31 AM DISABILITY MANAGER): A primary complaint persistent neuropathic pain in [...] heme. Assessment & Plan (06/11/2020 1:03 PM DISABILITY MANAGER): Follows with heme. Assessment & Plan (04/11/2020 12:04 PM DISABILITY MANAGER): Follows with heme. Assessment & Plan (03/19/2020 9:50 AM DISABILITY MANAGER): Follows with heme. Assessment & Plan (02/17/2020 [...] Hematology. Assessment & Plan (04/01/2019 12:26 PM DISABILITY MANAGER): Following with Hematology. Assessment & Plan (12/31/2018 12:45 PM CDT): Continue to follow with Hematology Assessment & Plan (10/01/2018 10:48 AM CDT): Continue to follow with hematology. Assessment & Plan (07/23/2018 9:05 AM CDT): Continue to follow with Hematology. Assessment & Plan (06/04/2018 10:15 AM DISABILITY MANAGER): Continue to follow with Hematology. Assessment & Plan (05/07/2018 10:52 AM DISABILITY MANAGER): Continue to follow with Hematology. Assessment & Plan (03/26/2018 10:29 AM DISABILITY MANAGER): Continue to follow with Hematology. Assessment & Plan (02/26/2018 10:25 AM DISABILITY MANAGER): Following with Hematology for this issue. Will [...] 36.5 C (97.7 F) 04/26/2021 8:51 AM DISABILITY MANAGER Respiratory Rate - - Oxygen Saturation 95% 08/30/2024 2:23 PM CDT Inhaled Oxygen Concentration - - Weight 80.7 kg (178 lb) 08/30/2024 2:23 PM CDT Height 162.6 cm (5' 4) 08/30/2024 2:23 PM CDT Body Mass Index 30.55 08/30/2024 2:23 PM CDT Plan of Treatment Not on file Procedures Procedure Name Priority Date/Time Associated Diagnosis Comments CBC WITH AUTO DIFFERENTIAL Routine 09/13/2024 1:50 PM CDT Lymphopenia C3 COMPLEMENT Routine 08/30/2024 2:56 PM CDT [...] medications from Last 3 Months Results * (ABNORMAL) CBC with auto differential (09/13/2024 1:50 PM CDT) Pathologist [facility] WBC 5.9 3.8 - 10.8 Thousand/u L [...] ORDERABLES Fi nal Result Performing Organization Address [facility] Co de Phone Number [facility] [address] [place] [address] * Anti-double stranded DNA abs (08/30/2024 2:56 PM CDT) DNA (DS) ab <1 IU/mL [facility] Comment: IU/mL Interpretation < or = 4 Negative 5-9 Indeterminate > or = 10 Positive Blood 08/30/2024 2:56 PM CDT 08/30/2024 2:58 PM CDT [facility] LAB BLOOD ORDERABLES Fi nal Result Performing Organization Address [facility] de Phone Number [facility] [address] [place] [address] * C4 complement (08/30/2024 2:56 PM CDT) Complement component C4C 26 15 - 57 mg/dL [facility] Blood 08/30/2024 2:56 PM CDT 08/30/2024 2:58 PM CDT Carlos [facility] LAB BLOOD ORDERABLES Fi nal Result Performing Organization Address [facility] Co de Phone Number [facility] [address] [place] [address] * (ABNORMAL) CBC with auto differential (08/30/2024 2:56 PM CDT) [facility] WBC 6.1 3.8 - 10.8 Thousand/u L [...] ORDERABLES Fi nal Result Performing Organization Address [facility] de Phone Number [facility] [address] [place] [address] * Protein / creatinine ratio, urine, random [...] ORDERABLES Fi nal Result Performing Organization Address [facility] Phone Number [facility] [address] [place] [address] * Erythrocyte sedimentation rate (08/30/2024 2:56 PM CDT) Erythrocyte sedimentation rate 14 < OR = 30 mm/h [facility] Blood 08/30/2024 2:56 PM CDT 08/30/2024 2:58 PM CDT Carlos [facility] LAB BLOOD ORDERABLES Fi nal Result Performing Organization Address [facility] de Phone Number [facility] [address] [place] [address] * C3 complement (08/30/2024 2:56 PM CDT) Complement component C3C 145 83 - 193 mg/dL [facility] Blood 08/30/2024 2:56 PM CDT 08/30/2024 2:58 PM CDT Carlos [facility] LAB BLOOD ORDERABLES Fi nal Result Performing Organization Address City/[facility]/ZIP Co de Phone Number [facility] [address] [place] [address] * (ABNORMAL) CRP (acute phase) (08/30/2024 2:56 PM CDT) Pathologist [facility] C-RP 9.8(H) <8.0 mg/L [facility] Blood 08/30/2024 2:56 PM CDT 08/30/2024 2:58 PM CDT Carlos [facility] LAB BLOOD ORDERABLES Fi nal Result Performing Organization Address [facility] Co de Phone Number [facility] [address] [place] [address] * (ABNORMAL) Comprehensive metabolic panel (08/30/2024 2:56 PM CDT) Pathologist [facility] Glucose 100(H) 65 - 99 mg/dL [facility] [...] ORDERABLES Fi nal Result Performing Organization Address City/[facility]/ZIP Co de Phone Number [facility] [address] [place] [address] * Anti-double stranded DNA abs (08/08/2024 9:09 AM CDT) DNA (DS) ab <1 IU/mL [facility] Comment: IU/mL Interpretation < or = 4 Negative 5-9 Indeterminate > or = 10 Positive Blood 08/08/2024 9:09 AM CDT 08/08/2024 9:10 AM CDT Carlos [facility] LAB BLOOD ORDERABLES Fi nal Result Performing Organization Address City/[facility]/ZIP Co de Phone Number [facility] [address] [place] [address] * C4 complement (08/08/2024 9:09 AM CDT) Complement component C4C 27 15 - 57 mg/dL [facility] Blood 08/08/2024 9:09 AM CDT 08/08/2024 9:10 AM CDT Carlos [facility] LAB BLOOD ORDERABLES Fi nal Result [facility] [address] [place] [place] [phone] * CBC with auto differential (08/08/2024 9:09 AM CDT) [facility] WBC 7.1 3.8 - 10.8 Thousand/u L [...] ORDERABLES Fi nal Result Performing Organization Address [facility] de Phone Number [facility] [address] [place] [address] * Protein / creatinine ratio, urine, random [...] ORDERABLES Fi nal Result Performing Organization Address [facility] de Phone Number [facility] [address] [place] [address] * Erythrocyte sedimentation rate (08/08/2024 9:09 AM CDT) Erythrocyte sedimentation rate 9 < OR = 30 mm/h [facility] Blood 08/08/2024 9:09 AM CDT 08/08/2024 9:10 AM CDT Carlos [facility] LAB BLOOD ORDERABLES Fi nal Result Performing Organization Address [facility] Co de Phone Number [facility] [address] [place] [address] * C3 complement (08/08/2024 9:09 AM CDT) Complement component C3C 141 83 - 193 mg/dL [facility] Blood 08/08/2024 9:09 AM CDT 08/08/2024 9:10 AM CDT Carlos [facility] LAB BLOOD ORDERABLES Fi nal Result Performing Organization Address City/[facility]/ZIP Co de Phone Number [facility] [address] [place] [address] * CRP (acute phase) (08/08/2024 9:09 AM CDT) C-RP <3.0 <8.0 mg/L [facility] Blood 08/08/2024 9:09 AM CDT 08/08/2024 9:10 AM CDT Carlos [facility] LAB BLOOD ORDERABLES [facility] Result Performing Organization Address [facility] de Phone Number [facility] [address] [place] [address] * (ABNORMAL) Comprehensive metabolic panel (08/08/2024 9:09 [...] LAB BLOOD ORDERABLES nal Result [facility] [address] [place] [address] from Last 3 Months Insurance [facility] [address] [place] [id number] [facility] MEDICARE MEDICARE [facility] Care Teams Therapeutic Dietitian Relationship Specialty Start Date End Date Ray Roberts MD [address] [facility] [address] [place] [address] PCP - General Family Medicine 04/11/24 Hossein Ribeiro MD [address] [place], [place] [id number] Referring Physician Neurology 09/21/19 Rashid Gaffney MD [address] [place] [address] Consulting Physician Rheumatology 04/24/23
--- OUTSIDE RECORDS SUMMARY | 2024-09-19 08:41 | XMS_ITS | Encounter Summary ---
Author Organization [facility] Address [address] [place] [address] Phone Care Team Providers Care Bobbin Trucker Name Role Phone Hossein Ribeiro MD Unavailable Rashid Gaffney MD Unavailable [phone] Ray Roberts MD Primary Care Provider Encounter Details Date Type Department Care Team (Latest Contact Info) Description 08/09/2024 Results Follow-Up [facility] [address] [place] [phone] Carlos Coughlin PA [address] [place] [address] C4 complement, CBC with auto [...] on filedocumented in this encounter Care Teams Bobbin Trucker Relationship Specialty Start Date End Date Ray Roberts MD [address] [address] PCP - General Family Medicine 04/11/24 Hossein Ribeiro MD [address] [address] Referring Physician Neurology 09/21/19 Rashid Gaffney MD [address] [place] [address] Consulting Physician Rheumatology 04/24/23 documented as of this encounter
--- OUTSIDE RECORDS SUMMARY | 2024-09-19 08:41 | XMS_ITS | Clinical Summary ---
Author Organization [facility] [address] [facility] Address [address] [place] [phone] Phone Care Team Providers Care Drawstring Knotter Name Role Phone Hossein Ribeiro MD Unavailable Rashid Gaffney MD Unavailable [phone] Ray Roberts MD Primary Care Provider Allergies [...] TOTAL VOLUME OF 2000ML 12/16/19 Active rizatriptan CERTIFIED DRUG COUNSELOR (MAXALT-CERTIFIED DRUG COUNSELOR) 10 mg disintegrating tablet TAKE ONE TABLET [...] L5. Assessment & Plan (06/13/2022 12:34 PM INTEL ANALYST): C-spine x-ray 05/15/2022: Minimal degenerative changes at [...] complaints. Assessment & Plan (05/15/2022 10:14 AM INTEL ANALYST): Will obtain imaging and send to physical therapy. Primary hypertension 05/15/2022 Assessment & Plan (05/15/2022 2:20 PM INTEL ANALYST): Following with PCP and is to reach [...] p.r.n. Assessment & Plan (05/09/2024 11:00 AM INTEL ANALYST): Seropositive RA given prior elevated rheumatoid factor [...] p.r.n. Assessment & Plan (04/11/2024 9:56 AM INTEL ANALYST): Seropositive RA given prior elevated rheumatoid factor [...] p.r.n.. Assessment & Plan (04/07/2023 10:55 AM INTEL ANALYST): Seropositive RA given prior elevated rheumatoid factor [...] p.r.n.. Assessment & Plan (06/13/2022 12:34 PM INTEL ANALYST): As discussed above, seropositive RA given prior [...] b.i.d.. Assessment & Plan (05/15/2022 10:12 AM INTEL ANALYST): As discussed above, seropositive RA given prior [...] b.i.d.. Assessment & Plan (04/26/2021 9:30 AM INTEL ANALYST): As discussed above, concern for seropositive RA [...] daily. Assessment & Plan (06/11/2020 1:03 PM INTEL ANALYST): As discussed above, concern for seropositive RA given prior elevated rheumatoid factor and erosions seen on ultrasound. Appears fairly well controlled. Continue Plaquenil 200 mg b.i.d., xeljanz xr 11 mg daily. Assessment & Plan (04/11/2020 12:03 PM INTEL ANALYST): As discussed above, concern for seropositive RA given prior elevated rheumatoid factor and erosions seen on ultrasound. Will stop Orencia and azathioprine due to lack of benefit and begin approval for Xeljanz XR 11 mg daily. Continue Plaquenil 200 mg b.i.d.. Assessment & Plan (03/19/2020 9:49 AM INTEL ANALYST): As discussed above, concern for seropositive RA [...] exercise. Assessment & Plan (05/09/2024 11:01 AM INTEL ANALYST): Stable. Continue Cymbalta 60 mg daily, gabapentin 300 mg qid per Neurology. Previously switched from Lyrica for insurance reasons. Encourage routine exercise. Assessment & Plan (04/11/2024 9:57 AM INTEL ANALYST): Stable. Continue Cymbalta 60 mg daily, gabapentin [...] exercise. Assessment & Plan (04/07/2023 12:50 PM INTEL ANALYST): Stable. Continue Cymbalta 60 mg daily, gabapentin [...] exercise. Assessment & Plan (06/13/2022 12:35 PM INTEL ANALYST): Continue Cymbalta 30 mg daily. Continue gabapentin 300 mg q.a.m., 300 mg midday, 600 mg q.p.m. per neurology. Previous switch from Lyrica for insurance reasons. Encourage routine exercise. Assessment & Plan (05/15/2022 10:15 AM INTEL ANALYST): Stable. Continue Cymbalta 30 mg daily. Continue [...] exercise. Assessment & Plan (04/26/2021 9:31 AM INTEL ANALYST): Stable. Continue Cymbalta and gabapentin 100 mg [...] exercise. Assessment & Plan (06/11/2020 1:06 PM INTEL ANALYST): Stable. Continue Cymbalta. On Lyrica 300 mg 1-2 times daily per PCP. Encourage routine exercise. Assessment & Plan (04/11/2020 12:07 PM INTEL ANALYST): Stable. Continue Cymbalta. On Lyrica 300 mg 1-2 times daily per PCP. Encourage routine exercise. Assessment & Plan (03/19/2020 9:50 AM INTEL ANALYST): As discussed at last visit, continue to [...] exercise. Assessment & Plan (04/01/2019 12:29 PM INTEL ANALYST): FM may be contributing to some of [...] benefit. Assessment & Plan (04/01/2019 12:26 PM INTEL ANALYST): Bilateral CMC bracing has offered benefit. Assessment [...] L4 on L5. Had L-spine MRI from [facility] and is following with pain management. Has completed physical therapy. Following with pain management. Has received several injections in the lower back since last visit without significant relief. Scheduled to follow up with pain management later today. Is considering surgical intervention. Has been using tramadol and Tylenol with some relief in symptoms. Assessment & Plan (05/09/2024 11:02 AM INTEL ANALYST): C-spine x-ray 05/15/2022: Minimal degenerative changes at C3-C4 and C4-C5 SI joint x-ray 05/15/2022: WNL L-spine x-ray 05/15/2022: 5 mm anterolisthesis of L4 on L5. Had L-spine MRI from [facility] and is following with pain management. Has completed physical therapy. Following with pain management. Is currently going to physical therapy. Is scheduled for repeat L-spine epidural steroid injection with pain management tomorrow. Is following with orthopedic surgeon with discussions for potential surgical intervention regarding the lower back. Assessment & Plan (04/11/2024 9:57 AM INTEL ANALYST): C-spine x-ray 05/15/2022: Minimal degenerative changes at C3-C4 and C4-C5 SI joint x-ray 05/15/2022: WNL L-spine x-ray 05/15/2022: 5 mm anterolisthesis of L4 on L5. Had L-spine MRI from [facility] and is following with pain management. [...] L4 on L5. Had L-spine MRI from [facility] and is following with pain management. [...] L4 on L5. Had L-spine MRI from [facility] and is following with pain management. Received epidural injection yesterday afternoon and continues to go to physical therapy. She defers surgical intervention at this time. Continue to follow with pain management. Assessment & Plan (06/13/2022 12:35 PM INTEL ANALYST): C-spine x-ray 05/15/2022: Minimal degenerative changes at [...] Will track down recent L-spine MRI from [facility]. Assessment & Plan (05/15/2022 10:14 AM INTEL ANALYST): Primary complaint is significant lower back pain [...] today. Assessment & Plan (04/01/2019 12:28 PM INTEL ANALYST): History of L4/L5/S1 OA in the lower [...] 06/04/2018 Assessment & Plan (06/04/2018 10:18 AM INTEL ANALYST): Insomnia symptoms at night. Discussed use of black noise machine. also reports that she snores. Would recommend sleep study, although discuss further with PCP. Right hand pain 05/07/2018 Assessment & Plan (05/07/2018 10:54 AM INTEL ANALYST): Patient jammed right 1st digit and has [...] years. Assessment & Plan (06/04/2018 10:14 AM INTEL ANALYST): Did not obtain DEXA at last visit, will obtain in the near future. Order placed again. Assessment & Plan (05/07/2018 10:56 AM INTEL ANALYST): Recently non-displaced lateral malleolus fracture after rolling her ankle. Is at increased risk for osteoporosis with SLE. Will check dexa scan today. Confusion 03/03/2018 Right hip pain 02/26/2018 Assessment & Plan (06/04/2018 10:15 AM INTEL ANALYST): Patient does continue to have some mild pain in the right hip / groin region. Most recent hip x-ray was negative. Has complaints are minimal, we will just monitor at this time. If symptoms progress, would consider right hip MRI. Assessment & Plan (05/07/2018 10:52 AM INTEL ANALYST): Denies major complaints today. Most recent right hip x-ray was negative. If symptoms do worsen, would consider right hip MRI. Assessment & Plan (03/26/2018 9:57 AM INTEL ANALYST): Right hip pain with accompanying morning stiffness persists. Localizes over the right hip/ groin region, although no pain elicited with internal and external rotation. Recent right hip x-ray was negative. If symptoms persist, will consider right hip MRI at next visit. Assessment & Plan (02/26/2018 10:24 AM INTEL ANALYST): Right hip pain, which she does note [...] 12/15/2017 Assessment & Plan (06/04/2018 10:16 AM INTEL ANALYST): Still awaiting to schedule with Neurology for further evaluation of these symptoms. Assessment & Plan (05/07/2018 10:52 AM INTEL ANALYST): Has not scheduled with Neurology, which was discussed at the last couple of visits. Will be scheduling in the near future. Assessment & Plan (03/26/2018 10:29 AM INTEL ANALYST): As discussed at last visit, given her confusion symptoms, as well as headaches , would recommend further evaluation with Neurology. Assessment & Plan (02/26/2018 10:23 AM INTEL ANALYST): Continues to note persistent headaches, as well [...] 06/2019 Assessment & Plan (05/09/2024 11:01 AM INTEL ANALYST): DEXA 02/05/2023: L-spine-1.3, left femoral neck-1.4, left total hip-0.7, right femoral neck -0.8, right total hip -0.4 FRAX: 9.6/0.8. On vitamin-D supplementation per PCP recommendations Routine labs today. Continue routine eye exams. Normal TPMT 03/2018 Neg quant 06/2019 Assessment & Plan (04/11/2024 9:56 AM INTEL ANALYST): DEXA 02/05/2023: L-spine-1.3, left femoral neck-1.4, left [...] 06/2019 Assessment & Plan (04/07/2023 12:50 PM INTEL ANALYST): DEXA 02/05/2023: L-spine-1.3, left femoral neck-1.4, left [...] 06/2019 Assessment & Plan (04/26/2021 9:30 AM INTEL ANALYST): Routine labs today. Continue routine eye exams. [...] 06/2019 Assessment & Plan (06/11/2020 1:04 PM INTEL ANALYST): Routine labs today. Continue routine eye exams. Normal TPMT 03/2018 Neg quant 06/2019 Assessment & Plan (04/11/2020 12:04 PM INTEL ANALYST): Routine labs today. Continue routine eye exams. Normal TPMT 03/2018 Neg quant 06/2019 Assessment & Plan (03/19/2020 9:50 AM INTEL ANALYST): Routine labs today. Continue routine eye exams. [...] 03/2018 Assessment & Plan (04/01/2019 12:27 PM INTEL ANALYST): Routine labs today. Continue routine eye exams. [...] today. Assessment & Plan (06/04/2018 10:16 AM INTEL ANALYST): Routine labs today. Continue routine eye exams. Normal TPMT 03/2018 Routine labs today. Assessment & Plan (05/07/2018 10:53 AM INTEL ANALYST): Routine labs today. Continue routine eye exams. Normal TPMT 03/2018 Routine labs today. Recheck CBC in 2 weeks. Assessment & Plan (03/26/2018 9:57 AM INTEL ANALYST): Routine labs today. Continue routine eye exams. Routine labs today, including TP MT. Recheck CBC in 2 weeks. Assessment & Plan (02/26/2018 10:25 AM INTEL ANALYST): Routine labs today. Continue routine eye exams. [...] warmers. Assessment & Plan (04/26/2021 9:30 AM INTEL ANALYST): Persistent intermittent Raynaud/acrocyanosis symptoms in the feet>hands. [...] warmers. Assessment & Plan (06/11/2020 1:04 PM INTEL ANALYST): Persistent intermittent Raynaud symptoms in the feet>hands. [...] fingers. Assessment & Plan (04/01/2019 12:27 PM INTEL ANALYST): Mild occasional Raynaud's in the feet without [...] neurologist norma hernandez On Plaquenil 200 b.i.d., seth Assessment & Plan (08/30/2024 2:49 PM CDT): [...] needed. Assessment & Plan (05/09/2024 11:01 AM INTEL ANALYST): CDAI 7. Had significant benefit with Kenalog [...] needed. Assessment & Plan (04/11/2024 9:55 AM INTEL ANALYST): CDAI 21. Since last visit, has had [...] needed. Assessment & Plan (04/07/2023 10:54 AM INTEL ANALYST): CDAI 13. Since last visit, has noted [...] needed Assessment & Plan (06/13/2022 12:33 PM INTEL ANALYST): CDAI 16. Presents due to a flare. [...] needed. Assessment & Plan (05/15/2022 10:11 AM INTEL ANALYST): CDAI 9. Overall, peripheral joints have done [...] needed. Assessment & Plan (04/26/2021 9:28 AM INTEL ANALYST): CDAI 18. Since last visit, has experienced [...] needed. Assessment & Plan (06/11/2020 1:02 PM INTEL ANALYST): CDAI 9. Since last visit, patient has [...] needed. Assessment & Plan (04/11/2020 12:06 PM INTEL ANALYST): CDAI 40. Patient returns today due to [...] osteoporosis. Assessment & Plan (03/19/2020 9:51 AM INTEL ANALYST): Tele health visit. Patient noted a significant [...] stiffness in the bilateral hands with reduced valuation manager strength. A.m. stiffness for 60 minutes. Denies [...] needed. Assessment & Plan (04/01/2019 12:26 PM INTEL ANALYST): CDAI 0. Denies much peripheral joint complaints [...] needed. Assessment & Plan (06/04/2018 10:14 AM INTEL ANALYST): Initial serologies:pos lourdes 1:640 dense fine speckled. [...] needed. Assessment & Plan (05/07/2018 10:51 AM INTEL ANALYST): Initial serologies:pos lourdes 1:640 dense fine speckled. [...] injection. Assessment & Plan (03/26/2018 10:28 AM INTEL ANALYST): Initial serologies:pos lourdes 1:640 dense fine speckled. [...] today. Assessment & Plan (02/26/2018 12:08 PM INTEL ANALYST): Initial serologies:pos lourdes 1:640 dense fine speckled. [...] that she will be moving to the [facility] that will be needed to establish care with a new lip reading teacher. Advised to do this DARÍO. Routine labs [...] Gilbert. Assessment & Plan (04/26/2021 9:31 AM INTEL ANALYST): A primary complaint persistent neuropathic pain in [...] heme. Assessment & Plan (06/11/2020 1:03 PM INTEL ANALYST): Follows with heme. Assessment & Plan (04/11/2020 12:04 PM INTEL ANALYST): Follows with heme. Assessment & Plan (03/19/2020 9:50 AM INTEL ANALYST): Follows with heme. Assessment & Plan (02/17/2020 [...] Hematology. Assessment & Plan (04/01/2019 12:26 PM INTEL ANALYST): Following with Hematology. Assessment & Plan (12/31/2018 12:45 PM CDT): Continue to follow with Hematology Assessment & Plan (10/01/2018 10:48 AM CDT): Continue to follow with hematology. Assessment & Plan (07/23/2018 9:05 AM CDT): Continue to follow with Hematology. Assessment & Plan (06/04/2018 10:15 AM INTEL ANALYST): Continue to follow with Hematology. Assessment & Plan (05/07/2018 10:52 AM INTEL ANALYST): Continue to follow with Hematology. Assessment & Plan (03/26/2018 10:29 AM INTEL ANALYST): Continue to follow with Hematology. Assessment & Plan (02/26/2018 10:25 AM INTEL ANALYST): Following with Hematology for this issue. Will [...] Department Care Team Description 08/31/2024 Results Follow-Up [facility] [address] [place] [id number] Carlos Coughlin PA C4 complement, CBC with auto differential, Comprehensive metabolic panel, Additional followed-up results: 6 08/30/2024 3:00 PM CDT Office Visit [address] [phone] Carlos Coughlin PA Systemic lupus erythematosus, unspecified SLE type, unspecified organ involvement status (HCC) (Primary Dx); Seropositive rheumatoid arthritis (HCC); Fibromyalgia; Encounter for long-term (current) use of medications 08/09/2024 Results Follow-Up [address] [address] Carlos Coughlin PA C4 complement, CBC with auto differential, Comprehensive metabolic panel, Additional followed-up results: 5 08/08/2024 8:45 AM CDT Office Visit [address] [address] Carlos Coughlin PA Lymphocytopenia (Primary Dx); Systemic [...] 36.5 C (97.7 F) 04/26/2021 8:51 AM INTEL ANALYST Respiratory Rate - - Oxygen Saturation 95% [...] auto differential (09/13/2024 1:50 PM CDT) Pathologist [facility] WBC 5.9 3.8 - 10.8 Thousand/u L [...] ORDERABLES Fi nal Result Performing Organization Address [facility]/ZIP Co de Phone Number [facility] [address] [place] [address] * Anti-double stranded DNA abs (08/30/2024 2:56 PM CDT) [facility] Signature DNA (DS) ab <1 IU/mL [facility] Comment: IU/mL Interpretation < or = 4 Negative 5-9 Indeterminate > or = 10 Positive Blood 08/30/2024 2:56 PM CDT 08/30/2024 2:58 PM CDT Carlos [facility] BLOOD ORDERABLES Fi nal Result Performing Organization Address City/[facility]/ZIP Co de Phone Number [facility] [address] [place] [address] * C4 complement (08/30/2024 2:56 PM CDT) Complement component C4C 26 15 - 57 mg/dL [facility] Blood 08/30/2024 2:56 PM CDT 08/30/2024 2:58 PM CDT us Carlos [facility] BLOOD ORDERABLES Fi nal Result [facility] [address] [place] [address] * (ABNORMAL) CBC with auto differential (08/30/2024 2:56 PM CDT) WBC 6.1 3.8 - 10.8 Thousand/u L [...] Fi nal Result Performing Organization Address City/[facility] Co de Phone Number [facility] [address] [place] [address] * Protein / creatinine ratio, urine, random [...] ORDERABLES Fi nal Result Performing Organization Address [facility] Co de Phone Number [facility] [address] [place] [address] * Erythrocyte sedimentation rate (08/30/2024 2:56 PM CDT) Erythrocyte sedimentation rate 14 < OR = 30 mm/h [facility] Blood 08/30/2024 2:56 PM CDT 08/30/2024 2:58 PM CDT Carlos [facility] BLOOD ORDERABLES Fi nal Result Performing Organization Address [facility]/ZIP Co de Phone Number [facility] [address] [place] [address] * C3 complement (08/30/2024 2:56 PM CDT) Pathologist [facility] Complement component C3C 145 83 - 193 mg/dL [facility] Blood 08/30/2024 2:56 PM CDT 08/30/2024 2:58 PM CDT Carlos [facility] BLOOD ORDERABLES Fi nal Result Performing Organization Address [facility] Co de Phone Number [facility] [address] [place] [address] * (ABNORMAL) CRP (acute phase) (08/30/2024 2:56 PM CDT) Pathologist [facility] C-RP 9.8(H) <8.0 mg/L [facility] Blood 08/30/2024 2:56 PM CDT 08/30/2024 2:58 PM CDT Carlos [facility] BLOOD ORDERABLES Fi nal Result Performing Organization Address [facility] Co de Phone Number [facility] [address] [place] [address] * (ABNORMAL) Comprehensive metabolic panel (08/30/2024 2:56 PM CDT) Pathologist [facility] Glucose 100(H) 65 - 99 mg/dL [...] PM CDT Carlos [facility] BLOOD ORDERABLES nal Result [facility] [address] [place] [address] * Anti-double stranded DNA abs (08/08/2024 9:09 AM CDT) DNA (DS) ab <1 IU/mL [facility] Comment: IU/mL Interpretation < or = 4 Negative 5-9 Indeterminate > or = 10 Positive Blood 08/08/2024 9:09 AM CDT 08/08/2024 9:10 AM CDT Carlos [facility] BLOOD ORDERABLES Fi nal Result Performing Organization Address City/[facility]/ZIP Co de Phone Number [facility] [address] [place] [address] * C4 complement (08/08/2024 9:09 AM CDT) Complement component C4C 27 15 - 57 mg/dL [facility] Blood 08/08/2024 9:09 AM CDT 08/08/2024 9:10 AM CDT Carlos [facility] BLOOD ORDERABLES Fi nal Result Performing Organization Address [facility] de Phone Number [facility] [address] [place] [address] * CBC with auto differential (08/08/2024 9:09 AM CDT) Pathologist [facility] WBC 7.1 3.8 - 10.8 Thousand/u L [...] ORDERABLES Fi nal Result Performing Organization Address [facility] Co de Phone Number [facility] [address] [place] [address] * Protein / creatinine ratio, urine, random [...] 9:10 AM CDT us Carlos [facility] URINE ORDERABLES Fi nal Result Performing Organization Address [facility] Co de Phone Number [facility] [address] [place] [address] * Erythrocyte sedimentation rate (08/08/2024 9:09 AM CDT) Erythrocyte sedimentation rate 9 < OR = 30 mm/h [facility] Blood 08/08/2024 9:09 AM CDT 08/08/2024 9:10 AM CDT Carlos [facility] BLOOD ORDERABLES Fi nal Result Performing Organization Address [facility] de Phone Number [facility] [address] [place] [address] * C3 complement (08/08/2024 9:09 AM CDT) Complement component C3C 141 83 - 193 mg/dL [facility] Blood 08/08/2024 9:09 AM CDT 08/08/2024 9:10 AM CDT Carlos [facility] BLOOD ORDERABLES Fi nal Result Performing Organization Address [facility] de Phone Number [facility] [address] [place] [address] * CRP (acute phase) (08/08/2024 9:09 AM CDT) C-RP <3.0 <8.0 mg/L [facility] Blood 08/08/2024 9:09 AM CDT 08/08/2024 9:10 AM CDT Carlos [facility] BLOOD ORDERABLES Fi nal Result Performing Organization Address [facility] de Phone Number [facility] [address] [place] [address] * (ABNORMAL) Comprehensive metabolic panel (08/08/2024 9:09 [...] BLOOD ORDERABLES Fi nal Result [facility] [address] [place] [id number] from Last 3 Months Insurance [facility] Member Subscriber Plan / Payer ( fective 2020-Present) Name:Nasrin Healy Relation to Subscriber:Spouse Name:SERENA HEALY Date of :1958 Address: [address] [place] [address] Payer ID:[id number] ([facility]) Type:[facility]PPO Address: [address] [id number] MEDICARE MEDICARE [facility] Care Teams Drawstring Knotter Relationship Specialty Start Date End Date Ray Roberts MD [address] [place] [id number] PCP - General Family Medicine 04/11/24 Hossein Ribeiro MD [address] [place] [address] Referring Physician Neurology 09/21/19 Rashid Gaffney MD [address] [place] [address] Consulting Physician Rheumatology 04/24/23
--- OUTSIDE RECORDS SUMMARY | 2024-09-19 08:41 | XMS_ITS | Clinical Summary ---
Author Organization [facility] Address [address] [place] [address] Phone Care Team Providers Care Marketing Agent Name Role Phone Breann Collins MD Primary Care Provider [phone] Social History Tobacco Use Types Packs/Day Years [...] DIGITAL W CAD Routine 02/21/2015 3:59 PM SAFETY SPECIALIST Visit for screening mammogram from Last 3 Months or Most Recently Relevant to Health Maintenance Results * MARIO SCREENING BILATERAL DIGITAL W CAD (02/21/2015 3:59 PM SAFETY SPECIALIST) Anatomical Region Laterality Modality breast Bilateral Mammography 02/21/2015 4:10 PM SAFETY SPECIALIST Impressions 02/22/2015 7:43 AM SAFETY SPECIALIST BIRADS category 1 - normal. The patient should return to her screening schedule. J. Tye Faith M.D./ /[id number]/02/21/2015 16:10:35CST/hs/02/21/2015 21:34:28CST Cc: Narrative 02/22/2015 7:43 AM SAFETY SPECIALIST PATIENT NAME: NASRIN HEALY : 1960 DOCUMENT TYPE: RADIOLOGY ORDER NUMBER/RESULT CODE ORDERING PHYSICIAN [id number] BREANN COLLINS DATE AND TIME OF DICTATION RADIOLOGIST 02/21/2015 16:10:35CST Geronimo Faith EXAM DESCRIPTION MARIO SCREENING BILATERAL DIGITA HISTORY: Bilateral screening mammography without comparison. FINDINGS: The breast tissue is heterogeneously dense. I appreciate no evidence of suspicious mass or microcalcifications. Breann Collins MD IMG MAMMO ORDERABLES Final Result from Last 3 Months or Most Recently Relevant to Health Maintenance Insurance [facility] Care Teams Marketing Agent Relationship Specialty Start Date End Date Breann Collins MD [address] [facility] [address] [place] [address] PCP - General Family Medicine 02/21/15
--- NOTE | 2024-09-19 09:07 | ED.URI ---
HPI - URI/Sore Throat General Chief Complaint: Upper Respiratory Infection Stated Complaint: Cough/Chest Congestion Time Seen by Provider: 09/19/24 08:55 Source: patient and RN notes reviewed Mode of arrival: ambulatory Limitations: no limitations History of Present Illness HPI Narrative: 64-year-old female presents Express Care complaining of cough and congestion for 1 week. Patient reports having mucopurulent cough, chest congestion, and malaise. Patient has a history of lupus was recently given a steroid shot approximately 2 week ago for a flare up. Patient has been doing [id number] treatment without relief. Patient reports she has had a history of pneumonia. Denies any smoking history. Patient also reports having history of heart disease and hypertension. Patient denies any chest pain, shortness of breath, or any other up upper respiratory symptoms, nausea, vomiting, or diarrhea. Related Data Home Medications ?Medication ?Instructions ?Recorded ?Confirmed ?Last Taken ?Type aspirin 325 mg tablet 325 mg PO DAILY 11/01/19 09/13/24 09/04/24 History cholecalciferol (vitamin D3) 25 25 mcg PO DAILY 11/01/19 09/13/24 09/13/24 History mcg (1,000 unit) capsule multivitamin 1 tablet PO DAILY 11/01/19 09/13/24 09/13/24 History omeprazole 20 mg capsule,delayed 20 mg PO BID PRN Heartburn 05/23/21 09/13/24 09/13/24 History release diclofenac sodium 2 % topical 1 packet topical BID 11/01/21 09/13/24 09/12/24 History solution in packet (Pennsaid) hydroxychloroquine 200 mg tablet 200 mg PO BID 05/23/22 09/13/24 09/13/24 History leflunomide 20 mg tablet 20 mg PO DAILY 03/06/23 09/13/24 09/13/24 History upadacitinib 15 mg tablet,extended 15 mg PO DIRECTED 03/06/23 09/13/24 09/13/24 History release 24 hr (Rinvoq) omega 4-rtq-qxr-fish oil 1,000 mg 1 cap PO DAILY 05/10/24 09/13/24 09/13/24 History (120 mg-180 mg) capsule (Fish Oil) Allergies Allergy/AdvReac Type Severity Reaction Status Date / Time codeine Allergy Severe Swelling Verified 09/13/24 09:42 of Lip/Tongue/Throat Penicillins Allergy Severe Swelling Verified 09/13/24 09:42 of Lip/Tongue/Throat Sulfa (Sulfonamide Allergy Severe Hives Verified 09/13/24 09:42 Antibiotics) Review of Systems Review of Systems: CONSTITUTIONAL: Denies fever, chills, body aches, or sweats. Positive for malaise. EYES: Denies visual changes, redness, or discharge. ENT: Negative for for rhinorrhea, congestion, sore throat, or otalgia. CARDIOVASCULAR: Denies chest pain, palpitations, syncope, lightheadedness, dizziness or edema. RESPIRATORY: Positive for cough and chest congestion. Negative for dyspnea. GASTROINTESTINAL: Denies abdominal pain, nausea, vomiting, or diarrhea. GENITOURINARY: Denies dysuria or hematuria. SKIN: Denies rash or itching. MUSCULOSKELETAL: Denies back pain, joint pain, or myalgia. NEUROLOGIC: Denies headache, numbness, or weakness. PSYCHIATRIC: Denies anxiety or depression. All other systems reviewed are negative, except as documented in HPI. [facility] Past Medical History Medical History Chronic pain disorder Hypertensive urgency Lupus Rash and nonspecific skin eruption Viral gastroenteritis Insect bite of neck with local reaction Chronic pain Encounter for postoperative care Rheumatoid arthritis History of heart attack Aris-tachy syndrome Seizure Subacromial impingement of left shoulder Labral tear of long head of left biceps tendon Rotator cuff tear Left shoulder pain Shoulder swelling Cough RUQ abdominal pain Insomnia due to medical condition KRISTINA-inhibitor cough Acute bronchitis Restless leg syndrome Raynaud phenomenon MDD (major depressive disorder), recurrent episode, moderate Colon polyp Poison nae Epigastric pain Constipation Seropositive rheumatoid arthritis Chronic pain Elevated liver enzymes Lupus (systemic lupus erythematosus) Benign essential HTN Family History Family History Mother Hypertension Family history of diabetes mellitus in first degree relative Other Diabetes mellitus Family history of cardiovascular disease Family history of malignant neoplasm Social History Social History Social History: Smoking status: Never smoker Second hand tobacco smoke exposure: No Alcohol intake: never Substance use: never Substance use type: does not use Do You Feel Safe in your Home?: Yes Lack of Transportation: No Lack of Food: Never True Current Housing: I Have Housing Concerned About Future Housing: No Difficulty Paying Gas/Electric Bills: Decline to Answer Difficulty Paying for Meds: Decline to Answer Currently Unemployed: Decline to Answer Education: Associate Degree Difficulty w/ Childcare or Family Care: No Living arrangements: with family Occupation/Education: retired Additional occupation/education comments: Disability Gender identity (if verbalized by the patient): Female Sexual Orientation (if Verbalized by the Patient): Straight or Heterosexual Spiritual care concerns: No Comments At the time of my signature, I reviewed and agree with the nursing past medical, surgical, social, and family history. There is no relevant family history pertinent to the patient complaint. Exam Narrative: GENERAL: This is a well-nourished, well-developed adult, in no apparent distress. They are non ill-appearing, nontoxic appearing. HEAD: normocephalic, atraumatic. EYES: Sclera clear/white. Vision is grossly intact. Conjunctiva normal bilaterally. Extraocular movements intact. EARS: External ears normal, auditory canals clear and without drainage, TMs without erythema or perforation. Hearing grossly intact. NOSE: External nose normal with no obvious nasal discharge, nasal turbinates erythematous, no rhinorrhea. THROAT: Mucous membranes moist, posterior pharynx without redness or swelling. No exudate. Uvula is midline. Postnasal drip present. NECK: Neck supple, non-tender without lymphadenopathy, masses or thyromegaly. CARDIOVASCULAR: Regular rate and rhythm without murmurs, gallops, or rubs. RESPIRATORY: Rhonchi bilateral upper lobes and in expiratory wheezes heard throughout. Breath sounds equal bilaterally. No rales. Respiratory rate normal, respiratory effort nonlabored, no respiratory distress SKIN: warm, Dry, intact with no suspicious lesions or rash, good texture and turgor. NEURO: awake, alert, and oriented to person, place and time. There were no obvious focal neurologic abnormalities. EXTREMITIES: No joint tenderness, effusion, or edema noted. BACK: Nontender without deformity. Course Course Emergency Course: Portions of this record may have been created with voice recognition software Level of Care: Express Care Visit Vital Signs Vital signs: Vital Signs Temperature 97.9 F 09/19/24 08:32 Pulse Rate 63 09/19/24 08:32 Respiratory Rate 20 09/19/24 08:32 Blood Pressure 153/83 H 09/19/24 08:32 Pulse Oximetry 100 09/19/24 08:32 Oxygen Delivery Room Air 09/19/24 08:32 Temperature 97.9 F 09/19/24 08:32 Pulse Rate 63 09/19/24 08:32 Respiratory Rate 20 09/19/24 08:32 Blood Pressure 153/83 H 09/19/24 08:32 Pulse Oximetry 100 09/19/24 08:32 Oxygen Delivery Room Air 09/19/24 08:32 MDM - URI/Sore Throat MDM Narrative Medical decision making narrative: Chest x-ray revealed no evidence of pneumonia or acute findings. Given patient's symptoms exam findings of ahead and treat her for a purulent bronchitis. Treat with doxycycline. Will also prescribe albuterol inhaler as needed for wheezing and nd benzonatate as needed for cough. Will avoid additional steroids since patient takes immunosuppressive son was recently given a steroid shot from her your webmethods consultant. Discussed physical exam findings. Advised supportive measures and signs/symptoms to go to the ER. Pt is appropriate for outpt treatment and f/u. Differential Diagnosis Differential diagnosis: Likely viral infection, bronchitis and other (Pneumonia) Imaging Data Radiologist's impression: ITS Impressions Chest X-Ray 09/19/24 09:06 Impression: Normal chest. Discharge Plan Discharge Clinical Impression: Acute purulent bronchitis Patient Disposition: Home Condition: Stable Instructions: Antibiotic Form, Acute Bronchitis (ED) Additional Instructions: Take doxycycline as directed. Wear sunscreen while being outside while taking doxycycline. You may take Tessalon Perles as needed for cough. Use albuterol inhaler as needed for cough or wheezing. Tylenol every 8 hours as needed for pain Symptomatic treatment includes: rest, fluids, and increase humidity of the air at home. Follow up with your primary care provider 3-5 days Go to the ER for worsening symptoms, difficulty breathing, chest pain, or any other concerns Patient Language: Australian Prescriptions: New benzonatate 100 mg capsule 100 mg PO TID PRN (Reason: cough) Qty: 20 0RF doxycycline monohydrate 100 mg capsule 100 mg PO BID 5 Days Qty: 10 0RF albuterol sulfate [Ventolin HFA] 90 mcg/actuation HFA aerosol inhaler 2 puff inhalation QID PRN (Reason: shortness of breath or wheezing) Qty: 8.5 0RF No Action Pennsaid 2 % solution in packet 1 packet topical BID Rx Instructions: apply to single affected knee hydroxychloroquine 200 mg tablet 200 mg PO BID omega 9-uek-ooo-fish oil [Fish Oil] 1,000 (120-180) mg capsule 1 cap PO DAILY gabapentin 300 mg capsule See Rx Instructions .ROUTE .COMPLEX Qty: 360 4RF Dose Instruction: Take 1 capsule by mouth 4 times daily Rx Instructions: Take 1 capsule by mouth 4 times daily aspirin 325 mg tablet 325 mg PO DAILY cholecalciferol (vitamin D3) 25 mcg (1,000 unit) capsule 25 mcg PO DAILY multivitamin Tablet 1 tablet PO DAILY cetirizine [Zyrtec] 10 mg tablet 10 mg PO DAILY Qty: 90 3RF buspirone 5 mg tablet See Rx Instructions .ROUTE .COMPLEX Qty: 180 1RF Dose Instruction: Take 1 tablet by mouth twice daily Rx Instructions: Take 1 tablet by mouth twice daily omeprazole 20 mg capsule,delayed release(DR/EC) 20 mg PO BID PRN (Reason: Heartburn) albuterol sulfate 90 mcg/actuation HFA aerosol inhaler 1 inh inhalation Q4H PRN (Reason: shortness of breath or wheezing) Qty: 8.5 0RF nitroglycerin 0.4 mg tablet, sublingual 0.4 mg SUBLINGUAL Q5M PRN (Reason: Chest Pain) Qty: 25 0RF Rx Instructions: dissolve one tablet under the tongue every 5 minutes as needed for chest pain. do not exceed 3 doses per episode levothyroxine 50 mcg tablet See Rx Instructions .ROUTE .COMPLEX Qty: 90 1RF Dose Instruction: TAKE 1 TABLET BY MOUTH AT BEDTIME Rx Instructions: TAKE 1 TABLET BY MOUTH AT BEDTIME quetiapine 25 mg tablet See Rx Instructions .ROUTE .COMPLEX Qty: 180 0RF Dose Instruction: TAKE 2 TABLETS BY MOUTH ONCE DAILY AT BEDTIME Rx Instructions: TAKE 2 TABLETS BY MOUTH ONCE DAILY AT BEDTIME carvedilol 25 mg tablet See Rx Instructions .ROUTE .COMPLEX Qty: 60 5RF Dose Instruction: TAKE 1 TABLET BY MOUTH EVERY 12 HOURS. MUST ADMINISTER WITH A MEAL/FOOD Rx Instructions: TAKE 1 TABLET BY MOUTH EVERY 12 HOURS. MUST ADMINISTER WITH A MEAL/FOOD losartan-hydrochlorothiazide 100-25 mg tablet See Rx Instructions .ROUTE .COMPLEX Qty: 30 5RF Dose Instruction: Take 1 tablet by mouth once daily Rx Instructions: Take 1 tablet by mouth once daily atorvastatin 20 mg tablet See Rx Instructions .ROUTE .COMPLEX Qty: 90 1RF Dose Instruction: Take 1 tablet by mouth once daily Rx Instructions: Take 1 tablet by mouth once daily tramadol 50 mg tablet 50 mg PO Q8H Qty: 90 0RF Rx Instructions: take 1 tab p.o. 3 times daily as needed for severe pain duloxetine 60 mg capsule,delayed release(DR/EC) See Rx Instructions .ROUTE .COMPLEX Qty: 90 1RF Dose Instruction: Take 1 capsule by mouth once daily Rx Instructions: Take 1 capsule by mouth once daily leflunomide 20 mg tablet 20 mg PO DAILY Rinvoq 15 mg tablet extended release 24 hr 15 mg PO DIRECTED Follow-up/Referrals: Ray Roberts MD [Primary Care Provider] - Time of Disposition: 09:21
== END 2024-09-19 09:31 | disposition home or self-care (01) ==
PROVIDERS: PCP Family Medicine
DX: J20.9 Acute bronchitis, unspecified (principal); M32.9 Systemic lupus erythematosus, unspecified; I10 Essential (primary) hypertension; M05.9 Rheumatoid arthritis with rheumatoid factor, unspecified; I25.2 Old myocardial infarction; G25.81 Restless legs syndrome; I73.00 Raynaud's syndrome without gangrene; Z79.82 Long term (current) use of aspirin
CPT/HCPCS: 71046; 99213; G0463

== ENCOUNTER 2024-10-13 14:44 | Outpatient (CLI) | payer OTHER, SELFPAY ==
[2024-10-13 15:52] LABS: Iron 101 ug/dL (37-170)
[2024-10-13 16:02] LABS: Percent Iron Saturation 38 % (20-50)
== END 2024-10-13 14:45 | disposition home or self-care (01) ==
PROVIDERS: PCP Family Medicine
DX: F50.83 Pica in adults (principal); R53.83 Other fatigue
CPT/HCPCS: 36415; 83540; 83550

== ENCOUNTER 2024-10-18 01:20 | Day surgery (SDC) | payer OTHER, SELFPAY ==
[2024-10-12 14:59] VITALS: BMI 29.2
--- NOTE | 2024-10-12 15:05 | PC.NURSE ---
Report to the Outpatient Waiting Room, entrance under the green pavilion located off [facility], at time _0930_ on date _[id number]_. Planned Procedure Time: _1130_.? Time changes happen often and if your time is changed the preop area will call you the afternoon before. - You and your visitor will be asked to self-screen and do not enter if you have any COVID symptoms. Please call surgeon if you need to reschedule. - A mask is optional within the hospital at this time. - No food drink from midnight until time of surgery and no smoking, or chewing tobacco (or any form of nicotine). No chewing gum, candy or mints. Take only the following medications with a SIP of water on the morning of surgery: __Gabapentin, Levothyroxine, Carvidilol, Duloxetene, Buspirone and if needed Tramadol and or Albuterol.____ DO NOT STOP ANY OF YOUR OTHER PRESCRIPTION MEDICATIONS PRIOR TO SURGERY EXCEPT THE FOLLOWING Hold all vitamins and supplements for 3 days per anesthesiologist. Medications to discontinue per physician Patient says she was told by office to hold Aspirin 7 days. Date to take last dose____ Please no make-up, nail german, hairspray, perfume, deodorant, or body powder the day of surgery.? No jewelry (including any body piercings) or valuables the day of surgery, leave them at home.? Please take a shower or bath the night before, or the morning of, surgery with an antibacterial soap.? Wear comfortable, loose fitting clothing.? - Jewelry must be removed prior to entering the operating room.? Rings and piercings that are not removed may be cut off. - The hospital will not accept responsibility for valuables.? - Please leave all valuables, including medications, at home the day of surgery. If you are going home after surgery, a licensed regional tanker truck driver must drive you home.? - NO public transportation without another adult if you receive anesthesia. - We recommend that an adult stay with you for 24 hours following discharge. - We also recommend that you do not drive, make important decision, drink alcoholic beverages, or take any drugs that were not prescribed by your health care provider for at least 24 hours after your discharge time. Follow any additional instructions given to you from your surgeon. Telephone instructions given to __Brenda__and asked if any additional questions and then verbalized understanding. Patient advised to call surgeon office or pre surgery nurse liaison [phone] if any additional questions.
--- NOTE | ~2024-10-18 | XR_ITS ---
EXAMINATION: XR fluoroscopy no charge DATE: 10/18/2024 11:41 INDICATION: Lumbar ablation TECHNIQUE: 9 fluoroscopic images of the lumbar spine were obtained during procedure performed by Dr. Bowden. Radiologist was not present for the imaging or procedure. The amount of fluoroscopy time used d uring this procedure was 1.4 minutes. Total DAP was 9.439 Gycm^2. COMPARISON: None. FINDINGS: Images demonstrate needles advanced with distal tips positioned along the cephalad margin of the junc tion of the transverse and superior articular processes of L4, L5 and S1. See procedure note for furt her detail. Reviewed, dictated and finalized at location B.
--- OUTSIDE RECORDS SUMMARY | 2024-10-18 01:24 | XMS_ITS | Clinical Summary ---
Author Organization [facility] [address] [facility] Address [address] [place] [phone] Phone Care Team Providers Care Film Recordist Name Role Phone Hossein Ribeiro MD Unavailable Rashid Gaffney MD Unavailable [phone] Ray [place] MD Primary Care Provider Allergies [...] TOTAL VOLUME OF 2000ML 0 Active rizatriptan FNPS (MAXALT-FNPS) 10 mg disintegrating tablet TAKE ONE TABLET [...] twice daily 112 g 2 4 Active hydroxychloroquine (PLAQUENIL) 200 mg tablet Take 1 tablet (200 mg total) by mouth 2 (two) times a day 180 tablet 5 Active leflunomide (ARAVA) 20 mg tablet Take 1 tablet (20 mg total) by mouth daily 90 tablet 5 Active Rinvoq 15 mg extended release tablet TAKE 1 TABLET BY MOUTH DAILY 30 tablet 2 5 Active Active Problems Problem Noted Date Diagnosed [...] L5. Assessment & Plan (06/13/2022 12:34 PM STOPE MINER): C-spine x-ray 05/15/2022: Minimal degenerative changes at [...] complaints. Assessment & Plan (05/15/2022 10:14 AM STOPE MINER): Will obtain imaging and send to physical therapy. Primary hypertension 05/15/2022 Assessment & Plan (05/15/2022 2:20 PM STOPE MINER): Following with PCP and is to reach [...] Seropositive rheumatoid arthritis 10/06/2019 Assessment & Plan (10/11/2024 11:27 AM CDT): Seropositive RA given prior elevated rheumatoid factor and erosions seen on ultrasound. Most recent repeat hand ultrasound did show some improvement in her inflammatory arthritis. As discussed above, will obtain left knee aspiration and fluid analysis. Will administer left knee intra-articular steroid injection at the time of the aspiration. Will also evaluate the left wrists for evidence for active joint inflammation. Depending on findings, could consider prednisone taper, if was discussed today. Will continue Rinvoq 15 mg daily, leflunomide 20 mg daily, Plaquenil 200 mg b.i.d., as well as Pennsaid b.i.d. p.r.n.. Assessment & Plan (09/28/2024 10:04 AM CDT): Seropositive RA given prior elevated rheumatoid factor and erosions seen on ultrasound. Most recent repeat hand ultrasound did show some improvement in her inflammatory arthritis. Had a flare at last visit did receive a Kenalog IM injection. Noted improvement in joint symptoms with only minimal discomfort in the bilateral hands 1st IP joints and no other significant joint complaints. Few swollen and tender joints, as above. Will continue Rinvoq 15 mg daily, leflunomide 20 mg daily, Plaquenil 200 mg b.i.d., as well as Pennsaid b.i.d. p.r.n.. Assessment & Plan (08/30/2024 2:48 PM CDT): [...] p.r.n. Assessment & Plan (05/09/2024 11:00 AM STOPE MINER): Seropositive RA given prior elevated rheumatoid factor [...] p.r.n. Assessment & Plan (04/11/2024 9:56 AM STOPE MINER): Seropositive RA given prior elevated rheumatoid factor [...] p.r.n.. Assessment & Plan (04/07/2023 10:55 AM STOPE MINER): Seropositive RA given prior elevated rheumatoid factor [...] p.r.n.. Assessment & Plan (06/13/2022 12:34 PM STOPE MINER): As discussed above, seropositive RA given prior [...] b.i.d.. Assessment & Plan (05/15/2022 10:12 AM STOPE MINER): As discussed above, seropositive RA given prior [...] b.i.d.. Assessment & Plan (04/26/2021 9:30 AM STOPE MINER): As discussed above, concern for seropositive RA [...] daily. Assessment & Plan (06/11/2020 1:03 PM STOPE MINER): As discussed above, concern for seropositive RA given prior elevated rheumatoid factor and erosions seen on ultrasound. Appears fairly well controlled. Continue Plaquenil 200 mg b.i.d., xeljanz xr 11 mg daily. Assessment & Plan (04/11/2020 12:03 PM STOPE MINER): As discussed above, concern for seropositive RA given prior elevated rheumatoid factor and erosions seen on ultrasound. Will stop Orencia and azathioprine due to lack of benefit and begin approval for Xeljanz XR 11 mg daily. Continue Plaquenil 200 mg b.i.d.. Assessment & Plan (03/19/2020 9:49 AM STOPE MINER): As discussed above, concern for seropositive RA [...] of both knees 09/05/2019 Assessment & Plan (10/11/2024 11:28 AM CDT): Xray 07/2018: Mild oa. L>>R. Two prior L knee arthroscopy surgeries. Mild benefit with PT in the past. As discussed above, will obtain left knee aspiration for fluid analysis and administer Kenalog intra-articular steroid injection of the time of the ultrasound. Discussed risks and benefits of the injection. Assessment & Plan (10/06/2019 9:31 AM CDT): [...] to celexa per pcp. Assessment & Plan (10/11/2024 11:28 AM CDT): Stable. Continue Cymbalta 60 mg daily, gabapentin 300 mg qid per Neurology. Previously switched from Lyrica for insurance reasons. Encourage routine exercise. Assessment & Plan (09/28/2024 10:06 AM CDT): Stable. Continue Cymbalta 60 mg daily, gabapentin 300 mg qid per Neurology. Previously switched from Lyrica for insurance reasons. Encourage routine exercise. Assessment & Plan (08/30/2024 2:48 PM CDT): [...] exercise. Assessment & Plan (05/09/2024 11:01 AM STOPE MINER): Stable. Continue Cymbalta 60 mg daily, gabapentin 300 mg qid per Neurology. Previously switched from Lyrica for insurance reasons. Encourage routine exercise. Assessment & Plan (04/11/2024 9:57 AM STOPE MINER): Stable. Continue Cymbalta 60 mg daily, gabapentin [...] exercise. Assessment & Plan (04/07/2023 12:50 PM STOPE MINER): Stable. Continue Cymbalta 60 mg daily, gabapentin [...] exercise. Assessment & Plan (06/13/2022 12:35 PM STOPE MINER): Continue Cymbalta 30 mg daily. Continue gabapentin 300 mg q.a.m., 300 mg midday, 600 mg q.p.m. per neurology. Previous switch from Lyrica for insurance reasons. Encourage routine exercise. Assessment & Plan (05/15/2022 10:15 AM STOPE MINER): Stable. Continue Cymbalta 30 mg daily. Continue [...] exercise. Assessment & Plan (04/26/2021 9:31 AM STOPE MINER): Stable. Continue Cymbalta and gabapentin 100 mg [...] exercise. Assessment & Plan (06/11/2020 1:06 PM STOPE MINER): Stable. Continue Cymbalta. On Lyrica 300 mg 1-2 times daily per PCP. Encourage routine exercise. Assessment & Plan (04/11/2020 12:07 PM STOPE MINER): Stable. Continue Cymbalta. On Lyrica 300 mg 1-2 times daily per PCP. Encourage routine exercise. Assessment & Plan (03/19/2020 9:50 AM STOPE MINER): As discussed at last visit, continue to [...] exercise. Assessment & Plan (04/01/2019 12:29 PM STOPE MINER): FM may be contributing to some of [...] benefit. Assessment & Plan (04/01/2019 12:26 PM STOPE MINER): Bilateral CMC bracing has offered benefit. Assessment [...] L4 on L5. Had L-spine MRI from [facility] and is following with pain management. Has completed physical therapy. Following with pain management. Has received several injections in the lower back since last visit without significant relief. Scheduled to follow up with pain management later today. Is considering surgical intervention. Has been using tramadol and Tylenol with some relief in symptoms. Assessment & Plan (05/09/2024 11:02 AM STOPE MINER): C-spine x-ray 05/15/2022: Minimal degenerative changes at C3-C4 and C4-C5 SI joint x-ray 05/15/2022: WNL L-spine x-ray 05/15/2022: 5 mm anterolisthesis of L4 on L5. Had L-spine MRI from [facility] and is following with pain management. Has completed physical therapy. Following with pain management. Is currently going to physical therapy. Is scheduled for repeat L-spine epidural steroid injection with pain management tomorrow. Is following with orthopedic surgeon with discussions for potential surgical intervention regarding the lower back. Assessment & Plan (04/11/2024 9:57 AM STOPE MINER): C-spine x-ray 05/15/2022: Minimal degenerative changes at C3-C4 and C4-C5 SI joint x-ray 05/15/2022: WNL L-spine x-ray 05/15/2022: 5 mm anterolisthesis of L4 on L5. Had L-spine MRI from [facility] and is following with pain management. Has [...] L4 on L5. Had L-spine MRI from [facility] and is following with pain management. Has [...] L4 on L5. Had L-spine MRI from [facility] and is following with pain management. Received epidural injection yesterday afternoon and continues to go to physical therapy. She defers surgical intervention at this time. Continue to follow with pain management. Assessment & Plan (06/13/2022 12:35 PM STOPE MINER): C-spine x-ray 05/15/2022: Minimal degenerative changes at [...] Will track down recent L-spine MRI from [facility]. Assessment & Plan (05/15/2022 10:14 AM STOPE MINER): Primary complaint is significant lower back pain [...] today. Assessment & Plan (04/01/2019 12:28 PM STOPE MINER): History of L4/L5/S1 OA in the lower [...] 06/04/2018 Assessment & Plan (06/04/2018 10:18 AM STOPE MINER): Insomnia symptoms at night. Discussed use of black noise machine. also reports that she snores. Would recommend sleep study, although discuss further with PCP. Right hand pain 05/07/2018 Assessment & Plan (05/07/2018 10:54 AM STOPE MINER): Patient jammed right 1st digit and has [...] years. Assessment & Plan (06/04/2018 10:14 AM STOPE MINER): Did not obtain DEXA at last visit, will obtain in the near future. Order placed again. Assessment & Plan (05/07/2018 10:56 AM STOPE MINER): Recently non-displaced lateral malleolus fracture after rolling her ankle. Is at increased risk for osteoporosis with SLE. Will check dexa scan today. Confusion 03/03/2018 Right hip pain 02/26/2018 Assessment & Plan (06/04/2018 10:15 AM STOPE MINER): Patient does continue to have some mild pain in the right hip / groin region. Most recent hip x-ray was negative. Has complaints are minimal, we will just monitor at this time. If symptoms progress, would consider right hip MRI. Assessment & Plan (05/07/2018 10:52 AM STOPE MINER): Denies major complaints today. Most recent right hip x-ray was negative. If symptoms do worsen, would consider right hip MRI. Assessment & Plan (03/26/2018 9:57 AM STOPE MINER): Right hip pain with accompanying morning stiffness persists. Localizes over the right hip/ groin region, although no pain elicited with internal and external rotation. Recent right hip x-ray was negative. If symptoms persist, will consider right hip MRI at next visit. Assessment & Plan (02/26/2018 10:24 AM STOPE MINER): Right hip pain, which she does note [...] 12/15/2017 Assessment & Plan (06/04/2018 10:16 AM STOPE MINER): Still awaiting to schedule with Neurology for further evaluation of these symptoms. Assessment & Plan (05/07/2018 10:52 AM STOPE MINER): Has not scheduled with Neurology, which was discussed at the last couple of visits. Will be scheduling in the near future. Assessment & Plan (03/26/2018 10:29 AM STOPE MINER): As discussed at last visit, given her confusion symptoms, as well as headaches , would recommend further evaluation with Neurology. Assessment & Plan (02/26/2018 10:23 AM STOPE MINER): Continues to note persistent headaches, as well [...] of medicat ions 12/15/2017 Assessment & Plan (10/11/2024 11:28 AM CDT): DEXA 02/05/2023: L-spine-1.3, left femoral neck-1.4, left total hip-0.7, right femoral neck -0.8, right total hip -0.4 FRAX: 9.6/0.8. On vitamin-D supplementation per PCP recommendations Routine labs today. Continue routine eye exams. Normal TPMT 03/2018 Neg quant 06/2019 Assessment & Plan (09/28/2024 10:05 AM CDT): DEXA 02/05/2023: L-spine-1.3, left femoral neck-1.4, left total hip-0.7, right femoral neck -0.8, right total hip -0.4 FRAX: 9.6/0.8. On vitamin-D supplementation per PCP recommendations Routine labs today. Continue routine eye exams. Normal TPMT 03/2018 Neg quant 06/2019 Assessment & Plan (08/30/2024 2:48 PM CDT): [...] 06/2019 Assessment & Plan (05/09/2024 11:01 AM STOPE MINER): DEXA 02/05/2023: L-spine-1.3, left femoral neck-1.4, left total hip-0.7, right femoral neck -0.8, right total hip -0.4 FRAX: 9.6/0.8. On vitamin-D supplementation per PCP recommendations Routine labs today. Continue routine eye exams. Normal TPMT 03/2018 Neg quant 06/2019 Assessment & Plan (04/11/2024 9:56 AM STOPE MINER): DEXA 02/05/2023: L-spine-1.3, left femoral neck-1.4, left [...] 06/2019 Assessment & Plan (04/07/2023 12:50 PM STOPE MINER): DEXA 02/05/2023: L-spine-1.3, left femoral neck-1.4, left [...] 06/2019 Assessment & Plan (04/26/2021 9:30 AM STOPE MINER): Routine labs today. Continue routine eye exams. [...] 06/2019 Assessment & Plan (06/11/2020 1:04 PM STOPE MINER): Routine labs today. Continue routine eye exams. Normal TPMT 03/2018 Neg quant 06/2019 Assessment & Plan (04/11/2020 12:04 PM STOPE MINER): Routine labs today. Continue routine eye exams. Normal TPMT 03/2018 Neg quant 06/2019 Assessment & Plan (03/19/2020 9:50 AM STOPE MINER): Routine labs today. Continue routine eye exams. [...] 03/2018 Assessment & Plan (04/01/2019 12:27 PM STOPE MINER): Routine labs today. Continue routine eye exams. [...] today. Assessment & Plan (06/04/2018 10:16 AM STOPE MINER): Routine labs today. Continue routine eye exams. Normal TPMT 03/2018 Routine labs today. Assessment & Plan (05/07/2018 10:53 AM STOPE MINER): Routine labs today. Continue routine eye exams. Normal TPMT 03/2018 Routine labs today. Recheck CBC in 2 weeks. Assessment & Plan (03/26/2018 9:57 AM STOPE MINER): Routine labs today. Continue routine eye exams. Routine labs today, including TP MT. Recheck CBC in 2 weeks. Assessment & Plan (02/26/2018 10:25 AM STOPE MINER): Routine labs today. Continue routine eye exams. [...] warmers. Assessment & Plan (04/26/2021 9:30 AM STOPE MINER): Persistent intermittent Raynaud/acrocyanosis symptoms in the feet>hands. [...] warmers. Assessment & Plan (06/11/2020 1:04 PM STOPE MINER): Persistent intermittent Raynaud symptoms in the feet>hands. [...] fingers. Assessment & Plan (04/01/2019 12:27 PM STOPE MINER): Mild occasional Raynaud's in the feet without [...] neurologist norma hernandez On Plaquenil 200 b.i.d., xelmarisz Assessment & Plan (10/11/2024 11:27 AM CDT): CDAI 16. Presents to our office today due to concerns for recurrent flare of symptoms. It is noted that she most recently received a Kenalog IM injection on 08/30/1024. Symptoms did improve initially, although have recently exacerbated. She complains of a one-week history of pain, stiffness, and swelling affecting the left wrist. Has also noted more longstanding history of pain and swelling in the left knee. Denies any other recent systemic complaints. Does appear to have swelling in the left wrist and left knee on exam along with the right 2nd MCP joint. No other obvious synovitis. We would like to evaluate her symptoms further with a left knee aspiration and intra-articular steroid injection. Will send the synovial fluid for fluid analysis to assess for inflammatory arthritis. Will also obtain left wrist ultrasound to assess for inflammation left wrist related to her inflammatory arthritis. Depending on findings, could consider prednisone taper. Otherwise, will continue leflunomide 20 mg daily, Plaquenil 200 mg b.i.d., Rinvoq 15 mg daily, and Pennsaid cream. Up-to-date on eye exams. Routine labs today. Follow-up at next scheduled follow-up. Sooner if needed. Assessment & Plan (09/28/2024 10:05 AM CDT): CDAI 6. Had a flare in joint symptoms at last visit did receive a Kenalog IM injection, which resolved symptoms. Has only mild discomfort in the 1st IP joints with no other significant joint complaints. Denies any other recent systemic complaints. Appears well managed. Will continue leflunomide 20 mg daily, Plaquenil 200 mg b.i.d., Rinvoq 15 mg daily, and Pennsaid cream. Up-to-date on eye exams. Routine labs today. Follow-up 3 months. Sooner if needed. Assessment & Plan (08/30/2024 2:49 PM CDT): [...] needed. Assessment & Plan (05/09/2024 11:01 AM STOPE MINER): CDAI 7. Had significant benefit with Kenalog [...] needed. Assessment & Plan (04/11/2024 9:55 AM STOPE MINER): CDAI 21. Since last visit, has had [...] needed. Assessment & Plan (04/07/2023 10:54 AM STOPE MINER): CDAI 13. Since last visit, has noted [...] needed Assessment & Plan (06/13/2022 12:33 PM STOPE MINER): CDAI 16. Presents due to a flare. [...] needed. Assessment & Plan (05/15/2022 10:11 AM STOPE MINER): CDAI 9. Overall, peripheral joints have done [...] needed. Assessment & Plan (04/26/2021 9:28 AM STOPE MINER): CDAI 18. Since last visit, has experienced [...] needed. Assessment & Plan (06/11/2020 1:02 PM STOPE MINER): CDAI 9. Since last visit, patient has [...] needed. Assessment & Plan (04/11/2020 12:06 PM STOPE MINER): CDAI 40. Patient returns today due to [...] osteoporosis. Assessment & Plan (03/19/2020 9:51 AM STOPE MINER): Tele health visit. Patient noted a significant [...] stiffness in the bilateral hands with reduced broadband engineer strength. A.m. stiffness for 60 minutes. Denies [...] needed. Assessment & Plan (04/01/2019 12:26 PM STOPE MINER): CDAI 0. Denies much peripheral joint complaints [...] needed. Assessment & Plan (06/04/2018 10:14 AM STOPE MINER): Initial serologies:pos lourdes 1:640 dense fine speckled. [...] needed. Assessment & Plan (05/07/2018 10:51 AM STOPE MINER): Initial serologies:pos lourdes 1:640 dense fine speckled. [...] injection. Assessment & Plan (03/26/2018 10:28 AM STOPE MINER): Initial serologies:pos lourdes 1:640 dense fine speckled. [...] today. Assessment & Plan (02/26/2018 12:08 PM STOPE MINER): Initial serologies:pos lourdes 1:640 dense fine speckled. [...] that she will be moving to the [place] area that will be needed to establish care with a new acct exec. Advised to do this DARÍO. Routine labs [...] Gilbert. Assessment & Plan (04/26/2021 9:31 AM STOPE MINER): A primary complaint persistent neuropathic pain in [...] heme. Assessment & Plan (06/11/2020 1:03 PM STOPE MINER): Follows with heme. Assessment & Plan (04/11/2020 12:04 PM STOPE MINER): Follows with heme. Assessment & Plan (03/19/2020 9:50 AM STOPE MINER): Follows with heme. Assessment & Plan (02/17/2020 [...] Hematology. Assessment & Plan (04/01/2019 12:26 PM STOPE MINER): Following with Hematology. Assessment & Plan (12/31/2018 12:45 PM CDT): Continue to follow with Hematology Assessment & Plan (10/01/2018 10:48 AM CDT): Continue to follow with hematology. Assessment & Plan (07/23/2018 9:05 AM CDT): Continue to follow with Hematology. Assessment & Plan (06/04/2018 10:15 AM STOPE MINER): Continue to follow with Hematology. Assessment & Plan (05/07/2018 10:52 AM STOPE MINER): Continue to follow with Hematology. Assessment & Plan (03/26/2018 10:29 AM STOPE MINER): Continue to follow with Hematology. Assessment & Plan (02/26/2018 10:25 AM STOPE MINER): Following with Hematology for this issue. Will [...] Encounters Date Type Department Care Team Description 10/13/2024 8:41 AM CDT - 10/13/2024 11:59 PM CDT Hospital Encounter [address] [phone] Systemic lupus erythematosus, unspecified SLE type, unspecified organ involvement status (HCC); Seropositive rheumatoid arthritis (HCC); Chronic pain of both knees Discharge Disposition: Discharge to home or self care 10/12/2024 Results Follow-Up [address] [phone] Carlos Coughlin PA C4 complement, CBC with auto differential, Comprehensive metabolic panel, Additional followed-up results: 5 10/11/2024 10:00 AM CDT Office Visit [address] [phone] Carlos Coughlin PA Systemic lupus erythematosus, unspecified SLE type, unspecified organ involvement status (HCC) (Primary Dx); Seropositive rheumatoid arthritis (HCC); Chronic pain of both knees; Fibromyalgia; Encounter for long-term (current) use of medications 09/28/2024 9:00 AM CDT Office Visit [address] [phone] Carlos Coughlin PA Systemic lupus erythematosus, unspecified SLE type, unspecified organ involvement status (HCC) (Primary Dx); Seropositive rheumatoid arthritis (HCC); Fibromyalgia; Encounter for long-term (current) use of medications 09/23/[address] [phone] Steve Russell 08/31/2024 Results Follow-Up [address] [phone] Carlos Coughlin PA C4 complement, CBC with auto differential, Comprehensive metabolic panel, Additional followed-up results: 6 08/30/2024 3:00 PM CDT Office Visit [facility] [address] [place] [phone] Carlos Coughlin PA Systemic lupus erythematosus, unspecified SLE type, unspecified organ involvement status (HCC) (Primary Dx); Seropositive rheumatoid arthritis (HCC); Fibromyalgia; Encounter for long-term (current) use of medications 08/09/2024 Results Follow-Up [facility] [address] [place] [phone] Carlos Coughlin PA C4 complement, CBC with auto differential, Comprehensive metabolic panel, Additional followed-up results: 5 08/08/2024 8:45 AM CDT Office Visit [facility] [address] [place] [phone] Carlos Coughlin PA Lymphocytopenia (Primary Dx); Systemic [...] Sign Reading Time Taken Comments Blood Pressure 124/76 10/11/2024 9:53 AM CDT Pulse 60 10/11/2024 9:53 AM CDT Temperature 36.5 C (97.7 F) 04/26/2021 8:51 AM STOPE MINER Respiratory Rate - - Oxygen Saturation 97% 10/11/2024 9:53 AM CDT Inhaled Oxygen Concentration - - Weight 78.9 kg (174 lb) 10/11/2024 9:53 AM CDT Height 162.6 cm (5' 4) 10/11/2024 9:53 AM CDT Body Mass Index 29.87 10/11/2024 9:53 AM CDT Plan of Treatment Health Maintenance Due [...] Date/Time Associated Diagnosis Comments C3 COMPLEMENT Routine 10/11/2024 10:31 AM CDT Systemic lupus erythematosus, unspecified SLE type, unspecified organ involvement status (HCC) Seropositive rheumatoid arthritis (HCC) Encounter for long-term (current) use of medications PROTEIN / CREATININE RATIO, URINE, RANDOM Routine 10/11/2024 10:31 AM CDT Systemic lupus erythematosus, unspecified SLE type, unspecified organ involvement status (HCC) Seropositive rheumatoid arthritis (HCC) Encounter for long-term (current) use of medications ANTI-DOUBLE STRANDED DNA ANTIBODIES Routine 10/11/2024 10:31 AM CDT Systemic lupus erythematosus, unspecified SLE type, unspecified organ involvement status (HCC) Seropositive rheumatoid arthritis (HCC) Encounter for long-term (current) use of medications ERYTHROCYTE SEDIMENTATION RATE Routine 10/11/2024 10:31 AM CDT Systemic lupus erythematosus, unspecified SLE type, unspecified organ involvement status (HCC) Seropositive rheumatoid arthritis (HCC) Encounter for long-term (current) use of medications CRP (ACUTE PHASE) Routine 10/11/2024 10: 31 AM CDT Systemic lupus erythematosus, unspecified SLE type, unspecified organ involvement status (HCC) Seropositive rheumatoid arthritis (HCC) Encounter for long-term (current) use of medications COMPREHENSIVE METABOLIC PANEL Routine 10/11/2024 10:31 AM CDT Systemic lupus erythematosus, unspecified SLE type, unspecified organ involvement status (HCC) Seropositive rheumatoid arthritis (HCC) Encounter for long-term (current) use of medications CBC WITH AUTO DIFFERENTIAL Routine 10/11/2024 10:31 AM CDT Systemic lupus erythematosus, unspecified SLE type, unspecified organ involvement status (HCC) Seropositive rheumatoid arthritis (HCC) Encounter for long-term (current) use of medications C4 COMPLEMENT Routine 10/11/2024 10:31 AM CDT Systemic lupus erythematosus, unspecified SLE type, unspecified organ involvement status (HCC) Seropositive rheumatoid arthritis (HCC) Encounter for long-term (current) use of medications CBC WITH AUTO DIFFERENTIAL Routine 09/13/2024 1:50 [...] Months Results * Anti-double stranded DNA abs (10/11/2024 10:31 AM CDT) DNA (DS) ab <1 IU/mL [facility] Comment: IU/mL Interpretation < or = 4 Negative 5-9 Indeterminate > or = 10 Positive Blood 10/11/2024 10:3 1 AM CDT 10/11/2024 10:31 AM CDT Carlos HUITRON LAB BLOOD ORDERABLES Fi nal Result Performing Organization Address [facility]/ZIP Co de Phone Number [facility] [address] [place] [phone] * C4 complement (10/11/2024 10:31 AM CDT) Complement component C4C 28 15 - 57 mg/dL [facility] Blood 10/11/2024 10:3 1 AM CDT 10/11/2024 10:31 AM CDT Carlos [facility]RON LAB BLOOD ORDERABLES Fi nal Result [facility] [address] [facility] [place] [address] * CBC with auto differential (10/11/2024 10:31 AM CDT) WBC 7.6 3.8 - 10.8 Thousand/u L [facility] RBC, POC 4.16 3.80 - 5.10 Million/uL [facility] Hgb 12.7 11.7 - 15.5 g/dL [facility] Hct 39.6 35.0 - 45.0 % [facility] MCV 95.2 80.0 - 100.0 fL [facility] MCH 30.5 27.0 - 33.0 pg [facility] MCHC 32.1 32.0 - 36.0 g/dL [facility] Comment: For adults, a slight decrease in the calculated MCHC value (in the range of 30 to 32 g/dL) is most likely not clinically significant; however, it should be interpreted with caution in correlation with other red cell parameters and the patient's clinical condition. Rdw 13.2 11.0 - 15.0 % [facility] Platelets 267 140 - 400 Thousand/u L [facility] MPV 10.5 7.5 - 12.5 fL [facility] Neutrophils, abs 5,799 1,500 - 7,800 cells/uL [facility] Lymphocytes, abs 1,018 850 - 3,900 cells/uL [facility] Monocyte abs 684 200 - 950 cells/uL [facility] Eosinophils, abs 61 15 - 500 cells/uL [facility] Basophils, abs 38 0 - 200 cells/uL [facility] Neutrophils 76.3 % [facility] Lymphocyte pct 13.4 % [facility] Monocytes 9.0 % [facility] Eosinophils 0.8 % [facility] Basophils 0.5 % [facility] Blood 10/11/2024 10:3 1 AM CDT 10/11/2024 10:31 AM CDT Carlos [facility] LAB BLOOD ORDERABLES Fi nal Result Performing Organization Address City/[facility]/ZIP Co de Phone Number [facility] [address] [place] [address] * (ABNORMAL) Protein / creatinine ratio, urine, random (10/11/2024 10:31 AM CDT) Creatinine, ur 19(L) 20 - 275 mg/dL [facility] Protein/creati nine ratio 211(H) 24 - 184 mg/g creat [facility] Protein/Creati nine Ratio 0.211(H) 0.024 - 0.184 mg/mg creat [facility] Protein, ur, quant 4(L) 5 - 24 mg/dL [facility] Comment: Verified by repeat analysis. Urine 10/11/2024 10:3 1 AM CDT 10/11/2024 10:31 AM CDT [facility] URINE ORDERABLES Fi nal Result Performing Organization Address [facility]/ZIP Co de Phone Number [facility] [address] [place] [address] * Erythrocyte sedimentation rate (10/11/2024 10:31 AM CDT) Erythrocyte sedimentation rate 6 < OR = 30 mm/h [facility] Blood 10/11/2024 10:3 1 AM CDT 10/11/2024 10:31 AM CDT [facility] LAB BLOOD ORDERABLES Fi nal Result Performing Organization Address City/[facility]/ZIP Co de Phone Number [facility] [address] [place] [address] * C3 complement (10/11/2024 10:31 AM CDT) Complement component C3C 149 83 - 193 mg/dL [facility] Blood 10/11/2024 10:3 1 AM CDT 10/11/2024 10:31 AM CDT [facility] LAB BLOOD ORDERABLES Fi nal Result Performing Organization Address City/[facility]/ZIP Co de Phone Number [facility] [address] [place] [address] * CRP (acute phase) (10/11/2024 10:31 AM CDT) C-RP <3.0 <8.0 mg/L [facility] Blood 10/11/2024 10:3 1 AM CDT 10/11/2024 10:31 AM CDT [facility] LAB BLOOD ORDERABLES Fi nal Result Performing Organization Address [facility] de Phone Number QUE[facility] [address] [place] [address] * (ABNORMAL) Comprehensive metabolic panel (10/11/2024 10:31 AM CDT) Pathologist [facility] [place] Glucose 87 65 - 99 mg/dL [facility] Comment: Fasting reference interval BUN 16 7 - 25 mg/dL [facility] Creatinine 0.68 0.50 - 1.05 mg/dL [facility] eGFR 98 > OR = 60 mL/min/1.7 3m2 [facility] BUN/creat ratio SEE NOTE: 6 - 22 (calc) [facility] Comment: Not Reported: BUN and Creatinine are within reference range. Sodium 139 135 - 146 mmol/L [facility] Potassium, pl 3.8 3.5 - 5.3 mmol/L [facility] Chloride 99 98 - 110 mmol/L [facility] CO2 34(H) 20 - 32 mmol/L [facility] Calcium 9.3 8.6 - 10.4 mg/dL [facility] Protein, sr 6.1 6.1 - 8.1 g/dL [facility] Albumin 3.9 3.6 - 5.1 g/dL [facility] GLOBULIN 2.2 1.9 - 3.7 g/dL (calc) [facility] Alb/glob ratio 1.8 1.0 - 2.5 (calc) [facility] Bilirubin, total 0.7 0.2 - 1.2 mg/dL [facility] Alk phos 86 37 - 153 U/L [facility] AST 37(H) 10 - 35 U/L [facility] ALT (SGPT) 34(H) 6 - 29 U/L [facility] Blood 10/11/2024 10:3 1 AM CDT 10/11/2024 10:31 AM CDT us [facility] LAB BLOOD ORDERABLES Fi nal Result [facility] [address] [place] [address] * (ABNORMAL) CBC with auto differential (09/13/2024 1:50 PM CDT) WBC 5.9 3.8 - 10.8 Thousand/u L [...] ORDERABLES Fi nal Result Performing Organization Address City/[facility]/ZIP Co de Phone Number [facility] [address] [place] [address] * Anti-double stranded DNA abs (08/30/2024 2:56 PM CDT) [facility] Signature DNA (DS) ab <1 IU/mL [facility] Comment: IU/mL Interpretation < or = 4 Negative 5-9 Indeterminate > or = 10 Positive Blood 08/30/2024 2:56 PM CDT 08/30/2024 2:58 PM CDT [facility] LAB BLOOD ORDERABLES Fi nal Result [facility] [address] [place] [address] * C4 complement (08/30/2024 2:56 PM CDT) Complement component C4C 26 15 - 57 mg/dL [facility] Blood 08/30/2024 2:56 PM CDT 08/30/2024 2:58 PM CDT us [facility] LAB BLOOD ORDERABLES Fi nal Result [facility] [address] [place] [address] * (ABNORMAL) CBC with auto differential (08/30/2024 [...] nal Result Performing Organization Address [facility] de Phone Number [facility] [address] [place] [address] * Protein / creatinine ratio, urine, random [...] ORDERABLES Fi nal Result Performing Organization Address [facility] de Phone Number QUEST [facility] [address] [place] [address] * Erythrocyte sedimentation rate (08/30/2024 2:56 PM CDT) Erythrocyte sedimentation rate 14 < OR = 30 mm/h [facility] Blood 08/30/2024 2:56 PM CDT 08/30/2024 2:58 PM CDT [facility] LAB BLOOD ORDERABLES Fi nal Result Performing Organization Address [facility]/ZIP Co de Phone Number [facility] [address] [place] [address] * C3 complement (08/30/2024 2:56 PM CDT) [facility] Complement component C3C 145 83 - 193 mg/dL [facility] Blood 08/30/2024 2:56 PM CDT 08/30/2024 2:58 PM CDT [facility] LAB BLOOD ORDERABLES Fi nal Result Performing Organization Address [facility] Co de Phone Number [facility] [address] [place] [address] * (ABNORMAL) CRP (acute phase) (08/30/2024 2:56 PM CDT) Pathologist [facility] [place] C-RP 9.8(H) <8.0 mg/L [facility] Blood 08/30/2024 2:56 PM CDT 08/30/2024 2:58 PM CDT [facility] LAB BLOOD ORDERABLES Fi nal Result Performing Organization Address [facility] de Phone Number [facility] [address] [place] [address] * (ABNORMAL) Comprehensive metabolic panel (08/30/2024 2:56 PM CDT) Pathologist [facility] [place] Glucose 100(H) 65 - 99 mg/dL [facility] BUN/creat ratio SEE NOTE: 6 (calc) [facility] Comment: Not Reported: [...] BLOOD ORDERABLES Fi nal Result [facility] [address] [place] [address] * Anti-double stranded DNA abs (08/08/2024 9:09 AM CDT) DNA (DS) ab <1 IU/mL [facility] Comment: IU/mL Interpretation < or = 4 Negative 5-9 Indeterminate > or = 10 Positive Blood 08/08/2024 9:09 AM CDT 08/08/2024 9:10 AM CDT [facility] LAB BLOOD ORDERABLES Fi nal Result [facility] [address] [place] [address] * C4 complement (08/08/2024 9:09 AM CDT) Complement component C4C 27 15 - 57 mg/dL [facility] Blood 08/08/2024 9:09 AM CDT 08/08/2024 9:10 AM CDT [facility] LAB BLOOD ORDERABLES Fi nal Result Performing Organization Address [facility] Co de Phone Number [facility] [address] [place] [address] * CBC with auto differential (08/08/2024 9:09 AM CDT) Pathologist [facility] [place] WBC 7.1 3.8 - 10.8 Thousand/u L [...] ORDERABLES Fi nal Result Performing Organization Address City/[facility] Co de Phone Number [facility] [address] [place] [address] * Protein / creatinine ratio, urine, random [...] nal Result Performing Organization Address [facility] Co de Phone Number [facility] [address] [place] [address] * Erythrocyte sedimentation rate (08/08/2024 9:09 AM CDT) Erythrocyte sedimentation rate 9 < OR = 30 mm/h [facility] Blood 08/08/2024 9:09 AM CDT 08/08/2024 9:10 AM CDT [facility] LAB BLOOD ORDERABLES Fi nal Result Performing Organization Address [facility] Co de Phone Number [facility] [address] [place] [address] * C3 complement (08/08/2024 9:09 AM CDT) Complement component C3C 141 83 - 193 mg/dL [facility] Blood 08/08/2024 9:09 AM CDT 08/08/2024 9:10 AM CDT [facility] LAB BLOOD ORDERABLES Fi nal Result Performing Organization Address [facility] de Phone Number [facility] [address] [place] [address] * CRP (acute phase) (08/08/2024 9:09 AM CDT) C-RP <3.0 <8.0 mg/L [facility] Blood 08/08/2024 9:09 AM CDT 08/08/2024 9:10 AM CDT Carlos [facility] LAB BLOOD ORDERABLES Fi nal Result Performing Organization Address [facility] de Phone Number [facility] [address] [place] [address] * (ABNORMAL) Comprehensive metabolic panel (08/08/2024 9:09 [...] LAB BLOOD ORDERABLES nal Result [facility] [address] [place] [id number] from Last 3 Months Insurance [facility] Member Subscriber Plan / Payer (Ef fective 2020-Present) Name:Nasrin Healy Relation to Subscriber:Spouse Name:SERENA HEALY Date of :1958 (Home) Address: [address] [place] [address] Payer ID:[id number] (NAIC) Type:[facility] HMO/PPO Address: [address] [place] [id number] [facility] MEDICARE [address] [place] [id number] MEDICARE [facility] Care Teams Film Recordist Relationship Specialty Start Date End Date Ray Roberts MD [address] [facility] [address] [place] [address] PCP - General Family Medicine 04/11/24 Hossein Ribeiro MD [address] [place] [address] Referring Physician Neurology 09/21/19 Rashid Gaffney MD [address] [place] [address] Consulting Physician Rheumatology 04/24/23
--- OUTSIDE RECORDS SUMMARY | 2024-10-18 01:24 | XMS_ITS | Clinical Summary ---
Author Organization [facility] Address [facility] [place] [address] Care Team Providers Care Drapery Maker Name Role Phone Unavailable Primary Care Provider [...] Screening with HPV 01/04/1992 Mammogram Screening 2002 Pneumococcal Vaccine: 50+ Ye ars (1 of 1 - PCV) 01/04/2012 Zoster Vaccines (1 of 2) 01/04/2012 COVID-19 [...]
--- OUTSIDE RECORDS SUMMARY | 2024-10-18 01:24 | XMS_ITS | Clinical Summary ---
Author Organization [facility] Address [address] [place] [address] Care Team Providers Care Spring Coiler Name Role Phone Provider, Abstract Primary Care [...] Comments Blood Pressure 139/87 06/25/2018 9:01 AM OPHTHALMOLOGY SURGICAL TECHNICIAN Pulse 74 06/25/2018 9:01 AM OPHTHALMOLOGY SURGICAL TECHNICIAN Temperature 36.8 C (98.2 F) 06/25/2018 9:01 AM OPHTHALMOLOGY SURGICAL TECHNICIAN Respiratory Rate 17 06/25/2018 9:01 AM OPHTHALMOLOGY SURGICAL TECHNICIAN Oxygen Saturation 97% 06/25/2018 9:01 AM OPHTHALMOLOGY SURGICAL TECHNICIAN Inhaled Oxygen Concentration - - Weight 76 kg (167 lb 8 oz) 06/25/2018 9:01 AM CS T Height 160 cm (5' 3) 06/25/2018 9:01 AM OPHTHALMOLOGY SURGICAL TECHNICIAN Body Mass Index 29.67 06/25/2018 9:01 AM OPHTHALMOLOGY SURGICAL TECHNICIAN Plan of Treatment Health Maintenance Due Date [...] series) 2022 INFLUENZA VACCINE (#1) 2023 Insurance [facility] Care Teams Spring Coiler Relationship Specialty Start Date End Date Provider, Abstract NO ADDRESS ON FILE PCP - General 06/25/18
--- OUTSIDE RECORDS SUMMARY | 2024-10-18 01:24 | XMS_ITS | Referral Summary ---
Author Organization [facility] [address] [facility] Address [address] [place] [address] Phone Care Team Providers Care Rope Maker Name Role Phone Hossein Ribeiro MD Unavailable Rashid Gaffney MD Unavailable [phone] Ray Roberts MD Primary Care Provider Encounters Date Type Department Care Team Description 10/13/2024 8:41 AM CDT - 10/13/2024 11:59 PM CDT Hospital Encounter [facility] [address] [place] [phone] Systemic lupus erythematosus, unspecified SLE type, unspecified organ involvement status (HCC); Seropositive rheumatoid arthritis (HCC); Chronic pain of both knees Discharge Disposition: Discharge to home or self care 10/12/2024 Results Follow-Up [facility] [address] [place] [phone] Carlos Coughlin PA C4 complement, CBC with auto differential, Comprehensive metabolic panel, Additional followed-up results: 5 10/11/2024 10:00 AM CDT Office Visit [facility] [address] [place] [phone] Carlos Coughlin PA Systemic lupus erythematosus, unspecified SLE type, unspecified organ involvement status (HCC) (Primary Dx); Seropositive rheumatoid arthritis (HCC); Chronic pain of both knees; Fibromyalgia; Encounter for long-term (current) use of medications 09/28/2024 9:00 AM CDT Office Visit [address] [phone] Carlos Coughlin PA Systemic lupus erythematosus, unspecified SLE type, unspecified organ involvement status (HCC) (Primary Dx); Seropositive rheumatoid arthritis (HCC); Fibromyalgia; Encounter for long-term (current) use of medications 09/23/[address] [phone] Steve Russell 08/31/2024 Results Follow-Up [address] [address] Carlos Coughlin PA C4 complement, CBC with auto differential, Comprehensive metabolic panel, Additional followed-up results: 6 08/30/2024 3:00 PM CDT Office Visit [address] [address] Carlos Coughlin PA Systemic lupus erythematosus, unspecified SLE type, unspecified organ involvement status (HCC) (Primary Dx); Seropositive rheumatoid arthritis (HCC); Fibromyalgia; Encounter for long-term (current) use of medications 08/09/2024 Results Follow-Up [address] [phone] Carlos Coughlin PA C4 complement, CBC with auto differential, Comprehensive metabolic panel, Additional followed-up results: 5 08/08/2024 8:45 AM CDT Office Visit [address] [phone] Carlos Coughlin PA Lymphocytopenia (Primary Dx); Systemic [...] TOTAL VOLUME OF 2000ML 0 Active rizatriptan FOXER (MAXALT-FOXER) 10 mg disintegrating tablet TAKE ONE TABLET [...] L5. Assessment & Plan (06/13/2022 12:34 PM HOME AID): C-spine x-ray 05/15/2022: Minimal degenerative changes at [...] complaints. Assessment & Plan (05/15/2022 10:14 AM HOME AID): Will obtain imaging and send to physical therapy. Primary hypertension 05/15/2022 Assessment & Plan (05/15/2022 2:20 PM HOME AID): Following with PCP and is to reach [...] p.r.n. Assessment & Plan (05/09/2024 11:00 AM HOME AID): Seropositive RA given prior elevated rheumatoid factor [...] p.r.n. Assessment & Plan (04/11/2024 9:56 AM HOME AID): Seropositive RA given prior elevated rheumatoid factor [...] p.r.n.. Assessment & Plan (04/07/2023 10:55 AM HOME AID): Seropositive RA given prior elevated rheumatoid factor [...] p.r.n.. Assessment & Plan (06/13/2022 12:34 PM HOME AID): As discussed above, seropositive RA given prior [...] b.i.d.. Assessment & Plan (05/15/2022 10:12 AM HOME AID): As discussed above, seropositive RA given prior [...] b.i.d.. Assessment & Plan (04/26/2021 9:30 AM HOME AID): As discussed above, concern for seropositive RA [...] daily. Assessment & Plan (06/11/2020 1:03 PM HOME AID): As discussed above, concern for seropositive RA given prior elevated rheumatoid factor and erosions seen on ultrasound. Appears fairly well controlled. Continue Plaquenil 200 mg b.i.d., xeljanz xr 11 mg daily. Assessment & Plan (04/11/2020 12:03 PM HOME AID): As discussed above, concern for seropositive RA given prior elevated rheumatoid factor and erosions seen on ultrasound. Will stop Orencia and azathioprine due to lack of benefit and begin approval for Xeljanz XR 11 mg daily. Continue Plaquenil 200 mg b.i.d.. Assessment & Plan (03/19/2020 9:49 AM HOME AID): As discussed above, concern for seropositive RA [...] exercise. Assessment & Plan (05/09/2024 11:01 AM HOME AID): Stable. Continue Cymbalta 60 mg daily, gabapentin 300 mg qid per Neurology. Previously switched from Lyrica for insurance reasons. Encourage routine exercise. Assessment & Plan (04/11/2024 9:57 AM HOME AID): Stable. Continue Cymbalta 60 mg daily, gabapentin [...] exercise. Assessment & Plan (04/07/2023 12:50 PM HOME AID): Stable. Continue Cymbalta 60 mg daily, gabapentin [...] exercise. Assessment & Plan (06/13/2022 12:35 PM HOME AID): Continue Cymbalta 30 mg daily. Continue gabapentin 300 mg q.a.m., 300 mg midday, 600 mg q.p.m. per neurology. Previous switch from Lyrica for insurance reasons. Encourage routine exercise. Assessment & Plan (05/15/2022 10:15 AM HOME AID): Stable. Continue Cymbalta 30 mg daily. Continue [...] exercise. Assessment & Plan (04/26/2021 9:31 AM HOME AID): Stable. Continue Cymbalta and gabapentin 100 mg [...] exercise. Assessment & Plan (06/11/2020 1:06 PM HOME AID): Stable. Continue Cymbalta. On Lyrica 300 mg 1-2 times daily per PCP. Encourage routine exercise. Assessment & Plan (04/11/2020 12:07 PM HOME AID): Stable. Continue Cymbalta. On Lyrica 300 mg 1-2 times daily per PCP. Encourage routine exercise. Assessment & Plan (03/19/2020 9:50 AM HOME AID): As discussed at last visit, continue to [...] exercise. Assessment & Plan (04/01/2019 12:29 PM HOME AID): FM may be contributing to some of [...] benefit. Assessment & Plan (04/01/2019 12:26 PM HOME AID): Bilateral CMC bracing has offered benefit. Assessment [...] L4 on L5. Had L-spine MRI from [facility] and is following with pain management. Has completed physical therapy. Following with pain management. Has received several injections in the lower back since last visit without significant relief. Scheduled to follow up with pain management later today. Is considering surgical intervention. Has been using tramadol and Tylenol with some relief in symptoms. Assessment & Plan (05/09/2024 11:02 AM HOME AID): C-spine x-ray 05/15/2022: Minimal degenerative changes at C3-C4 and C4-C5 SI joint x-ray 05/15/2022: WNL L-spine x-ray 05/15/2022: 5 mm anterolisthesis of L4 on L5. Had L-spine MRI from [facility] and is following with pain management. Has completed physical therapy. Following with pain management. Is currently going to physical therapy. Is scheduled for repeat L-spine epidural steroid injection with pain management tomorrow. Is following with orthopedic surgeon with discussions for potential surgical intervention regarding the lower back. Assessment & Plan (04/11/2024 9:57 AM HOME AID): C-spine x-ray 05/15/2022: Minimal degenerative changes at C3-C4 and C4-C5 SI joint x-ray 05/15/2022: WNL L-spine x-ray 05/15/2022: 5 mm anterolisthesis of L4 on L5. Had L-spine MRI from [facility] and is following with pain management. [...] L4 on L5. Had L-spine MRI from [facility] and is following with pain management. [...] L4 on L5. Had L-spine MRI from [facility] and is following with pain management. Received epidural injection yesterday afternoon and continues to go to physical therapy. She defers surgical intervention at this time. Continue to follow with pain management. Assessment & Plan (06/13/2022 12:35 PM HOME AID): C-spine x-ray 05/15/2022: Minimal degenerative changes at [...] Will track down recent L-spine MRI from [facility]. Assessment & Plan (05/15/2022 10:14 AM HOME AID): Primary complaint is significant lower back pain [...] today. Assessment & Plan (04/01/2019 12:28 PM HOME AID): History of L4/L5/S1 OA in the lower [...] 06/04/2018 Assessment & Plan (06/04/2018 10:18 AM HOME AID): Insomnia symptoms at night. Discussed use of black noise machine. also reports that she snores. Would recommend sleep study, although discuss further with PCP. Right hand pain 05/07/2018 Assessment & Plan (05/07/2018 10:54 AM HOME AID): Patient jammed right 1st digit and has [...] years. Assessment & Plan (06/04/2018 10:14 AM HOME AID): Did not obtain DEXA at last visit, will obtain in the near future. Order placed again. Assessment & Plan (05/07/2018 10:56 AM HOME AID): Recently non-displaced lateral malleolus fracture after rolling her ankle. Is at increased risk for osteoporosis with SLE. Will check dexa scan today. Confusion 03/03/2018 Right hip pain 02/26/2018 Assessment & Plan (06/04/2018 10:15 AM HOME AID): Patient does continue to have some mild pain in the right hip / groin region. Most recent hip x-ray was negative. Has complaints are minimal, we will just monitor at this time. If symptoms progress, would consider right hip MRI. Assessment & Plan (05/07/2018 10:52 AM HOME AID): Denies major complaints today. Most recent right hip x-ray was negative. If symptoms do worsen, would consider right hip MRI. Assessment & Plan (03/26/2018 9:57 AM HOME AID): Right hip pain with accompanying morning stiffness persists. Localizes over the right hip/ groin region, although no pain elicited with internal and external rotation. Recent right hip x-ray was negative. If symptoms persist, will consider right hip MRI at next visit. Assessment & Plan (02/26/2018 10:24 AM HOME AID): Right hip pain, which she does note [...] 12/15/2017 Assessment & Plan (06/04/2018 10:16 AM HOME AID): Still awaiting to schedule with Neurology for further evaluation of these symptoms. Assessment & Plan (05/07/2018 10:52 AM HOME AID): Has not scheduled with Neurology, which was discussed at the last couple of visits. Will be scheduling in the near future. Assessment & Plan (03/26/2018 10:29 AM HOME AID): As discussed at last visit, given her confusion symptoms, as well as headaches , would recommend further evaluation with Neurology. Assessment & Plan (02/26/2018 10:23 AM HOME AID): Continues to note persistent headaches, as well [...] 06/2019 Assessment & Plan (05/09/2024 11:01 AM HOME AID): DEXA 02/05/2023: L-spine-1.3, left femoral neck-1.4, left total hip-0.7, right femoral neck -0.8, right total hip -0.4 FRAX: 9.6/0.8. On vitamin-D supplementation per PCP recommendations Routine labs today. Continue routine eye exams. Normal TPMT 03/2018 Neg quant 06/2019 Assessment & Plan (04/11/2024 9:56 AM HOME AID): DEXA 02/05/2023: L-spine-1.3, left femoral neck-1.4, left [...] 06/2019 Assessment & Plan (04/07/2023 12:50 PM HOME AID): DEXA 02/05/2023: L-spine-1.3, left femoral neck-1.4, left [...] 06/2019 Assessment & Plan (04/26/2021 9:30 AM HOME AID): Routine labs today. Continue routine eye exams. [...] 06/2019 Assessment & Plan (06/11/2020 1:04 PM HOME AID): Routine labs today. Continue routine eye exams. Normal TPMT 03/2018 Neg quant 06/2019 Assessment & Plan (04/11/2020 12:04 PM HOME AID): Routine labs today. Continue routine eye exams. Normal TPMT 03/2018 Neg quant 06/2019 Assessment & Plan (03/19/2020 9:50 AM HOME AID): Routine labs today. Continue routine eye exams. [...] 03/2018 Assessment & Plan (04/01/2019 12:27 PM HOME AID): Routine labs today. Continue routine eye exams. [...] today. Assessment & Plan (06/04/2018 10:16 AM HOME AID): Routine labs today. Continue routine eye exams. Normal TPMT 03/2018 Routine labs today. Assessment & Plan (05/07/2018 10:53 AM HOME AID): Routine labs today. Continue routine eye exams. Normal TPMT 03/2018 Routine labs today. Recheck CBC in 2 weeks. Assessment & Plan (03/26/2018 9:57 AM HOME AID): Routine labs today. Continue routine eye exams. Routine labs today, including TP MT. Recheck CBC in 2 weeks. Assessment & Plan (02/26/2018 10:25 AM HOME AID): Routine labs today. Continue routine eye exams. [...] warmers. Assessment & Plan (04/26/2021 9:30 AM HOME AID): Persistent intermittent Raynaud/acrocyanosis symptoms in the feet>hands. [...] warmers. Assessment & Plan (06/11/2020 1:04 PM HOME AID): Persistent intermittent Raynaud symptoms in the feet>hands. [...] fingers. Assessment & Plan (04/01/2019 12:27 PM HOME AID): Mild occasional Raynaud's in the feet without [...] Plaquenil 200 b.i.d., xeljanz Assessment & Plan (10/11/2024 11:27 AM CDT): [...] needed. Assessment & Plan (05/09/2024 11:01 AM HOME AID): CDAI 7. Had significant benefit with Kenalog [...] needed. Assessment & Plan (04/11/2024 9:55 AM HOME AID): CDAI 21. Since last visit, has had [...] needed. Assessment & Plan (04/07/2023 10:54 AM HOME AID): CDAI 13. Since last visit, has noted [...] needed Assessment & Plan (06/13/2022 12:33 PM HOME AID): CDAI 16. Presents due to a flare. [...] needed. Assessment & Plan (05/15/2022 10:11 AM HOME AID): CDAI 9. Overall, peripheral joints have done [...] needed. Assessment & Plan (04/26/2021 9:28 AM HOME AID): CDAI 18. Since last visit, has experienced [...] needed. Assessment & Plan (06/11/2020 1:02 PM HOME AID): CDAI 9. Since last visit, patient has [...] needed. Assessment & Plan (04/11/2020 12:06 PM HOME AID): CDAI 40. Patient returns today due to [...] osteoporosis. Assessment & Plan (03/19/2020 9:51 AM HOME AID): Tele health visit. 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 A.m. stiffness for 60 minutes. Denies [...] needed. Assessment & Plan (04/01/2019 12:26 PM HOME AID): CDAI 0. Denies much peripheral joint complaints [...] needed. Assessment & Plan (06/04/2018 10:14 AM HOME AID): Initial serologies:pos lourdes 1:640 dense fine speckled. [...] needed. Assessment & Plan (05/07/2018 10:51 AM HOME AID): Initial serologies:pos lourdes 1:640 dense fine speckled. [...] injection. Assessment & Plan (03/26/2018 10:28 AM HOME AID): Initial serologies:pos lourdes 1:640 dense fine speckled. [...] today. Assessment & Plan (02/26/2018 12:08 PM HOME AID): Initial serologies:pos lourdes 1:640 dense fine speckled. [...] that she will be moving to the [facility] that will be needed to establish care with a new sat instructor. Advised to do this DARÍO. Routine labs [...] Gilbert. Assessment & Plan (04/26/2021 9:31 AM HOME AID): A primary complaint persistent neuropathic pain in [...] heme. Assessment & Plan (06/11/2020 1:03 PM HOME AID): Follows with heme. Assessment & Plan (04/11/2020 12:04 PM HOME AID): Follows with heme. Assessment & Plan (03/19/2020 9:50 AM HOME AID): Follows with heme. Assessment & Plan (02/17/2020 [...] Hematology. Assessment & Plan (04/01/2019 12:26 PM HOME AID): Following with Hematology. Assessment & Plan (12/31/2018 12:45 PM CDT): Continue to follow with Hematology Assessment & Plan (10/01/2018 10:48 AM CDT): Continue to follow with hematology. Assessment & Plan (07/23/2018 9:05 AM CDT): Continue to follow with Hematology. Assessment & Plan (06/04/2018 10:15 AM HOME AID): Continue to follow with Hematology. Assessment & Plan (05/07/2018 10:52 AM HOME AID): Continue to follow with Hematology. Assessment & Plan (03/26/2018 10:29 AM HOME AID): Continue to follow with Hematology. Assessment & Plan (02/26/2018 10:25 AM HOME AID): Following with Hematology for this issue. Will [...] 36.5 C (97.7 F) 04/26/2021 8:51 AM HOME AID Respiratory Rate - - Oxygen Saturation 97% 10/11/2024 9:53 AM CDT Inhaled Oxygen Concentration - - Weight 78.9 kg (174 lb) 10/11/2024 9:53 AM CDT Height 162.6 cm (5' 4) 10/11/2024 9:53 AM CDT Body Mass Index 29.87 10/11/2024 9:53 AM CDT Plan of Treatment Not on file [...] ORDERABLES Fi nal Result Performing Organization Address [facility]/ZIP Co de Phone Number [facility] [address] [place] [address] * C4 complement (10/11/2024 10:31 AM CDT) Pathologist [facility] Complement component C4C 28 15 - 57 mg/dL [facility] Blood 10/11/2024 10:3 1 AM CDT 10/11/2024 10:31 AM CDT Carlos HUITRON LAB BLOOD ORDERABLES Fi nal Result Performing Organization Address [facility] Co de Phone Number [facility] [address] [place] [address] * CBC with auto differential (10/11/2024 10:31 [...] BLOOD ORDERABLES Fi nal Result [facility] [address] [facility] [place] [address] * (ABNORMAL) Protein / creatinine ratio, urine, [...] ORDERABLES Fi nal Result Performing Organization Address [facility] de Phone Number [facility] [address] [place] [address] * Erythrocyte sedimentation rate (10/11/2024 10:31 AM CDT) Erythrocyte sedimentation rate 6 < OR = 30 mm/h [facility] Blood 10/11/2024 10:3 1 AM CDT 10/11/2024 10:31 AM CDT Carlos HUITRON LAB BLOOD ORDERABLES Fi nal Result Performing Organization Address [facility] de Phone Number [facility] [address] [place] [address] * C3 complement (10/11/2024 10:31 AM CDT) Complement component C3C 149 83 - 193 mg/dL [facility] Blood 10/11/2024 10:3 1 AM CDT 10/11/2024 10:31 AM CDT Carlos HUITRON LAB BLOOD ORDERABLES Fi nal Result Performing Organization Address [facility] de Phone Number [facility] [address] [place] [address] * CRP (acute phase) (10/11/2024 10:31 AM CDT) C-RP <3.0 <8.0 mg/L [facility] Blood 10/11/2024 10:3 1 AM CDT 10/11/2024 10:31 AM CDT us Carlos HUITRON LAB BLOOD ORDERABLES nal Result [facility] [address] [place] [id number] * (ABNORMAL) Comprehensive metabolic panel (10/11/2024 10:31 AM CDT) Pathologist [facility] Glucose 87 65 - 99 mg/dL [facility] [...] LAB BLOOD ORDERABLES nal Result [facility] [address] [place] [phone] * (ABNORMAL) CBC with auto differential (09/13/2024 [...] ORDERABLES Fi nal Result Performing Organization Address [facility] Co de Phone Number [facility] [address] [place] [address] * Anti-double stranded DNA abs (08/30/2024 2:56 PM CDT) DNA (DS) ab <1 IU/mL [facility] Comment: IU/mL Interpretation < or = 4 Negative 5-9 Indeterminate > or = 10 Positive Blood 08/30/2024 2:56 PM CDT 08/30/2024 2:58 PM CDT Carlos HUITRON LAB BLOOD ORDERABLES Fi nal Result Performing Organization Address [facility] Co de Phone Number [facility] [address] [place] [address] * C4 complement (08/30/2024 2:56 PM CDT) Complement component C4C 26 15 - 57 mg/dL [facility] Blood 08/30/2024 2:56 PM CDT 08/30/2024 2:58 PM CDT Carlos HUITRON LAB BLOOD ORDERABLES Fi nal Result Performing Organization Address [facility] Co de Phone Number [facility] [address] [place] [address] * (ABNORMAL) CBC with auto differential (08/30/2024 2:56 PM CDT) [facility] WBC 6.1 3.8 - 10.8 Thousand/u [...] BLOOD ORDERABLES Fi nal Result [facility] [address] [place] [address] * Protein / creatinine ratio, urine, random [...] ORDERABLES Fi nal Result Performing Organization Address [facility] Co de Phone Number [facility] [address] [place] [address] * Erythrocyte sedimentation rate (08/30/2024 2:56 PM CDT) Erythrocyte sedimentation rate 14 < OR = 30 mm/h [facility] Blood 08/30/2024 2:56 PM CDT 08/30/2024 2:58 PM CDT Carlos HUITRON LAB BLOOD ORDERABLES Fi nal Result Performing Organization Address [facility] Co de Phone Number [facility] [address] [place] [address] * C3 complement (08/30/2024 2:56 PM CDT) Complement component C3C 145 83 - 193 mg/dL [facility] Blood 08/30/2024 2:56 PM CDT 08/30/2024 2:58 PM CDT Carlos HUITRON LAB BLOOD ORDERABLES Fi nal Result Performing Organization Address City/[facility]/ZIP Co de Phone Number [facility] [address] [place] [address] * (ABNORMAL) CRP (acute phase) (08/30/2024 2:56 PM CDT) Pathologist [facility] C-RP 9.8(H) <8.0 mg/L [facility] Blood 08/30/2024 2:56 PM CDT 08/30/2024 2:58 PM CDT Carlos HUITRON LAB BLOOD ORDERABLES Fi nal Result Performing Organization Address [facility] Co de Phone Number [facility] [address] [facility] [place] [address] * (ABNORMAL) Comprehensive metabolic panel (08/30/2024 2:56 PM CDT) [facility] Glucose 100(H) 65 - 99 mg/dL [...] ORDERABLES Fi nal Result Performing Organization Address [facility] Co de Phone Number [facility] [address] [place] [address] * Anti-double stranded DNA abs (08/08/2024 9:09 AM CDT) DNA (DS) ab <1 IU/mL [facility] Comment: IU/mL Interpretation < or = 4 Negative 5-9 Indeterminate > or = 10 Positive Blood 08/08/2024 9:09 AM CDT 08/08/2024 9:10 AM CDT Carlos HU[facility]RON LAB BLOOD ORDERABLES Fi nal Result Performing Organization Address City/[facility]/ZIP Co de Phone Number [facility] [address] [place] [address] * C4 complement (08/08/2024 9:09 AM CDT) Complement component C4C 27 15 - 57 mg/dL [facility] Blood 08/08/2024 9:09 AM CDT 08/08/2024 9:10 AM CDT Carlso [facility] LAB BLOOD ORDERABLES Fi nal Result [facility] [address] [place] [phone] * CBC with auto differential (08/08/2024 9:09 AM CDT) [facility] WBC 7.1 3.8 - 10.8 Thousand/u [...] ORDERABLES Fi nal Result Performing Organization Address [facility] de Phone Number [facility] [address] [facility] [facility] [place] [address] * Protein / creatinine ratio, urine, random [...] nal Result Performing Organization Address [facility] de Phone Number [facility] [address] [place] [address] * Erythrocyte sedimentation rate (08/08/2024 9:09 AM CDT) Erythrocyte sedimentation rate 9 < OR = 30 mm/h [facility] Blood 08/08/2024 9:09 AM CDT 08/08/2024 9:10 AM CDT Carlos [facility] LAB BLOOD ORDERABLES Fi nal Result Performing Organization Address [facility] de Phone Number [facility] [address] [place] [address] * C3 complement (08/08/2024 9:09 AM CDT) Complement component C3C 141 83 - 193 mg/dL [facility] Blood 08/08/2024 9:09 AM CDT 08/08/2024 9:10 AM CDT Carlos [facility]RON LAB BLOOD ORDERABLES Fi nal Result Performing Organization Address City/[facility]/ZIP Co de Phone Number [facility] [address] [place] [address] * CRP (acute phase) (08/08/2024 9:09 AM CDT) Pathologist [facility] C-RP <3.0 <8.0 mg/L [facility] Blood 08/08/2024 9:09 AM CDT 08/08/2024 9:10 AM CDT Carlos [facility] LAB BLOOD ORDERABLES Fi nal Result Performing Organization Address [facility] Co de Phone Number [facility] [address] [place] [address] * (ABNORMAL) Comprehensive metabolic panel (08/08/2024 9:09 AM CDT) Pathologist [facility] Glucose 111(H) 65 - 99 mg/dL [facility] [...] Carlos [facility] LAB BLOOD ORDERABLES nal Result Performing Organization Address City/State/[facility] Co de Phone Number [facility] [address] [place] [address] from Last 3 Months Insurance [facility] [address] [facility] [address] MEDICARE MEDICARE [facility] [address] Care Teams Rope Maker Relationship Specialty Start Date End Date aRy Roberts MD [address] [facility] [address] [place] [address] PCP - General Family Medicine 04/11/24 Hossein Ribeiro MD [address] [place] [address] Referring Physician Neurology 09/21/19 Rashid Gaffney MD [address] [place] [address] Consulting Physician Rheumatology 04/24/23
--- OUTSIDE RECORDS SUMMARY | 2024-10-18 01:24 | XMS_ITS | Clinical Summary ---
Author Organization [facility] Address [address] [place] [address] Phone Care Team Providers Care Surgeon/President Name Role Phone Breann Collins MD Primary Care Provider [phone] Social History Tobacco Use Types Packs/Day Years Used Date Smoking Tobacco: Never Assessed Comments Unknown Sex and Gender Information Value Date Recorded Sex Assigned at Not on file Legal Sex Female 4:20 PM CDT Gender Identity Not on file Sexual Orientation Not on file Plan of Treatment Health Maintenance Due Date Last Done Comments Hepatitis C Virus (HCV) Screening 1960 TdaP Immunization 1960 Cologuard 2007 Colonoscopy 2007 Colorectal Cancer Screening 2007 Immunochemical Fecal Occult Blood 2007 Pneumococcal Immunization (5 0+ years) (1 of 1 - PCV) 01/04/2012 SARS-COV-2 Immunization ( - season) 2023 01/07/2021, 07/12/2020, 06/21/2020 Influenza Immunization (Seas on Ended) 2024 01/11/2020, 06/03/2016 Respiratory Syncytial Virus (RSV) Immunization (Adult) (1 - 1-dose 75+ series) 2037 Mammogram Discontinued 02/21/2015 Zoster Immunization Completed 04/01/2020, 01/11/2020 Hepatitis B Immunization Aged Out No longer eligible based on patient's age to complete this topic Human Papillomavirus (HPV) Immunization Aged Out No longer eligible based [...] DIGITAL W CAD Routine 02/21/2015 3:59 PM COURTESY CLERK Visit for screening mammogram from Last 3 Months or Most Recently Relevant to Health Maintenance Results * MARIO SCREENING BILATERAL DIGITAL W CAD (02/21/2015 3:59 PM COURTESY CLERK) Anatomical Region Laterality Modality breast Bilateral Mammography 02/21/2015 4:10 PM COURTESY CLERK Impressions 02/22/2015 7:43 AM COURTESY CLERK BIRADS category 1 - normal. The patient should return to her screening schedule. J. Tye Faith M.D./ /[id number]/02/21/2015 16:10:35CST/hs/02/21/2015 21:34:28CST Cc: Narrative 02/22/2015 7:43 AM COURTESY CLERK PATIENT NAME: NASRIN HEALY : 1960 DOCUMENT TYPE: RADIOLOGY ORDER NUMBER/RESULT CODE ORDERING PHYSICIAN [id number] BREANN COLLINS DATE AND TIME OF DICTATION RADIOLOGIST 02/21/2015 16:10:35CST Geronimo Faith EXAM DESCRIPTION MARIO SCREENING BILATERAL DIGITA HISTORY: Bilateral screening mammography without comparison. FINDINGS: The breast tissue is heterogeneously dense. I appreciate no evidence of suspicious mass or microcalcifications. Breann Collins MD IMG MAMMO ORDERABLES Final Result from Last 3 Months or Most Recently Relevant to Health Maintenance Insurance [facility] Care Teams Surgeon/President Relationship Specialty Start Date End Date Breann Collins MD [address] [facility] [place] [address] PCP - General Family Medicine 02/21/15
--- OUTSIDE RECORDS SUMMARY | 2024-10-18 01:24 | XMS_ITS | Encounter Summary ---
Author Organization [facility] Address [address] [place] [address] Phone Care Team Providers Care Chemical Research Worker Name Role Phone Hossein Ribeiro MD Unavailable Rashid Gaffney MD Unavailable [phone] Ray Roberts MD Primary Care Provider Encounter Details Date Type Department Care Team (Latest Contact Info) Description 10/12/2024 Results Follow-Up [facility] [address] [place] [address] Carlos Coughlin PA [address] [place] [address] C4 complement, CBC with auto [...] on filedocumented in this encounter Care Teams Chemical Research Worker Relationship Specialty Start Date End Date Ray Roberts MD [address] [address] PCP - General Family Medicine 04/11/24 Hossein Ribeiro MD [address] [address] Referring Physician Neurology 09/21/19 Rashid Gaffney MD [address] [place] [address] Consulting Physician Rheumatology 04/24/23 documented as of this encounter
--- OUTSIDE RECORDS SUMMARY | 2024-10-18 01:24 | XMS_ITS | Continuity of Care Document ---
Author Organization [facility] Address [address] [facility] [address] [place] [address] Phone Care Team Providers Care Stopperer Assembler Name Role Phone Adelina PT, DPT, Alfredo Unavailable Unavailable Procedures Procedure Date Therapeutic Activities Neuromuscular Re-Ed Therapeutic Exercise COVID-19 Additional Safety Supplies/Time Therapeutic Activities Neuromuscular Re-Ed Therapeutic Exercise COVID-19 Additional Safety Supplies/Time Therapeutic Activities Neuromuscular Re-Ed Therapeutic Exercise Therapeutic Activities Neuromuscular Re-Ed Therapeutic Exercise Therapeutic Activities Therapeutic Exercise Therapeutic Exercise PT Evaluation Moderate Complexity Therapeutic Activities Advance Directives Directive Yes / No Effective Date File Name No Information Encounters Encounter Description Practice Location Reason(s) For Visit Diagnoses Date Provider Providers Copied on Encounter [facility] [employer] [facility], [place], [place], [id number], tel:[phone] [place] No Information 0 Adelina Fuentes. . [facility], [place], [place], [id number], tel:[phone] [place] No Information 0 Adelina Fuentes. . [facility] [address], [place], [place], [id number], tel:[phone] [place] No Information 0 Makler Luke. . [facility], [place], [place], [id number], tel:[phone] [place] No Information 0 Makler Luke. . [facility] [facility] [address], [place], [place], [id number], tel:[phone] [place] No Information 0 Makler Luke. . [facility] [facility] [address], [place], [place], [id number], tel:[phone] [place] No Information 0 Makler Luke. . Family History Family Member Type Diagnosis Age At Onset No Information Payers Payer name Insurance type Covered democrat ID Zoya pastor(s) [facility] [id number] Social History Type Description Quantity Date Captured [...]
--- OUTSIDE RECORDS SUMMARY | 2024-10-18 01:24 | XMS_ITS | Continuity of Care Document ---
Author Organization [facility] Address [address] [place] [address] [address] [place] [address] Phone Care Team Providers Care Environmental Science Professor Name Role Phone Hortencia Barnhart Unavailable Unavailable Advance Directives Directive Yes / No Effective Date File Name No Information Encounters Encounter Description Practice Location Reason(s) For Visit Diagnoses Date Provider Providers Copied on Encounter [facility], [address] [place] [address] [address], [place], [place], [id number], [place] tel:[phone] [facility] No Information 3-[address] Bronwyn Burnett. [address] , [address], [place], [address], [place]. tel:[phone] Family History Family Member Type Diagnosis Age At Onset No Information Payers Payer name Insurance type Covered libertarian ID Authoriza tion(s) No Information Social History [...]
--- OUTSIDE RECORDS SUMMARY | 2024-10-18 01:24 | XMS_ITS | Encounter Summary ---
Author Organization [facility] Address [address] [place] [address] Phone Care Team Providers Care Biodiesel Process Control Technician Name Role Phone Hossein Ribeiro MD Unavailable Rashid Gaffney MD Unavailable [phone] Ray Roberts MD Primary Care Provider Encounter Details Date Type Department Care Team (Latest Contact Info) Description 08/31/2024 Results Follow-Up [facility] [address] [place] [address] Carlos Coughlin PA [address] [place] [address] C4 complement, CBC with auto [...] differential (09/13/2024 1:50 PM CDT) Pathologist [facility] WBC 5.9 3.8 - 10.8 Thousand/u L [...] LAB BLOOD ORDERABLES Fi nal Result [facility] [address] [place] [address] documented in this encounter Visit Diagnoses Diagnosis Lymphopenia- Primary Lymphocytopenia documented in this encounter Care Teams Biodiesel Process Control Technician Relationship Specialty Start Date End Date Ray Roberts MD [address] [place] [address] PCP - General Family Medicine 04/11/24 Hossein Ribeiro MD [address] [place] [address] Referring Physician Neurology 09/21/19 Rashid Gaffney MD [address] [place] [address] Consulting Physician Rheumatology 04/24/23 documented as of this encounter
--- NOTE | 2024-10-18 05:39 | WPDHPUPDATE1 ---
History and Physical Update Update Date/Time: 10/18/24 05:39 History and Physical has been reviewed, including an updated exam of the patient. There are NO changes in the patient's condition. Risks, benefits, and alternatives have been discussed and questions answered. Patient agrees to proceed with procedure.
--- NOTE | 2024-10-18 05:44 | P.OP_ITS ---
Procedure Note - Detailed Date of Procedure 10/18/24 Pre-op Diagnosis lumbosacral spondylosis Post-op Diagnosis Same Procedure Performed Thermal Radiofrequency Ablation of the Bilateral Lumbar Medial Branches/Dorsal Rami at the L3, L4, L5 Levels Treating the Bilateral L4-5, L5-S1 Facet Joints Under Fluoroscopic Guidance (4 Levels Treated). Surgeon Dereck Bowden MD Senior Loss Control Specialist None. Anesthesia Local (w/ MAC) Description of Procedure INFORMED CONSENT: Risks, benefits and alternatives to the procedure were discussed in detail with the patient who expressed explicit understanding and consent to proceed. Patient was informed verbally and in written form regarding the risks associated with the procedure including the low risk of serious infection, bleeding/bruising, allergic reaction, nerve or organ injury, paralysis, procedural site pain or discomfort, worsening pain and/or mobility, failure to treat and/or disfigurement. The patient expressed explicit understanding and consent to proceed. All materials required for the procedure were available prior to procedure start. Site and side were marked prior to procedure and confirmed in the presence of the patient. PROCEDURE IN DETAIL: The patient was brought to the procedural suite and placed in the prone position. Patient was made comfortable with use of pillows under the head/chest, hips and ankles. ASA standard monitors were applied and used throughout the procedure. Skin overlying the injection site on the affected side(s) was prepared broadly with ChloraPrep applicator and draped in a sterile manner. Aseptic technique was used throughout. The endplates of the vertebral bodies at the site(s) of interest were aligned in the AP view. Ipsilateral oblique angulation was utilized to optimize visualization of the intersection between the superior articulating process and transverse process at each target site. Local anesthesia was established by infiltration with approximately 5 mL of 1% lidocaine via a 1-1/2 inch 27-gauge needle divided over each site treated. A 16-gauge 100mm SkySpecsian RF needle with curved 10mm active tip was advanced in the AP view until the needle tip contacted the periosteum at the target site, the right L3 medial branch. Lateral view was utilized to adjust and confirm the appropriate placement of the needle tip just anterior to the facet line, superior to the pedicle and posterior to the foramen. Grounding electrode was in place and functioning. The appropriately-sized RF cannula was inserted into the RF needle and motor stimulation was performed with no subjective or objective evidence of recruited muscle activity with stimulation up to 2.0 volts at a frequency of 2Hz. 1.5 mL of 2.0% PF lidocaine was injected after negative aspiration. After a 90s pause, lesioning was performed to 90 degrees centigrade for 90s ensuring lack of symptoms in the extremity throughout. Needle was rotated 180 degrees and lesioning repeated in a similar manner. Patient tolerated this well. No paresthesias were elicited. Needle was removed comp letely intact without difficulty. The same procedure was repeated for all intended levels/ structures on the ipsilateral side, right L4, L5 medial branch/dorsal ramus with identical methodology, modified to compensate for new location, with similar results and no evidence of complication. The same exact procedure was repeated for all remaining levels on the contralateral side, left L3, L4, L5 medial branches/dorsal ramus, modified as necessary to accommodate for the new target location with identical findings/results and no evidence of complication. Images were saved and documented in the patient chart. Patient's skin was cleansed and sterile bandage applied. The patient tolerated the procedure well. The patient was transported to the recovery area in stable condition where they were observed for an appropriate amount of time prior to discharge, without evidence of complication. The patient was instructed to avoid excessive activity for the next 48 hours, including climbing and frequent use of stairs. Showers only for 48 hours. They were instructed not to drive or operate heavy machinery for 24 hours. They are to monitor for severe headaches, fevers, chills, night sweats, erythema/swelling at the site or any other signs of infection, bleeding/bruising, bowel or bladder changes as well as new pain, weakness or numbness in the upper or lower extremity. Should they notice these changes, they are instructed to call our office immediately or report directly to the nearest Emergency Department if no answer or if after posted office hours. COMPLICATIONS: None COMMENTS: None Complications No immediate complications Condition Stable Disposition PACU [facility] Billing Surgery - Charge Forward: Surgery Billing
[2024-10-18 09:30] VITALS: BP 128/64; PULSE 70; RESP 18; TEMP 36.3; O2SAT 98
[2024-10-18] MEDS: LACTATED RINGERS 1,000 ML 30 ML IV CONT (09:55)
--- NOTE | 2024-10-18 10:01 | WPDANESEPPF ---
Anes - Initial Pre Proc Eval Procedure: Operation Date: 10/18/24 11:30 Proposed Procedures p Thermal Radio Frequency Ablation of the Bilateral L3, L4, L5 Medial Branch/Dorsal Rami Addressing the Bilateral L4-5, L5, S1 Facet Joints Under Fluoroscopic Guidance - Dereck Bowden MD Date/Time: 10/18/24 10:01 Surgeon: Dereck Bowden MD Pre Op Diagnosis: lumbosacral spondylosis Patient Data Age: 64 Gender: F Height: 1.63 m Weight: 77.3 kg Allergies Allergy/AdvReac Type Severity Reaction Status Date / Time codeine Allergy Severe Swelling Verified 10/18/24 09:36 of Lip/Tongue/Throat Penicillins Allergy Severe Swelling Verified 10/18/24 09:36 of Lip/Tongue/Throat Sulfa (Sulfonamide Allergy Severe Hives Verified 10/18/24 09:36 Antibiotics) Home Medications ?Medication ?Instructions ?Recorded ?Confirmed ?Type aspirin 325 mg tablet 325 mg PO DAILY 11/01/19 10/12/24 History cholecalciferol (vitamin D3) 25 25 mcg PO DAILY 11/01/19 10/12/24 History mcg (1,000 unit) capsule multivitamin 1 tablet PO DAILY 11/01/19 10/12/24 History Zyrtec 10 mg tablet (cetirizine) 10 mg PO DAILY #90 tabs 01/10/21 10/12/24 Rx omeprazole 20 mg capsule,delayed 20 mg PO BID PRN Heartburn 05/23/21 10/12/24 History release diclofenac sodium 2 % topical 1 packet topical BID 11/01/21 10/12/24 History solution in packet (Pennsaid) nitroglycerin 0.4 mg sublingual 0.4 mg sublingual Q5M PRN Chest 05/20/22 10/12/24 Rx tablet Pain #25 tabs hydroxychloroquine 200 mg tablet 200 mg PO BID 05/23/22 10/12/24 History leflunomide 20 mg tablet 20 mg PO DAILY 03/06/23 10/12/24 History upadacitinib 15 mg tablet,extended 15 mg PO DIRECTED 03/06/23 10/12/24 History release 24 hr (Rinvoq) gabapentin 300 mg capsule See Rx Instructions .Route 02/03/24 10/12/24 Rx .COMPLEX #360 caps buspirone 5 mg tablet See Rx Instructions .Route 03/21/24 10/12/24 Rx .COMPLEX #180 tabs levothyroxine 50 mcg tablet See Rx Instructions .Route 04/14/24 10/12/24 Rx .COMPLEX #90 tabs quetiapine 25 mg tablet See Rx Instructions .Route 04/22/24 10/12/24 Rx .COMPLEX #180 tabs carvedilol 25 mg tablet See Rx Instructions .Route 05/10/24 10/12/24 Rx .COMPLEX #60 tabs losartan 100 See Rx Instructions .Route 05/10/24 10/12/24 Rx mg-hydrochlorothiazide 25 mg tablet .COMPLEX #30 tabs omega 4-eek-ybn-fish oil 1,000 mg 1 cap PO DAILY 05/10/24 10/12/24 History (120 mg-180 mg) capsule (Fish Oil) atorvastatin 20 mg tablet See Rx Instructions .Route 09/07/24 10/12/24 Rx .COMPLEX #90 tabs duloxetine 60 mg capsule,delayed See Rx Instructions .Route 09/16/24 10/12/24 Rx release .COMPLEX #90 ea albuterol sulfate 90 mcg/actuation 2 puff inhalation QID PRN 09/19/24 10/12/24 Rx aerosol inhaler (Ventolin HFA) shortness of breath or wheezing #8.5 grams tramadol 50 mg tablet 50 mg PO Q8H pain #90 tabs 09/27/24 10/12/24 Rx Patient hx anesthesia problems: none Family hx anesthesia problems: none Results Review: All pre-operative results and documents have been reviewed as part of the pre-operative evaluation. [facility] Past Medical History Medical History Chronic pain disorder Hypertensive urgency Lupus Rash and nonspecific skin eruption Viral gastroenteritis Insect bite of neck with local reaction Chronic pain Encounter for postoperative care Rheumatoid arthritis History of heart attack Aris-tachy syndrome Seizure Subacromial impingement of left shoulder Labral tear of long head of left biceps tendon Rotator cuff tear Left shoulder pain Shoulder swelling Cough RUQ abdominal pain Insomnia due to medical condition KRISTINA-inhibitor cough Acute bronchitis Restless leg syndrome Raynaud phenomenon MDD (major depressive disorder), recurrent episode, moderate Colon polyp Poison nae Epigastric pain Constipation Seropositive rheumatoid arthritis Chronic pain Elevated liver enzymes Lupus (systemic lupus erythematosus) Benign essential HTN Family History Family History Mother Hypertension Family history of diabetes mellitus in first degree relative Other Diabetes mellitus Family history of cardiovascular disease Family history of malignant neoplasm Social History Social History Social History: Smoking status: Never smoker Second hand tobacco smoke exposure: No Alcohol intake: never Substance use: never Substance use type: does not use Do You Feel Safe in your Home?: Yes Lack of Transportation: No Lack of Food: Never True Current Housing: I Have Housing Concerned About Future Housing: No Difficulty Paying Gas/Electric Bills: Decline to Answer Difficulty Paying for Meds: Decline to Answer Currently Unemployed: Decline to Answer Education: Associate Degree Difficulty w/ Childcare or Family Care: No Living arrangements: with family Occupation/Education: retired Additional occupation/education comments: Disability Gender identity (if verbalized by the patient): Female Sexual Orientation (if Verbalized by the Patient): Straight or Heterosexual Spiritual care concerns: No Anes - Eval Final PreProcedure Day of Procedure 10/18/24 10:01 Patient weight: overweight Heart: regular rate and rhythm Lungs: clear to auscultation Airway: Mallampati scale class II Neurological: alert and oriented Last oral intake: >/= 8 hours ASA classification: III Emergent: no Anesthetic plan: proceed Anesthesia type and monitoring: monitored anesthesia care and standard monitoring Results Review: All pre-operative results and documents have been reviewed as part of the pre-operative evaluation. Informed Consent: The patient's anesthetic plan and its attendant risks and benefits were discussed with the patient/family/POA. Questions were solicited and answers provided to the satisfaction of the patient/family/POA.
[2024-10-18] MEDS: LIDOCAINE 2% PF LOCAL INJ 5 ML VIAL 10 ML INFILTRATE (11:00)
[2024-10-18] MEDS: LIDOCAINE 1% PF INJ 5 ML VIAL INFILTRATE (11:00)
[2024-10-18 11:12] VITALS: BP 138/65; PULSE 70; RESP 16; O2SAT 99
[2024-10-18 11:40] VITALS: BP 116/68; PULSE 65; RESP 16
[2024-10-18 12:10] VITALS: BP 132/56; PULSE 68; RESP 16
--- NOTE | 2024-10-18 12:37 | SUR.PHASEII ---
1237- Notified Dr. Bowden patient complaining of pain to left groin and describing as a sharp shooting pain when flexing leg. Patient requesting home medication Tramadol PO prior to discharge home. Per Dr. Bowden patient can take one time dose Tramadol 50MG PO and resume home medications upon discharge home. Per Dr. Bowden OK for discharge and patient should contact office with any concerns or questions.
[2024-10-18 12:40] VITALS: BP 139/59; PULSE 69; RESP 16
[2024-10-18] MEDS: traMADol HCL (*CRX) 50 MG TABLET PO (12:50)
== END 2024-10-18 12:55 | disposition home or self-care (01) ==
PROVIDERS: PCP Family Medicine; Visit Provider Anesthesiology Pain Medicine
PROC: (CPT 64635; principal; 2024-10-18 11:30)
DX: M47.817 Spondylosis without myelopathy or radiculopathy, lumbosacral region (principal)
CPT/HCPCS: 64635; 64636 ×6; 99199; A9270; J2003; J2250; J3010; J7120

== ENCOUNTER 2025-01-11 12:08 | Outpatient (CLI) | payer OTHER, SELFPAY ==
--- NOTE | ~2025-01-11 | MM_ITS ---
EXAMINATION: MM diagnostic kalpesh BI w hortensia INDICATION: Asymptomatic, referred for screening mammogram. History of breast cancer treated with bilateral partial mastectomy. COMPARISON: 01/07/2024 through 02/14/2014 TECHNIQUE: Digital Breast Tomosynthesis CC, MLO views were obtained of Both breasts with computer-aided detection to assist in interpretation of the study. FINDINGS: The breasts are heterogeneously dense, which may obscure small masses. Posttreatment changes in Both breasts are unchanged. No new focal dominant mass, architectural distortion, or suspicious microcalcifications are identified. There are no features to suggest malignancy. IMPRESSION: Stable benign mammogram. No evidence of malignancy in either breast. BI-RADS 2, BENIGN Reviewed, dictated and finalized at location B. IMPRESSION: Stable benign mammogram. No evidence of malignancy in either breast . BI-RADS 2, BENIGN
--- NOTE | ~2025-01-11 | US_ITS ---
EXAMINATION: MM diagnostic kalpesh BI w hortensia, US breast LT limited. INDICATION: 65-year old female; Nonfocal LEFT Breast pain lateral location for one month. COMPARISON: 04/16/2024 through 04/22/2016 TECHNIQUE: Digital Breast Tomosynthesis CC, MLO and ML views of Both breasts were obtained with computer-aided detection to assist in interpretation of the study. MAMMOGRAM FINDINGS: There are scattered areas of fibroglandular density. There are no suspicious masses, calcifications, architectural distortion or other abnormalities in Both breasts. No mammographic abnormality correlates to the area of breast pain. LEFT BREAST ULTRASOUND FINDINGS: Targeted ultrasound at the area of the patient's pain in the Lateral Left breast reveals no discrete cystic or solid lesions . IMPRESSION: No mammographic evidence of malignancy in the BILATERAL breast. No mammographic or sonographic abnormality correlates to the area of LEFT pain. RECOMMENDATIONS: 1. Clinical management of patient's breast pain. 2. If the patient has high risk factors for developing breast cancers such as, but not limited to dense breasts, positive gene markers, first degree relative with breast cancer which is not tested for Gene markers, or greater than 20% lifetime risk of developing breast cancer, supplemental breast MRI screening (ultrasound if MRI is contraindicated), in addition to annual screening mammography, should be considered and discussed with the patient. BI-RADS 2, BENIGN Reviewed, dictated and finalized at location B. IMPRESSION: No mammographic evidence of malignancy in the BILATERAL breast. No mammographic or sonographic abnormality correlates to the area of LEFT pain. RECOMMENDATIONS: 1. Clinical management of patient's breast pain. 2. If the patient has high risk factors for developing breast cancers such as, but not limited to dense breasts, positive gene markers, first degree relative with breast cancer which is not tested for Gene markers, or greater than 20% li fetime risk of developing breast cancer, supplemental breast MRI screening (ult rasound if MRI is contraindicated), in addition to annual screening mammography , should be considered and discussed with the patient. BI-RADS 2, BENIGN
--- OUTSIDE RECORDS SUMMARY | 2025-01-11 12:32 | XMS_ITS | Encounter Summary ---
Author Organization [facility] Address [address] [place] [address] Phone Care Team Providers Care Stereo Equipment Repairer Name Role Phone Hossein Ribeiro MD Unavailable Rashid Gaffney MD Unavailable [phone] Ray Roberts MD Primary Care Provider Dereck Bowden MD Unavailable [phone] Encounter Details Date Type Department Care Team (Latest Contact Info) Description 12/27/2024 Results Follow-Up [facility] [address] [place] [address] Carlos Coughlin PA [address] [place] [address] C4 complement, CBC with auto [...] on filedocumented in this encounter Care Teams Stereo Equipment Repairer Relationship Specialty Start Date End Date Ray Roberts MD [address] [address] PCP - General Family Medicine 04/11/24 Hossein Ribeiro MD [address] [address] Referring Physician Neurology 09/21/19 Rashid Gaffney MD [address] [place] [address] Consulting Physician Rheumatology 04/24/23 Dereck Bowden MD [address] [place] [address] Referring Physician Pain Management 01/10/25 documented as of this encounter
--- OUTSIDE RECORDS SUMMARY | 2025-01-11 12:33 | XMS_ITS | Patient Health Record ---
Author Organization [facility] [employer] Address [address] [place] [address] Care Team Providers Care Dredge Deckhand Name Role Phone Henry Daigle Unavailable [phone] Reason For Referral No Information Medications Medication SIG (Take, Route, Frequency, Duration) Notes Start Date End Date Status azaTHIOprine 50 MG Tablet Oral 01/28/2020 Active DULoxetine HCl 30 MG Capsule Delayed Release Particles Oral 01/28/2020 Active Rizatriptan Benzoate 10 MG Tablet Disintegrating Oral 01/28/2020 Act shyann Atorvastatin Calcium 20 MG Tablet Oral 01/28/2020 Active FLUBLOK QUAD (PF) 180 MCG (45 MCG X 4)/0.5 ML IM SYRINGE *Reorder from [facility] for eRx and Interaction Alerts* 01/28/2020 Active DULoxetine HCl 60 MG Capsule Delayed Release Particles Oral 01/28/2020 Active Shingrix 50 mcg/0.5 mL Suspension Reconstituted Intramuscular 01/28/2020 Ac tive Fluticasone Propionate Diskus 50 MCG/ACT Aerosol Powder Breath Activated Inhalation *Reorder from [facility] for eRx and Interaction Alerts* 01/28/2020 Active Amphetamine-Dextroamphet amine 20 MG Tablet Oral 01/28/2020 Active Omeprazole 20 MG Capsule Delayed Release Oral 01/28/2020 Active Benlysta 200 mg/mL Solution Auto-injector Subcutaneous 01/28/2020 Activ e Nitroglycerin 0.4 MG Tablet Sublingual Sublingual 01/28/2020 Active traZODone HCl 50 MG Tablet Oral 01/28/2020 Active Hydroxychloroquine Sulfate 200 MG Tablet Oral 01/28/2020 Active Metoclopramide HCl 10 MG Tablet Oral 01/28/2020 Active Lisinopril 10 MG Tablet Oral 01/28/2020 Active Meclizine HCl 12.5 MG Tablet Oral 01/28/2020 Active Pregabalin 300 MG Capsule Oral 01/28/2020 Active Social History Social History Additional Details Category Social Info Options Details Migrated Social History Migrated Social History Alcohol Intake: None 01/28/2020,Tobacco Years: Never smoker 01/28/2020 Plan Of Treatment No Information Insurance Providers Payer Name Payer Address Payer Phone Subscriber Number Group Number Insured Name Patient Relationship to Insured Coverage Start Date Coverage End Date [employer] [address] [place] [address] [id number] MELVI HUNTER Self - patient is the insured
--- OUTSIDE RECORDS SUMMARY | 2025-01-11 12:33 | XMS_ITS | Encounter Summary ---
Author Organization [facility] Address [address] [place] [address] Phone Care Team Providers Care Repair Department Supervisor Name Role Phone Hossein Ribeiro MD Unavailable Rashid Gaffney MD Unavailable [phone] Ray Roberts MD Primary Care Provider Dereck Bowden MD Unavailable [phone] Encounter Details Date Type Department Care Team (Latest Contact Info) Description 01/10/2025 Results Follow-Up [facility] [address] [place] [phone] Carlos Coughlin PA [address] [place] [address] Basic metabolic panel, CBC with auto differential Social History Tobacco Use Types Packs/Day Years [...] on filedocumented in this encounter Care Teams Repair Department Supervisor Relationship Specialty Start Date End Date Ray Roberts MD [address] [facility] [address] [place] [address] PCP - General Family Medicine 04/11/24 Hossein Ribeiro MD [address] [id number] Referring Physician Neurology 09/21/19 Rashid Gaffney MD [address] [place] [address] Consulting Physician Rheumatology 04/24/23 Dereck Bowden MD [address] [place] [id number] Referring Physician Pain Management 01/10/25 documented as of this encounter
--- OUTSIDE RECORDS SUMMARY | 2025-01-11 12:33 | XMS_ITS | Clinical Summary ---
Author Organization [facility] Address [facility] [place] [address] Care Team Providers Care Channel Manager Name Role Phone Unavailable Primary Care Provider [...] Vaccines (1 of 2) 01/04/2012 COVID-19 Vaccine ( - 2023-2 5 season) 2024 RSV Immunization or 60+ Years (1 - [...]
--- OUTSIDE RECORDS SUMMARY | 2025-01-11 12:33 | XMS_ITS | Clinical Summary ---
Author Organization [facility] [address] [facility] Address [address] [place] [phone] Phone Care Team Providers Care Critical Care Nurse Name Role Phone Hossein Ribeiro MD Unavailable Rashid Gaffney MD Unavailable [phone] Ray Roberts MD Primary Care Provider Dereck Bowden MD Unavailable [phone] Allergies Active Allergy Reactions Criticality Noted Date [...] Take 20 mg by mouth daily 02/10/20 Active estradioL (Yuvafem) 10 mcg tablet 06/10/19 [...] TOTAL VOLUME OF 2000ML 12/16/19 Active rizatriptan OIL SPOT WASHER (MAXALT-OIL SPOT WASHER) 10 mg disintegrating tablet TAKE ONE TABLET [...] MOUTH EVERY 12 HOURS WITH MEALS/FOOD 06/07/19 Active hydrALAZINE (APRESOLINE) 25 mg tablet Take 25 mg by mouth 3 (three) times a day 06/07/19 Active diclofenac sodium 20 mg/gram /actuation(2 %) solution in metered-dose pump Apply 40 mg topically to affected joints of the hands twice daily 112 g 2 10/12/19 24 Active leflunomide (ARAVA) 20 mg tablet Take 1 tablet (20 mg total) by mouth daily 90 tablet 12/02/19 25 Active upadacitinib (Rinvoq) 15 mg extended release tablet Take 1 tablet (15 mg total) by mouth daily 30 tablet 2 12/27/19 25 Active hydroxychloroquin e (PLAQUENIL) 200 mg tablet Take 1 tablet by mouth twice daily 180 tablet 01/11/20 25 Active Rinvoq 15 mg extended release tablet TAKE 1 TABLET BY MOUTH DAILY 30 tablet 2 09/14/19 25 2024 Discontinued(R eorder) hydroxychloroquin e (PLAQUENIL) 200 mg tablet Take 1 tablet by mouth twice daily 180 tablet 10/25/19 25 2024 Discontinued Active Problems Problem Noted Date Diagnosed [...] L5. Assessment & Plan (06/13/2022 12:34 PM BRAZING MACHINE OPERATOR AUTOMATIC): C-spine x-ray 05/15/2022: Minimal degenerative changes at [...] complaints. Assessment & Plan (05/15/2022 10:14 AM BRAZING MACHINE OPERATOR AUTOMATIC): Will obtain imaging and send to physical therapy. Primary hypertension 05/15/2022 Assessment & Plan (05/15/2022 2:20 PM BRAZING MACHINE OPERATOR AUTOMATIC): Following with PCP and is to reach [...] Seropositive rheumatoid arthritis 10/06/2019 Assessment & Plan (12/26/2024 9:27 AM CDT): Seropositive RA given prior elevated rheumatoid factor and erosions seen on ultrasound. Most recent repeat hand ultrasound did show some improvement in her inflammatory arthritis. As discussed above, did have obtain left knee aspiration and intra-articular steroid injection with improvement in her left knee complaints discussed at last visit. There were no inflammatory cells seen on fluid analysis. Did receive left wrist injection, as well, which did offer benefit. Minimal joint complaints, as above. Will continue Rinvoq 15 mg daily, leflunomide 20 mg daily, Plaquenil 200 mg b.i.d., as well as Pennsaid b.i.d. p.r.n.. Assessment & Plan (10/11/2024 11:27 AM CDT): [...] p.r.n. Assessment & Plan (05/09/2024 11:00 AM BRAZING MACHINE OPERATOR AUTOMATIC): Seropositive RA given prior elevated rheumatoid factor [...] p.r.n. Assessment & Plan (04/11/2024 9:56 AM BRAZING MACHINE OPERATOR AUTOMATIC): Seropositive RA given prior elevated rheumatoid factor [...] p.r.n.. Assessment & Plan (04/07/2023 10:55 AM BRAZING MACHINE OPERATOR AUTOMATIC): Seropositive RA given prior elevated rheumatoid factor [...] p.r.n.. Assessment & Plan (06/13/2022 12:34 PM BRAZING MACHINE OPERATOR AUTOMATIC): As discussed above, seropositive RA given prior [...] b.i.d.. Assessment & Plan (05/15/2022 10:12 AM BRAZING MACHINE OPERATOR AUTOMATIC): As discussed above, seropositive RA given prior [...] b.i.d.. Assessment & Plan (04/26/2021 9:30 AM BRAZING MACHINE OPERATOR AUTOMATIC): As discussed above, concern for seropositive RA [...] daily. Assessment & Plan (06/11/2020 1:03 PM BRAZING MACHINE OPERATOR AUTOMATIC): As discussed above, concern for seropositive RA given prior elevated rheumatoid factor and erosions seen on ultrasound. Appears fairly well controlled. Continue Plaquenil 200 mg b.i.d., xeljanz xr 11 mg daily. Assessment & Plan (04/11/2020 12:03 PM BRAZING MACHINE OPERATOR AUTOMATIC): As discussed above, concern for seropositive RA given prior elevated rheumatoid factor and erosions seen on ultrasound. Will stop Orencia and azathioprine due to lack of benefit and begin approval for Xeljanz XR 11 mg daily. Continue Plaquenil 200 mg b.i.d.. Assessment & Plan (03/19/2020 9:49 AM BRAZING MACHINE OPERATOR AUTOMATIC): As discussed above, concern for seropositive RA [...] of both knees 09/05/2019 Assessment & Plan (12/26/2024 9:28 AM CDT): Xray 07/2018: Mild oa. L>>R. Two prior L knee arthroscopy surgeries. Mild benefit with PT in the past. Did receive left knee intra-articular Kenalog injection and aspiration after last visit with improvement in knee complaints. There were no inflammatory cells and/or crystals seen on fluid analysis. Assessment & Plan (10/11/2024 11:28 AM CDT): [...] to celexa per pcp. Assessment & Plan (12/26/2024 9:28 AM CDT): Remained stable. Continue Cymbalta 60 mg daily, gabapentin 300 mg qid per Neurology. Previously switched from Lyrica for insurance reasons. Encourage routine exercise. Assessment & Plan (10/11/2024 11:28 AM CDT): [...] exercise. Assessment & Plan (05/09/2024 11:01 AM BRAZING MACHINE OPERATOR AUTOMATIC): Stable. Continue Cymbalta 60 mg daily, gabapentin 300 mg qid per Neurology. Previously switched from Lyrica for insurance reasons. Encourage routine exercise. Assessment & Plan (04/11/2024 9:57 AM BRAZING MACHINE OPERATOR AUTOMATIC): Stable. Continue Cymbalta 60 mg daily, gabapentin [...] exercise. Assessment & Plan (04/07/2023 12:50 PM BRAZING MACHINE OPERATOR AUTOMATIC): Stable. Continue Cymbalta 60 mg daily, gabapentin [...] exercise. Assessment & Plan (06/13/2022 12:35 PM BRAZING MACHINE OPERATOR AUTOMATIC): Continue Cymbalta 30 mg daily. Continue gabapentin 300 mg q.a.m., 300 mg midday, 600 mg q.p.m. per neurology. Previous switch from Lyrica for insurance reasons. Encourage routine exercise. Assessment & Plan (05/15/2022 10:15 AM BRAZING MACHINE OPERATOR AUTOMATIC): Stable. Continue Cymbalta 30 mg daily. Continue [...] exercise. Assessment & Plan (04/26/2021 9:31 AM BRAZING MACHINE OPERATOR AUTOMATIC): Stable. Continue Cymbalta and gabapentin 100 mg [...] exercise. Assessment & Plan (06/11/2020 1:06 PM BRAZING MACHINE OPERATOR AUTOMATIC): Stable. Continue Cymbalta. On Lyrica 300 mg 1-2 times daily per PCP. Encourage routine exercise. Assessment & Plan (04/11/2020 12:07 PM BRAZING MACHINE OPERATOR AUTOMATIC): Stable. Continue Cymbalta. On Lyrica 300 mg 1-2 times daily per PCP. Encourage routine exercise. Assessment & Plan (03/19/2020 9:50 AM BRAZING MACHINE OPERATOR AUTOMATIC): As discussed at last visit, continue to [...] exercise. Assessment & Plan (04/01/2019 12:29 PM BRAZING MACHINE OPERATOR AUTOMATIC): FM may be contributing to some of [...] benefit. Assessment & Plan (04/01/2019 12:26 PM BRAZING MACHINE OPERATOR AUTOMATIC): Bilateral CMC bracing has offered benefit. Assessment [...] L4 on L5. Had L-spine MRI from [facility] and is following with pain management. Has completed physical therapy. Following with pain management. Has received several injections in the lower back since last visit without significant relief. Scheduled to follow up with pain management later today. Is considering surgical intervention. Has been using tramadol and Tylenol with some relief in symptoms. Assessment & Plan (05/09/2024 11:02 AM BRAZING MACHINE OPERATOR AUTOMATIC): C-spine x-ray 05/15/2022: Minimal degenerative changes at C3-C4 and C4-C5 SI joint x-ray 05/15/2022: WNL L-spine x-ray 05/15/2022: 5 mm anterolisthesis of L4 on L5. Had L-spine MRI from [facility] and is following with pain management. Has completed physical therapy. Following with pain management. Is currently going to physical therapy. Is scheduled for repeat L-spine epidural steroid injection with pain management tomorrow. Is following with orthopedic surgeon with discussions for potential surgical intervention regarding the lower back. Assessment & Plan (04/11/2024 9:57 AM BRAZING MACHINE OPERATOR AUTOMATIC): C-spine x-ray 05/15/2022: Minimal degenerative changes at C3-C4 and C4-C5 SI joint x-ray 05/15/2022: WNL L-spine x-ray 05/15/2022: 5 mm anterolisthesis of L4 on L5. Had L-spine MRI from [facility] and is following with pain management. [...] L4 on L5. Had L-spine MRI from [facility] and is following with pain management. [...] L4 on L5. Had L-spine MRI from [facility] and is following with pain management. Received epidural injection yesterday afternoon and continues to go to physical therapy. She defers surgical intervention at this time. Continue to follow with pain management. Assessment & Plan (06/13/2022 12:35 PM BRAZING MACHINE OPERATOR AUTOMATIC): C-spine x-ray 05/15/2022: Minimal degenerative changes at [...] Will track down recent L-spine MRI from [facility]. Assessment & Plan (05/15/2022 10:14 AM BRAZING MACHINE OPERATOR AUTOMATIC): Primary complaint is significant lower back pain [...] today. Assessment & Plan (04/01/2019 12:28 PM BRAZING MACHINE OPERATOR AUTOMATIC): History of L4/L5/S1 OA in the lower [...] 06/04/2018 Assessment & Plan (06/04/2018 10:18 AM BRAZING MACHINE OPERATOR AUTOMATIC): Insomnia symptoms at night. Discussed use of black noise machine. also reports that she snores. Would recommend sleep study, although discuss further with PCP. Right hand pain 05/07/2018 Assessment & Plan (05/07/2018 10:54 AM BRAZING MACHINE OPERATOR AUTOMATIC): Patient jammed right 1st digit and has [...] years. Assessment & Plan (06/04/2018 10:14 AM BRAZING MACHINE OPERATOR AUTOMATIC): Did not obtain DEXA at last visit, will obtain in the near future. Order placed again. Assessment & Plan (05/07/2018 10:56 AM BRAZING MACHINE OPERATOR AUTOMATIC): Recently non-displaced lateral malleolus fracture after rolling her ankle. Is at increased risk for osteoporosis with SLE. Will check dexa scan today. Confusion 03/03/2018 Right hip pain 02/26/2018 Assessment & Plan (06/04/2018 10:15 AM BRAZING MACHINE OPERATOR AUTOMATIC): Patient does continue to have some mild pain in the right hip / groin region. Most recent hip x-ray was negative. Has complaints are minimal, we will just monitor at this time. If symptoms progress, would consider right hip MRI. Assessment & Plan (05/07/2018 10:52 AM BRAZING MACHINE OPERATOR AUTOMATIC): Denies major complaints today. Most recent right hip x-ray was negative. If symptoms do worsen, would consider right hip MRI. Assessment & Plan (03/26/2018 9:57 AM BRAZING MACHINE OPERATOR AUTOMATIC): Right hip pain with accompanying morning stiffness persists. Localizes over the right hip/ groin region, although no pain elicited with internal and external rotation. Recent right hip x-ray was negative. If symptoms persist, will consider right hip MRI at next visit. Assessment & Plan (02/26/2018 10:24 AM BRAZING MACHINE OPERATOR AUTOMATIC): Right hip pain, which she does note [...] 12/15/2017 Assessment & Plan (06/04/2018 10:16 AM BRAZING MACHINE OPERATOR AUTOMATIC): Still awaiting to schedule with Neurology for further evaluation of these symptoms. Assessment & Plan (05/07/2018 10:52 AM BRAZING MACHINE OPERATOR AUTOMATIC): Has not scheduled with Neurology, which was discussed at the last couple of visits. Will be scheduling in the near future. Assessment & Plan (03/26/2018 10:29 AM BRAZING MACHINE OPERATOR AUTOMATIC): As discussed at last visit, given her confusion symptoms, as well as headaches , would recommend further evaluation with Neurology. Assessment & Plan (02/26/2018 10:23 AM BRAZING MACHINE OPERATOR AUTOMATIC): Continues to note persistent headaches, as well [...] of medicat ions 12/15/2017 Assessment & Plan (12/26/2024 9:28 AM CDT): DEXA 02/05/2023: L-spine-1.3, left femoral neck-1.4, left total hip-0.7, right femoral neck -0.8, right total hip -0.4 FRAX: 9.6/0.8. On vitamin-D supplementation per PCP recommendations Routine labs today. Continue routine eye exams. Normal TPMT 03/2018 Neg quant 06/2019 Assessment & Plan (10/11/2024 11:28 AM CDT): [...] 06/2019 Assessment & Plan (05/09/2024 11:01 AM BRAZING MACHINE OPERATOR AUTOMATIC): DEXA 02/05/2023: L-spine-1.3, left femoral neck-1.4, left total hip-0.7, right femoral neck -0.8, right total hip -0.4 FRAX: 9.6/0.8. On vitamin-D supplementation per PCP recommendations Routine labs today. Continue routine eye exams. Normal TPMT 03/2018 Neg quant 06/2019 Assessment & Plan (04/11/2024 9:56 AM BRAZING MACHINE OPERATOR AUTOMATIC): DEXA 02/05/2023: L-spine-1.3, left femoral neck-1.4, left [...] 06/2019 Assessment & Plan (04/07/2023 12:50 PM BRAZING MACHINE OPERATOR AUTOMATIC): DEXA 02/05/2023: L-spine-1.3, left femoral neck-1.4, left [...] 06/2019 Assessment & Plan (04/26/2021 9:30 AM BRAZING MACHINE OPERATOR AUTOMATIC): Routine labs today. Continue routine eye exams. [...] 06/2019 Assessment & Plan (06/11/2020 1:04 PM BRAZING MACHINE OPERATOR AUTOMATIC): Routine labs today. Continue routine eye exams. Normal TPMT 03/2018 Neg quant 06/2019 Assessment & Plan (04/11/2020 12:04 PM BRAZING MACHINE OPERATOR AUTOMATIC): Routine labs today. Continue routine eye exams. Normal TPMT 03/2018 Neg quant 06/2019 Assessment & Plan (03/19/2020 9:50 AM BRAZING MACHINE OPERATOR AUTOMATIC): Routine labs today. Continue routine eye exams. [...] 03/2018 Assessment & Plan (04/01/2019 12:27 PM BRAZING MACHINE OPERATOR AUTOMATIC): Routine labs today. Continue routine eye exams. [...] today. Assessment & Plan (06/04/2018 10:16 AM BRAZING MACHINE OPERATOR AUTOMATIC): Routine labs today. Continue routine eye exams. Normal TPMT 03/2018 Routine labs today. Assessment & Plan (05/07/2018 10:53 AM BRAZING MACHINE OPERATOR AUTOMATIC): Routine labs today. Continue routine eye exams. Normal TPMT 03/2018 Routine labs today. Recheck CBC in 2 weeks. Assessment & Plan (03/26/2018 9:57 AM BRAZING MACHINE OPERATOR AUTOMATIC): Routine labs today. Continue routine eye exams. Routine labs today, including TP MT. Recheck CBC in 2 weeks. Assessment & Plan (02/26/2018 10:25 AM BRAZING MACHINE OPERATOR AUTOMATIC): Routine labs today. Continue routine eye exams. [...] warmers. Assessment & Plan (04/26/2021 9:30 AM BRAZING MACHINE OPERATOR AUTOMATIC): Persistent intermittent Raynaud/acrocyanosis symptoms in the feet>hands. [...] warmers. Assessment & Plan (06/11/2020 1:04 PM BRAZING MACHINE OPERATOR AUTOMATIC): Persistent intermittent Raynaud symptoms in the feet>hands. [...] fingers. Assessment & Plan (04/01/2019 12:27 PM BRAZING MACHINE OPERATOR AUTOMATIC): Mild occasional Raynaud's in the feet without [...] Plaquenil 200 b.i.d., xejoan Assessment & Plan (12/26/2024 9:27 AM CDT): CDAI 4. Nasrin received a left knee intra-articular Kenalog injection on 10/07 and left wrist Kenalog injection on 11/02/1024 with improvement in joint symptoms. Denies significant joint pain at present with some residual stiffness in the morning that resolves within 10 minutes. Left knee aspiration and fluid analysis did not display inflammatory cells suggestive of RA/SLE contributing to her previous L knee pain. Otherwise, has noted some chronic dry eyes along with mouth sore, as discussed above. No other significant systemic complaints. Minimal synovitis on exam. Will continue leflunomide 20 mg daily, Plaquenil 200 mg b.i.d., Rinvoq 15 mg daily, and Pennsaid cream p.r.n.. Up-to-date on eye exams. Routine labs today. Follow-up 3 months. Sooner if needed. Assessment & Plan (10/11/2024 11:27 AM CDT): [...] needed. Assessment & Plan (05/09/2024 11:01 AM BRAZING MACHINE OPERATOR AUTOMATIC): CDAI 7. Had significant benefit with Kenalog [...] needed. Assessment & Plan (04/11/2024 9:55 AM BRAZING MACHINE OPERATOR AUTOMATIC): CDAI 21. Since last visit, has had [...] needed. Assessment & Plan (04/07/2023 10:54 AM BRAZING MACHINE OPERATOR AUTOMATIC): CDAI 13. Since last visit, has noted [...] needed Assessment & Plan (06/13/2022 12:33 PM BRAZING MACHINE OPERATOR AUTOMATIC): CDAI 16. Presents due to a flare. [...] needed. Assessment & Plan (05/15/2022 10:11 AM BRAZING MACHINE OPERATOR AUTOMATIC): CDAI 9. Overall, peripheral joints have done [...] needed. Assessment & Plan (04/26/2021 9:28 AM BRAZING MACHINE OPERATOR AUTOMATIC): CDAI 18. Since last visit, has experienced [...] needed. Assessment & Plan (06/11/2020 1:02 PM BRAZING MACHINE OPERATOR AUTOMATIC): CDAI 9. Since last visit, patient has [...] needed. Assessment & Plan (04/11/2020 12:06 PM BRAZING MACHINE OPERATOR AUTOMATIC): CDAI 40. Patient returns today due to [...] osteoporosis. Assessment & Plan (03/19/2020 9:51 AM BRAZING MACHINE OPERATOR AUTOMATIC): Tele health visit. 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 A.m. stiffness for 60 minutes. Denies [...] needed. Assessment & Plan (04/01/2019 12:26 PM BRAZING MACHINE OPERATOR AUTOMATIC): CDAI 0. Denies much peripheral joint complaints [...] needed. Assessment & Plan (06/04/2018 10:14 AM BRAZING MACHINE OPERATOR AUTOMATIC): Initial serologies:pos lourdes 1:640 dense fine speckled. [...] needed. Assessment & Plan (05/07/2018 10:51 AM BRAZING MACHINE OPERATOR AUTOMATIC): Initial serologies:pos lourdes 1:640 dense fine speckled. [...] injection. Assessment & Plan (03/26/2018 10:28 AM BRAZING MACHINE OPERATOR AUTOMATIC): Initial serologies:pos lourdes 1:640 dense fine speckled. [...] today. Assessment & Plan (02/26/2018 12:08 PM BRAZING MACHINE OPERATOR AUTOMATIC): Initial serologies:pos lourdes 1:640 dense fine speckled. [...] that she will be moving to the [facility] that will be needed to establish care with a new data collection technician. Advised to do this DARÍO. Routine [...] this helps, which was prescribed by Dr. Hiadlgo, PCP. Rediscussed potential SE with patient. Neuropathy [...] Gilbert. Assessment & Plan (04/26/2021 9:31 AM BRAZING MACHINE OPERATOR AUTOMATIC): A primary complaint persistent neuropathic pain in [...] heme. Assessment & Plan (06/11/2020 1:03 PM BRAZING MACHINE OPERATOR AUTOMATIC): Follows with heme. Assessment & Plan (04/11/2020 12:04 PM BRAZING MACHINE OPERATOR AUTOMATIC): Follows with heme. Assessment & Plan (03/19/2020 9:50 AM BRAZING MACHINE OPERATOR AUTOMATIC): Follows with heme. Assessment & Plan (02/17/2020 [...] Hematology. Assessment & Plan (04/01/2019 12:26 PM BRAZING MACHINE OPERATOR AUTOMATIC): Following with Hematology. Assessment & Plan (12/31/2018 12:45 PM CDT): Continue to follow with Hematology Assessment & Plan (10/01/2018 10:48 AM CDT): Continue to follow with hematology. Assessment & Plan (07/23/2018 9:05 AM CDT): Continue to follow with Hematology. Assessment & Plan (06/04/2018 10:15 AM BRAZING MACHINE OPERATOR AUTOMATIC): Continue to follow with Hematology. Assessment & Plan (05/07/2018 10:52 AM BRAZING MACHINE OPERATOR AUTOMATIC): Continue to follow with Hematology. Assessment & Plan (03/26/2018 10:29 AM BRAZING MACHINE OPERATOR AUTOMATIC): Continue to follow with Hematology. Assessment & Plan (02/26/2018 10:25 AM BRAZING MACHINE OPERATOR AUTOMATIC): Following with Hematology for this issue. Will [...] Encounters Date Type Department Care Team Description 01/10/2025 Results Follow-Up [address] [phone] Carlos Coughlin PA Basic metabolic panel, CBC with auto differential 12/27/2024 Orders Only [address] [phone] Carlos Coughlin PA Lymphopenia (Primary Dx); Hypokalemia 12/27/2024 Results Follow-Up [address] [id number] Carlos Coughlin PA C4 complement, CBC with auto differential, Comprehensive metabolic panel, Additional followed-up results: 5 12/26/2024 9:00 AM CDT Office Visit [address] [phone] Carlos Coughlin PA Systemic lupus erythematosus, unspecified SLE type, unspecified organ involvement status (HCC) (Primary Dx); Seropositive rheumatoid arthritis (HCC); Chronic pain of both knees; Fibromyalgia; Encounter for long-term (current) use of medications 11/02/2024 9:36 AM CDT - 11/02/2024 11:59 PM CDT Hospital Encounter [address] [phone] Left wrist pain; Wrist effusion, left Discharge Disposition: Discharge to home or self care 11/01/[address] [phone] Steve Russell 10/13/2024 8:41 AM CDT - 10/13/2024 11:59 PM CDT Hospital Encounter [address] [phone] Systemic lupus erythematosus, unspecified SLE type, unspecified organ involvement status (HCC); Seropositive rheumatoid arthritis (HCC); Chronic pain of both knees Discharge Disposition: Discharge to home or self care 10/12/2024 Results Follow-Up [address] [phone] Carlos Coughlin PA C4 complement, CBC with auto differential, Comprehensive metabolic panel, Additional followed-up results: 8 10/11/2024 10:00 AM CDT Office Visit [address] [phone] Carlos Coughlin PA Systemic lupus erythematosus, unspecified [...] Sign Reading Time Taken Comments Blood Pressure 136/86 12/26/2024 8:49 AM CDT Pulse 79 12/26/2024 8:49 AM CDT Temperature 36.5 C (97.7 F) 04/26/2021 8:51 AM BRAZING MACHINE OPERATOR AUTOMATIC Respiratory Rate - - Oxygen Saturation 97% 12/26/2024 8:49 AM CDT Inhaled Oxygen Concentration - - Weight 80.3 kg (177 lb) 12/26/2024 8:49 AM CDT Height 162.6 cm (5' 4) 12/26/2024 8:49 AM CDT Body Mass Index 30.38 12/26/2024 8:49 AM CDT Plan of Treatment Health Maintenance Due Date Last Done Comments Cervical Cancer Screening 1960 Colon Cancer Screening-Colonoscopy 1962 Depression Screening 1960 Hepatitis C Screening 1962 DTaP/Tdap/Td Vaccine (1 - Tdap) 1973 Regular Well Visit/Exam 18-64 01/04/1980 Pneumococcal vaccine <65 (1 of 2 - PCV) 1981 Zoster Vaccine (1 of 2) 1981 Breast Cancer Screening-Mammogram 02/22/2016 015 Covid-19 Vaccine ( season) 2024 01/07/2021, 07/12/2020, 06/21/2020 Influenza Vaccine (#1) 2024 06/03/2016 Hepatitis B Screening Completed 08/04/2017 Procedures Procedure Name Priority Date/Time Associated Diagnosis Comments CBC WITH AUTO DIFFERENTIAL Routine 01/09/2025 9:06 AM CDT BASIC METABOLIC PANEL Routine 01/09/2025 9:06 AM CDT Hypokalemia C3 COMPLEMENT Routine 12/26/2024 9:40 AM CDT Systemic lupus erythematosus, unspecified SLE type, unspecified organ involvement status (HCC) Seropositive rheumatoid arthritis (HCC) Encounter for long-term (current) use of medications PROTEIN / CREATININE RATIO, URINE, RANDOM Routine 12/26/2024 9:40 AM CDT Systemic lupus erythematosus, unspecified SLE type, unspecified organ involvement status (HCC) Seropositive rheumatoid arthritis (HCC) Encounter for long-term (current) use of medications ANTI-DOUBLE STRANDED DNA ANTIBODIES Routine 12/26/2024 9:40 AM CDT Systemic lupus erythematosus, unspecified SLE type, unspecified organ involvement status (HCC) Seropositive rheumatoid arthritis (HCC) Encounter for long-term (current) use of medications ERYTHROCYTE SEDIMENTATION RATE Routine 12/26/2024 9:40 AM CDT Systemic lupus erythematosus, unspecified SLE type, unspecified organ involvement status (HCC) Seropositive rheumatoid arthritis (HCC) Encounter for long-term (current) use of medications CRP (ACUTE PHASE) Routine 12/26/2024 9:4 0 AM CDT Systemic lupus erythematosus, unspecified SLE type, unspecified organ involvement status (HCC) Seropositive rheumatoid arthritis (HCC) Encounter for long-term (current) use of medications COMPREHENSIVE METABOLIC PANEL Routine 12/26/2024 9:40 AM CDT Systemic lupus erythematosus, unspecified SLE type, unspecified organ involvement status (HCC) Seropositive rheumatoid arthritis (HCC) Encounter for long-term (current) use of medications CBC WITH AUTO DIFFERENTIAL Routine 12/26/2024 9:40 AM CDT Systemic lupus erythematosus, unspecified SLE type, unspecified organ involvement status (HCC) Seropositive rheumatoid arthritis (HCC) Encounter for long-term (current) use of medications C4 COMPLEMENT Routine 12/26/2024 9:40 AM CDT Systemic lupus erythematosus, unspecified SLE type, unspecified organ involvement status (HCC) Seropositive rheumatoid arthritis (HCC) Encounter for long-term (current) use of medications US WRIST Schedule Routine, Read Routine (OP Routine) 11/02/2024 10:21 AM CDT Left wrist pain Wrist effusion, left US KNEE Schedule Routine, Read Routine (OP Routine) 10/13/2024 10:03 AM CDT Systemic lupus erythematosus, unspecified SLE type, unspecified organ involvement status (HCC) Seropositive rheumatoid arthritis (HCC) Chronic pain of both knees CRYSTALS, SYN FLD Routine 10/13/2024 9:1 9 AM CDT SYNOVIAL FLUID, CELL COUNT Routine 10/13/2024 9:19 AM CDT AEROBIC AND ANAEROBIC CULTURE AND GRAM STAIN Routine 10/13/2024 9:19 AM CDT Chronic pain of both knees C3 COMPLEMENT Routine 10/11/2024 10:31 AM CDT [...] Results * (ABNORMAL) CBC with auto differential (01/09/2025 9:06 AM CDT) Pathologist [facility] WBC 7.7 3.8 - 10.8 Thousand/u L [facility] RBC, POC 4.09 3.80 - 5.10 Million/uL [facility] Hgb 12.4 11.7 - 15.5 g/dL [facility] Hct 39.7 35.0 - 45.0 % [facility] MCV 97.1 80.0 - 100.0 fL [facility] MCH 30.3 27.0 - 33.0 pg [facility] MCHC 31.2(L) 32.0 - 36.0 g/dL [facility] Comment: For adults, a slight decrease in the calculated MCHC value (in the range of 30 to 32 g/dL) is most likely not clinically significant; however, it should be interpreted with caution in correlation with other red cell parameters and the patient's clinical condition. Rdw 13.1 11.0 - 15.0 % [facility] Platelets 245 140 - 400 Thousand/u L [facility] MPV 10.9 7.5 - 12.5 fL [facility] Neutrophils, abs 6,060 1,500 - 7,800 cells/uL [facility] Lymphocytes, abs 770(L) 850 - 3,900 cells/uL [facility] Monocyte abs 662 200 - 950 cells/uL [facility] Eosinophils, abs 169 15 - 500 cells/uL [facility] Basophils, abs 39 0 - 200 cells/uL [facility] Neutrophils 78.7 % [facility] Lymphocyte pct 10.0 % [facility] Monocytes 8.6 % [facility] Eosinophils 2.2 % [facility] Basophils 0.5 % [facility] 01/09/2025 9:06 AM CDT 01/09/2025 9:07 AM CDT Narrative [facility] - 01/10/2025 2:35 AM CDT FASTING:NO FASTING: NO Carlos HUITRON LAB BLOOD ORDERABLES Fi nal Result CINDY [facility] [address] [facility] [place] [address] * (ABNORMAL) Basic metabolic panel (01/09/2025 9:06 AM CDT) [facility] Glucose 94 65 - 139 mg/dL [facility] Comment: Non-fasting reference interval BUN 12 7 - 25 mg/dL [facility] Creatinine 0.62 0.50 - 1.05 mg/dL [facility] eGFR 100 > OR = 60 mL/min/1.7 3m2 [facility] BUN/creat ratio SEE NOTE: 6 - 22 (calc) [facility] Comment: Not Reported: BUN and Creatinine are within reference range. Sodium 135 135 - 146 mmol/L [facility] Potassium, pl 3.3(L) 3.5 - 5.3 mmol/L [facility] Chloride 97(L) 98 - 110 mmol/L [facility] CO2 32 20 - 32 mmol/L [facility] Calcium 8.9 8.6 - 10.4 mg/dL [facility] Blood 01/09/2025 9:06 AM CDT 01/09/2025 9:07 AM CDT Narrative [facility] - 01/10/2025 2:35 AM CDT FASTING:NO FASTING: NO Carlos HUITRON LAB BLOOD ORDERABLES Fi nal Result Performing Organization Address [facility] de Phone Number [facility] [address] [place] [address] * Anti-double stranded DNA abs (12/26/2024 9:40 AM CDT) [facility] DNA (DS) ab <1 IU/mL [facility] Comment: IU/mL Interpretation < or = 4 Negative 5-9 Indeterminate > or = 10 Positive Blood 12/26/2024 9:40 AM CDT 12/26/2024 9:40 AM CDT Carlos HUITRON LAB BLOOD ORDERABLES Fi nal Result Performing Organization Address [facility] de Phone Number [employer] [facility] [address] [place] [address] * C4 complement (12/26/2024 9:40 AM CDT) [facility] Complement component C4C 28 15 - 57 mg/dL [facility] Blood 12/26/2024 9:40 AM CDT 12/26/2024 9:40 AM CDT Carlos HUITRON LAB BLOOD ORDERABLES Fi nal Result Performing Organization Address [facility] de Phone Number [facility] [address] [place] [address] * (ABNORMAL) CBC with auto differential (12/26/2024 9:40 AM CDT) [facility] WBC 7.8 3.8 - 10.8 Thousand/u L [facility] RBC, POC 4.16 3.80 - 5.10 Million/uL [facility] Hgb 13.0 11.7 - 15.5 g/dL [facility] Hct 39.7 35.0 - 45.0 % [facility] MCV 95.4 80.0 - 100.0 fL [facility] MCH 31.3 27.0 - 33.0 pg [facility] MCHC 32.7 32.0 - 36.0 g/dL [facility] Comment: For adults, a slight decrease in the calculated MCHC value (in the range of 30 to 32 g/dL) is most likely not clinically significant; however, it should be interpreted with caution in correlation with other red cell parameters and the patient's clinical condition. Rdw 13.0 11.0 - 15.0 % [facility] Platelets 253 140 - 400 Thousand/u L [facility] MPV 10.9 7.5 - 12.5 fL [facility] Neutrophils, abs 6,334 1,500 - 7,800 cells/uL [facility] Lymphocytes, abs 538(L) 850 - 3,900 cells/uL [facility] Monocyte abs 749 200 - 950 cells/uL [facility] Eosinophils, abs 140 15 - 500 cells/uL [facility] Basophils, abs 39 0 - 200 cells/uL [facility] Neutrophils 81.2 % [facility] Lymphocyte pct 6.9 % [facility] Monocytes 9.6 % [facility] Eosinophils 1.8 % [facility] Basophils 0.5 % [facility] Blood 12/26/2024 9:40 AM CDT 12/26/2024 9:40 AM CDT Carlos HUITRON LAB BLOOD ORDERABLES Fi nal Result QUE[facility] [address] [place] [phone] * (ABNORMAL) Protein / creatinine ratio, urine, random (12/26/2024 9:40 AM CDT) Creatinine, ur 27 20 - 275 mg/dL [facility] Protein/creati nine ratio 222(H) 24 - 184 mg/g creat [facility] Protein/Creati nine Ratio 0.222(H) 0.024 - 0.184 mg/mg creat [facility] Protein, ur, quant 6 5 - 24 mg/dL [facility] Urine 12/26/2024 9:40 AM CDT 12/26/2024 9:40 AM CDT Carlos HUITRON LAB URINE ORDERABLES Fi nal Result Performing Organization Address [facility] de Phone Number QUE[facility] [address] [place] [address] * Erythrocyte sedimentation rate (12/26/2024 9:40 AM CDT) Erythrocyte sedimentation rate 11 < OR = 30 mm/h [facility] Blood 12/26/2024 9:40 AM CDT 12/26/2024 9:40 AM CDT Carlos HUITRON LAB BLOOD ORDERABLES Fi nal Result Performing Organization Address [facility] de Phone Number [facility] [address] [place] [address] * C3 complement (12/26/2024 9:40 AM CDT) Complement component C3C 172 83 - 193 mg/dL [facility] Blood 12/26/2024 9:40 AM CDT 12/26/2024 9:40 AM CDT Carlos HUITRON LAB BLOOD ORDERABLES Fi nal Result Performing Organization Address [facility] de Phone Number [facility] [address] [place] [address] * CRP (acute phase) (12/26/2024 9:40 AM CDT) C-RP <3.0 <8.0 mg/L [facility] Blood 12/26/2024 9:40 AM CDT 12/26/2024 9:40 AM CDT us Carlos HUITRON LAB BLOOD ORDERABLES Fi nal Result QUE[facility] [address] [place] [place] [phone] * (ABNORMAL) Comprehensive metabolic panel (12/26/2024 9:40 AM CDT) Glucose 92 65 - 99 mg/dL [facility] Comment: Fasting reference interval BUN 15 7 - 25 mg/dL [facility] Creatinine 0.57 0.50 - 1.05 mg/dL [facility] eGFR 103 > OR = 60 mL/min/1.7 3m2 [facility] BUN/creat ratio SEE NOTE: 6 - 22 (calc) [facility] Comment: Not Reported: BUN and Creatinine are within reference range. Sodium 140 135 - 146 mmol/L [facility] Potassium, pl 3.2(L) 3.5 - 5.3 mmol/L [facility] Chloride 98 98 - 110 mmol/L [facility] CO2 32 20 - 32 mmol/L [facility] Calcium 9.4 8.6 - 10.4 mg/dL [facility] Protein, sr 6.4 6.1 - 8.1 g/dL [facility] Albumin 4.3 3.6 - 5.1 g/dL [facility] GLOBULIN 2.1 1.9 - 3.7 g/dL (calc) [facility] Alb/glob ratio 2.0 1.0 - 2.5 (calc) [facility] Bilirubin, total 0.5 0.2 - 1.2 mg/dL [facility] Alk phos 98 37 - 153 U/L [facility] AST 30 10 - 35 U/L [facility] ALT (SGPT) 32(H) 6 - 29 U/L [facility] Blood 12/26/2024 9:40 AM CDT 12/26/2024 9:40 AM CDT Carlos HUITRON LAB BLOOD ORDERABLES Fi nal Result Performing Organization Address City/[facility]/ZIP Co de Phone Number [facility] [address] [place] [place] [phone] * US Wrist (11/02/2024 10:21 AM CDT) Anatomical Region Laterality Modality Wrist N/A Ultrasound Rashid Gaffney MD IMG US PROCEDURES Final Result * US Knee (10/13/2024 10:03 AM CDT) Anatomical Region Laterality Modality Knee N/A Ultrasound Carlos HUITRON IMG US PROCEDURES Final Result * CRYSTALS, SYN FLD (10/13/2024 9:19 AM CDT) SITE RT KNEE AND LEFT KNEE [facility] Crystals, synovial fld NONE SEEN NONE SEEN /HPF [facility] 10/13/2024 9:19 AM CDT 10/13/2024 9:31 AM CDT Carlos HUITRON LAB BODY FLUIDS AND STO OLS ORDERABLES Final Result Performing Organization Address [facility] de Phone Number [facility] [address] [place] [address] * Aerobic and anaerobic culture and gram stain Synovial fluid Knee, left (10/13/2024 9:19 AM CDT) Aerobic and Anaerobic Culture w/gram stain [facility] Comment: CULTURE, ANAEROBIC BACTERIA W/GRAM STAIN Micro Number: [id number] Test Status: Final Specimen Source: Fluid,joint Specimen Quality: Adequate Gram Stain: No organisms or white blood cells seen Result: No anaerobes isolated. Aerobic and Anaerobic Culture w/gram stain [facility] Comment: CULTURE, AEROBIC BACTERIA Micro Number: [id number] Test Status: Final Specimen Source: Fluid,joint Specimen Quality: Adequate Result: No Growth Synovial fluid (Knee, left) 10/13/2024 9:19 AM CDT 10/13/2024 9:31 AM CDT Carlos HUITRON LAB MICROBIOLOGY - GENE RAL ORDERABLES Final Result Performing Organization Address [facility] de Phone Number [facility] [address] [place] [address] * (ABNORMAL) Synovial fluid, cell count (10/13/2024 9:19 AM CDT) SITE RT KNEE AND LEFT KNEE [facility] Color, fld COLORLESS( A) STRAW/YELL OW [facility] Appearance CLEAR CLEAR/HAZY [facility] Nucleated cells, fld TNP cells/uL [facility] Comment: TEST(S) NOT PERFORMED: TOTAL NUCLEATED CELL CT NEUTROPHILS, % LYMPHOCYTES, % MONOCYTE/MACROPHAGE, % EOSINOPHILS, % BASOPHILS, % SYNOVIOCYTES, % COMMENT Unable to report due to insufficient analyzable cells. 10/13/2024 9:19 AM CDT 10/13/2024 9:31 AM CDT Carlos HUITRON LAB BODY FLUIDS AND STO OLS ORDERABLES Final Result Performing Organization Address [facility] de Phone Number [facility] [address] [place] [address] * Anti-double stranded DNA abs (10/11/2024 10:31 AM CDT) DNA (DS) ab <1 IU/mL [facility] Comment: IU/mL Interpretation < or = 4 Negative 5-9 Indeterminate > or = 10 Positive Blood 10/11/2024 10:3 1 AM CDT 10/11/2024 10:31 AM CDT Carlos HUITRON LAB BLOOD ORDERABLES Fi nal Result Performing Organization Address [facility]/ZIP Co de Phone Number [facility] [address] [place] [address] * C4 complement (10/11/2024 10:31 AM CDT) Pathologist [facility] Complement component C4C 28 15 - 57 mg/dL [facility] Blood 10/11/2024 10:3 1 AM CDT 10/11/2024 10:31 AM CDT Carlos HUITRON LAB BLOOD ORDERABLES Fi nal Result Performing Organization Address [facility] de Phone Number [facility] [address] [place] [address] * CBC with auto differential (10/11/2024 10:31 AM CDT) [facility] WBC 7.6 3.8 - 10.8 Thousand/u L [...] nal Result Performing Organization Address [facility] de Phone Number [facility] [address] [place] [address] * (ABNORMAL) Protein / creatinine ratio, urine, random (10/11/2024 10:31 AM CDT) Pathologist [facility] Creatinine, ur 19(L) 20 - 275 mg/dL [...] nal Result Performing Organization Address [facility] de Phone Number [facility] [address] [place] [address] * Erythrocyte sedimentation rate (10/11/2024 10:31 AM CDT) Erythrocyte sedimentation rate 6 < OR = 30 mm/h [facility] Blood 10/11/2024 10:3 1 AM CDT 10/11/2024 10:31 AM CDT Carlos HUITRON LAB BLOOD ORDERABLES Fi nal Result Performing Organization Address [facility] de Phone Number [facility] [address] [place] [address] * C3 complement (10/11/2024 10:31 AM CDT) Complement component C3C 149 83 - 193 mg/dL [facility] Blood 10/11/2024 10:3 1 AM CDT 10/11/2024 10:31 AM CDT Cralos HUITRON LAB BLOOD ORDERABLES Fi nal Result Performing Organization Address [facility] Phone Number [facility] [address] [place] [address] * CRP (acute phase) (10/11/2024 10:31 AM CDT) C-RP <3.0 <8.0 mg/L [facility] Blood 10/11/2024 10:3 1 AM CDT 10/11/2024 10:31 AM CDT Carlos HUITRON LAB BLOOD ORDERABLES Fi nal Result Performing Organization Address [facility] de Phone Number [facility] [address] [place] [address] * (ABNORMAL) Comprehensive metabolic panel (10/11/2024 10:31 AM CDT) Glucose 87 65 - 99 mg/dL [facility] [...] LAB BLOOD ORDERABLES nal Result [facility] [address] [place] [phone] from Last 3 Months Insurance [facility]ICARE MEDICARE R [facility] Care Teams Critical Care Nurse Relationship Specialty Start Date End Date Ray Roberts MD [address] [facility] [address] [place] [address] PCP - General Family Medicine 04/11/24 Hossein Ribeiro MD [address] [place] [address] Referring Physician Neurology 09/21/19 Rashid Gaffney MD [address] [place] [address] Consulting Physician Rheumatology 04/24/23 Dereck Bowden MD [address] [place] [address] Referring Physician Pain Management 01/10/25
--- OUTSIDE RECORDS SUMMARY | 2025-01-11 12:33 | XMS_ITS | Clinical Summary ---
Author Organization [facility] Address [address] [place] [address] Care Team Providers Care Telephoto Engineer Name Role Phone Provider, Abstract Primary Care [...] Comments Blood Pressure 139/87 06/25/2018 9:01 AM STAVE MACHINE TENDER Pulse 74 06/25/2018 9:01 AM STAVE MACHINE TENDER Temperature 36.8 C (98.2 F) 06/25/2018 9:01 AM STAVE MACHINE TENDER Respiratory Rate 17 06/25/2018 9:01 AM STAVE MACHINE TENDER Oxygen Saturation 97% 06/25/2018 9:01 AM STAVE MACHINE TENDER Inhaled Oxygen Concentration - - Weight 76 kg (167 lb 8 oz) 06/25/2018 9:01 AM CS T Height 160 cm (5' 3) 06/25/2018 9:01 AM STAVE MACHINE TENDER Body Mass Index 29.67 06/25/2018 9:01 AM STAVE MACHINE TENDER Plan of Treatment Health Maintenance Due Date [...] years 1-dose series) 2022 INFLUENZA VACCINE (#1) 2024 Insurance [facility] Care Teams Telephoto Engineer Relationship Specialty Start Date End Date Provider, Abstract NO ADDRESS ON FILE PCP - General 06/25/18
--- OUTSIDE RECORDS SUMMARY | 2025-01-11 12:33 | XMS_ITS | Clinical Summary ---
Author Organization [facility] Address [address] [place] [address] Phone Care Team Providers Care Launch Manager Name Role Phone Breann Hidalgo MD Primary Care Provider [phone] Social History Tobacco Use Types Packs/Day Years Used Date Smoking Tobacco: Never Assessed Comments Unknown Sex and Gender Information Value Date Recorded Sex Assigned at Not on file Legal Sex Female 4:20 PM CDT Gender Identity Not on file Sexual Orientation Not on file Plan of Treatment Health Maintenance Due Date Last Done Comments Hepatitis C Virus (HCV) Screening 1960 TdaP Immunization 1960 Pap Smear 1983 Cervical Cancer Screening (CCS) 01/04/1992 HPV/Cotest 01/04/1992 Cologuard 2007 Colonoscopy 2007 Colorectal Cancer Screening 2007 Immunochemical Fecal Occult Blood 2007 Pneumococcal Immunization (5 0+ years) (1 of 1 - PCV) 01/04/2012 Influenza Immunization (#1) 12/19/20242 06/2019, 06/03/2016 SARS-COV-2 Immunization ( - 2024- season) 2024 01/07/2021, 07/12/2020, 06/21/2020 Respiratory Syncytial Virus (RSV) [...] DIGITAL W CAD Routine 02/21/2015 3:59 PM CCNP Visit for screening mammogram from Last 3 Months or Most Recently Relevant to Health Maintenance Results * MARIO SCREENING BILATERAL DIGITAL W CAD (02/21/2015 3:59 PM CCNP) Anatomical Region Laterality Modality breast Bilateral Mammography 02/21/2015 4:10 PM CCNP Impressions 02/22/2015 7:43 AM CCNP BIRADS category 1 - normal. The patient should return to her screening schedule. J. Tye Faith M.D./ /[id number]/02/21/2015 16:10:35CST/hs/02/21/2015 21:34:28CST Cc: Narrative 02/22/2015 7:43 AM CCNP PATIENT NAME: NASRIN HEALY : 1960 DOCUMENT TYPE: RADIOLOGY ORDER NUMBER/RESULT CODE ORDERING PHYSICIAN [id number] BREANN HIDALGO DATE AND TIME OF DICTATION RADIOLOGIST 02/21/2015 16:10:35CST Geronimo Faith EXAM DESCRIPTION MARIO SCREENING BILATERAL DIGITA HISTORY: Bilateral screening mammography without comparison. FINDINGS: The breast tissue is heterogeneously dense. I appreciate no evidence of suspicious mass or microcalcifications. Breann Hidalgo MD IMG MAMMO ORDERABLES Final Result from Last 3 Months or Most Recently Relevant to Health Maintenance Insurance [facility] Care Teams Launch Manager Relationship Specialty Start Date End Date Breann Hidalgo MD [address] [facility] [address] [place] [address] PCP - General Family Medicine 02/21/15
== END 2025-01-11 12:09 | disposition home or self-care (01) ==
LOC: ANHFOHIMG 12:09
PROVIDERS: PCP Family Medicine
DX: N64.4 Mastodynia (principal); N63.0 Unspecified lump in unspecified breast
CPT/HCPCS: 76642; 77062; 77066; G0279

== ENCOUNTER 2025-02-03 11:12 | Outpatient (CLI) | payer OTHER, SELFPAY ==
[2025-02-03 13:43] LABS: Vitamin B12 913.0 pg/mL (239-931)
[2025-02-08 12:08] LABS: Vit. B1, Whole Blood 116.9 nmol/L (66.5-200.0)
== END 2025-02-03 11:13 | disposition home or self-care (01) ==
LOC: ANHLAB 11:14
PROVIDERS: PCP Family Medicine; Visit Provider Psychiatry & Neurology Neurology
DX: G89.4 Chronic pain syndrome (principal); G61.9 Inflammatory polyneuropathy, unspecified; M54.17 Radiculopathy, lumbosacral region
CPT/HCPCS: 36415; 82607; 82746; 84207; 84425

== ENCOUNTER 2025-02-20 01:16 | Day surgery (SDC) | payer OTHER, SELFPAY ==
--- OUTSIDE RECORDS SUMMARY | 2004-07-31 06:30 | XMS_ITS | Continuity of Care Document ---
Author Organization [facility] Address [address] [place] [address] [address] [place] [address] Phone Care Team Providers Care Dietetic Aide Name Role Phone Hortencia Barnhart Unavailable Unavailable Advance Directives Directive Yes / No Effective Date File Name No Information Encounters Encounter Description Practice Location Reason(s) For Visit Diagnoses Date Provider Providers Copied on Encounter [facility], [id number] [place] [address] [address], [place], [place], [id number], [place] tel:[phone] [facility] No Information 3-[address] Bronwyn Burnett. [address] , [address], [place], [address], [place]. tel:[phone] Family History Family Member Type Diagnosis Age At Onset No Information Payers Payer name Insurance type Covered green party ID Authoriza tion(s) No Information Social History Type Description Quantity Date Captured Comments Sex Female Smoking Status No Information Chief Complaint And Reason For Visit No Information Reason For Referral Reason For Referral No Information History Of Present Illness Encounter Date Complaint History Of Prese nt Illness No Information Functional Status Date Functional Assessmen t No Information Instructions Date Instruction Additional Infor mation No Information Assessments Type Assessment Date No Information Patient Care Teams Name Effective Dates (start - stop) Status Members No Information
--- OUTSIDE RECORDS SUMMARY | 2020-04-11 01:00 | XMS_ITS | Continuity of Care Document ---
Author Organization [facility] Address [address] [place] [address] Phone Care Team Providers Care Etl Manager Name Role Phone Adelina PT, DPT, Alfredo Unavailable Unavailable Procedures Procedure Date Therapeutic Activities Neuromuscular Re-Ed Therapeutic Exercise COVID-19 Additional Safety Supplies/Time Therapeutic Activities Neuromuscular Re-Ed Therapeutic Exercise COVID-19 Additional Safety Supplies/Time Therapeutic Activities Neuromuscular Re-Ed Therapeutic Exercise Therapeutic Activities Therapeutic Exercise Neuromuscular Re-Ed Therapeutic Activities Therapeutic Exercise Therapeutic Exercise Therapeutic Activities PT Evaluation Moderate Complexity Advance Directives Directive Yes / No Effective Date File Name No Information Encounters Encounter Description Practice Location Reason(s) For Visit Diagnoses Date Provider Providers Copied on Encounter [facility] [facility], [place], [place], [id number], tel:[phone] [place] No Information 0 Adelina Fuentes. . [facility], [place], [place], [id number], tel:[phone] [place] No Information 0 Adelina Fuentes. . [facility], [place], [place], [id number], tel:[phone] [place] No Information 0 Makler Luke. . [facility], [place], [place], [id number], tel:[phone] [place] No Information 0 Makler Luke. . [facility], [place], [place], [id number], tel:[phone] [place] No Information 0 Makler Luke. . [facility], [place], [place], [id number], tel:[phone] [place] No Information 0 Makler Luke. . Family History Family Member Type Diagnosis Age At Onset No Information Payers Payer name Insurance type Covered democrat ID Zoya pastor(s) [facility] [id number] Social History Type Description Quantity Date Captured Comments Sex Female Smoking Status No Information Chief Complaint And Reason For Visit No Information Reason For Referral Reason For Referral No Information History Of Present Illness Encounter Date Complaint History Of Prese nt Illness No Information Functional Status Date Functional Assessmen t No Information Instructions Date Instruction Additional Infor héctor Giving encouragement to exercise Related to Overweight Giving encouragement to exercise Related to Overweight Giving encouragement to exercise Related to Overweight Assessments Type Assessment Date No Information Patient Care Teams Name Effective Dates (start - stop) Status Members No Information
[2025-02-08 11:07] VITALS: BMI 29.5
--- OUTSIDE RECORDS SUMMARY | 2025-02-20 01:19 | XMS_ITS | Clinical Summary ---
Author Organization [facility] [address] [facility] Address [address] [place] [phone] Phone Care Team Providers Care Planned Giving Officer Name Role Phone Hossein Ribeiro MD Unavailable Rashid Gaffney MD Unavailable [phone] Ray Roberts MD Primary Care Provider Dereck Bowden MD Unavailable [phone] Allergies Active Allergy Reactions Criticality Noted [...] TOTAL VOLUME OF 2000ML 12/16/19 Active rizatriptan CAR PARK ATTENDANT (MAXALT-CAR PARK ATTENDANT) 10 mg disintegrating tablet TAKE ONE TABLET [...] daily 112 g 2 10/12/19 24 Active upadacitinib (Rinvoq) 15 mg extended release tablet Take 1 tablet (15 mg total) by mouth daily 30 tablet 2 12/27/19 25 Active hydroxychloroquin e (PLAQUENIL) 200 mg tablet Take 1 tablet by mouth twice daily 180 tablet 01/11/20 25 Active leflunomide (ARAVA) 20 mg tablet Take 1 tablet by mouth once daily 90 tablet 02/11/20 25 Active leflunomide (ARAVA) 20 mg tablet Take 1 tablet (20 mg total) by mouth daily 90 tablet 12/02/19 25 025 Discontinued Active Problems Problem Noted Date [...] L5. Assessment & Plan (06/13/2022 12:34 PM ECONOMIC DEVELOPER): C-spine x-ray 05/15/2022: Minimal degenerative changes at [...] complaints. Assessment & Plan (05/15/2022 10:14 AM ECONOMIC DEVELOPER): Will obtain imaging and send to physical therapy. Primary hypertension 05/15/2022 Assessment & Plan (05/15/2022 2:20 PM ECONOMIC DEVELOPER): Following with PCP and is to reach [...] p.r.n. Assessment & Plan (05/09/2024 11:00 AM ECONOMIC DEVELOPER): Seropositive RA given prior elevated rheumatoid factor [...] p.r.n. Assessment & Plan (04/11/2024 9:56 AM ECONOMIC DEVELOPER): Seropositive RA given prior elevated rheumatoid factor [...] p.r.n.. Assessment & Plan (04/07/2023 10:55 AM ECONOMIC DEVELOPER): Seropositive RA given prior elevated rheumatoid factor [...] p.r.n.. Assessment & Plan (06/13/2022 12:34 PM ECONOMIC DEVELOPER): As discussed above, seropositive RA given prior [...] b.i.d.. Assessment & Plan (05/15/2022 10:12 AM ECONOMIC DEVELOPER): As discussed above, seropositive RA given prior [...] b.i.d.. Assessment & Plan (04/26/2021 9:30 AM ECONOMIC DEVELOPER): As discussed above, concern for seropositive RA [...] daily. Assessment & Plan (06/11/2020 1:03 PM ECONOMIC DEVELOPER): As discussed above, concern for seropositive RA given prior elevated rheumatoid factor and erosions seen on ultrasound. Appears fairly well controlled. Continue Plaquenil 200 mg b.i.d., xeljanz xr 11 mg daily. Assessment & Plan (04/11/2020 12:03 PM ECONOMIC DEVELOPER): As discussed above, concern for seropositive RA given prior elevated rheumatoid factor and erosions seen on ultrasound. Will stop Orencia and azathioprine due to lack of benefit and begin approval for Xeljanz XR 11 mg daily. Continue Plaquenil 200 mg b.i.d.. Assessment & Plan (03/19/2020 9:49 AM ECONOMIC DEVELOPER): As discussed above, concern for seropositive RA [...] exercise. Assessment & Plan (05/09/2024 11:01 AM ECONOMIC DEVELOPER): Stable. Continue Cymbalta 60 mg daily, gabapentin 300 mg qid per Neurology. Previously switched from Lyrica for insurance reasons. Encourage routine exercise. Assessment & Plan (04/11/2024 9:57 AM ECONOMIC DEVELOPER): Stable. Continue Cymbalta 60 mg daily, gabapentin [...] exercise. Assessment & Plan (04/07/2023 12:50 PM ECONOMIC DEVELOPER): Stable. Continue Cymbalta 60 mg daily, gabapentin [...] exercise. Assessment & Plan (06/13/2022 12:35 PM ECONOMIC DEVELOPER): Continue Cymbalta 30 mg daily. Continue gabapentin 300 mg q.a.m., 300 mg midday, 600 mg q.p.m. per neurology. Previous switch from Lyrica for insurance reasons. Encourage routine exercise. Assessment & Plan (05/15/2022 10:15 AM ECONOMIC DEVELOPER): Stable. Continue Cymbalta 30 mg daily. Continue [...] exercise. Assessment & Plan (04/26/2021 9:31 AM ECONOMIC DEVELOPER): Stable. Continue Cymbalta and gabapentin 100 mg [...] exercise. Assessment & Plan (06/11/2020 1:06 PM ECONOMIC DEVELOPER): Stable. Continue Cymbalta. On Lyrica 300 mg 1-2 times daily per PCP. Encourage routine exercise. Assessment & Plan (04/11/2020 12:07 PM ECONOMIC DEVELOPER): Stable. Continue Cymbalta. On Lyrica 300 mg 1-2 times daily per PCP. Encourage routine exercise. Assessment & Plan (03/19/2020 9:50 AM ECONOMIC DEVELOPER): As discussed at last visit, continue to [...] exercise. Assessment & Plan (04/01/2019 12:29 PM ECONOMIC DEVELOPER): FM may be contributing to some of [...] benefit. Assessment & Plan (04/01/2019 12:26 PM ECONOMIC DEVELOPER): Bilateral CMC bracing has offered benefit. Assessment [...] L4 on L5. Had L-spine MRI from [facility] and is following with pain management. Has completed physical therapy. Following with pain management. Has received several injections in the lower back since last visit without significant relief. Scheduled to follow up with pain management later today. Is considering surgical intervention. Has been using tramadol and Tylenol with some relief in symptoms. Assessment & Plan (05/09/2024 11:02 AM ECONOMIC DEVELOPER): C-spine x-ray 05/15/2022: Minimal degenerative changes at C3-C4 and C4-C5 SI joint x-ray 05/15/2022: WNL L-spine x-ray 05/15/2022: 5 mm anterolisthesis of L4 on L5. Had L-spine MRI from [facility] and is following with pain management. Has completed physical therapy. Following with pain management. Is currently going to physical therapy. Is scheduled for repeat L-spine epidural steroid injection with pain management tomorrow. Is following with orthopedic surgeon with discussions for potential surgical intervention regarding the lower back. Assessment & Plan (04/11/2024 9:57 AM ECONOMIC DEVELOPER): C-spine x-ray 05/15/2022: Minimal degenerative changes at C3-C4 and C4-C5 SI joint x-ray 05/15/2022: WNL L-spine x-ray 05/15/2022: 5 mm anterolisthesis of L4 on L5. Had L-spine MRI from [facility] and is following with pain [...] L4 on L5. Had L-spine MRI from [facility] and is following with pain [...] L4 on L5. Had L-spine MRI from [facility] and is following with pain management. Received epidural injection yesterday afternoon and continues to go to physical therapy. She defers surgical intervention at this time. Continue to follow with pain management. Assessment & Plan (06/13/2022 12:35 PM ECONOMIC DEVELOPER): C-spine x-ray 05/15/2022: Minimal degenerative changes at [...] Will track down recent L-spine MRI from [facility]. Assessment & Plan (05/15/2022 10:14 AM ECONOMIC DEVELOPER): Primary complaint is significant lower back pain [...] today. Assessment & Plan (04/01/2019 12:28 PM ECONOMIC DEVELOPER): History of L4/L5/S1 OA in the lower [...] 06/04/2018 Assessment & Plan (06/04/2018 10:18 AM ECONOMIC DEVELOPER): Insomnia symptoms at night. Discussed use of black noise machine. also reports that she snores. Would recommend sleep study, although discuss further with PCP. Right hand pain 05/07/2018 Assessment & Plan (05/07/2018 10:54 AM ECONOMIC DEVELOPER): Patient jammed right 1st digit and has [...] years. Assessment & Plan (06/04/2018 10:14 AM ECONOMIC DEVELOPER): Did not obtain DEXA at last visit, will obtain in the near future. Order placed again. Assessment & Plan (05/07/2018 10:56 AM ECONOMIC DEVELOPER): Recently non-displaced lateral malleolus fracture after rolling her ankle. Is at increased risk for osteoporosis with SLE. Will check dexa scan today. Confusion 03/03/2018 Right hip pain 02/26/2018 Assessment & Plan (06/04/2018 10:15 AM ECONOMIC DEVELOPER): Patient does continue to have some mild pain in the right hip / groin region. Most recent hip x-ray was negative. Has complaints are minimal, we will just monitor at this time. If symptoms progress, would consider right hip MRI. Assessment & Plan (05/07/2018 10:52 AM ECONOMIC DEVELOPER): Denies major complaints today. Most recent right hip x-ray was negative. If symptoms do worsen, would consider right hip MRI. Assessment & Plan (03/26/2018 9:57 AM ECONOMIC DEVELOPER): Right hip pain with accompanying morning stiffness persists. Localizes over the right hip/ groin region, although no pain elicited with internal and external rotation. Recent right hip x-ray was negative. If symptoms persist, will consider right hip MRI at next visit. Assessment & Plan (02/26/2018 10:24 AM ECONOMIC DEVELOPER): Right hip pain, which she does note [...] 12/15/2017 Assessment & Plan (06/04/2018 10:16 AM ECONOMIC DEVELOPER): Still awaiting to schedule with Neurology for further evaluation of these symptoms. Assessment & Plan (05/07/2018 10:52 AM ECONOMIC DEVELOPER): Has not scheduled with Neurology, which was discussed at the last couple of visits. Will be scheduling in the near future. Assessment & Plan (03/26/2018 10:29 AM ECONOMIC DEVELOPER): As discussed at last visit, given her confusion symptoms, as well as headaches , would recommend further evaluation with Neurology. Assessment & Plan (02/26/2018 10:23 AM ECONOMIC DEVELOPER): Continues to note persistent headaches, as well [...] 06/2019 Assessment & Plan (05/09/2024 11:01 AM ECONOMIC DEVELOPER): DEXA 02/05/2023: L-spine-1.3, left femoral neck-1.4, left total hip-0.7, right femoral neck -0.8, right total hip -0.4 FRAX: 9.6/0.8. On vitamin-D supplementation per PCP recommendations Routine labs today. Continue routine eye exams. Normal TPMT 03/2018 Neg quant 06/2019 Assessment & Plan (04/11/2024 9:56 AM ECONOMIC DEVELOPER): DEXA 02/05/2023: L-spine-1.3, left femoral neck-1.4, left [...] 06/2019 Assessment & Plan (04/07/2023 12:50 PM ECONOMIC DEVELOPER): DEXA 02/05/2023: L-spine-1.3, left femoral neck-1.4, left [...] 06/2019 Assessment & Plan (04/26/2021 9:30 AM ECONOMIC DEVELOPER): Routine labs today. Continue routine eye exams. [...] 06/2019 Assessment & Plan (06/11/2020 1:04 PM ECONOMIC DEVELOPER): Routine labs today. Continue routine eye exams. Normal TPMT 03/2018 Neg quant 06/2019 Assessment & Plan (04/11/2020 12:04 PM ECONOMIC DEVELOPER): Routine labs today. Continue routine eye exams. Normal TPMT 03/2018 Neg quant 06/2019 Assessment & Plan (03/19/2020 9:50 AM ECONOMIC DEVELOPER): Routine labs today. Continue routine eye exams. [...] 03/2018 Assessment & Plan (04/01/2019 12:27 PM ECONOMIC DEVELOPER): Routine labs today. Continue routine eye exams. [...] today. Assessment & Plan (06/04/2018 10:16 AM ECONOMIC DEVELOPER): Routine labs today. Continue routine eye exams. Normal TPMT 03/2018 Routine labs today. Assessment & Plan (05/07/2018 10:53 AM ECONOMIC DEVELOPER): Routine labs today. Continue routine eye exams. Normal TPMT 03/2018 Routine labs today. Recheck CBC in 2 weeks. Assessment & Plan (03/26/2018 9:57 AM ECONOMIC DEVELOPER): Routine labs today. Continue routine eye exams. Routine labs today, including TP MT. Recheck CBC in 2 weeks. Assessment & Plan (02/26/2018 10:25 AM ECONOMIC DEVELOPER): Routine labs today. Continue routine eye exams. [...] warmers. Assessment & Plan (04/26/2021 9:30 AM ECONOMIC DEVELOPER): Persistent intermittent Raynaud/acrocyanosis symptoms in the feet>hands. [...] warmers. Assessment & Plan (06/11/2020 1:04 PM ECONOMIC DEVELOPER): Persistent intermittent Raynaud symptoms in the feet>hands. [...] fingers. Assessment & Plan (04/01/2019 12:27 PM ECONOMIC DEVELOPER): Mild occasional Raynaud's in the feet without [...] neurologist norma hernandez On Plaquenil 200 b.i.d., xeljon Assessment & Plan (12/26/2024 9:27 AM CDT): [...] needed. Assessment & Plan (05/09/2024 11:01 AM ECONOMIC DEVELOPER): CDAI 7. Had significant benefit with Kenalog [...] needed. Assessment & Plan (04/11/2024 9:55 AM ECONOMIC DEVELOPER): CDAI 21. Since last visit, has had [...] needed. Assessment & Plan (04/07/2023 10:54 AM ECONOMIC DEVELOPER): CDAI 13. Since last visit, has noted [...] needed Assessment & Plan (06/13/2022 12:33 PM ECONOMIC DEVELOPER): CDAI 16. Presents due to a flare. [...] needed. Assessment & Plan (05/15/2022 10:11 AM ECONOMIC DEVELOPER): CDAI 9. Overall, peripheral joints have done [...] needed. Assessment & Plan (04/26/2021 9:28 AM ECONOMIC DEVELOPER): CDAI 18. Since last visit, has experienced [...] needed. Assessment & Plan (06/11/2020 1:02 PM ECONOMIC DEVELOPER): CDAI 9. Since last visit, patient has [...] needed. Assessment & Plan (04/11/2020 12:06 PM ECONOMIC DEVELOPER): CDAI 40. Patient returns today due to [...] osteoporosis. Assessment & Plan (03/19/2020 9:51 AM ECONOMIC DEVELOPER): Tele health visit. Patient noted a significant [...] stiffness in the bilateral hands with reduced client architect strength. A.m. stiffness for 60 minutes. Denies [...] needed. Assessment & Plan (04/01/2019 12:26 PM ECONOMIC DEVELOPER): CDAI 0. Denies much peripheral joint complaints [...] needed. Assessment & Plan (06/04/2018 10:14 AM ECONOMIC DEVELOPER): Initial serologies:pos lourdes 1:640 dense fine speckled. [...] needed. Assessment & Plan (05/07/2018 10:51 AM ECONOMIC DEVELOPER): Initial serologies:pos lourdes 1:640 dense fine speckled. [...] injection. Assessment & Plan (03/26/2018 10:28 AM ECONOMIC DEVELOPER): Initial serologies:pos lourdes 1:640 dense fine speckled. [...] today. Assessment & Plan (02/26/2018 12:08 PM ECONOMIC DEVELOPER): Initial serologies:pos lourdes 1:640 dense fine speckled. [...] that she will be moving to the [facility] that will be needed to establish care with a new neuropsychologist. Advised to do this DARÍO. Routine labs [...] Gilbert. Assessment & Plan (04/26/2021 9:31 AM ECONOMIC DEVELOPER): A primary complaint persistent neuropathic pain in [...] heme. Assessment & Plan (06/11/2020 1:03 PM ECONOMIC DEVELOPER): Follows with heme. Assessment & Plan (04/11/2020 12:04 PM ECONOMIC DEVELOPER): Follows with heme. Assessment & Plan (03/19/2020 9:50 AM ECONOMIC DEVELOPER): Follows with heme. Assessment & Plan (02/17/2020 [...] Hematology. Assessment & Plan (04/01/2019 12:26 PM ECONOMIC DEVELOPER): Following with Hematology. Assessment & Plan (12/31/2018 12:45 PM CDT): Continue to follow with Hematology Assessment & Plan (10/01/2018 10:48 AM CDT): Continue to follow with hematology. Assessment & Plan (07/23/2018 9:05 AM CDT): Continue to follow with Hematology. Assessment & Plan (06/04/2018 10:15 AM ECONOMIC DEVELOPER): Continue to follow with Hematology. Assessment & Plan (05/07/2018 10:52 AM ECONOMIC DEVELOPER): Continue to follow with Hematology. Assessment & Plan (03/26/2018 10:29 AM ECONOMIC DEVELOPER): Continue to follow with Hematology. Assessment & Plan (02/26/2018 10:25 AM ECONOMIC DEVELOPER): Following with Hematology for this issue. Will [...] Date Type Department Care Team Description 01/10/2025 Orders Only [address] [id number] Carlos Coughlin PA 01/10/2025 Results Follow-Up [address] [phone] Carlos Coughlin PA Basic metabolic panel, CBC with auto differential 12/27/2024 Orders Only [address] [address] Carlos Coughlin PA Lymphopenia (Primary Dx); Hypokalemia 12/27/2024 Results Follow-Up [address] [address] Carlos Coughlin PA C4 complement, CBC with auto differential, Comprehensive metabolic panel, Additional followed-up results: 5 12/26/2024 9:00 AM CDT Office Visit [facility] [address] [place] [phone] Carlos Coughlin PA Systemic lupus erythematosus, [...] 36.5 C (97.7 F) 04/26/2021 8:51 AM ECONOMIC DEVELOPER Respiratory Rate - - Oxygen Saturation 97% [...] Cancer Screening-Mammogram 02/22/2016 015 Covid-19 Vaccine ( - season) 2024 01/07/2021, 07/12/2020, 06/21/2020 Influenza Vaccine (#1) 2024 06/03/2016 Hepatitis B Screening Completed 08/04/2017 Procedures Procedure Name Priority Date/Time Associated Diagnosis Comments SCAN - LABS 01/10/2025 4:32 PM CDT CBC WITH AUTO DIFFERENTIAL Routine 01/09/2025 9:06 [...] medications from Last 3 Months Results * SCAN - LABS (01/10/2025 4:32 PM CDT) us Carlos HUITRON Final R esult * (ABNORMAL) CBC with auto differential (01/09/2025 9:06 AM CDT) WBC 7.7 3.8 - 10.8 Thousand/u L [...] 01/10/2025 2:35 AM CDT FASTING:NO FASTING: NO us Carlos HUITRON LAB BLOOD ORDERABLES nal Result [facility] [address] [facility] [place] [address] * (ABNORMAL) Basic metabolic panel (01/09/2025 9:06 AM CDT) [facility] Glucose 94 65 - 139 mg/dL [facility] [...] 10.4 mg/dL [facility] Blood 01/09/2025 9:0 6 AM CDT 01/09/2025 9:07 AM CDT Narrative [facility] - 01/10/2025 2:35 AM CDT FASTING:NO FASTING: NO Carlos HUITRON LAB BLOOD ORDERABLES Fi nal Result Performing Organization Address [facility] de Phone Number [facility] [address] [place] [address] * Anti-double stranded DNA abs (12/26/2024 9:40 AM CDT) Pathologist [facility] DNA (DS) ab <1 IU/mL [facility] Comment: IU/mL Interpretation < or = 4 Negative 5-9 Indeterminate > or = 10 Positive Blood 12/26/2024 9:40 AM CDT 12/26/2024 9:40 AM CDT Carlos HUITRON LAB BLOOD ORDERABLES Fi nal Result Performing Organization Address [facility] de Phone Number [facility] [address] [place] [address] * C4 complement (12/26/2024 9:40 AM CDT) [facility] Complement component C4C 28 15 - 57 mg/dL [facility] Blood 12/26/2024 9:40 AM CDT 12/26/2024 9:40 AM CDT Carlos HUITRON LAB BLOOD ORDERABLES Fi nal Result Performing Organization Address [facility] de Phone Number [facility] [address] [place] [address] * (ABNORMAL) CBC with auto differential (12/26/2024 9:40 AM CDT) Pathologist [facility] WBC 7.8 3.8 - 10.8 Thousand/u L [...] BLOOD ORDERABLES Fi nal Result [facility] [address] [address] [phone] * (ABNORMAL) Protein / creatinine ratio, urine, [...] ORDERABLES Fi nal Result Performing Organization Address [facility] Co de Phone Number [facility] [address] [place] [address] * Erythrocyte sedimentation rate (12/26/2024 9:40 AM CDT) Erythrocyte sedimentation rate 11 < OR = 30 mm/h [facility] Blood 12/26/2024 9:40 AM CDT 12/26/2024 9:40 AM CDT Carlos HUITRON LAB BLOOD ORDERABLES Fi nal Result Performing Organization Address [facility] de Phone Number [facility] [address] [place] [address] * C3 complement (12/26/2024 9:40 AM CDT) Complement component C3C 172 83 - 193 mg/dL [facility] Blood 12/26/2024 9:40 AM CDT 12/26/2024 9:40 AM CDT Carlos HUITRON LAB BLOOD ORDERABLES Fi nal Result Performing Organization Address [facility] de Phone Number [facility] [address] [place] [address] * CRP (acute phase) (12/26/2024 9:40 AM CDT) C-RP <3.0 <8.0 mg/L [facility] Blood 12/26/2024 9:40 AM CDT 12/26/2024 9:40 AM CDT us Carlos HUITRON LAB BLOOD ORDERABLES Fi nal Result [facility] [address] [place] [id number] * (ABNORMAL) Comprehensive metabolic panel (12/26/2024 9:40 AM CDT) Pathologist [facility] Glucose 92 65 - 99 mg/dL [facility] [...] ORDERABLES Fi nal Result Performing Organization Address City/State/[facility] Co de Phone Number [facility] [address] [place] [phone] from Last 3 Months Insurance [id number] [facility] MEDICARE MEDICARE [facility] Care Teams Planned Giving Officer Relationship Specialty Start Date End Date Ray Roberts MD [address] [facility] [address] [place] [address] PCP - General Family Medicine 04/11/24 Hossein Ribeiro MD [address] [address] Referring Physician Neurology 09/21/19 Rashid Gaffney MD [address] [place] [address] Consulting Physician Rheumatology 04/24/23 Dereck Bowden MD [address] [place] [address] Referring Physician Pain Management 01/10/25
--- OUTSIDE RECORDS SUMMARY | 2025-02-20 01:19 | XMS_ITS | Clinical Summary ---
Author Organization [facility] Address [address] [place] [address] Care Team Providers Care Die Out Worker Name Role Phone Provider, Abstract Primary Care [...] Comments Blood Pressure 139/87 06/25/2018 9:01 AM CARRIER DRIVER Pulse 74 06/25/2018 9:01 AM CARRIER DRIVER Temperature 36.8 C (98.2 F) 06/25/2018 9:01 AM CARRIER DRIVER Respiratory Rate 17 06/25/2018 9:01 AM CARRIER DRIVER Oxygen Saturation 97% 06/25/2018 9:01 AM CARRIER DRIVER Inhaled Oxygen Concentration - - Weight 76 kg (167 lb 8 oz) 06/25/2018 9:01 AM CS T Height 160 cm (5' 3) 06/25/2018 9:01 AM CARRIER DRIVER Body Mass Index 29.67 06/25/2018 9:01 AM CARRIER DRIVER Plan of Treatment Health Maintenance Due Date Last Done Comments DTAP/TDAP/TD VACCINES (1 - Tdap) 1981 ZOSTER VACCINE (1 of 2) 1981 HPV/Cotest (21-29) 1983 CERVICAL CANCER SCREENING 01/04/1992 HPV/Cotest (30-65) 01/04/1992 PAP SMEAR 01/04/1992 COLORECTAL SCREENING 2007 Colorectal Cancer Screening 2007 FIT-DNA Q 3 years 2007 FIT/FOBT Q 1 year 2007 Flex Sig/CT Colonography Q 5 years 2007 RSV VACCINE (60+ or ) (1 - Risk 50-74 years 1-dose series) 01/04/2012 BREAST CANCER SCREENING 02/22/2016 02/21/2015 INFLUENZA VACCINE (#1) 2024 Insurance [facility] Address: [facility] [id number] [place] [id number] Care Teams Die Out Worker Relationship Specialty Start Date End Date Provider, Abstract NO ADDRESS ON FILE PCP - General 06/25/18
--- OUTSIDE RECORDS SUMMARY | 2025-02-20 01:19 | XMS_ITS | Patient Health Record ---
Author Organization [facility] [employer] Address [address] [place] [address] Care Team Providers Care Eligibility And Occupancy Interviewer Name Role Phone Henry Daigle Unavailable [phone] Reason For Referral No Information Medications Medication [...] X 4)/0.5 ML IM SYRINGE *Reorder from [employer] for eRx and Interaction Alerts* 01/28/2020 Active DULoxetine HCl 60 MG Capsule Delayed Release Particles Oral 01/28/2020 Active Shingrix 50 mcg/0.5 mL Suspension Reconstituted Intramuscular 01/28/2020 Ac tive Fluticasone Propionate Diskus 50 MCG/ACT Aerosol Powder Breath Activated Inhalation *Reorder from [employer] for eRx and Interaction Alerts* 01/28/2020 Active [...] Coverage End Date [employer] [address] [place] [address] [id number] MELVI HUNTER Self - patient is the insured
--- OUTSIDE RECORDS SUMMARY | 2025-02-20 01:19 | XMS_ITS | Clinical Summary ---
Author Organization [facility] Address [address] [place] [address] Phone Care Team Providers Care Director Counseling Bureau Name Role Phone Breann Hidalgo MD Primary Care Provider [phone] Social History Tobacco Use Types Packs/Day Years [...] DIGITAL W CAD Routine 02/21/2015 3:59 PM WIRE STITCHER MACHINE Visit for screening mammogram from Last 3 Months or Most Recently Relevant to Health Maintenance Results * MARIO SCREENING BILATERAL DIGITAL W CAD (02/21/2015 3:59 PM WIRE STITCHER MACHINE) Anatomical Region Laterality Modality breast Bilateral Mammography 02/21/2015 4:10 PM WIRE STITCHER MACHINE Impressions 02/22/2015 7:43 AM WIRE STITCHER MACHINE BIRADS category 1 - normal. The patient should return to her screening schedule. J. Tye Faith M.D./ /[id number]/02/21/2015 16:10:35CST/hs/02/21/2015 21:34:28CST Cc: Narrative 02/22/2015 7:43 AM WIRE STITCHER MACHINE PATIENT NAME: NASRIN HEALY : 1960 DOCUMENT TYPE: RADIOLOGY ORDER NUMBER/RESULT CODE ORDERING PHYSICIAN [id number] BREANN HIDALGO DATE AND TIME OF DICTATION RADIOLOGIST 02/21/2015 16:10:35CST Geronimo Faith EXAM DESCRIPTION MARIO SCREENING BILATERAL DIGITA HISTORY: Bilateral screening mammography without comparison. FINDINGS: The breast tissue is heterogeneously dense. I appreciate no evidence of suspicious mass or microcalcifications. Breann Hidalgo MD IMG MAMMO ORDERABLES Final Result from Last 3 Months or Most Recently Relevant to Health Maintenance Insurance [facility] Care Teams Director Counseling Bureau Relationship Specialty Start Date End Date Breann Hidalgo MD [address] [facility] [address] [place] [address] PCP - General Family Medicine 02/21/15
--- OUTSIDE RECORDS SUMMARY | 2025-02-20 01:19 | XMS_ITS | Encounter Summary ---
Author Organization [facility] Address [address] [place] [address] Phone Care Team Providers Care Trim Crew Supervisor Name Role Phone Hossein Ribeiro MD Unavailable Rashid Gaffney MD Unavailable [phone] Ray Roberts MD Primary Care Provider Dereck Bowden MD Unavailable [phone] Encounter Details Date Type Department Care Team (Latest Contact Info) Description 01/10/2025 Results Follow-Up [facility] [address] [place] [phone] Carlos Coughlin PA [address] [place] [address] Basic metabolic panel, CBC with [...] on filedocumented in this encounter Care Teams Trim Crew Supervisor Relationship Specialty Start Date End Date Ray Roberts MD [address] [email or web address] [address] [place] [address] PCP - General Family Medicine 04/11/24 Hossein Ribeiro MD [address] [id number] Referring Physician Neurology 09/21/19 Rashid Gaffney MD [address] [place] [address] Consulting Physician Rheumatology 04/24/23 Dereck Bowden MD [address] [place] [address] Referring Physician Pain Management 01/10/25 documented as of this encounter
--- OUTSIDE RECORDS SUMMARY | 2025-02-20 01:19 | XMS_ITS | Clinical Summary ---
Author Organization [facility] Address [facility] [place] [address] Care Team Providers Care Pharmacovigilance Specialist Name Role Phone Unavailable Primary Care Provider [...] Vaccines (1 of 2) 01/04/2012 COVID-19 Vaccine (2024-2 6 season) 2024 Influenza Adult (#1) 2025 RSV Immunization or 60+ Years (1 - 1-dose 75+ series) 2037 Hepatitis A Vaccines Aged Out No long er eligible based on patient's age to complete this topic Meningococcal B Vaccine Aged Out No l onger eligible based on patient's age to complete this topic Meningococcal Vaccine Aged Out No abida zoë eligible based on patient's age to complete this topic RSV Immunizations Under 20 Months Aged Out No longer eligible based on patient's age to complete this topic
--- OUTSIDE RECORDS SUMMARY | 2025-02-20 01:19 | XMS_ITS | Encounter Summary ---
Author Organization [facility] Address [address] [place] [address] Phone Care Team Providers Care Hair Or Beauty Salon Manager Name Role Phone Hossein Ribeiro MD Unavailable Rashid Gaffney MD Unavailable [phone] Ray Roberts MD Primary Care Provider Dereck Bowden MD Unavailable [phone] Encounter Details Date Type Department Care Team (Latest Contact Info) Description 12/27/2024 Results Follow-Up [facility] [address] [place] [phone] Carlos Coughlin PA [address] [place] [address] C4 complement, CBC with auto [...] on filedocumented in this encounter Care Teams Hair Or Beauty Salon Manager Relationship Specialty Start Date End Date Ray Roberts MD [address] [address] PCP - General Family Medicine 04/11/24 Hossein Ribeiro MD [address] [address] Referring Physician Neurology 09/21/19 Rashid Gaffney MD [address] [place] [address] Consulting Physician Rheumatology 04/24/23 Dereck Bowden MD [address] [place] [address] Referring Physician Pain Management 01/10/25 documented as of this encounter
[2025-02-20 11:27] VITALS: BMI 29.9
[2025-02-20 11:29] VITALS: BP 156/87; PULSE 72; RESP 18; TEMP 36.8; O2SAT 99
[2025-02-20] MEDS: LACTATED RINGERS 1,000 ML 150 ML IV CONT (11:50)
--- NOTE | 2025-02-20 12:40 | WPDANESEPPF ---
Anes - Initial Pre Proc Eval Procedure: Operation Date: 02/20/25 12:30 Proposed Procedures p Screening Colonoscopy - Wilmer Hernandez MD Date/Time: 02/20/25 12:40 Surgeon: Wilmer Hernandez MD Pre Op Diagnosis: Personal history of colon polyps, unspecified Patient Data Age: 65 Gender: F Height: 1.63 m Weight: 79.2 kg Last Vital Signs Temp 36.8 C 02/20/25 11:29 Pulse 72 02/20/25 11:29 Resp 18 02/20/25 11:29 BP 156/87 H 02/20/25 11:29 Pulse Ox 99 02/20/25 11:29 O2 Del Method Room Air 02/20/25 11:29 Allergies Allergy/AdvReac Type Severity Reaction Status Date / Time codeine Allergy Severe Swelling Verified 02/20/25 11:24 of Lip/Tongue/Throat Penicillins Allergy Severe Swelling Verified 02/20/25 11:24 of Lip/Tongue/Throat Sulfa (Sulfonamide Allergy Severe Hives Verified 02/20/25 11:24 Antibiotics) Home Medications ?Medication ?Instructions ?Recorded ?Confirmed ?Type aspirin 325 mg tablet 325 mg PO DAILY 11/01/19 02/08/25 History cholecalciferol (vitamin D3) 25 25 mcg PO DAILY 11/01/19 02/20/25 History mcg (1,000 unit) capsule multivitamin 1 tablet PO DAILY 11/01/19 02/20/25 History Zyrtec 10 mg tablet (cetirizine) 10 mg PO DAILY #90 tabs 01/10/21 02/20/25 Rx omeprazole 20 mg capsule,delayed 20 mg PO BID PRN Heartburn 05/23/21 02/20/25 History release diclofenac sodium 2 % topical 1 packet topical BID 11/01/21 02/20/25 History solution in packet (Pennsaid) nitroglycerin 0.4 mg sublingual 0.4 mg sublingual Q5M PRN Chest 05/20/22 02/08/25 Rx tablet Pain #25 tabs hydroxychloroquine 200 mg tablet 200 mg PO BID 05/23/22 02/20/25 History leflunomide 20 mg tablet 20 mg PO DAILY 03/06/23 02/20/25 History upadacitinib 15 mg tablet,extended 15 mg PO DIRECTED 03/06/23 02/20/25 History release 24 hr (Rinvoq) buspirone 5 mg tablet See Rx Instructions .Route 03/21/24 02/20/25 Rx .COMPLEX #180 tabs levothyroxine 50 mcg tablet See Rx Instructions .Route 04/14/24 02/20/25 Rx .COMPLEX #90 tabs omega 7-qro-zpe-fish oil 1,000 mg 1 cap PO DAILY 05/10/24 02/08/25 History (120 mg-180 mg) capsule (Fish Oil) atorvastatin 20 mg tablet See Rx Instructions .Route 09/07/24 02/20/25 Rx .COMPLEX #90 tabs duloxetine 60 mg capsule,delayed See Rx Instructions .Route 09/16/24 02/20/25 Rx release .COMPLEX #90 ea tramadol 50 mg tablet 50 mg PO Q8H pain #90 tabs 09/27/24 02/08/25 Rx quetiapine 25 mg tablet See Rx Instructions .Route 10/22/24 02/20/25 Rx .COMPLEX #180 tabs azelastine 137 mcg (0.1 %) nasal 137 mcg (0.137 mL) intranasal Q12H 11/11/24 02/08/25 Rx spray #30 mL gabapentin 300 mg capsule See Rx Instructions .Route 02/02/25 02/20/25 Rx .COMPLEX #360 caps carvedilol 25 mg tablet See Rx Instructions .Route 02/13/25 02/20/25 Rx .COMPLEX #60 tabs losartan 100 See Rx Instructions .Route 02/14/25 Rx mg-hydrochlorothiazide 25 mg tablet .COMPLEX #90 tabs Patient hx anesthesia problems: none Family hx anesthesia problems: none Results Review: All pre-operative results and documents have been reviewed as part of the pre-operative evaluation. [facility] Past Medical History Medical History Chronic pain disorder Hypertensive urgency Lupus Rash and nonspecific skin eruption Viral gastroenteritis Insect bite of neck with local reaction Chronic pain Encounter for postoperative care Rheumatoid arthritis History of heart attack Aris-tachy syndrome Seizure Subacromial impingement of left shoulder Labral tear of long head of left biceps tendon Rotator cuff tear Left shoulder pain Shoulder swelling Cough RUQ abdominal pain Insomnia due to medical condition KRISTINA-inhibitor cough Acute bronchitis Restless leg syndrome Raynaud phenomenon MDD (major depressive disorder), recurrent episode, moderate Colon polyp Poison nae Epigastric pain Constipation Seropositive rheumatoid arthritis Chronic pain Elevated liver enzymes Lupus (systemic lupus erythematosus) Benign essential HTN Family History Family History Mother Hypertension Family history of diabetes mellitus in first degree relative Other Diabetes mellitus Family history of cardiovascular disease Family history of malignant neoplasm Social History Social History Social History: Smoking status: Never smoker Second hand tobacco smoke exposure: No Alcohol intake: never Substance use: never Substance use type: does not use Do You Feel Safe in your Home?: Yes Lack of Transportation: No Lack of Food: Never True Current Housing: I Have Housing Concerned About Future Housing: No Difficulty Paying Gas/Electric Bills: Decline to Answer Difficulty Paying for Meds: Decline to Answer Currently Unemployed: Decline to Answer Education: Associate Degree Difficulty w/ Childcare or Family Care: No Living arrangements: with family Occupation/Education: retired Additional occupation/education comments: Disability Gender identity (if verbalized by the patient): Female Sexual Orientation (if Verbalized by the Patient): Straight or Heterosexual Spiritual care concerns: No Anes - Eval Final PreProcedure Day of Procedure 02/20/25 12:40 Patient weight: obese Heart: regular rate and rhythm Lungs: decreased breath sounds Airway: Mallampati scale class II Neurological: alert and oriented Last oral intake: >/= 8 hours ASA classification: III Emergent: no Anesthetic plan: proceed Anesthesia type and monitoring: general GIVS and standard monitoring Results Review: All pre-operative results and documents have been reviewed as part of the pre-operative evaluation. Informed Consent: The patient's anesthetic plan and its attendant risks and benefits were discussed with the patient/family/POA. Questions were solicited and answers provided to the satisfaction of the patient/family/POA.
--- NOTE | 2025-02-20 12:43 | PM.HPGS ---
History of Present Illness History of Present Illness Consent: Risks, benefits, and alternatives have been discussed and questions answered. Patient agrees to proceed with procedure. Chief complaint: Personal history of colon polyps, unspecified Narrative: Nasrin Healy is a 65 year old female with colon polyp in 2019 Review of Systems Review of Systems: All systems reviewed & are unremarkable except as noted in HPI and below PMFSH Past Medical History Medical History Chronic pain disorder Hypertensive urgency Lupus Rash and nonspecific skin eruption Viral gastroenteritis Insect bite of neck with local reaction Chronic pain Encounter for postoperative care Rheumatoid arthritis History of heart attack Aris-tachy syndrome Seizure Subacromial impingement of left shoulder Labral tear of long head of left biceps tendon Rotator cuff tear Left shoulder pain Shoulder swelling Cough RUQ abdominal pain Insomnia due to medical condition KRISTINA-inhibitor cough Acute bronchitis Restless leg syndrome Raynaud phenomenon MDD (major depressive disorder), recurrent episode, moderate Colon polyp Poison nae Epigastric pain Constipation Seropositive rheumatoid arthritis Chronic pain Elevated liver enzymes Lupus (systemic lupus erythematosus) Benign essential HTN Family History Family History Mother Hypertension Family history of diabetes mellitus in first degree relative Other Diabetes mellitus Family history of cardiovascular disease Family history of malignant neoplasm Social History Social History Social History: Smoking status: Never smoker Second hand tobacco smoke exposure: No Alcohol intake: never Substance use: never Substance use type: does not use Do You Feel Safe in your Home?: Yes Lack of Transportation: No Lack of Food: Never True Current Housing: I Have Housing Concerned About Future Housing: No Difficulty Paying Gas/Electric Bills: Decline to Answer Difficulty Paying for Meds: Decline to Answer Currently Unemployed: Decline to Answer Education: Associate Degree Difficulty w/ Childcare or Family Care: No Living arrangements: with family Occupation/Education: retired Additional occupation/education comments: Disability Gender identity (if verbalized by the patient): Female Sexual Orientation (if Verbalized by the Patient): Straight or Heterosexual Spiritual care concerns: No Meds Home Medications and Allergies Home Medications ?Medication ?Instructions ?Recorded ?Confirmed ?Type aspirin 325 mg tablet 325 mg PO DAILY 11/01/19 02/08/25 History cholecalciferol (vitamin D3) 25 25 mcg PO DAILY 11/01/19 02/20/25 History mcg (1,000 unit) capsule multivitamin 1 tablet PO DAILY 11/01/19 02/20/25 History Zyrtec 10 mg tablet (cetirizine) 10 mg PO DAILY #90 tabs 01/10/21 02/20/25 Rx omeprazole 20 mg capsule,delayed 20 mg PO BID PRN Heartburn 05/23/21 02/20/25 History release diclofenac sodium 2 % topical 1 packet topical BID 11/01/21 02/20/25 History solution in packet (Pennsaid) nitroglycerin 0.4 mg sublingual 0.4 mg sublingual Q5M PRN Chest 05/20/22 02/08/25 Rx tablet Pain #25 tabs hydroxychloroquine 200 mg tablet 200 mg PO BID 05/23/22 02/20/25 History leflunomide 20 mg tablet 20 mg PO DAILY 03/06/23 02/20/25 History upadacitinib 15 mg tablet,extended 15 mg PO DIRECTED 03/06/23 02/20/25 History release 24 hr (Rinvoq) buspirone 5 mg tablet See Rx Instructions .Route 03/21/24 02/20/25 Rx .COMPLEX #180 tabs levothyroxine 50 mcg tablet See Rx Instructions .Route 04/14/24 02/20/25 Rx .COMPLEX #90 tabs omega 0-xju-uul-fish oil 1,000 mg 1 cap PO DAILY 05/10/24 02/08/25 History (120 mg-180 mg) capsule (Fish Oil) atorvastatin 20 mg tablet See Rx Instructions .Route 09/07/24 02/20/25 Rx .COMPLEX #90 tabs duloxetine 60 mg capsule,delayed See Rx Instructions .Route 09/16/24 02/20/25 Rx release .COMPLEX #90 ea tramadol 50 mg tablet 50 mg PO Q8H pain #90 tabs 09/27/24 02/08/25 Rx quetiapine 25 mg tablet See Rx Instructions .Route 10/22/24 02/20/25 Rx .COMPLEX #180 tabs azelastine 137 mcg (0.1 %) nasal 137 mcg (0.137 mL) intranasal Q12H 11/11/24 02/08/25 Rx spray #30 mL gabapentin 300 mg capsule See Rx Instructions .Route 02/02/25 02/20/25 Rx .COMPLEX #360 caps carvedilol 25 mg tablet See Rx Instructions .Route 02/13/25 02/20/25 Rx .COMPLEX #60 tabs losartan 100 See Rx Instructions .Route 02/14/25 Rx mg-hydrochlorothiazide 25 mg tablet .COMPLEX #90 tabs Allergies Allergy/AdvReac Type Severity Reaction Status Date / Time codeine Allergy Severe Swelling Verified 02/20/25 11:24 of Lip/Tongue/Throat Penicillins Allergy Severe Swelling Verified 02/20/25 11:24 of Lip/Tongue/Throat Sulfa (Sulfonamide Allergy Severe Hives Verified 02/20/25 11:24 Antibiotics) Vital Signs Vital Signs - 24 hr 02/20/25 11:29 Temperature 98.2 F Pulse Rate 72 Respiratory Rate 18 Blood Pressure 156/87 H Pulse Oximetry 99 Oxygen Delivery Room Air Exam Const: General: comfortable and no acute distress HENMT: Face/Nose/Sinus: Normal nares present Eyes: General: appearance normal, both eyes and all related structures Neck: Neck: no JVD Resp: Auscultation: clear to auscultation bilaterally Cardio: Rate: regular rate Rhythm: regular rhythm GI: Inspection: non-distended GI Palp: Yes Soft to palpation Skin: General skin exam: normal color Extrem: General: normal to inspection Psych: Mental Status: mental status grossly normal Assessment and Plan Assessment and plan (1) Colon polyp: Code(s): K63.5 - Polyp of colon Status: Acute Assessment and Plan: colonoscopy
[2025-02-20 13:04] VITALS: BP 106/53; PULSE 67; RESP 28; O2SAT 99
[2025-02-20 13:14] VITALS: BP 135/62; PULSE 64; RESP 19; O2SAT 99
[2025-02-20 13:24] VITALS: BP 152/74; PULSE 62; RESP 18; O2SAT 99
== END 2025-02-20 13:31 | disposition home or self-care (01) ==
PROVIDERS: PCP Family Medicine; Referring Provider Internal Medicine Gastroenterology; Visit Provider Internal Medicine Gastroenterology
PROC: 0DJD8ZZ Inspection of Lower Intestinal Tract, Via Natural or Artificial Opening Endoscopic (ICD-10-PCS; CPT 45378; principal; 2025-02-20 12:30)
DX: Z12.11 Encounter for screening for malignant neoplasm of colon (principal); K64.8 Other hemorrhoids; Z86.0100 Personal history of colon polyps, unspecified; E66.9 Obesity, unspecified; Z68.30 Body mass index [BMI] 30.0-30.9, adult
CPT/HCPCS: 45378; J2003; J2704; J7120

== ENCOUNTER 2025-02-28 12:30 | Outpatient (CLI) | payer OTHER, SELFPAY ==
--- NOTE | ~2025-02-28 | XR_ITS ---
EXAM/PROCEDURE: XR cervical spine min 6V HISTORY: M54.2 - Cervicalgia COMPARISON: None available. TECHNIQUE: 7 views were obtained. FINDINGS: Vertebral bodies: The height is well maintained. There is evidence of significant degenerative disc disease at C4-5 and C5-6. Moderate such changes are seen at C3-4. Alignment: There is minimal retrolisthesis of C5 on C6. There is minimal reversal of the normal cervical lordosis with a minimal kyphosis from about C3 C3-C5. There is no change in alignment with flexion or extension. The right neural foramina are not seen on the oblique view because of poor positioning. The left neural foramina appear to be patent. The odontoid process is intact. Prevertebral soft tissues are normal. IMPRESSION: No acute findings. Marked degenerative change as described. Reviewed, dictated and finalized at location A. SAMPLER
--- NOTE | ~2025-02-28 | XR_ITS ---
XR lumbar spine 6V w bending Indication: M47.817 - Spondylosis without myelopathy or radiculopathy... Comparison: None Findings: Grade 1 anterolisthesis of L4 on L5, no fracture is identified. There is no subluxation with flexion and extension. Moderate to severe loss of disc at L4-5 and L5-S1. Soft tissues unremarkable Impression: No acute abnormality. Reviewed, dictated and finalized at location P. LLENCE LEADER Impression: No acute abnormality.
--- OUTSIDE RECORDS SUMMARY | 2025-02-28 12:37 | XMS_ITS | Encounter Summary ---
Author Organization [facility] Address [address] [place] [address] Phone Care Team Providers Care Clerk Cashier Name Role Phone Hossein Ribeiro MD Unavailable Rashid Gaffney MD Unavailable [phone] Ray Roberts MD Primary Care Provider Dereck Bowden MD Unavailable [phone] Encounter Details Date Type Department Care Team (Latest Contact Info) Description 12/27/2024 Results Follow-Up [facility] [address] [place] [phone] Carlos Coughlin PA [address] [place] [address] C4 complement, CBC with auto [...] on filedocumented in this encounter Care Teams Clerk Cashier Relationship Specialty Start Date End Date Ray Roberts MD [address] [address] PCP - General Family Medicine 04/11/24 Hossein Ribeiro MD [address] [address] Referring Physician Neurology 09/21/19 Rashid Gaffney MD [address] [place] [address] Consulting Physician Rheumatology 04/24/23 Dereck Bowden MD [address] [place] [address] Referring Physician Pain Management 01/10/25 documented as of this encounter
--- OUTSIDE RECORDS SUMMARY | 2025-02-28 12:37 | XMS_ITS | Clinical Summary ---
Author Organization [facility] Address [facility] [place] [address] Care Team Providers Care Display Director Name Role Phone Unavailable Primary Care Provider [...]
--- OUTSIDE RECORDS SUMMARY | 2025-02-28 12:37 | XMS_ITS | Clinical Summary ---
Author Organization [facility] [address] [facility] Address [address] [place] [phone] Phone Care Team Providers Care Plating Operator Name Role Phone Hossein Ribeiro MD Unavailable Rashid Gaffney MD Unavailable [phone] Ray Roberts MD Primary Care Provider Dereck Bowden MD Unavailable [phone] Allergies Active Allergy Reactions Criticality Noted [...] TOTAL VOLUME OF 2000ML 12/16/19 Active rizatriptan EXTRACT PULLER (MAXALT-EXTRACT PULLER) 10 mg disintegrating tablet TAKE ONE TABLET [...] L5. Assessment & Plan (06/13/2022 12:34 PM KNIFE FINISHER): C-spine x-ray 05/15/2022: Minimal degenerative changes at [...] complaints. Assessment & Plan (05/15/2022 10:14 AM KNIFE FINISHER): Will obtain imaging and send to physical therapy. Primary hypertension 05/15/2022 Assessment & Plan (05/15/2022 2:20 PM KNIFE FINISHER): Following with PCP and is to reach [...] p.r.n. Assessment & Plan (05/09/2024 11:00 AM KNIFE FINISHER): Seropositive RA given prior elevated rheumatoid factor [...] p.r.n. Assessment & Plan (04/11/2024 9:56 AM KNIFE FINISHER): Seropositive RA given prior elevated rheumatoid factor [...] p.r.n.. Assessment & Plan (04/07/2023 10:55 AM KNIFE FINISHER): Seropositive RA given prior elevated rheumatoid factor [...] p.r.n.. Assessment & Plan (06/13/2022 12:34 PM KNIFE FINISHER): As discussed above, seropositive RA given prior [...] b.i.d.. Assessment & Plan (05/15/2022 10:12 AM KNIFE FINISHER): As discussed above, seropositive RA given prior [...] b.i.d.. Assessment & Plan (04/26/2021 9:30 AM KNIFE FINISHER): As discussed above, concern for seropositive RA [...] daily. Assessment & Plan (06/11/2020 1:03 PM KNIFE FINISHER): As discussed above, concern for seropositive RA given prior elevated rheumatoid factor and erosions seen on ultrasound. Appears fairly well controlled. Continue Plaquenil 200 mg b.i.d., xeljanz xr 11 mg daily. Assessment & Plan (04/11/2020 12:03 PM KNIFE FINISHER): As discussed above, concern for seropositive RA given prior elevated rheumatoid factor and erosions seen on ultrasound. Will stop Orencia and azathioprine due to lack of benefit and begin approval for Xeljanz XR 11 mg daily. Continue Plaquenil 200 mg b.i.d.. Assessment & Plan (03/19/2020 9:49 AM KNIFE FINISHER): As discussed above, concern for seropositive RA [...] exercise. Assessment & Plan (05/09/2024 11:01 AM KNIFE FINISHER): Stable. Continue Cymbalta 60 mg daily, gabapentin 300 mg qid per Neurology. Previously switched from Lyrica for insurance reasons. Encourage routine exercise. Assessment & Plan (04/11/2024 9:57 AM KNIFE FINISHER): Stable. Continue Cymbalta 60 mg daily, gabapentin [...] exercise. Assessment & Plan (04/07/2023 12:50 PM KNIFE FINISHER): Stable. Continue Cymbalta 60 mg daily, gabapentin [...] exercise. Assessment & Plan (06/13/2022 12:35 PM KNIFE FINISHER): Continue Cymbalta 30 mg daily. Continue gabapentin 300 mg q.a.m., 300 mg midday, 600 mg q.p.m. per neurology. Previous switch from Lyrica for insurance reasons. Encourage routine exercise. Assessment & Plan (05/15/2022 10:15 AM KNIFE FINISHER): Stable. Continue Cymbalta 30 mg daily. Continue [...] exercise. Assessment & Plan (04/26/2021 9:31 AM KNIFE FINISHER): Stable. Continue Cymbalta and gabapentin 100 mg [...] exercise. Assessment & Plan (06/11/2020 1:06 PM KNIFE FINISHER): Stable. Continue Cymbalta. On Lyrica 300 mg 1-2 times daily per PCP. Encourage routine exercise. Assessment & Plan (04/11/2020 12:07 PM KNIFE FINISHER): Stable. Continue Cymbalta. On Lyrica 300 mg 1-2 times daily per PCP. Encourage routine exercise. Assessment & Plan (03/19/2020 9:50 AM KNIFE FINISHER): As discussed at last visit, continue to [...] exercise. Assessment & Plan (04/01/2019 12:29 PM KNIFE FINISHER): FM may be contributing to some of [...] benefit. Assessment & Plan (04/01/2019 12:26 PM KNIFE FINISHER): Bilateral CMC bracing has offered benefit. Assessment [...] L4 on L5. Had L-spine MRI from [facility] and is following with pain management. Has completed physical therapy. Following with pain management. Has received several injections in the lower back since last visit without significant relief. Scheduled to follow up with pain management later today. Is considering surgical intervention. Has been using tramadol and Tylenol with some relief in symptoms. Assessment & Plan (05/09/2024 11:02 AM KNIFE FINISHER): C-spine x-ray 05/15/2022: Minimal degenerative changes at C3-C4 and C4-C5 SI joint x-ray 05/15/2022: WNL L-spine x-ray 05/15/2022: 5 mm anterolisthesis of L4 on L5. Had L-spine MRI from [facility] and is following with pain management. Has completed physical therapy. Following with pain management. Is currently going to physical therapy. Is scheduled for repeat L-spine epidural steroid injection with pain management tomorrow. Is following with orthopedic surgeon with discussions for potential surgical intervention regarding the lower back. Assessment & Plan (04/11/2024 9:57 AM KNIFE FINISHER): C-spine x-ray 05/15/2022: Minimal degenerative changes at C3-C4 and C4-C5 SI joint x-ray 05/15/2022: WNL L-spine x-ray 05/15/2022: 5 mm anterolisthesis of L4 on L5. Had L-spine MRI from [facility] and is following with pain management. Has [...] L4 on L5. Had L-spine MRI from [facility] and is following with pain management. Has [...] L4 on L5. Had L-spine MRI from [facility] and is following with pain management. Received epidural injection yesterday afternoon and continues to go to physical therapy. She defers surgical intervention at this time. Continue to follow with pain management. Assessment & Plan (06/13/2022 12:35 PM KNIFE FINISHER): C-spine x-ray 05/15/2022: Minimal degenerative changes at [...] Will track down recent L-spine MRI from [facility]. Assessment & Plan (05/15/2022 10:14 AM KNIFE FINISHER): Primary complaint is significant lower back pain [...] today. Assessment & Plan (04/01/2019 12:28 PM KNIFE FINISHER): History of L4/L5/S1 OA in the lower [...] 06/04/2018 Assessment & Plan (06/04/2018 10:18 AM KNIFE FINISHER): Insomnia symptoms at night. Discussed use of black noise machine. also reports that she snores. Would recommend sleep study, although discuss further with PCP. Right hand pain 05/07/2018 Assessment & Plan (05/07/2018 10:54 AM KNIFE FINISHER): Patient jammed right 1st digit and has [...] years. Assessment & Plan (06/04/2018 10:14 AM KNIFE FINISHER): Did not obtain DEXA at last visit, will obtain in the near future. Order placed again. Assessment & Plan (05/07/2018 10:56 AM KNIFE FINISHER): Recently non-displaced lateral malleolus fracture after rolling her ankle. Is at increased risk for osteoporosis with SLE. Will check dexa scan today. Confusion 03/03/2018 Right hip pain 02/26/2018 Assessment & Plan (06/04/2018 10:15 AM KNIFE FINISHER): Patient does continue to have some mild pain in the right hip / groin region. Most recent hip x-ray was negative. Has complaints are minimal, we will just monitor at this time. If symptoms progress, would consider right hip MRI. Assessment & Plan (05/07/2018 10:52 AM KNIFE FINISHER): Denies major complaints today. Most recent right hip x-ray was negative. If symptoms do worsen, would consider right hip MRI. Assessment & Plan (03/26/2018 9:57 AM KNIFE FINISHER): Right hip pain with accompanying morning stiffness persists. Localizes over the right hip/ groin region, although no pain elicited with internal and external rotation. Recent right hip x-ray was negative. If symptoms persist, will consider right hip MRI at next visit. Assessment & Plan (02/26/2018 10:24 AM KNIFE FINISHER): Right hip pain, which she does note [...] 12/15/2017 Assessment & Plan (06/04/2018 10:16 AM KNIFE FINISHER): Still awaiting to schedule with Neurology for further evaluation of these symptoms. Assessment & Plan (05/07/2018 10:52 AM KNIFE FINISHER): Has not scheduled with Neurology, which was discussed at the last couple of visits. Will be scheduling in the near future. Assessment & Plan (03/26/2018 10:29 AM KNIFE FINISHER): As discussed at last visit, given her confusion symptoms, as well as headaches , would recommend further evaluation with Neurology. Assessment & Plan (02/26/2018 10:23 AM KNIFE FINISHER): Continues to note persistent headaches, as well [...] 06/2019 Assessment & Plan (05/09/2024 11:01 AM KNIFE FINISHER): DEXA 02/05/2023: L-spine-1.3, left femoral neck-1.4, left total hip-0.7, right femoral neck -0.8, right total hip -0.4 FRAX: 9.6/0.8. On vitamin-D supplementation per PCP recommendations Routine labs today. Continue routine eye exams. Normal TPMT 03/2018 Neg quant 06/2019 Assessment & Plan (04/11/2024 9:56 AM KNIFE FINISHER): DEXA 02/05/2023: L-spine-1.3, left femoral neck-1.4, left [...] 06/2019 Assessment & Plan (04/07/2023 12:50 PM KNIFE FINISHER): DEXA 02/05/2023: L-spine-1.3, left femoral neck-1.4, left [...] 06/2019 Assessment & Plan (04/26/2021 9:30 AM KNIFE FINISHER): Routine labs today. Continue routine eye exams. [...] 06/2019 Assessment & Plan (06/11/2020 1:04 PM KNIFE FINISHER): Routine labs today. Continue routine eye exams. Normal TPMT 03/2018 Neg quant 06/2019 Assessment & Plan (04/11/2020 12:04 PM KNIFE FINISHER): Routine labs today. Continue routine eye exams. Normal TPMT 03/2018 Neg quant 06/2019 Assessment & Plan (03/19/2020 9:50 AM KNIFE FINISHER): Routine labs today. Continue routine eye exams. [...] 03/2018 Assessment & Plan (04/01/2019 12:27 PM KNIFE FINISHER): Routine labs today. Continue routine eye exams. [...] today. Assessment & Plan (06/04/2018 10:16 AM KNIFE FINISHER): Routine labs today. Continue routine eye exams. Normal TPMT 03/2018 Routine labs today. Assessment & Plan (05/07/2018 10:53 AM KNIFE FINISHER): Routine labs today. Continue routine eye exams. Normal TPMT 03/2018 Routine labs today. Recheck CBC in 2 weeks. Assessment & Plan (03/26/2018 9:57 AM KNIFE FINISHER): Routine labs today. Continue routine eye exams. Routine labs today, including TP MT. Recheck CBC in 2 weeks. Assessment & Plan (02/26/2018 10:25 AM KNIFE FINISHER): Routine labs today. Continue routine eye exams. [...] warmers. Assessment & Plan (04/26/2021 9:30 AM KNIFE FINISHER): Persistent intermittent Raynaud/acrocyanosis symptoms in the feet>hands. [...] warmers. Assessment & Plan (06/11/2020 1:04 PM KNIFE FINISHER): Persistent intermittent Raynaud symptoms in the feet>hands. [...] fingers. Assessment & Plan (04/01/2019 12:27 PM KNIFE FINISHER): Mild occasional Raynaud's in the feet without [...] needed. Assessment & Plan (05/09/2024 11:01 AM KNIFE FINISHER): CDAI 7. Had significant benefit with Kenalog [...] needed. Assessment & Plan (04/11/2024 9:55 AM KNIFE FINISHER): CDAI 21. Since last visit, has had [...] needed. Assessment & Plan (04/07/2023 10:54 AM KNIFE FINISHER): CDAI 13. Since last visit, has noted [...] needed Assessment & Plan (06/13/2022 12:33 PM KNIFE FINISHER): CDAI 16. Presents due to a flare. [...] needed. Assessment & Plan (05/15/2022 10:11 AM KNIFE FINISHER): CDAI 9. Overall, peripheral joints have done [...] needed. Assessment & Plan (04/26/2021 9:28 AM KNIFE FINISHER): CDAI 18. Since last visit, has experienced [...] needed. Assessment & Plan (06/11/2020 1:02 PM KNIFE FINISHER): CDAI 9. Since last visit, patient has [...] needed. Assessment & Plan (04/11/2020 12:06 PM KNIFE FINISHER): CDAI 40. Patient returns today due to [...] osteoporosis. Assessment & Plan (03/19/2020 9:51 AM KNIFE FINISHER): Tele health visit. Patient noted a significant [...] stiffness in the bilateral hands with reduced senior it engineer strength. A.m. stiffness for 60 minutes. [...] needed. Assessment & Plan (04/01/2019 12:26 PM KNIFE FINISHER): CDAI 0. Denies much peripheral joint complaints [...] needed. Assessment & Plan (06/04/2018 10:14 AM KNIFE FINISHER): Initial serologies:pos lourdes 1:640 dense fine speckled. [...] needed. Assessment & Plan (05/07/2018 10:51 AM KNIFE FINISHER): Initial serologies:pos lourdes 1:640 dense fine speckled. [...] injection. Assessment & Plan (03/26/2018 10:28 AM KNIFE FINISHER): Initial serologies:pos lourdes 1:640 dense fine speckled. [...] today. Assessment & Plan (02/26/2018 12:08 PM KNIFE FINISHER): Initial serologies:pos lourdes 1:640 dense fine speckled. 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 Advised to do this DARÍO. Routine labs [...] Gilbert. Assessment & Plan (04/26/2021 9:31 AM KNIFE FINISHER): A primary complaint persistent neuropathic pain in [...] heme. Assessment & Plan (06/11/2020 1:03 PM KNIFE FINISHER): Follows with heme. Assessment & Plan (04/11/2020 12:04 PM KNIFE FINISHER): Follows with heme. Assessment & Plan (03/19/2020 9:50 AM KNIFE FINISHER): Follows with heme. Assessment & Plan (02/17/2020 [...] Hematology. Assessment & Plan (04/01/2019 12:26 PM KNIFE FINISHER): Following with Hematology. Assessment & Plan (12/31/2018 12:45 PM CDT): Continue to follow with Hematology Assessment & Plan (10/01/2018 10:48 AM CDT): Continue to follow with hematology. Assessment & Plan (07/23/2018 9:05 AM CDT): Continue to follow with Hematology. Assessment & Plan (06/04/2018 10:15 AM KNIFE FINISHER): Continue to follow with Hematology. Assessment & Plan (05/07/2018 10:52 AM KNIFE FINISHER): Continue to follow with Hematology. Assessment & Plan (03/26/2018 10:29 AM KNIFE FINISHER): Continue to follow with Hematology. Assessment & Plan (02/26/2018 10:25 AM KNIFE FINISHER): Following with Hematology for this issue. Will [...] Department Care Team Description 01/10/2025 Orders Only [address] [phone] Carlos Coughlin PA 01/10/2025 Results Follow-Up [address] [phone] Carlos Coughlin PA Basic metabolic panel, CBC with auto differential 12/27/2024 Orders Only [address] [phone] Carlos Coughlin PA Lymphopenia (Primary Dx); Hypokalemia 12/27/2024 Results Follow-Up [address] [phone] Carlos Coughlin PA C4 complement, CBC with auto differential, Comprehensive metabolic panel, Additional followed-up results: 5 12/26/2024 9:00 AM CDT Office Visit [facility] [address] [place] [phone] Carlos Coughlin PA Systemic lupus erythematosus, [...] 36.5 C (97.7 F) 04/26/2021 8:51 AM KNIFE FINISHER Respiratory Rate - - Oxygen Saturation 97% [...] LAB BLOOD ORDERABLES nal Result [facility] [address] [facility] [place] [address] * (ABNORMAL) Basic metabolic panel (01/09/2025 9:06 AM CDT) [facility] Glucose 94 65 - 139 mg/dL [...] ORDERABLES Fi nal Result Performing Organization Address [facility] de Phone Number [facility] [address] [place] [address] * Anti-double stranded DNA abs (12/26/2024 9:40 AM CDT) Pathologist [facility] DNA (DS) ab <1 IU/mL [facility] Comment: IU/mL Interpretation < or = 4 Negative 5-9 Indeterminate > or = 10 Positive Blood 12/26/2024 9:40 AM CDT 12/26/2024 9:40 AM CDT aCrlos HUITRON LAB BLOOD ORDERABLES Fi nal Result Performing Organization Address [facility] de Phone Number [facility] [address] [place] [address] * C4 complement (12/26/2024 9:40 AM CDT) [facility] Complement component C4C 28 15 - 57 mg/dL [facility] Blood 12/26/2024 9:40 AM CDT 12/26/2024 9:40 AM CDT Carlos HUITRON LAB BLOOD ORDERABLES Fi nal Result Performing Organization Address [facility] de Phone Number [facility] [address] [place] [address] * (ABNORMAL) CBC with auto differential (12/26/2024 9:40 AM CDT) Pathologist [facility] WBC 7.8 3.8 - 10.8 Thousand/u L [...] BLOOD ORDERABLES Fi nal Result [facility] [address] [place] [id number] * (ABNORMAL) Protein / creatinine ratio, urine, [...] ORDERABLES Fi nal Result Performing Organization Address [facility] de Phone Number [facility] [address] [place] [address] * Erythrocyte sedimentation rate (12/26/2024 9:40 AM CDT) Erythrocyte sedimentation rate 11 < OR = 30 mm/h [facility] Blood 12/26/2024 9:40 AM CDT 12/26/2024 9:40 AM CDT Carlos HUITRON LAB BLOOD ORDERABLES Fi nal Result Performing Organization Address [facility] de Phone Number [facility] [address] [place] [address] * C3 complement (12/26/2024 9:40 AM CDT) Complement component C3C 172 83 - 193 mg/dL [facility] Blood 12/26/2024 9:40 AM CDT 12/26/2024 9:40 AM CDT Carlos HUITRON LAB BLOOD ORDERABLES Fi nal Result Performing Organization Address [facility] de Phone Number [facility] [address] [place] [address] * CRP (acute phase) (12/26/2024 9:40 AM CDT) C-RP <3.0 <8.0 mg/L [facility] Blood 12/26/2024 9:40 AM CDT 12/26/2024 9:40 AM CDT us Carlos HUITRON LAB BLOOD ORDERABLES Fi nal Result [facility] [address] [place] [id number] * (ABNORMAL) Comprehensive metabolic panel (12/26/2024 9:40 AM CDT) Pathologist [facility] Glucose 92 65 - 99 mg/dL [facility] [...] BLOOD ORDERABLES Fi nal Result [facility] [address] [place] [phone] from Last 3 Months Insurance [address] [place] [id number] [facility] MEDICARE MEDICARE [facility] Care Teams Plating Operator Relationship Specialty Start Date End Date Ray Roberts MD [address] [facility] [address] [place] [address] PCP - General Family Medicine 04/11/24 Hossein Ribeiro MD [address] [id number] Referring Physician Neurology 09/21/19 Rashid Gaffney MD [address] [place] [address] Consulting Physician Rheumatology 04/24/23 Dereck Bowden MD [address] [place] [address] Referring Physician Pain Management 01/10/25
--- OUTSIDE RECORDS SUMMARY | 2025-02-28 12:37 | XMS_ITS | Clinical Summary ---
Author Organization [facility] Address [address] [place] [address] Phone Care Team Providers Care Charge Machine Operator Name Role Phone Breann Hidalgo MD Primary Care Provider [phone] Social History Tobacco Use Types Packs/Day Years [...] DIGITAL W CAD Routine 02/21/2015 3:59 PM MOTION PICTURE SET UP WORKER Visit for screening mammogram from Last 3 Months or Most Recently Relevant to Health Maintenance Results * MARIO SCREENING BILATERAL DIGITAL W CAD (02/21/2015 3:59 PM MOTION PICTURE SET UP WORKER) Anatomical Region Laterality Modality breast Bilateral Mammography 02/21/2015 4:10 PM MOTION PICTURE SET UP WORKER Impressions 02/22/2015 7:43 AM MOTION PICTURE SET UP WORKER BIRADS category 1 - normal. The patient should return to her screening schedule. J. Tye Faith M.D./ /[id number]/02/21/2015 16:10:35CST/hs/02/21/2015 21:34:28CST Cc: Narrative 02/22/2015 7:43 AM MOTION PICTURE SET UP WORKER PATIENT NAME: NASRIN HEALY : 1960 DOCUMENT TYPE: RADIOLOGY ORDER NUMBER/RESULT CODE ORDERING PHYSICIAN [id number] BREANN HIDALGO DATE AND TIME OF DICTATION RADIOLOGIST 02/21/2015 16:10:35CST Geronimo Faith EXAM DESCRIPTION MARIO SCREENING BILATERAL DIGITA HISTORY: Bilateral screening mammography without comparison. FINDINGS: The breast tissue is heterogeneously dense. I appreciate no evidence of suspicious mass or microcalcifications. Breann Hidalgo MD IMG MAMMO ORDERABLES Final Result from Last 3 Months or Most Recently Relevant to Health Maintenance Insurance [facility] Care Teams Charge Machine Operator Relationship Specialty Start Date End Date Breann Hidalgo MD [address] [facility] [address] [place] [address] PCP - General Family Medicine 02/21/15
--- OUTSIDE RECORDS SUMMARY | 2025-02-28 12:37 | XMS_ITS | Encounter Summary ---
Author Organization [facility] Address [address] [place] [address] Phone Care Team Providers Care Unit Secretary Name Role Phone Hossein Ribeiro MD Unavailable Rashid Gaffney MD Unavailable [phone] Ray Roberts MD Primary Care Provider Dereck Bowden MD Unavailable [phone] Encounter Details Date Type Department Care Team (Latest Contact Info) Description 01/10/2025 Results Follow-Up [facility] [address] [place] [phone] Carlos Coughlin PA [address] [place] [address] Basic metabolic panel, CBC with [...] on filedocumented in this encounter Care Teams Unit Secretary Relationship Specialty Start Date End Date Ray Roberts MD [address] [facility] [address] [place] [address] PCP - General Family Medicine 04/11/24 Hossein Ribeiro MD [address] [id number] Referring Physician Neurology 09/21/19 Rashid Gaffney MD [address] [place] [address] Consulting Physician Rheumatology 04/24/23 Dereck Bowden MD [address] [place] [address] Referring Physician Pain Management 01/10/25 documented as of this encounter
--- OUTSIDE RECORDS SUMMARY | 2025-02-28 12:37 | XMS_ITS | Clinical Summary ---
Author Organization [facility] Address [address] [place] [address] Care Team Providers Care Soft Work Wrapper Examiner Name Role Phone Provider, Abstract Primary Care [...] Comments Blood Pressure 139/87 06/25/2018 9:01 AM DAIRY STORE MANAGER Pulse 74 06/25/2018 9:01 AM DAIRY STORE MANAGER Temperature 36.8 C (98.2 F) 06/25/2018 9:01 AM DAIRY STORE MANAGER Respiratory Rate 17 06/25/2018 9:01 AM DAIRY STORE MANAGER Oxygen Saturation 97% 06/25/2018 9:01 AM DAIRY STORE MANAGER Inhaled Oxygen Concentration - - Weight 76 kg (167 lb 8 oz) 06/25/2018 9:01 AM CS T Height 160 cm (5' 3) 06/25/2018 9:01 AM DAIRY STORE MANAGER Body Mass Index 29.67 06/25/2018 9:01 AM DAIRY STORE MANAGER Plan of Treatment Health Maintenance Due Date [...] 02/22/2016 02/21/2015 INFLUENZA VACCINE (#1) [address] [facility] Care Teams Soft Work Wrapper Examiner Relationship Specialty Start Date End Date Provider, Abstract NO ADDRESS ON FILE PCP - General 06/25/18
== END 2025-02-28 12:31 | disposition home or self-care (01) ==
PROVIDERS: PCP Family Medicine; Visit Provider Nurse Practitioner Adult Health
DX: M47.814 Spondylosis without myelopathy or radiculopathy, thoracic region (principal); M43.16 Spondylolisthesis, lumbar region; M47.812 Spondylosis without myelopathy or radiculopathy, cervical region; M47.817 Spondylosis without myelopathy or radiculopathy, lumbosacral region
CPT/HCPCS: 72052; 72114

== ENCOUNTER 2025-03-29 11:14 | Outpatient (CLI) | payer OTHER, SELFPAY ==
--- NOTE | ~2025-03-29 | DEXA_ITS ---
Bone Density Report Name: MELVI HUNTER Age: 65 Sex: Female Ethnicity: White Date of : 1960 Indication: postmenopausal; screening for osteoporosis; height loss; prior fracture; rheumatoid arthritis; Referring Provider: EFRAIN, NOEMI Davies Study: Bone densitometry was performed. Exam Date: March 29, 2025 Accession number: [id number] Bone Density: Region BMD T-score Z-score Classification AP Spine(L1-L4) 0.925 -1.1 0.5 Osteopenia Femoral Neck (Left) 0.692 -1.4 0.0 Osteopenia Total Hip (Left) 0.891 -0.4 0.7 Normal Femoral Neck (Right) 0.794 -0.5 0.9 Normal Total Hip (Right) 0.951 0.1 1.2 Normal Femoral Neck Mean 0.743 -1.0 0.5 Normal Total Hip Mean 0.921 -0.2 1.0 Normal World Health Organization criteria for BMD impression classify patients as: Normal (T-score at or above -1.0), Osteopenia (T-score between -1.0 and -2.5), or Osteoporosis (T-score at or below -2.5). 10-year Fracture Risk: FRAX not reported because: Prior hip or vertebral fracture Clinical Information Provided by Patient: Have had a previous hip or vertebral fracture Has had a low trauma fracture Has rheumatoid arthritis Has used the following medications: Vitamin D Patient maximum height was 64 No regular weight bearing exercise Does not regularly consume dairy products Drinks caffeinated beverages Onset of menses at age 15 Number of children 2 Impression: The patient has low bone mass, based on the Left Femoral Neck T-score. The patient has risk factors, including: previous fracture. Discussion: INCREASED RISK OF FRACTURE DUE TO HISTORY OF FRACTURE. The patient's previous fracture puts the patient at high risk of a future fracture. In untreated patients, the risk of osteoporotic fracture increases approximately two-fold for each 1.0 SD decrease in T-score. Low bone density is not the only risk factor for fracture; also consider factors such as patient's age, frailty or poor health, risk of falling, risk of injury, previous osteoporotic fracture, family history of osteoporosis, cigarette smoking, low body weight, etc. Not everyone with a low trauma fracture has osteoporosis; osteomalacia and other metabolic bone disorders should also be considered. Patients who have osteoporosis should be evaluated for specific diseases and conditions (secondary causes) that may cause or contribute to bone loss and fracture risk. National Osteoporosis Foundation (NOF) recommends pharmacologic intervention for patients with a prior hip or vertebral fracture regardless of BMD T-score. The patient should follow a healthful lifestyle (good nutrition with adequate calcium and vitamin D, and appropriate weight-bearing exercise). Follow-Up: Consider a repeat BMD and Vertebral Fracture Assessment (VFA) exam in 2 years or sooner if medically necessary, to reassess this patient's status. Reported by: SERGIO on 03/29/2025 11:38:00 AM. Reviewed, dictated and finalized at location A.
== END 2025-03-29 11:15 | disposition home or self-care (01) ==
LOC: CHSIMG 11:16
PROVIDERS: PCP Family Medicine; Visit Provider Physician Assistant
DX: Z78.0 Asymptomatic menopausal state (principal); M32.9 Systemic lupus erythematosus, unspecified; M05.9 Rheumatoid arthritis with rheumatoid factor, unspecified; Z79.899 Other long term (current) drug therapy; S12.9XXD Fracture of neck, unspecified, subsequent encounter; M85.89 Other specified disorders of bone density and structure, multiple sites
CPT/HCPCS: 77080